=== PATIENT | female | born 1940 | race Caucasian/White ===

== ENCOUNTER 2016-05-11 12:01 | Emergency (ER) | payer MEDICARE, OTHER ==
[2016-05-11 12:10] VITALS: TEMP 97.8
[2016-05-11 13:24] VITALS: RESP 18
[2016-05-11 13:26] LABS: Basophils % (A) 1 %; Eosinophils # (A) 0.1 k/uL (0-0.7); Eosinophils % (A) 2 %; HCT 41.3 % (34.0-46.0); HDW 2.73; Luc # (Auto) 0.08; Luc % (Auto) 2; Lymphocytes % (A) 28 %; MCH 29.6 pg (25.0-35.0); MCHC 31.3 g/dL (31.0-37.0); MCV 94.3 fL (80.0-100.0); Mean Platelet Volume 8.3; Monocytes # (A) 0.2 k/uL (0-1.0); Monocytes % (A) 5 %; Neutrophils # (A) 2.3 k/uL (1.3-7.7); Neutrophils % (A) 62 %; RBC 4.38 m/uL (3.80-5.40); RDW 14.2 % (11.5-15.5); WBC 3.8 k/uL (3.8-10.6); WBC (Perox) 3.87
--- NOTE | 2016-05-11 13:26 | XR ---
EXAMINATION TYPE: XR chest 1V portable DATE OF EXAM: 05/11/2016 1:22 PM COMPARISON: 10/29/2012 HISTORY: Chest pain TECHNIQUE: Single frontal view of the chest is obtained. FINDINGS: Heart and mediastinum are normal. Lungs are clear. Diaphragm is normal. There are chest le ads. Bony thorax is intact. IMPRESSION: Normal chest. No change.
[2016-05-11 13:36] LABS: INR 1.3 (<1.1); Partial Thromboplastin Time 42.5 sec (22.0-30.0); Prothrombin Time 12.9 sec (9.0-12.0)
[2016-05-11 13:40] LABS: Appearance,Urine Clear (Clear); Bilirubin,Urine Negative (Negative); Glucose,Urine (UA) Negative (Negative); Ketones,Urine Negative (Negative); Leukocyte Esterase,Urine Negative (Negative); Nitrite,Urine Negative (Negative); PH, Urine 7.5 (5.0-8.0); Protein,Urine Negative (Negative); Specific Gravity,Urine 1.003 (1.001-1.035); UA Billing (MACRO vs. MICRO) CHEM; Urobilinogen,Urine <2.0 mg/dL (<2.0)
[2016-05-11 13:41] LABS: ALT 49 U/L (9-52); AST 33 U/L (14-36); Alkaline Phosphatase 72 U/L (38-126); Amylase 39 U/L (30-110); Anion Gap 9 mmol/L; Blood Urea Nitrogen 12 mg/dL (7-17); Calcium 9.2 mg/dL (8.4-10.2); Carbon Dioxide 29 mmol/L (22-30); Chloride 103 mmol/L (98-107); Glucose 110 mg/dL (74-99); Magnesium 1.8 mg/dL (1.6-2.3); Non-African American GFR(MDRD) 54 (>60 ml/min/1.73 sqM); Sodium 141 mmol/L (137-145); Total Bilirubin 0.7 mg/dL (0.2-1.3); Total Protein 7.1 g/dL (6.3-8.2)
[2016-05-11 13:52] LABS: Creatine Kinase 51 U/L (30-135)
[2016-05-11 14:04] LABS: Creatine Kinase MB 0.6 ng/mL (0.0-2.4); Troponin I <0.012 ng/mL (0.000-0.034)
[2016-05-11] MEDS ORDERED: cloNIDine HCL 0.2 MG TAB PO STA (14:48)
--- NOTE | 2016-05-11 14:49 | ED ---
General Adult HPI - General Chief complaint: Recheck/Abnormal Lab/Rx Stated complaint: Hypertension Time Seen by Provider: 05/11/16 12:33 Source: patient Mode of arrival: ambulatory Limitations: no limitations - History of Present Illness Initial comments: Patient 75-year-old woman who presents with complaint that she had checked her blood pressure and found that it was elevated. Patient denying symptoms. No chest pain or shortness of breath. No headache or strokelike symptoms. No abdominal pain. Patient notes that her blood pressure 1 trending high lately. -: hour(s) Improves with: none Worsens with: none Associated Symptoms: denies other symptoms - Related Data Home Medications Medication Instructions Recorded Confirmed Gluc/Manfred-MSM#1/C/Rishabh/Alan/Bor 1 tab PO DAILY 09/01/14 05/11/16 [Glucosamine-Chondroitin Tablet] Multivit-Min/FA/Lycopene/Lut 1 tab PO DAILY 09/01/14 05/11/16 [Centrum Silver Tablet] traMADol HCl [Ultram] 50 mg PO Q6H PRN 09/01/14 05/11/16 Dabigatran [Pradaxa] 150 mg PO BID 09/06/14 05/11/16 Levothyroxine Sodium [Synthroid] 88 mcg PO DAILY 07/16/15 05/11/16 Losartan [Cozaar] 25 mg PO DAILY 03/03/16 05/11/16 Pravastatin Sodium [Pravachol] 40 mg PO HS 03/03/16 05/11/16 Vit C/E/Zn/Coppr/Lutein/Zeaxan 1 cap PO BID 03/03/16 05/11/16 [Preservision Areds 2 Softgel] Vitamin B Complex 1 cap PO DAILY 03/03/16 05/11/16 Cholecalciferol [Vitamin D3] 400 unit PO DAILY 05/11/16 05/11/16 Fluticasone Nasal [place] [Flonase 2 spr EA NOSTRIL DAILY PRN 05/11/16 05/11/16 Nasal [place]] Guaifenesin/Pseudoephedrne HCl 1 tab PO BID PRN 05/11/16 05/11/16 [Mucinex D ER 1,200-120 mg Tab] Previous Rx's Medication Instructions Recorded Hydrochlorothiazide 12.5 mg PO DAILY #14 capsule 05/11/16 Allergies Allergy/AdvReac Type Severity Reaction Status Date / Time Sulfa (Sulfonamide Allergy Unknown Verified 05/11/16 13:13 Antibiotics) Childhood atorvastatin calcium AdvReac Dizziness Verified 05/11/16 13:13 [From Lipitor] levofloxacin [From Levaquin] AdvReac joint pain Verified 05/11/16 13:13 Review of Systems ROS Statement: Those systems with pertinent positive or pertinent negative responses have been documented in the HPI. ROS Other: All systems not noted in ROS Statement are negative. Constitutional: Denies: fever, chills Eyes: Denies: vision change Respiratory: Denies: cough, dyspnea Cardiovascular: Denies: chest pain, palpitations, syncope Gastrointestinal: Denies: abdominal pain, vomiting Genitourinary: Denies: dysuria Musculoskeletal: Denies: back pain Neurological: Denies: headache, weakness, numbness, paresthesias Past Medical History Past Medical History: Atrial Fibrillation, Coronary Artery Disease (CAD), Hyperlipidemia, Hypertension Additional Past Medical History / Comment(s): cervical cancer. History of Any Multi-Drug Resistant Organisms: None Reported Past Surgical History: Cardiac Ablation, Heart Catheterization, Hysterectomy, Orthopedic Surgery Additional Past Surgical History / Comment(s): Asya cataracts, ORIF rt ankle, rt heel & asya eyelid lift. Past Anesthesia/Blood Transfusion Reactions: No Reported Reaction Past Psychological History: No Psychological Hx Reported Smoking Status: Former smoker Past Alcohol Use History: None Reported Additional Past Alcohol Use History / Comment(s): Quit smoking in 1990, smoked 1 PPD for 34 yrs. Past Drug Use History: None Reported - Past Family History Father Family Medical History: Cancer Additional Family Medical History / Comment(s): Throat General Exam Limitations: no limitations General appearance: alert, in no apparent distress Head exam: Present: atraumatic Respiratory exam: Present: normal lung sounds bilaterally. Absent: respiratory distress, wheezes, rales, rhonchi, stridor Cardiovascular Exam: Present: regular rate, normal rhythm, normal heart sounds. Absent: systolic murmur, diastolic murmur, rubs, gallop GI/Abdominal exam: Present: soft. Absent: distended, tenderness, guarding, rebound Extremities exam: Present: normal inspection, normal capillary refill. Absent: pedal edema, calf tenderness Back exam: Absent: CVA tenderness (R), CVA tenderness (L) Neurological exam: Present: alert, oriented X3, CN II-XII intact Skin exam: Present: warm, dry, intact, normal color. Absent: rash Course Vital Signs 05/11/16 05/11/16 05/11/16 12:06 12:34 12:46 Temperature 97.8 F Pulse Rate 59 L 58 L Pulse Rate [ 62 [employer] ] Respiratory 20 14 Rate Blood Pressure 231/93 222/98 O2 Sat by Pulse 97 98 Oximetry 05/11/16 05/11/16 05/11/16 13:17 15:05 15:40 Temperature Pulse Rate 53 L 62 50 L Pulse Rate [ [employer] ] Respiratory 18 18 18 Rate Blood Pressure 216/93 196/88 188/84 O2 Sat by Pulse 98 98 100 Oximetry Medical Decision Making - Lab Data Result diagrams: 05/11/16 12:45 05/11/16 12:45 Lab Results 05/11/16 05/11/16 05/11/16 Range/Units 12:45 12:45 12:45 WBC 3.8 (3.8-10.6) k/uL RBC 4.38 (3.80-5.40) m/uL Hgb 13.0 (11.4-16.0) gm/dL Hct 41.3 (34.0-46.0) % MCV 94.3 (80.0-100.0) fL MCH 29.6 (25.0-35.0) pg MCHC 31.3 (31.0-37.0) g/dL RDW 14.2 (11.5-15.5) % Plt Count 162 (150-450) k/uL Neutrophils % 62 % Lymphocytes % 28 % Monocytes % 5 % Eosinophils % 2 % Basophils % 1 % Neutrophils # 2.3 (1.3-7.7) k/uL Lymphocytes # 1.0 (1.0-4.8) k/uL Monocytes # 0.2 (0-1.0) k/uL Eosinophils # 0.1 (0-0.7) k/uL Basophils # 0.0 (0-0.2) k/uL PT (9.0-12.0) sec INR (<1.1) APTT (22.0-30.0) sec Sodium 141 (137-145) mmol/L Potassium 4.0 (3.5-5.1) mmol/L Chloride 103 (98-107) mmol/L Carbon Dioxide 29 (22-30) mmol/L Anion Gap 9 mmol/L BUN 12 (7-17) mg/dL Creatinine 1.00 (0.52-1.04) mg/dL Est GFR (MDRD) Af Amer >60 (>60 ml/min/1.73 sqM) Est GFR (MDRD) Non-Af 54 (>60 ml/min/1.73 sqM) Glucose 110 H (74-99) mg/dL Calcium 9.2 (8.4-10.2) mg/dL Magnesium 1.8 (1.6-2.3) mg/dL Total Bilirubin 0.7 (0.2-1.3) mg/dL AST 33 (14-36) U/L ALT 49 (9-52) U/L Alkaline Phosphatase 72 (38-126) U/L Total Creatine Kinase 51 (30-135) U/L CK-MB (CK-2) 0.6 (0.0-2.4) ng/mL CK-MB (CK-2) Rel Index 1.2 Troponin I <0.012 (0.000-0.034) ng/mL NT-Pro-B Natriuret Pep pg/mL Total Protein 7.1 (6.3-8.2) g/dL Albumin 4.2 (3.5-5.0) g/dL Amylase 39 (30-110) U/L Lipase 134 (23-300) U/L Urine Color Urine Appearance (Clear) Urine pH (5.0-8.0) Ur Specific [place] (1.001-1.035) Urine Protein (Negative) Urine Glucose (UA) (Negative) Urine Ketones (Negative) Urine Blood (Negative) Urine Nitrate (Negative) Urine Bilirubin (Negative) Urine Urobilinogen (<2.0) mg/dL Ur Leukocyte Esterase (Negative) 05/11/16 05/11/16 05/11/16 Range/Units 12:45 12:45 13:25 WBC (3.8-10.6) k/uL RBC (3.80-5.40) m/uL Hgb (11.4-16.0) gm/dL Hct (34.0-46.0) % MCV (80.0-100.0) fL MCH (25.0-35.0) pg MCHC (31.0-37.0) g/dL RDW (11.5-15.5) % Plt Count (150-450) k/uL Neutrophils % % Lymphocytes % % Monocytes % % Eosinophils % % Basophils % % Neutrophils # (1.3-7.7) k/uL Lymphocytes # (1.0-4.8) k/uL Monocytes # (0-1.0) k/uL Eosinophils # (0-0.7) k/uL Basophils # (0-0.2) k/uL PT 12.9 H (9.0-12.0) sec INR 1.3 (<1.1) APTT 42.5 H (22.0-30.0) sec Sodium (137-145) mmol/L Potassium (3.5-5.1) mmol/L Chloride (98-107) mmol/L Carbon Dioxide (22-30) mmol/L Anion Gap mmol/L BUN (7-17) mg/dL Creatinine (0.52-1.04) mg/dL Est GFR (MDRD) Af Amer (>60 ml/min/1.73 sqM) Est GFR (MDRD) Non-Af (>60 ml/min/1.73 sqM) Glucose (74-99) mg/dL Calcium (8.4-10.2) mg/dL Magnesium (1.6-2.3) mg/dL Total Bilirubin (0.2-1.3) mg/dL AST (14-36) U/L ALT (9-52) U/L Alkaline Phosphatase (38-126) U/L Total Creatine Kinase (30-135) U/L CK-MB (CK-2) (0.0-2.4) ng/mL CK-MB (CK-2) Rel Index Troponin I (0.000-0.034) ng/mL NT-Pro-B Natriuret Pep 353 pg/mL Total Protein (6.3-8.2) g/dL Albumin (3.5-5.0) g/dL Amylase (30-110) U/L Lipase (23-300) U/L Urine Color Light Yellow Urine Appearance Clear (Clear) Urine pH 7.5 (5.0-8.0) Ur Specific [place] 1.003 (1.001-1.035) Urine Protein Negative (Negative) Urine Glucose (UA) Negative (Negative) Urine Ketones Negative (Negative) Urine Blood Negative (Negative) Urine Nitrate Negative (Negative) Urine Bilirubin Negative (Negative) Urine Urobilinogen <2.0 (<2.0) mg/dL Ur Leukocyte Esterase Negative (Negative) Disposition Clinical Impression: Hypertension Disposition: HOME SELF-CARE Condition: Fair Instructions: Hypertension (ED) Prescriptions: Hydrochlorothiazide 12.5 mg PO DAILY #14 capsule Referrals: Maribell Garsia DO [Primary Care Provider] - 1-2 days
[2016-05-11 15:57] VITALS: BP 188/84; PULSE 50
== END 2016-05-11 15:50 | disposition home or self-care (01) ==
LOC: EC 12:01
DX: I10 Essential (primary) hypertension (principal); I25.10 Atherosclerotic heart disease of native coronary artery without angina pectoris; E78.5 Hyperlipidemia, unspecified; Z87.891 Personal history of nicotine dependence; Z95.5 Presence of coronary angioplasty implant and graft; Z79.51 Long term (current) use of inhaled steroids; Z79.01 Long term (current) use of anticoagulants; Z79.899 Other long term (current) drug therapy; Z85.41 Personal history of malignant neoplasm of cervix uteri; Z88.2 Allergy status to sulfonamides; Z88.8 Allergy status to other drugs, medicaments and biological substances
CPT/HCPCS: 36415; 71010; 80053; 81003; 82150; 82550; 82553; 83690; 83735; 83880; 84484; 85025; 85610; 85730; 93005; 99283

== ENCOUNTER → 2016-05-28 | Outpatient (CLI) | payer MEDICARE, OTHER ==
[2016-05-28 07:26] LABS: Blood Urea Nitrogen 17 mg/dL (7-17); Non-African American GFR(MDRD) 58 (>60 ml/min/1.73 sqM)
--- NOTE | 2016-05-28 08:37 | CT ---
EXAMINATION TYPE: CT chest w con DATE OF EXAM: 05/28/2016 7:52 AM COMPARISON: 11/02/2015 HISTORY: pulmonary nodule CT DLP: 270.3 mGycm, Automated exposure control for dose reduction was used. CONTRAST: Performed injected with 80 ml mL of Visipaque 320. TECHNIQUE: Axial images were obtained at 5 mm thick sections. Reconstructed images are reviewed on [employer] computer in the coronal plane. FINDINGS: Portion of the thyroid visualized is normal. Below the thyroid in the vocal cords within the right paratracheal region there is some deviation of soft tissue extending into the trachea. Series 3 image 6. Some external compression of the trachea at this level may be present. No stenosis is evident. Some subtle pneumonitis is at the right apex. Series 4 image 14 some pneumonitis changes in the anter ior right upper lobe. Series 4 image 18. Small bulla is within the posterior right lower lobe. This w as present on comparison. No enlarged mediastinal or hilar adenopathy is evident. The ascending aorta diameter at the level o f the main pulmonary artery is 3.0 cm. The main pulmonary artery diameter at the bifurcation is 2.[address] sections are obtained through the upper abdomen. Abdomen is essentially unremarkable. IMPRESSIONS: 1. Couple areas of pneumonitis within the right lung. These are nonspecific. A follow-up chest CT in 6 months could reevaluate this finding. 2. Bulla right lower lobe. 3. Suspect minimal external compression of the trachea on the right at the level of the thoracic inle t. This was present previously and is stable.
== END | disposition home or self-care (01) ==
LOC: RADCTMAIN 06:54
PROVIDERS: ATTEND Family Medicine
DX: J18.9 Pneumonia, unspecified organism (principal); J43.9 Emphysema, unspecified; R07.81 Pleurodynia; R91.1 Solitary pulmonary nodule
CPT/HCPCS: 82565; 84520; 71260; 36415; Q9967

== ENCOUNTER 2016-06-12 14:44 | Emergency (ER) | payer MEDICARE, OTHER ==
--- NOTE | 2016-06-12 15:35 | ED ---
Fall HPI - General Chief Complaint: Fall Stated Complaint: Slip/Fall/Head Time Seen by Provider: 06/12/16 15:25 Source: patient Mode of arrival: wheelchair - History of Present Illness Initial Comments: This is a 76 year old female who is currently taking per DACs who presents emergency Department after a fall. The patient was at [facility] and she stated she slipped on a mat on the floor. She fell forwards and hit the top of her head on one of the merritt registers. She fell to her knees. She did not hit her head on the ground. She denies any loss of consciousness. She was able to get up and ambulate. She states that she does have little bit of a headache however no photophobia. No nausea or vomiting. She has a little bit of discomfort in her right back when she twists. She denies any other injuries. He had no preceding symptoms. She felt a little bit lightheaded afterwards and states that her neck feels a little bit stiff. No other complaints. - Related Data Home Medications Medication Instructions Recorded Confirmed Multivit-Min/FA/Lycopene/Lut 1 tab PO DAILY 09/01/14 06/12/16 [Centrum Silver Tablet] traMADol HCl [Ultram] 50 mg PO Q6H PRN 09/01/14 06/12/16 Dabigatran [Pradaxa] 150 mg PO BID 09/06/14 06/12/16 Levothyroxine Sodium [Synthroid] 88 mcg PO DAILY 07/16/15 06/12/16 Losartan [Cozaar] 25 mg PO DAILY 03/03/16 06/12/16 Pravastatin Sodium [Pravachol] 40 mg PO HS 03/03/16 06/12/16 Vit C/E/Zn/Coppr/Lutein/Zeaxan 1 cap PO BID 03/03/16 06/12/16 [Preservision Areds 2 Softgel] Vitamin B Complex 1 cap PO DAILY 03/03/16 06/12/16 Fluticasone Nasal [place] [Flonase 2 spr EA NOSTRIL DAILY PRN 05/11/16 06/12/16 Nasal [place]] Guaifenesin/Pseudoephedrne HCl 1 tab PO BID PRN 05/11/16 06/12/16 [Mucinex D ER 1,200-120 mg Tab] Fish Oil/Dha/Epa [Fish Oil 1,200 1 cap PO DAILY 06/12/16 06/12/16 mg Fish Oil] Allergies Allergy/AdvReac Type Severity Reaction Status Date / Time Sulfa (Sulfonamide Allergy Unknown Verified 06/12/16 15:43 Antibiotics) Childhood atorvastatin calcium AdvReac Dizziness Verified 06/12/16 15:43 [From Lipitor] levofloxacin [From Levaquin] AdvReac joint pain Verified 06/12/16 15:43 Review of Systems ROS Statement: Those systems with pertinent positive or pertinent negative responses have been documented in the HPI. ROS Other: All systems not noted in ROS Statement are negative. Past Medical History Past Medical History: Atrial Fibrillation, Coronary Artery Disease (CAD), Hyperlipidemia, Hypertension Additional Past Medical History / Comment(s): cervical cancer. History of Any Multi-Drug Resistant Organisms: None Reported Past Surgical History: Cardiac Ablation, Heart Catheterization, Hysterectomy, Orthopedic Surgery Additional Past Surgical History / Comment(s): [place] cataracts, ORIF rt ankle, rt heel & [place] eyelid lift. Past Anesthesia/Blood Transfusion Reactions: No Reported Reaction Past Psychological History: No Psychological Hx Reported Smoking Status: Former smoker Past Alcohol Use History: None Reported Additional Past Alcohol Use History / Comment(s): Quit smoking in 1990, smoked 1 PPD for 34 yrs. Past Drug Use History: None Reported - Past Family History Father Family Medical History: Cancer Additional Family Medical History / Comment(s): Throat General Exam - General Exam Comments Initial Comments: Constitutional: Awake alert Appears comfortable Head: No cephalic with a 4 cm oval hematoma to the right parietal scalp, there is an abrasion to the right forehead Eyes: no conjunctival injection No scleral icterus EOMI Neck: No JVD Supple Heart: Regular rate rhythm normal S1-S2 no murmurs Lungs: Clear to auscultation bilaterally No wheezing No rales, no tenderness to palpation along the chest wall Abdomen: Soft nondistended nontender Extremities: Non edematous DP pulses intact Radial pulses intact, small bruise to the right upper arm however full range of motion Neuro: A&Ox3 cranial nerves II through XII are grossly intact, pupils are 4 mm and reactive bilaterally, no focal weakness in the extremities Psych: Appropriate mood and affect Limitations: no limitations Course Vital Signs 06/12/16 14:47 Temperature 97.8 F Pulse Rate 57 L Respiratory 20 Rate Blood Pressure 201/80 O2 Sat by Pulse 98 Oximetry Medical Decision Making - Medical Decision Making This is a 76 year old female who presents emergency Department after a fall and head injury. The patient did not require any pain medication while emergency department. CT of the head was unremarkable for any intracranial hemorrhage. No fracture seen on cervical spine CTs. I told the patient that she likely has suffered a mild concussion and the symptoms to be aware of. I told her to to return if she had worsening headache, intractable nausea or vomiting, or any neurologic symptoms. She stated she understood and agreed and was going to follow-up with her primary doctor. She can take Tylenol as needed for pain. All questions were answered. Disposition Clinical Impression: Head injury Disposition: HOME SELF-CARE Condition: Stable Instructions: Fall Prevention for Older Adults (ED) Referrals: Kesha Graham DO [Primary Care Provider] - 1-2 days
--- NOTE | 2016-06-12 16:15 | CT ---
EXAMINATION TYPE: CT brain cspine wo con DATE OF EXAM: 06/12/2016 4:07 PM COMPARISON: 10/29/2012 HISTORY: PT states of head and neck pain after fall injury. CT DLP: 337.6 mGycm Automated exposure control for dose reduction was used. TECHNIQUE: CT scan of the head and cervical spine are performed without contrast. FINDINGS: There is no acute intracranial hemorrhage, mass effect, or midline shift identified. Mild generalized degenerative change seen. Hyperostosis frontalis internal noted. Atherosclerotic change of the vasculature There is a 2 mm anterior subluxation of C3 relative to C4 there is multilevel degenerative disc disea se and facet arthropathy with multilevel foraminal encroachment. No compression deformities. Odontoid intact. Emphysematous changes involving the lung apices noted. IMPRESSION: 1. There is no acute fracture or dislocation evident in the cervical spine. Multilevel degenerative d isc disease seen with 2 mm anterolisthesis of C3 on C4. Follow-up MRI recommended. 2. No acute intracranial hemorrhage, mass effect, or midline shift is seen.
--- NOTE | 2016-06-12 16:16 | XR ---
EXAMINATION TYPE: XR chest 2V DATE OF EXAM: 06/12/2016 4:10 PM COMPARISON: 05/11/2016 TECHNIQUE: PA and lateral views submitted. HISTORY: Chest pain FINDINGS: The lungs are clear and there is no pneumothorax, pleural effusion, or focal pneumonia. Arthropathy of the AC joints noted. Hypertrophic and degenerative change of the spine. IMPRESSION: 1. No acute process.
[2016-06-12 16:31] VITALS: BP 188/79; PULSE 59; RESP 16; TEMP 87.5
== END 2016-06-12 16:30 | disposition home or self-care (01) ==
LOC: EC 14:44
DX: S00.03XA Contusion of scalp, initial encounter (principal); S40.021A Contusion of right upper arm, initial encounter; M50.30 Other cervical disc degeneration, unspecified cervical region; M43.12 Spondylolisthesis, cervical region; I48.91 Unspecified atrial fibrillation; I25.10 Atherosclerotic heart disease of native coronary artery without angina pectoris; E78.5 Hyperlipidemia, unspecified; I10 Essential (primary) hypertension; Z85.41 Personal history of malignant neoplasm of cervix uteri; Z87.891 Personal history of nicotine dependence; Z87.720 Personal history of (corrected) congenital malformations of eye; Z95.818 Presence of other cardiac implants and grafts; Z79.899 Other long term (current) drug therapy; Z88.2 Allergy status to sulfonamides; Z88.8 Allergy status to other drugs, medicaments and biological substances; Z88.1 Allergy status to other antibiotic agents; W01.198A Fall on same level from slipping, tripping and stumbling with subsequent striking against other object, initial encounter; Y92.59 Other trade areas as the place of occurrence of the external cause
CPT/HCPCS: 70450; 71020; 72125; 99284

== ENCOUNTER 2016-11-04 21:23 | Inpatient (IN) | payer MEDICARE, OTHER ==
[2016-11-04] MEDS ORDERED: HYDROcodone/APAP 5-325MG 1 EACH TAB PO STA (21:54)
[2016-11-04] MEDS ORDERED: SODIUM CHLORIDE 0.9% 500 ML IV ONE (21:55)
[2016-11-04 22:14] LABS: Basophils % (A) 0 %; CH 31.8; CHCM 33.3; Eosinophils # (A) 0.2 k/uL (0-0.7); Eosinophils % (A) 2 %; HCT 40.7 % (34.0-46.0); HDW 2.59; HGB 13.5 gm/dL (11.4-16.0); Luc # (Auto) 0.04; Luc % (Auto) 0; Lymphocytes # (A) 0.5 k/uL (1.0-4.8); Lymphocytes % (A) 5 %; MCH 31.9 pg (25.0-35.0); MCHC 33.3 g/dL (31.0-37.0); Mean Platelet Volume 8.2; Monocytes # (A) 0.3 k/uL (0-1.0); Monocytes % (A) 3 %; Neutrophils # (A) 9.7 k/uL (1.3-7.7); Neutrophils % (A) 90 %; RBC 4.24 m/uL (3.80-5.40); RDW 14.1 % (11.5-15.5); WBC 10.7 k/uL (3.8-10.6); WBC (Perox) 10.27
[2016-11-04 22:26] LABS: ALT 39 U/L (9-52); AST 29 U/L (14-36); Alkaline Phosphatase 75 U/L (38-126); Anion Gap 7 mmol/L; Blood Urea Nitrogen 16 mg/dL (7-17); Calcium 8.8 mg/dL (8.4-10.2); Carbon Dioxide 28 mmol/L (22-30); Chloride 97 mmol/L (98-107); Glucose 101 mg/dL (74-99); INR 1.1 (<1.2); Magnesium 1.8 mg/dL (1.6-2.3); Non-African American GFR(MDRD) 50 (>60 ml/min/1.73 sqM); Partial Thromboplastin Time 34.6 sec (22.0-30.0); Phosphorous 3.2 mg/dL (2.5-4.5); Potassium 3.5 mmol/L (3.5-5.1); Prothrombin Time 11.5 sec (9.0-12.0); Sodium 132 mmol/L (137-145); Total Bilirubin 0.8 mg/dL (0.2-1.3); Total Protein 6.2 g/dL (6.3-8.2)
[2016-11-04 22:29] LABS: Appearance,Urine Clear (Clear); Bilirubin,Urine Negative (Negative); Glucose,Urine (UA) Negative (Negative); Ketones,Urine 1+ (Negative); Leukocyte Esterase,Urine Negative (Negative); Nitrite,Urine Negative (Negative); PH, Urine 5.5 (5.0-8.0); Protein,Urine Negative (Negative); Specific Gravity,Urine 1.008 (1.001-1.035); UA Billing (MACRO vs. MICRO) CHEM; Urobilinogen,Urine <2.0 mg/dL (<2.0)
[2016-11-04 22:35] LABS: Creatine Kinase 33 U/L (30-135)
[2016-11-04 22:47] LABS: Creatine Kinase MB 0.4 ng/mL (0.0-2.4); Troponin I <0.012 ng/mL (0.000-0.034)
[2016-11-04] MEDS: SODIUM CHLORIDE 0.9% 1,000 ML IV SCH (23:03)
--- NOTE | 2016-11-04 23:17 | XR ---
EXAM: XR Chest, 2 Views CLINICAL HISTORY: Weakness. TECHNIQUE: Frontal and lateral views of the chest. COMPARISON: Chest radiograph dated 06/12/16. FINDINGS: Lungs: Trace opacity at the left lung base, favoring subsegmental atelectasis. Otherwise clear lungs. Pleural space: No significant pleural effusion. No pneumothorax. Heart: Normal cardiac silhouette. Mediastinum: Unremarkable. IMPRESSION: 1. Trace opacity at the left lung base, favoring subsegmental atelectasis. 2. Otherwise, no significant interval change.
--- NOTE | 2016-11-04 23:48 | CT ---
EXAM: CT Head Without Intravenous Contrast CLINICAL HISTORY: Weakness. TECHNIQUE: Axial computed tomography images of the head/brain without intravenous contrast. Coronal and sagittal reformatted images were created and reviewed. CTDIvol is 60.30 mGy and DLP is 1002.[address] exam was performed using one or more of the following dose reduction techniques: automated exposure control, adjustment of the mA and/or kV according to patient size, and/or use of iterative reconstruction technique. COMPARISON: CT head dated 06/12/2016. FINDINGS: Brain: No acute intracranial hemorrhage, mass effect, midline shift or herniation. There are mild periventricular white matter hypodensities which are nonspecific but most likely represent chronic microangiopathic change. Ventricles: No ventriculomegaly. Bones/joints: Incidental hyperostosis frontalis interna. No acute fracture. Soft tissues: Unremarkable. Sinuses: Trace paranasal sinus and. No acute sinusitis. Mastoid air cells: Unremarkable as visualized. No mastoid effusion. IMPRESSION: No acute findings. No significant interval change.
[2016-11-05] MEDS ORDERED: NALOXONE 0.4 MG/ML 1 ML VIAL IV PRN (00:10)
[2016-11-05] MEDS ORDERED: ACETAMINOPHEN TAB 325 MG TAB PO PRN (00:10)
--- NOTE | 2016-11-05 00:22 | ED ---
General Adult HPI - General Chief complaint: Weakness Stated complaint: Vomiting/headache - Cardiac Pt Time Seen by Provider: 11/04/16 21:43 Source: patient, family, RN notes reviewed Mode of arrival: wheelchair Limitations: no limitations - History of Present Illness Initial comments: 76 yo female with history of hypothyroidism, A. fib, hypertension presents with a three-day history of generalized weakness and fatigue. She also reports is a left-sided headache. No recent trauma, however she does states she had left- sided head trauma approximately 3 months ago. She also reports a fever at home of 100.3 with chills and Reiger's. She was recently diagnosed with a urinary tract infection several days ago and started on Macrobid. She had one episode of nausea and vomiting. Denies diarrhea. Denies abdominal pain. Her last bowel movement was today. She states she did have some blood in her urine prior to the diagnosis of urinary tract infection. She denies current dysuria. She recently had her blood pressure medication increased about 3 days ago. - Related Data Home Medications Medication Instructions Recorded Confirmed Multivit-Min/FA/Lycopene/Lut 1 tab PO DAILY 09/01/14 11/04/16 [Centrum Silver Tablet] traMADol HCl [Ultram] 50 mg PO Q6H PRN 09/01/14 11/04/16 Dabigatran [Pradaxa] 150 mg PO BID 09/06/14 11/04/16 Pravastatin Sodium [Pravachol] 40 mg PO HS 03/03/16 11/04/16 Vitamin B Complex 1 cap PO DAILY 03/03/16 11/04/16 Fluticasone Nasal [place] [Flonase 2 spr EA NOSTRIL DAILY PRN 05/11/16 11/04/16 Nasal [place]] Guaifenesin/Pseudoephedrne HCl 1 tab PO BID PRN 05/11/16 11/04/16 [Mucinex D ER 1,200-120 mg Tab] Cartilage/Collagen/Bor/Hyalur 1 tab PO DAILY 11/04/16 11/04/16 [Move Free Ultra Tablet] Cetirizine HCl [Zyrtec] 10 mg PO HS 11/04/16 11/04/16 Flecainide [Tambocor] 50 mg PO BID 11/04/16 11/04/16 Levothyroxine Sodium [Synthroid] 100 mcg PO DAILY 11/04/16 11/04/16 Losartan Potassium [Cozaar] 100 mg PO DAILY 11/04/16 11/04/16 Vit A/Vit C/Vit E/Zinc/Copper 1 cap PO BID 11/04/16 11/04/16 [ICAPS SOFTGEL] Vitamin D3 500iu 500 units PO BID 11/04/16 11/04/16 Allergies Allergy/AdvReac Type Severity Reaction Status Date / Time Sulfa (Sulfonamide Allergy Unknown Verified 11/04/16 22:02 Antibiotics) Childhood atorvastatin calcium AdvReac Dizziness Verified 11/04/16 22:02 [From Lipitor] levofloxacin [From Levaquin] AdvReac joint pain Verified 11/04/16 22:02 Review of Systems ROS Statement: Those systems with pertinent positive or pertinent negative responses have been documented in the HPI. ROS Other: All systems not noted in ROS Statement are negative. Past Medical History Past Medical History: Atrial Fibrillation, Coronary Artery Disease (CAD), Hyperlipidemia, Hypertension Additional Past Medical History / Comment(s): cervical cancer. History of Any Multi-Drug Resistant Organisms: None Reported Past Surgical History: Cardiac Ablation, Heart Catheterization, Hysterectomy, Orthopedic Surgery Additional Past Surgical History / Comment(s): [place] cataracts, ORIF rt ankle, rt heel & [place] eyelid lift. Past Anesthesia/Blood Transfusion Reactions: No Reported Reaction Past Psychological History: No Psychological Hx Reported Smoking Status: Former smoker Past Alcohol Use History: None Reported Past Drug Use History: None Reported - Past Family History Father Family Medical History: Cancer Additional Family Medical History / Comment(s): Throat General Exam Limitations: no limitations General appearance: alert, in no apparent distress Head exam: Present: atraumatic, normocephalic Eye exam: Present: normal appearance, PERRL. Absent: scleral icterus ENT exam: Present: normal exam, mucous membranes dry Neck exam: Present: normal inspection. Absent: meningismus Respiratory exam: Present: normal lung sounds bilaterally. Absent: respiratory distress, wheezes Cardiovascular Exam: Present: regular rate, normal rhythm GI/Abdominal exam: Present: soft. Absent: distended, tenderness Extremities exam: Present: normal inspection, normal capillary refill. Absent: pedal edema Neurological exam: Present: alert, oriented X3, CN II-XII intact. Absent: motor sensory deficit Psychiatric exam: Present: normal affect, normal mood Skin exam: Present: warm, dry. Absent: cyanosis, diaphoretic Course Vital Signs 11/04/16 11/04/16 11/04/16 21:34 21:48 22:21 Temperature 98.3 F 98.6 F Pulse Rate 73 84 82 Respiratory 18 18 18 Rate Blood Pressure 187/78 191/80 182/74 O2 Sat by Pulse 99 98 97 Oximetry 11/04/16 23:07 Temperature 98.9 F Pulse Rate 83 Respiratory 18 Rate Blood Pressure 145/66 O2 Sat by Pulse 100 Oximetry - Reevaluation(s) Reevaluation #1: 11/05/16 00:17 On reevaluation patient continues to have left-sided headache, however she is refusing pain medication. EKG Findings - EKG Comments: EKG Findings:: EKG shows normal sinus rhythm with a ventricular rate is 79, W[place] interval 184, QRS duration 100, QTC [address] segment elevation or depression Medical Decision Making - Medical Decision Making 76 yo female presenting with generalized weakness, fever, right ribs and chills and one episode of vomiting. She was recently diagnosed with UTI. Chest x-ray shows some mild atelectasis, no focal pneumonia. CT head was obtained for left- sided headache on Pradaxa with no sign of intracranial hemorrhage. Laboratory studies revealed a mild elevated white blood cell count at 10.7, urinalysis is negative for signs of infection, there is ketones suggesting dehydration, and the patient is currently on Macrobid for UTI. Even her history of fever chills and Lit's there is concern for sepsis, or underlying bacteremia. Patient's vital signs do not point toward sepsis at this time, and urinalysis is negative. Patient does still appear to be dehydrated, she will be placed in observation for fluid hydration, antibiotics will be continued for urinary tract infection. Urine culture and blood cultures are pending. Serum creatinine is 1.07, sodium is 132. Patient will be admitted for IV hydration and reevaluation. Diagnosis: dehydration, UTI - Lab Data Result diagrams: 11/04/16 21:58 11/04/16 21:58 Lab Results 11/04/16 11/04/16 11/04/16 Range/Units 21:58 21:58 21:58 WBC 10.7 H (3.8-10.6) k/uL RBC 4.24 (3.80-5.40) m/uL Hgb 13.5 (11.4-16.0) gm/dL Hct 40.7 (34.0-46.0) % MCV 96.0 (80.0-100.0) fL MCH 31.9 (25.0-35.0) pg MCHC 33.3 (31.0-37.0) g/dL RDW 14.1 (11.5-15.5) % Plt Count 193 (150-450) k/uL Neutrophils % 90 % Lymphocytes % 5 % Monocytes % 3 % Eosinophils % 2 % Basophils % 0 % Neutrophils # 9.7 H (1.3-7.7) k/uL Lymphocytes # 0.5 L (1.0-4.8) k/uL Monocytes # 0.3 (0-1.0) k/uL Eosinophils # 0.2 (0-0.7) k/uL Basophils # 0.0 (0-0.2) k/uL PT (9.0-12.0) sec INR (<1.2) APTT (22.0-30.0) sec Sodium 132 L (137-145) mmol/L Potassium 3.5 (3.5-5.1) mmol/L Chloride 97 L (98-107) mmol/L Carbon Dioxide 28 (22-30) mmol/L Anion Gap 7 mmol/L BUN 16 (7-17) mg/dL Creatinine 1.07 H (0.52-1.04) mg/dL Est GFR (MDRD) Af Amer >60 (>60 ml/min/1.73 sqM) Est GFR (MDRD) Non-Af 50 (>60 ml/min/1.73 sqM) Glucose 101 H (74-99) mg/dL Plasma Lactic Acid [place] (0.7-2.0) mmol/L Calcium 8.8 (8.4-10.2) mg/dL Phosphorus 3.2 (2.5-4.5) mg/dL Magnesium 1.8 (1.6-2.3) mg/dL Total Bilirubin 0.8 (0.2-1.3) mg/dL AST 29 (14-36) U/L ALT 39 (9-52) U/L Alkaline Phosphatase 75 (38-126) U/L Total Creatine Kinase 33 (30-135) U/L CK-MB (CK-2) 0.4 (0.0-2.4) ng/mL CK-MB (CK-2) Rel Index 1.2 Troponin I <0.012 (0.000-0.034) ng/mL Total Protein 6.2 L (6.3-8.2) g/dL Albumin 3.9 (3.5-5.0) g/dL TSH 1.050 (0.465-4.680) mIU/L Urine Color Urine Appearance (Clear) Urine pH (5.0-8.0) Ur Specific [place] (1.001-1.035) Urine Protein (Negative) Urine Glucose (UA) (Negative) Urine Ketones (Negative) Urine Blood (Negative) Urine Nitrite (Negative) Urine Bilirubin (Negative) Urine Urobilinogen (<2.0) mg/dL Ur Leukocyte Esterase (Negative) 11/04/16 11/04/16 11/04/16 Range/Units 21:58 21:58 22:18 WBC (3.8-10.6) k/uL RBC (3.80-5.40) m/uL Hgb (11.4-16.0) gm/dL Hct (34.0-46.0) % MCV (80.0-100.0) fL MCH (25.0-35.0) pg MCHC (31.0-37.0) g/dL RDW (11.5-15.5) % Plt Count (150-450) k/uL Neutrophils % % Lymphocytes % % Monocytes % % Eosinophils % % Basophils % % Neutrophils # (1.3-7.7) k/uL Lymphocytes # (1.0-4.8) k/uL Monocytes # (0-1.0) k/uL Eosinophils # (0-0.7) k/uL Basophils # (0-0.2) k/uL PT 11.5 (9.0-12.0) sec INR 1.1 (<1.2) APTT 34.6 H (22.0-30.0) sec Sodium (137-145) mmol/L Potassium (3.5-5.1) mmol/L Chloride (98-107) mmol/L Carbon Dioxide (22-30) mmol/L Anion Gap mmol/L BUN (7-17) mg/dL Creatinine (0.52-1.04) mg/dL Est GFR (MDRD) Af Amer (>60 ml/min/1.73 sqM) Est GFR (MDRD) Non-Af (>60 ml/min/1.73 sqM) Glucose (74-99) mg/dL Plasma Lactic Acid Loyd 0.7 (0.7-2.0) mmol/L Calcium (8.4-10.2) mg/dL Phosphorus (2.5-4.5) mg/dL Magnesium (1.6-2.3) mg/dL Total Bilirubin (0.2-1.3) mg/dL AST (14-36) U/L ALT (9-52) U/L Alkaline Phosphatase (38-126) U/L Total Creatine Kinase (30-135) U/L CK-MB (CK-2) (0.0-2.4) ng/mL CK-MB (CK-2) Rel Index Troponin I (0.000-0.034) ng/mL Total Protein (6.3-8.2) g/dL Albumin (3.5-5.0) g/dL TSH (0.465-4.680) mIU/L Urine Color Yellow Urine Appearance Clear (Clear) Urine pH 5.5 (5.0-8.0) Ur Specific [place] 1.008 (1.001-1.035) Urine Protein Negative (Negative) Urine Glucose (UA) Negative (Negative) Urine Ketones 1+ H (Negative) Urine Blood Negative (Negative) Urine Nitrite Negative (Negative) Urine Bilirubin Negative (Negative) Urine Urobilinogen <2.0 (<2.0) mg/dL Ur Leukocyte Esterase Negative (Negative) Disposition Clinical Impression: Dehydration, Hyponatremia, UTI (urinary tract infection) Disposition: ADMITTED IP TO THIS [facility] Condition: Stable Referrals: Kesha Graham DO [Primary Care Provider] - 1-2 days Time of Disposition: 00:00 Decision to Admit Reason: Admit from EC Decision Date: 11/05/16 Decision Time: 00:00
[2016-11-05] MEDS ORDERED: FLUTICASONE 50MCG/SPRAY NASAL 16GM EA NOSTRIL PRN (07:03)
[2016-11-05] MEDS ORDERED: traMADol 50 MG TAB PO PRN (07:03)
[2016-11-05 08:14] VITALS: PULSE 67; RESP 16
[2016-11-05] MEDS ORDERED: VIT A,C & E-LUTEIN-MINERALS 1 EACH TAB PO SCH (09:00)
[2016-11-05] MEDS ORDERED: LOSARTAN 50 MG TAB PO SCH (09:00)
[2016-11-05] MEDS ORDERED: B COMPLEX-VIT C-VIT E-ZINC 1 EACH TAB PO SCH (09:00)
[2016-11-05] MEDS ORDERED: DABIGATRAN 150 MG CAP PO SCH (09:00)
[2016-11-05] MEDS ORDERED: CHOLECALCIFEROL 400 UNIT TAB PO SCH (09:00)
[2016-11-05] MEDS ORDERED: [UNRECOGNIZED DRUG - REMARK] PO SCH (09:00)
[2016-11-05] MEDS ORDERED: FLECAINIDE 50 MG TAB PO SCH (09:00)
--- NOTE | 2016-11-05 09:50 | P.HPIM ---
History of Present Illness H&P Date: 11/05/16 Chief Complaint: Severe headache dehydration Patient is a 76-year-old female who presented to [facility] emergency room with the chief complaint of severe headache in the back of her head. She also had a febrile illness with low-grade fever and chills. She was evaluated in the emergency room, she has known history of atrial fibrillation and is maintained on Pradaxa. Computed tomography scan of the brain was done in the emergency room and there was no evidence of any intracranial bleeding. Patient is being treated by her primary care physician for a urinary tract infection with Macrobid, she had evidence of dehydration on presentation was positive ketones and hyponatremia, she was admitted for hydration and monitoring. Chest x-ray was done in the emergency room and did not reveal any evidence of pneumonia. She was started on IV fluid and IV Rocephin 1 g every 24 hours and was admitted to medical floor. Past Medical History Past Medical History: Atrial Fibrillation, Coronary Artery Disease (CAD), Hyperlipidemia, Hypertension Additional Past Medical History / Comment(s): cervical cancer. History of Any Multi-Drug Resistant Organisms: None Reported Past Surgical History: Cardiac Ablation, Heart Catheterization, Hysterectomy, Orthopedic Surgery Additional Past Surgical History / Comment(s): [place] cataracts, ORIF rt ankle, rt heel & [place] eyelid lift. Past Anesthesia/Blood Transfusion Reactions: No Reported Reaction Past Psychological History: No Psychological Hx Reported Smoking Status: Former smoker Past Alcohol Use History: None Reported Additional Past Alcohol Use History / Comment(s): Quit smoking in 1990, smoked 1 PPD for 34 yrs. Past Drug Use History: None Reported - Past Family History Father Family Medical History: Cancer Additional Family Medical History / Comment(s): Throat Medications and Allergies Home Medications Medication Instructions Recorded Confirmed Type Multivit-Min/FA/Lycopene/Lut 1 tab PO DAILY 09/01/14 11/04/16 History [Centrum Silver Tablet] traMADol HCl [Ultram] 50 mg PO Q6H PRN 09/01/14 11/04/16 History Dabigatran [Pradaxa] 150 mg PO BID 09/06/14 11/04/16 History Pravastatin Sodium [Pravachol] 40 mg PO HS 03/03/16 11/04/16 History Vitamin B Complex 1 cap PO DAILY 03/03/16 11/04/16 History Fluticasone Nasal [place] [Flonase 2 spr EA NOSTRIL DAILY PRN 05/11/16 11/05/16 History Nasal [place]] Cartilage/Collagen/Bor/Hyalur 1 tab PO DAILY 11/04/16 11/04/16 History [Move Free Ultra Tablet] Cetirizine HCl [Zyrtec] 10 mg PO HS 11/04/16 11/04/16 History Flecainide [Tambocor] 50 mg PO BID 11/04/16 11/04/16 History Levothyroxine Sodium [Synthroid] 100 mcg PO DAILY 11/04/16 11/04/16 History Losartan Potassium [Cozaar] 100 mg PO DAILY 11/04/16 11/04/16 History Vit A/Vit C/Vit E/Zinc/Copper 1 cap PO BID 11/04/16 11/04/16 History [ICAPS SOFTGEL] Vitamin D3 500iu 500 units PO BID 11/04/16 11/04/16 History Allergies Allergy/AdvReac Type Severity Reaction Status Date / Time Sulfa (Sulfonamide Allergy Unknown Verified 11/04/16 22:02 Antibiotics) Childhood atorvastatin calcium AdvReac Dizziness Verified 11/04/16 22:02 [From Lipitor] levofloxacin [From Levaquin] AdvReac joint pain Verified 11/04/16 22:02 Physical Exam Vitals: Vital Signs Temp Pulse Pulse Resp BP BP Pulse Ox 11/05/16 07:00 98.3 F 67 16 108/53 97 11/05/16 02:58 98.7 F 11/05/16 02:51 99.7 F H 92 18 163/71 96 11/05/16 01:01 99.0 F 84 18 164/71 99 11/04/16 23:07 98.9 F 83 18 145/66 100 11/04/16 22:21 82 18 182/74 97 11/04/16 21:48 98.6 F 84 18 191/80 98 11/04/16 21:34 98.3 F 73 18 187/78 99 Intake and Output 11/04/16 11/05/16 11/05/16 22:59 06:59 14:59 Other: # Voids 3 Weight 81.647 kg In general patient is alert and oriented 3 in no apparent distress HEENT head normocephalic and atraumatic Neck is supple no JVD no goiter no lymphadenopathy Chest exam is clear to auscultation no crackles no wheezing Cardiac exam reveals regular heart sounds S1 and S2 no gallops no murmurs Abdomen is soft nontender no organomegaly with normal bowel sounds Extremity exam reveals no edema no cyanosis or clubbing Results CBC & Chem 7: 11/04/16 21:58 11/04/16 21:58 Labs: Abnormal Lab Results - Last 24 Hours (Table) 11/04/16 11/04/16 11/04/16 Range/Units 21:58 21:58 21:58 WBC 10.7 H (3.8-10.6) k/uL Neutrophils # 9.7 H (1.3-7.7) k/uL Lymphocytes # 0.5 L (1.0-4.8) k/uL APTT 34.6 H (22.0-30.0) sec Sodium 132 L (137-145) mmol/L Chloride 97 L (98-107) mmol/L Creatinine 1.07 H (0.52-1.04) mg/dL Glucose 101 H (74-99) mg/dL Total Protein 6.2 L (6.3-8.2) g/dL Urine Ketones (Negative) 11/04/16 Range/Units 22:18 WBC (3.8-10.6) k/uL Neutrophils # (1.3-7.7) k/uL Lymphocytes # (1.0-4.8) k/uL APTT (22.0-30.0) sec Sodium (137-145) mmol/L Chloride (98-107) mmol/L Creatinine (0.52-1.04) mg/dL Glucose (74-99) mg/dL Total Protein (6.3-8.2) g/dL Urine Ketones 1+ H (Negative) Thrombosis Risk Factor Assmnt - Choose All That Apply Any of the Below Risk Factors Present?: No Other Risk Factors: Yes Each Risk Factor Represents 3 Points: Age 75 years or older Other congenital or acquired thrombophilia - If yes, enter type in comment: No Thrombosis Risk Factor Assessment Total Risk Factor Score: 3 Thrombosis Risk Factor Assessment Level: Moderate Risk Assessment and Plan Plan: #1 dehydration, hyponatremia and positive ketones, has been maintained on IV fluid normal saline at 75 mL an hour and is improving #2 severe occipital headache cause is unclear may be related to dehydration computed tomography scan of the brain did not reveal any evidence of intracranial bleeding headache has improved since admission but has not resolved yet, will monitor. #3 UTI treated as outpatient with Macrobid at this time Macrobid has been discontinued and patient was given a dose of IV Rocephin, urine analysis is clear at this point #4 hyperlipidemia maintained on Pravachol continue #5 febrile illness, with chills, improving will monitor continue with IV Rocephin, likely related to urinary tract infection #6 hypothyroidism maintained on levothyroxine 100 g daily continue, with check TSH #7 underlying history of atrial fibrillation heart rate is well-controlled continue Tambocor, continue Pradaxa for stroke prevention Will follow during this admission for medical management patient has improved significantly since admission.
[2016-11-05 10:22] LABS: Basophils % (A) 0 %; CH 31.2; CHCM 32.4; Eosinophils # (A) 0.2 k/uL (0-0.7); Eosinophils % (A) 3 %; HDW 2.55; Luc # (Auto) 0.07; Luc % (Auto) 1; Lymphocytes # (A) 0.5 k/uL (1.0-4.8); Lymphocytes % (A) 5 %; MCH 32.1 pg (25.0-35.0); MCHC 33.2 g/dL (31.0-37.0); MCV 96.7 fL (80.0-100.0); Mean Platelet Volume 8.1; Monocytes # (A) 0.3 k/uL (0-1.0); Monocytes % (A) 4 %; Neutrophils % (A) 88 %; RBC 3.72 m/uL (3.80-5.40); RDW 13.5 % (11.5-15.5); WBC 9.1 k/uL (3.8-10.6); WBC (Perox) 9.46
[2016-11-05 10:46] LABS: ALT 26 U/L (9-52); AST 24 U/L (14-36); Alkaline Phosphatase 57 U/L (38-126); Anion Gap 6 mmol/L; Blood Urea Nitrogen 12 mg/dL (7-17); Calcium 8.1 mg/dL (8.4-10.2); Carbon Dioxide 28 mmol/L (22-30); Chloride 100 mmol/L (98-107); Glucose 115 mg/dL (74-99); Non-African American GFR(MDRD) >60 (>60 ml/min/1.73 sqM); Potassium 3.6 mmol/L (3.5-5.1); Sodium 134 mmol/L (137-145); Total Bilirubin 0.5 mg/dL (0.2-1.3); Total Protein 5.2 g/dL (6.3-8.2)
[2016-11-05] MEDS ORDERED: MULTIVITAMINS, THERA 1 EACH TAB PO SCH (12:00)
[2016-11-05] MEDS: SODIUM CHLORIDE 0.9% 1,000 ML IV SCH (12:47)
--- NOTE | 2016-11-05 17:14 | P.DS ---
Providers Date of admission: 11/05/16 15:39 Expected date of discharge: 11/05/16 Attending physician: Jorge Luis Justice Primary care physician: Kesha Graham [facility] Course: Diagnoses on discharge: #1 dehydration, hyponatremia and positive ketones, has been maintained on IV fluid normal saline at 75 mL an hour and is improving #2 severe occipital headache cause is unclear may be related to dehydration computed tomography scan of the brain did not reveal any evidence of intracranial bleeding headache has improved since admission but has not resolved yet, will monitor. #3 UTI treated as outpatient with Macrobid at this time Macrobid has been discontinued and patient was given a dose of IV Rocephin, urine analysis is clear at this point #4 hyperlipidemia maintained on Pravachol continue #5 febrile illness, with chills, improving will monitor continue with IV Rocephin, likely related to urinary tract infection #6 hypothyroidism maintained on levothyroxine 100 g daily continue, with check TSH #7 underlying history of atrial fibrillation heart rate is well-controlled continue Tambocor, continue Pradaxa for stroke prevention Hospital course: Patient is a 76-year-old female who presented to [facility] emergency room with the chief complaint of severe headache in the back of her head. She also had a febrile illness with low-grade fever and chills. She was evaluated in the emergency room, she has known history of atrial fibrillation and is maintained on Pradaxa. Computed tomography scan of the brain was done in the emergency room and there was no evidence of any intracranial bleeding. Patient is being treated by her primary care physician for a urinary tract infection with Macrobid, she had evidence of dehydration on presentation was positive ketones and hyponatremia, she was admitted for hydration and monitoring. Chest x-ray was done in the emergency room and did not reveal any evidence of pneumonia. She was started on IV fluid and IV Rocephin 1 g every 24 hours and was admitted to medical floor. Patient improved significantly repeat blood test revealed improvement in BUN and creatinine and increased sodium to 134 Patient felt much better she was requesting to be discharged home, she was discharged home on 11/05/2016 she will be followed by Dr. Graham her primary care physician within one week. No new prescriptions were given at the time of discharge Patient Condition at Discharge: Stable Plan - Discharge Summary New Discharge Prescriptions: New Acetaminophen Tab [Tylenol] 650 mg PO Q6HR PRN tab PRN Reason: Mild Pain Or Fever > 100.5 Continue traMADol HCl [Ultram] 50 mg PO Q6H PRN PRN Reason: Pain Multivit-Min/FA/Lycopene/Lut [Centrum Silver Tablet] 1 tab PO DAILY Dabigatran [Pradaxa] 150 mg PO BID Pravastatin Sodium [Pravachol] 40 mg PO HS Vitamin B Complex 1 cap PO DAILY Fluticasone Nasal [place] [Flonase Nasal [place]] 2 spr EA NOSTRIL DAILY PRN PRN Reason: Congestion Losartan Potassium [Cozaar] 100 mg PO DAILY Flecainide [Tambocor] 50 mg PO BID Vit A/Vit C/Vit E/Zinc/Copper [ICAPS SOFTGEL] 1 cap PO BID Levothyroxine Sodium [Synthroid] 100 mcg PO DAILY Cetirizine HCl [Zyrtec] 10 mg PO HS Vitamin D3 500iu 500 units PO BID Cartilage/Collagen/Bor/Hyalur [Move Free Ultra Tablet] 1 tab PO DAILY Discharge Medication List Multivit-Min/FA/Lycopene/Lut [Centrum Silver Tablet] 1 tab PO DAILY 09/01/14 [ History] traMADol HCl [Ultram] 50 mg PO Q6H PRN 09/01/14 [History] Dabigatran [Pradaxa] 150 mg PO BID 09/06/14 [History] Pravastatin Sodium [Pravachol] 40 mg PO HS 03/03/16 [History] Vitamin B Complex 1 cap PO DAILY 03/03/16 [History] Fluticasone Nasal [place] [Flonase Nasal [place]] 2 spr EA NOSTRIL DAILY PRN [History] Cartilage/Collagen/Bor/Hyalur [Move Free Ultra Tablet] 1 tab PO DAILY 11/04/16 [ History] Cetirizine HCl [Zyrtec] 10 mg PO HS 11/04/16 [History] Flecainide [Tambocor] 50 mg PO BID 11/04/16 [History] Levothyroxine Sodium [Synthroid] 100 mcg PO DAILY 11/04/16 [History] Losartan Potassium [Cozaar] 100 mg PO DAILY 11/04/16 [History] Vit A/Vit C/Vit E/Zinc/Copper [ICAPS SOFTGEL] 1 cap PO BID 11/04/16 [History] Vitamin D3 500iu 500 units PO BID 11/04/16 [History] Acetaminophen Tab [Tylenol] 650 mg PO Q6HR PRN tab 11/05/16 [Rx] Follow up Appointment(s)/Referral(s): Kesha Graham DO [Primary Care Provider] - 1-2 days
[2016-11-05 17:55] VITALS: BP 131/62; TEMP 97.7
[2016-11-05] MEDS ORDERED: LORATADINE 10 MG TAB PO SCH (21:00)
[2016-11-05] MEDS ORDERED: PRAVASTATIN SODIUM 40 MG TAB PO SCH (21:00)
[2016-11-06] MEDS ORDERED: LEVOTHYROXINE 100 MCG TAB PO SCH (06:30)
== END 2016-11-05 18:04 | disposition home or self-care (01) | DRG 641 ==
LOC: EC 21:23 → 4MS4W 11-05 00:10 → OBSVTOIN 11-05 15:39
PROVIDERS: ADMIT Internal Medicine; ATTEND Internal Medicine
DX: E86.0 Dehydration (principal); I48.91 Unspecified atrial fibrillation; N39.0 Urinary tract infection, site not specified; E87.1 Hypo-osmolality and hyponatremia; R51 Headache; E78.5 Hyperlipidemia, unspecified; E03.9 Hypothyroidism, unspecified; I25.10 Atherosclerotic heart disease of native coronary artery without angina pectoris; I10 Essential (primary) hypertension; Z79.01 Long term (current) use of anticoagulants; Z79.899 Other long term (current) drug therapy; Z85.41 Personal history of malignant neoplasm of cervix uteri; Z90.710 Acquired absence of both cervix and uterus; Z87.891 Personal history of nicotine dependence; Z98.42 Cataract extraction status, left eye; Z98.41 Cataract extraction status, right eye; Z88.1 Allergy status to other antibiotic agents; Z88.2 Allergy status to sulfonamides; Z88.8 Allergy status to other drugs, medicaments and biological substances
CPT/HCPCS: 36415; 70450; 71020; 80053; 81003; 82550; 82553; 83605; 83735; 84100; 84443; 84484; 85025; 85610; 85730; 87040; 87086; 93005; 96361; 96365; 99285

== ENCOUNTER 2017-01-22 11:25 | Emergency (ER) | payer MEDICARE, OTHER ==
--- NOTE | 2017-01-22 11:48 | ED ---
General Adult HPI - General Chief complaint: Arrhythmia/Palpitations Time Seen by Provider: 01/22/17 11:35 Source: patient, RN notes reviewed Mode of arrival: wheelchair Limitations: no limitations - History of Present Illness Initial comments: Patient is a pleasant 76-year-old female presenting to the emergency department from computed tomography scan. Patient was scheduled to have a routine outpatient computed tomography scan however she is unclear why. Patient states she does have a history of some spots on her lungs and possibly they were evaluating that. Patient states over the past 3 years she has had intermittent lightheadedness with associated palpitations. Patient states she did have those symptoms today however they are near resolved at this time. No chest pain. No dyspnea. Patient states her heart does not feel it is going fast or slow rest more pronounced. - Related Data Home Medications Medication Instructions Recorded Confirmed Multivit-Min/FA/Lycopene/Lut 1 tab PO DAILY 09/01/14 01/22/17 [Centrum Silver Tablet] Dabigatran [Pradaxa] 150 mg PO BID 09/06/14 01/22/17 Pravastatin Sodium [Pravachol] 40 mg PO HS 03/03/16 01/22/17 Vitamin B Complex 1 cap PO DAILY 03/03/16 01/22/17 Cartilage/Collagen/Bor/Hyalur 1 tab PO DAILY 11/04/16 01/22/17 [Move Free Ultra Tablet] Cetirizine HCl [Zyrtec] 10 mg PO HS PRN 11/04/16 01/22/17 Flecainide [Tambocor] 50 mg PO BID 11/04/16 01/22/17 Levothyroxine Sodium [Synthroid] 100 mcg PO DAILY 11/04/16 01/22/17 Losartan Potassium [Cozaar] 100 mg PO DAILY 11/04/16 01/22/17 Vit A/Vit C/Vit E/Zinc/Copper 1 cap PO BID 11/04/16 01/22/17 [ICAPS SOFTGEL] Vitamin D3 500iu 500 units PO BID 11/04/16 01/22/17 Escitalopram [Lexapro] 5 mg PO DAILY PRN 01/22/17 01/22/17 Allergies Allergy/AdvReac Type Severity Reaction Status Date / Time Sulfa (Sulfonamide Allergy Unknown Verified 01/22/17 11:49 Antibiotics) Childhood atorvastatin calcium AdvReac Dizziness Verified 01/22/17 11:49 [From Lipitor] levofloxacin [From Levaquin] AdvReac joint pain Verified 01/22/17 11:49 Review of Systems ROS Statement: Those systems with pertinent positive or pertinent negative responses have been documented in the HPI. ROS Other: All systems not noted in ROS Statement are negative. Constitutional: Denies: fever Eyes: Denies: eye pain ENT: Denies: ear pain Respiratory: Denies: cough, dyspnea Cardiovascular: Reports: palpitations. Denies: chest pain Endocrine: Denies: fatigue Gastrointestinal: Denies: abdominal pain Genitourinary: Denies: dysuria Musculoskeletal: Denies: back pain Skin: Denies: rash Neurological: Denies: weakness Past Medical History Past Medical History: Atrial Fibrillation, Coronary Artery Disease (CAD), Hyperlipidemia, Hypertension Additional Past Medical History / Comment(s): cervical cancer. History of Any Multi-Drug Resistant Organisms: None Reported Past Surgical History: Cardiac Ablation, Heart Catheterization, Hysterectomy, Orthopedic Surgery Additional Past Surgical History / Comment(s): [place] cataracts, ORIF rt ankle, rt heel & [place] eyelid lift. Past Anesthesia/Blood Transfusion Reactions: No Reported Reaction Past Psychological History: No Psychological Hx Reported Smoking Status: Former smoker Past Alcohol Use History: None Reported Past Drug Use History: None Reported - Past Family History Father Family Medical History: Cancer Additional Family Medical History / Comment(s): Throat General Exam Limitations: no limitations General appearance: alert, in no apparent distress Head exam: Present: atraumatic Eye exam: Present: normal appearance, PERRL ENT exam: Present: normal oropharynx Neck exam: Present: normal inspection Respiratory exam: Present: normal lung sounds bilaterally Cardiovascular Exam: Present: regular rate, normal rhythm, normal heart sounds Expanded Peripheral pulses: 2+: Radial (R), Radial (L), Dorsalis Pedis (R), Dorsalis Pedis (L) GI/Abdominal exam: Present: soft. Absent: tenderness Extremities exam: Present: normal inspection. Absent: pedal edema, calf tenderness Back exam: Present: normal inspection Neurological exam: Present: alert, CN II-XII intact. Absent: motor sensory deficit Expanded Speech: Present: fluid speech Cranial nerves: EOM's Intact: Normal Motor strength exam: RUE: 5, LUE: 5, RLE: 5, LLE: 5 Eye Response: (4) open spontaneously Motor Response: (6) obeys commands Verbal Response: (5) oriented Psychiatric exam: Present: normal affect, normal mood Skin exam: Present: normal color Course Vital Signs 01/22/17 01/22/17 01/22/17 11:25 11:35 13:04 Temperature 97.2 F L 97.2 F L Pulse Rate 54 L 54 L 55 L Respiratory 16 16 16 Rate Blood Pressure 205/84 179/78 160/71 O2 Sat by Pulse 92 L 99 100 Oximetry 01/22/17 01/22/17 14:20 14:57 Temperature Pulse Rate 54 L 56 L Respiratory 17 Rate Blood Pressure 225/85 171/70 O2 Sat by Pulse 96 Oximetry EKG Findings - EKG Comments: EKG Findings:: Sinus bradycardia 51. First-degree AV block with [place] of 210. QRS 92. QT 44. QTC 446. Right axis. Low QRS voltage. Septal Q waves. No acute ST change. Medical Decision Making - Medical Decision Making Patient reexamined and remained symptom-free. Patient was updated on results and need for follow-up. Case was earlier discussed with Dr. Justice who was comfortable with discharge. Patient remained symptom-free. - Lab Data Result diagrams: 01/22/17 11:45 01/22/17 11:45 Lab Results 01/22/17 01/22/17 01/22/17 Range/Units 11:45 11:45 11:45 WBC 4.7 (3.8-10.6) k/uL RBC 4.14 (3.80-5.40) m/uL Hgb 12.8 (11.4-16.0) gm/dL Hct 39.8 (34.0-46.0) % MCV 96.1 (80.0-100.0) fL MCH 30.9 (25.0-35.0) pg MCHC 32.2 (31.0-37.0) g/dL RDW 13.8 (11.5-15.5) % Plt Count 159 (150-450) k/uL Neutrophils % 59 % Lymphocytes % 29 % Monocytes % 6 % Eosinophils % 3 % Basophils % 1 % Neutrophils # 2.8 (1.3-7.7) k/uL Lymphocytes # 1.4 (1.0-4.8) k/uL Monocytes # 0.3 (0-1.0) k/uL Eosinophils # 0.1 (0-0.7) k/uL Basophils # 0.0 (0-0.2) k/uL PT (9.0-12.0) sec INR (<1.2) APTT (22.0-30.0) sec Sodium 138 (137-145) mmol/L Potassium 4.5 (3.5-5.1) mmol/L Chloride 104 (98-107) mmol/L Carbon Dioxide 26 (22-30) mmol/L Anion Gap 8 mmol/L BUN 17 (7-17) mg/dL Creatinine 0.97 (0.52-1.04) mg/dL Est GFR (MDRD) Af Amer >60 (>60 ml/min/1.73 sqM) Est GFR (MDRD) Non-Af 56 (>60 ml/min/1.73 sqM) Glucose 103 H (74-99) mg/dL Calcium 9.1 (8.4-10.2) mg/dL Magnesium 1.8 (1.6-2.3) mg/dL Total Bilirubin 0.5 (0.2-1.3) mg/dL AST 33 (14-36) U/L ALT 37 (9-52) U/L Alkaline Phosphatase 69 (38-126) U/L Total Creatine Kinase 44 (30-135) U/L CK-MB (CK-2) 0.6 (0.0-2.4) ng/mL CK-MB (CK-2) Rel Index 1.4 Troponin I <0.012 (0.000-0.034) ng/mL Total Protein 6.4 (6.3-8.2) g/dL Albumin 3.9 (3.5-5.0) g/dL TSH 1.090 (0.465-4.680) mIU/L Free T4 1.87 (0.78-2.19) ng/dL Free T3 pg/mL 3.2 (2.8-5.3) pg/ml 01/22/17 Range/Units 11:45 WBC (3.8-10.6) k/uL RBC (3.80-5.40) m/uL Hgb (11.4-16.0) gm/dL Hct (34.0-46.0) % MCV (80.0-100.0) fL MCH (25.0-35.0) pg MCHC (31.0-37.0) g/dL RDW (11.5-15.5) % Plt Count (150-450) k/uL Neutrophils % % Lymphocytes % % Monocytes % % Eosinophils % % Basophils % % Neutrophils # (1.3-7.7) k/uL Lymphocytes # (1.0-4.8) k/uL Monocytes # (0-1.0) k/uL Eosinophils # (0-0.7) k/uL Basophils # (0-0.2) k/uL PT 13.1 H (9.0-12.0) sec INR 1.3 H (<1.2) APTT 42.0 H (22.0-30.0) sec Sodium (137-145) mmol/L Potassium (3.5-5.1) mmol/L Chloride (98-107) mmol/L Carbon Dioxide (22-30) mmol/L Anion Gap mmol/L BUN (7-17) mg/dL Creatinine (0.52-1.04) mg/dL Est GFR (MDRD) Af Amer (>60 ml/min/1.73 sqM) Est GFR (MDRD) Non-Af (>60 ml/min/1.73 sqM) Glucose (74-99) mg/dL Calcium (8.4-10.2) mg/dL Magnesium (1.6-2.3) mg/dL Total Bilirubin (0.2-1.3) mg/dL AST (14-36) U/L ALT (9-52) U/L Alkaline Phosphatase (38-126) U/L Total Creatine Kinase (30-135) U/L CK-MB (CK-2) (0.0-2.4) ng/mL CK-MB (CK-2) Rel Index Troponin I (0.000-0.034) ng/mL Total Protein (6.3-8.2) g/dL Albumin (3.5-5.0) g/dL TSH (0.465-4.680) mIU/L Free T4 (0.78-2.19) ng/dL Free T3 pg/mL (2.8-5.3) pg/ml - Radiology Data Radiology results: report reviewed (Computed tomography scan of the chest shows resolution of previous right-sided opacities. Mild central lobular emphysematous changes. Coronary artery calcification.) Disposition Clinical Impression: Palpitations Disposition: HOME SELF-CARE Condition: Stable Instructions: Palpitations (ED) Additional Instructions: Please follow-up with primary care physician in the next couple of days for recheck. Please have blood pressure rechecked. Return for increased heart rate , weakness, chest pain, worsening symptoms or other concerns. Referrals: Maribell Garsia DO [Primary Care Provider] - 1-2 days Time of Disposition: 15:20
[2017-01-22 12:07] LABS: Basophils % (A) 1 %; CH 31.5; CHCM 32.9; Eosinophils # (A) 0.1 k/uL (0-0.7); Eosinophils % (A) 3 %; HCT 39.8 % (34.0-46.0); HDW 2.51; HGB 12.8 gm/dL (11.4-16.0); Luc # (Auto) 0.09; Luc % (Auto) 2; Lymphocytes # (A) 1.4 k/uL (1.0-4.8); Lymphocytes % (A) 29 %; MCH 30.9 pg (25.0-35.0); MCHC 32.2 g/dL (31.0-37.0); MCV 96.1 fL (80.0-100.0); Mean Platelet Volume 8.3; Monocytes # (A) 0.3 k/uL (0-1.0); Monocytes % (A) 6 %; Neutrophils # (A) 2.8 k/uL (1.3-7.7); Neutrophils % (A) 59 %; RBC 4.14 m/uL (3.80-5.40); RDW 13.8 % (11.5-15.5); WBC 4.7 k/uL (3.8-10.6); WBC (Perox) 4.55
[2017-01-22 12:27] LABS: ALT 37 U/L (9-52); AST 33 U/L (14-36); Alkaline Phosphatase 69 U/L (38-126); Anion Gap 8 mmol/L; Blood Urea Nitrogen 17 mg/dL (7-17); Calcium 9.1 mg/dL (8.4-10.2); Carbon Dioxide 26 mmol/L (22-30); Chloride 104 mmol/L (98-107); Glucose 103 mg/dL (74-99); Magnesium 1.8 mg/dL (1.6-2.3); Non-African American GFR(MDRD) 56 (>60 ml/min/1.73 sqM); Potassium 4.5 mmol/L (3.5-5.1); Sodium 138 mmol/L (137-145); Total Bilirubin 0.5 mg/dL (0.2-1.3); Total Protein 6.4 g/dL (6.3-8.2)
[2017-01-22 12:28] LABS: Creatine Kinase 44 U/L (30-135)
[2017-01-22 12:31] LABS: INR 1.3 (<1.2); Prothrombin Time 13.1 sec (9.0-12.0)
[2017-01-22 12:40] LABS: Creatine Kinase MB 0.6 ng/mL (0.0-2.4); Troponin I <0.012 ng/mL (0.000-0.034)
--- NOTE | 2017-01-22 13:57 | CT ---
EXAMINATION TYPE: CT chest w con DATE OF EXAM: 01/22/2017 COMPARISON: 05/28/2016 HISTORY: Patient poor historian. Patient has high blood pressure at time of exam. Follow-up for pulm onary nodule CT DLP: 257.1 mGycm. Automated Exposure Control for Dose Reduction was Utilized. TECHNIQUE: CT scan of the thorax is performed following with IV Contrast, patient injected with 80 m L of Visipaque 320. FINDINGS: LUNGS: The previously seen multifocal right-sided groundglass opacities have resolved in the interim and may have been of either infectious or inflammatory etiology. There is redemonstration of a blood in the right lower lobe. Minimal apical centrilobular emphysematous changes are appreciated, very mil d in degree. The lungs are grossly clear, there is no concerning parenchymal mass or nodule identifie d. There is no pleural effusion or pneumothorax seen. The tracheobronchial tree is patent. MEDIASTINUM: There are no greater than 1 cm hilar or mediastinal lymph nodes. No pericardial effusi on is seen. Coronary artery calcifications are seen, moderate in degree, of the left main and left a nterior descending coronary arteries. Incidental note is made of a bovine type configuration of the a ortic arch, normal anatomic variant. OTHER: Minimal multilevel degenerative changes are appreciated of the thoracic spine. IMPRESSION: 1. Resolution of the previously seen multifocal right-sided groundglass opacities. These either repre sent infectious or inflammatory etiology. 2. Mild centrilobular emphysematous changes. 3. Moderate left main and left anterior descending coronary artery calcifications.
[2017-01-22 15:31] VITALS: BP 214/91; PULSE 55; RESP 18
[2017-01-22] MEDS ORDERED: amLODIPine 5 MG TAB PO STA (15:31)
[2017-01-22 15:44] VITALS: TEMP 97.3
== END 2017-01-22 15:43 | disposition home or self-care (01) ==
LOC: EC 11:25 → EDSTATUS 12:00 → EC 15:43
DX: R00.2 Palpitations (principal); R40.2142 Coma scale, eyes open, spontaneous, at arrival to emergency department; R40.2252 Coma scale, best verbal response, oriented, at arrival to emergency department; R40.2362 Coma scale, best motor response, obeys commands, at arrival to emergency department; I48.91 Unspecified atrial fibrillation; I25.10 Atherosclerotic heart disease of native coronary artery without angina pectoris; E78.5 Hyperlipidemia, unspecified; I10 Essential (primary) hypertension; Z85.41 Personal history of malignant neoplasm of cervix uteri; Z95.5 Presence of coronary angioplasty implant and graft; Z87.891 Personal history of nicotine dependence; Z88.8 Allergy status to other drugs, medicaments and biological substances; Z88.2 Allergy status to sulfonamides; Z88.1 Allergy status to other antibiotic agents; Z79.899 Other long term (current) drug therapy
CPT/HCPCS: 99285 ×2; 36415; 93005; 84439; 84481; 80053; 82550; 82553; 83735; 84443; 84484; 85025; 85610; 85730; 71260; Q9967

== ENCOUNTER 2017-03-05 19:41 | Emergency (ER) | payer MEDICARE, OTHER ==
[2017-03-05 19:47] VITALS: RESP 18
--- NOTE | 2017-03-05 20:17 | ED ---
Head Injury HPI - General Chief complaint: Head Injury Stated complaint: Fall-Head Injury Time Seen by Provider: 03/05/17 19:58 Source: patient, RN notes reviewed, old records reviewed Mode of arrival: wheelchair Limitations: no limitations - History of Present Illness Initial comments: 76-year-old female presents to the emergency department With complaint of had injury. She put that she fell and hit the back of her head. She states that she had not lost consciousness. She states that she tripped to cause the fall. She denies any other injuries. Patient ports that she is on a blood thinner. She states that she is had significant swelling over the back of her head. She does have a headache. She's not taken any Motrin or Tylenol since the fall. This happened approximately 30 minutes prior to arrival. - Related Data Home Medications Medication Instructions Recorded Confirmed Multivit-Min/FA/Lycopene/Lut 1 tab PO DAILY 09/01/14 03/05/17 [Centrum Silver Tablet] Dabigatran [Pradaxa] 150 mg PO BID 09/06/14 03/05/17 Pravastatin Sodium [Pravachol] 40 mg PO HS 03/03/16 03/05/17 Cetirizine HCl [Zyrtec] 10 mg PO HS PRN 11/04/16 03/05/17 Flecainide [Tambocor] 50 mg PO BID 11/04/16 03/05/17 Levothyroxine Sodium [Synthroid] 100 mcg PO DAILY 11/04/16 03/05/17 Losartan Potassium [Cozaar] 100 mg PO DAILY 11/04/16 03/05/17 Escitalopram [Lexapro] 10 mg PO DAILY 03/05/17 03/05/17 Ipratropium [place] 0.06%Nasal 1 - 2 spray EA NOSTRIL DAILY 03/05/17 03/05/17 [Atrovent Nasal 0.06%] Manuelito Red 1 tab PO DAILY 03/05/17 03/05/17 Thiamine [Vitamin B-1] 100 mg PO DAILY 03/05/17 03/05/17 Vit C/E/Zn/Coppr/Lutein/Zeaxan 1 cap PO BID 03/05/17 03/05/17 [Preservision Areds 2 Softgel] amLODIPine [Norvasc] 5 mg PO DAILY 03/05/17 03/05/17 traMADol HCL [Ultram] 50 mg PO Q6HR PRN 03/05/17 03/05/17 Allergies/Adverse reactions: Allergies Allergy/AdvReac Type Severity Reaction Status Date / Time Sulfa (Sulfonamide Allergy Unknown Verified 03/05/17 20:23 Antibiotics) Childhood atorvastatin calcium AdvReac Dizziness Verified 03/05/17 20:23 [From Lipitor] levofloxacin [From Levaquin] AdvReac joint pain Verified 03/05/17 20:23 Review of Systems ROS Statement: Those systems with pertinent positive or pertinent negative responses have been documented in the HPI. ROS Other: All systems not noted in ROS Statement are negative. Constitutional: Denies: chills Eyes: Denies: eye pain ENT: Reports: ear pain. Denies: throat pain Respiratory: Reports: cough. Denies: dyspnea Cardiovascular: Denies: chest pain, palpitations Endocrine: Denies: fatigue Gastrointestinal: Denies: abdominal pain, nausea, vomiting Genitourinary: Denies: urgency, dysuria Musculoskeletal: Denies: back pain Skin: Reports: rash Neurological: Denies: headache, weakness Psychiatric: Denies: anxiety Hematological/Lymphatic: Reports: easy bleeding Past Medical History Past Medical History: Atrial Fibrillation, Coronary Artery Disease (CAD), Hyperlipidemia, Hypertension Additional Past Medical History / Comment(s): cervical cancer. History of Any Multi-Drug Resistant Organisms: None Reported Past Surgical History: Cardiac Ablation, Heart Catheterization, Hysterectomy, Orthopedic Surgery Additional Past Surgical History / Comment(s): [place] cataracts, ORIF rt ankle, rt heel & asya eyelid lift. Past Anesthesia/Blood Transfusion Reactions: No Reported Reaction Past Psychological History: No Psychological Hx Reported Smoking Status: Former smoker Past Alcohol Use History: None Reported Past Drug Use History: None Reported - Past Family History Father Family Medical History: Cancer Additional Family Medical History / Comment(s): Throat General Exam - General Exam Comments Initial Comments: Alert and oriented 76-year-old female. No acute distress. Limitations: no limitations General appearance: alert, in no apparent distress Head exam: Present: atraumatic, normocephalic, other. Absent: normal inspection (Vision has a significant hematoma over the posterior scalp.) Eye exam: Present: normal appearance, PERRL, EOMI. Absent: scleral icterus, conjunctival injection, periorbital swelling ENT exam: Present: normal exam, mucous membranes moist Neck exam: Present: normal inspection. Absent: tenderness, meningismus, lymphadenopathy Respiratory exam: Present: normal lung sounds bilaterally. Absent: respiratory distress, wheezes, rales, rhonchi, stridor Cardiovascular Exam: Present: regular rate, normal rhythm, normal heart sounds. Absent: systolic murmur, diastolic murmur, rubs, gallop, clicks Extremities exam: Present: normal inspection, full ROM, normal capillary refill. Absent: tenderness, pedal edema, joint swelling, calf tenderness Back exam: Present: normal inspection Neurological exam: Present: alert, oriented X3, CN II-XII intact Expanded Patient oriented to: Present: person, place, time Speech: Present: fluid speech Cranial nerves: EOM's Intact: Normal Cerebellar function: Finger to Nose: Normal Upper motor neuron: Pronator Drift: Normal Sensory exam: Upper Extremity Light Touch: Normal, Lower Extremity Light Touch: Normal Motor strength exam: RUE: 5, LUE: 5, RLE: 5, LLE: 5 Eye Response: (4) open spontaneously Motor Response: (6) obeys commands Verbal Response: (5) oriented Chet Total: 15 Psychiatric exam: Present: normal affect, normal mood Skin exam: Present: warm, dry, intact, normal color. Absent: rash Course Vital Signs 03/05/17 03/05/17 19:44 21:19 Temperature 98.1 F 97.1 F L Pulse Rate 65 68 Respiratory 18 18 Rate Blood Pressure 154/70 138/65 O2 Sat by Pulse 99 98 Oximetry Medical Decision Making - Medical Decision Making The 76 year old female presents to ED with fall and head injury. She tripped and fell backward. Patient reports she is on blood thinner. She does have a significant hematoma over posterior scalp. Patient has no neurological deficits and has no significant neck pain. Patient CT brain and neck is negative for any acute process. Patient advised to monitor for any changes in mental status and reutrn at once. Patient understands she needs to be monitored. Discussed follow up and to allow the swelling to diminish on its own. Patient agrees to treatment plan and will comply. Discharged with tramadol and tylenol for headache. - Radiology Data Radiology results: report reviewed Ct shows mild cerebral atrophy, occipital scalp hematoma, no acute intracranial abnormality. Degenerative first degree of C3-C4 splondylolisthesis. No fracture , no change compared to 06/12/2016. Disposition Clinical Impression: Head injury, Scalp hematoma Disposition: HOME SELF-CARE Condition: Good Instructions: Concussion (ED), Contusion in Adults (ED) Additional Instructions: Patient advised to apply ice over the back of the head. Patient should follow- up with primary care provider. Patient is to return to emergency department if any alarming signs or symptoms occur including altered mental status, severe vomiting or any other episodes. Referrals: Maribell Garsia DO [Primary Care Provider] - 1-2 days Time of Disposition: 20:59
--- NOTE | 2017-03-05 20:45 | CT ---
EXAMINATION TYPE: CT brain adarsh garcia DATE OF EXAM: 03/05/2017 COMPARISON: 11/04/[address] scan HISTORY: Fall injury, hematoma to posterior head area. CT DLP: 1482.4 mGycm Automated exposure control for dose reduction was used. TECHNIQUE: CT scan of the head and cervical spine are performed without contrast. FINDINGS: There is mild cerebral cortical atrophy. There is no mass effect nor midline shift. There is no sign of intracranial hemorrhage. There is occipital scalp soft tissue swelling. The calvarium appears intact. There is 4 mm anterior subluxation of C3 in relation to C4. There is narrowing of C5-6 disc space wit h spurring. Posterior elements are intact. There is some facet arthropathy at C3-4. IMPRESSION: Mild cerebral atrophy. Occipital scalp hematoma. No acute intracranial abnormality. 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 No fracture. No change compared to 06/12/2016 exam.
[2017-03-05] MEDS ORDERED: ACETAMINOPHEN TAB 500 MG TAB PO STA (20:58)
[2017-03-05] MEDS ORDERED: traMADol 50 MG TAB PO STA (21:07)
[2017-03-05 21:20] VITALS: BP 138/65; PULSE 68; TEMP 97.1
== END 2017-03-05 21:19 | disposition home or self-care (01) ==
LOC: EC 19:41
DX: S00.03XA Contusion of scalp, initial encounter (principal); I48.91 Unspecified atrial fibrillation; I25.10 Atherosclerotic heart disease of native coronary artery without angina pectoris; E78.5 Hyperlipidemia, unspecified; I10 Essential (primary) hypertension; Z87.891 Personal history of nicotine dependence; Z85.41 Personal history of malignant neoplasm of cervix uteri; Z95.5 Presence of coronary angioplasty implant and graft; Z79.899 Other long term (current) drug therapy; Z79.01 Long term (current) use of anticoagulants; Z88.2 Allergy status to sulfonamides; Z88.1 Allergy status to other antibiotic agents; Z88.8 Allergy status to other drugs, medicaments and biological substances; W01.10XA Fall on same level from slipping, tripping and stumbling with subsequent striking against unspecified object, initial encounter
CPT/HCPCS: 70450; 72125; 99284

== ENCOUNTER 2018-02-20 17:20 | Emergency (ER) | payer MEDICARE, OTHER ==
[2018-02-20 17:24] VITALS: BP 158/79; PULSE 70; RESP 20; TEMP 97.6
--- NOTE | 2018-02-20 18:02 | ED ---
Female Urogenital HPI - General Chief complaint: Urogenital Stated complaint: Poss UTI Time Seen by Provider: 02/20/18 17:29 Source: patient Mode of arrival: ambulatory Limitations: no limitations - History of Present Illness Initial comments: Patient is a 77-year-old female presenting for dysuria. Patient states that she has had multiple UTIs in the past and that around 3 PM, she started having a pressure sensation as well as burning when she urinated. However, she denies any abdominal pain, nausea/vomiting/diarrhea, fever/chills and states that she called her doctor's office but they were closed. - Related Data Home Medications Medication Instructions Recorded Confirmed Multivit-Min/FA/Lycopene/Lut 1 tab PO DAILY 09/01/14 03/05/17 [Centrum Silver Tablet] Dabigatran [Pradaxa] 150 mg PO BID 09/06/14 03/05/17 Pravastatin Sodium [Pravachol] 40 mg PO HS 03/03/16 03/05/17 Cetirizine HCl [Zyrtec] 10 mg PO HS PRN 11/04/16 03/05/17 Flecainide [Tambocor] 50 mg PO BID 11/04/16 03/05/17 Levothyroxine Sodium [Synthroid] 100 mcg PO DAILY 11/04/16 03/05/17 Losartan Potassium [Cozaar] 100 mg PO DAILY 11/04/16 03/05/17 Escitalopram [Lexapro] 10 mg PO DAILY 03/05/17 03/05/[address] Ipratropium [place] 0.06%Nasal 1 - 2 spray EA NOSTRIL DAILY 03/05/17 03/05/17 [Atrovent Nasal 0.06%] [place] Red 1 tab PO DAILY 03/05/17 03/05/17 Thiamine [Vitamin B-1] 100 mg PO DAILY 03/05/17 03/05/17 Vit C/E/Zn/Coppr/Lutein/Zeaxan 1 cap PO BID 03/05/17 03/05/17 [Preservision Areds 2 Softgel] amLODIPine [Norvasc] 5 mg PO DAILY 03/05/17 03/05/17 traMADol HCL [Ultram] 50 mg PO Q6HR PRN 03/05/17 03/05/17 Previous Rx's Medication Instructions Recorded Cephalexin [Keflex] 500 mg PO Q12HR 7 Days #14 cap 02/20/18 Allergies Allergy/AdvReac Type Severity Reaction Status Date / Time Sulfa (Sulfonamide Allergy Unknown Verified 02/20/18 17:24 Antibiotics) Childhood atorvastatin calcium AdvReac Dizziness Verified 02/20/18 17:24 [From Lipitor] levofloxacin [From Levaquin] AdvReac joint pain Verified 02/20/18 17:24 Review of Systems ROS Statement: Those systems with pertinent positive or pertinent negative responses have been documented in the HPI. Constitutional: Negative for chills, fatigue and fever. HENT: Negative for congestion. Respiratory: Negative for chest tightness, shortness of breath and wheezing. Negative for cough Cardiovascular: Negative for chest pain and palpitations. Gastrointestinal: Negative for abdominal pain. Negative for abdominal distention , diarrhea, nausea and vomiting. Genitourinary: Positive for dysuria, increased urinary frequency Musculoskeletal: Negative for back pain, neck pain and neck stiffness. Skin: Negative for color change. Neurological: Negative for dizziness, speech difficulty, weakness and light- headedness. Psychiatric/Behavioral: Negative for agitation and confusion. Negative for anxiety ROS Other: All systems not noted in ROS Statement are negative. Past Medical History Past Medical History: Atrial Fibrillation, Coronary Artery Disease (CAD), Hyperlipidemia, Hypertension Additional Past Medical History / Comment(s): cervical cancer. History of Any Multi-Drug Resistant Organisms: None Reported Past Surgical History: Cardiac Ablation, Heart Catheterization, Hysterectomy, Orthopedic Surgery Additional Past Surgical History / Comment(s): [place] cataracts, ORIF rt ankle, rt heel & [place] eyelid lift. Past Anesthesia/Blood Transfusion Reactions: No Reported Reaction Past Psychological History: No Psychological Hx Reported Smoking Status: Former smoker Past Alcohol Use History: None Reported Past Drug Use History: None Reported - Past Family History Father Family Medical History: Cancer Additional Family Medical History / Comment(s): Throat General Exam - General Exam Comments Initial Comments: Constitutional: Pt is oriented to person, place, and time. Pt appears well- developed and well-nourished. No distress. HENT: Head: Normocephalic and atraumatic. Eyes: EOM are normal. Neck: Normal range of motion. Neck supple. Cardiovascular: Normal rate, regular rhythm, S1 normal, S2 normal and normal heart sounds. Exam reveals no gallop and no friction rub. No murmur heard. Pulmonary/Chest: Effort normal and breath sounds normal. No tachypnea and no bradypnea. No respiratory distress. No wheezes or rales noted. Abdominal: Soft. Bowel sounds are normal. Pt exhibits no shifting dullness, no distension, no pulsatile liver, no fluid wave, no abdominal bruit and no ascites. There is no tenderness. There is no rigidity, no rebound, no guarding, no tenderness at McBurney's point and negative Butler's sign. Musculoskeletal: Normal range of motion. Neurological: Pt is alert and oriented to person, place, and time. No cranial nerve deficit. Skin: Skin is warm and dry. No rash noted. Pt is not diaphoretic. No erythema. No pallor. Psychiatric: Pt has a normal mood and affect. Pt behavior is normal. Thought content normal. Limitations: no limitations Course Vital Signs 02/20/18 17:22 Temperature 97.6 F Pulse Rate 70 Respiratory 20 Rate Blood Pressure 158/79 O2 Sat by Pulse 99 Oximetry Medical Decision Making - Medical Decision Making Urinalysis was positive for urinary tract infection. Patient was given a prescription for Keflex and patient was offered to have laboratory studies to check renal function but she declined. Patient was advised follow-up with PCP in next 1-2 days and she was agreeable to plan. - Lab Data Lab Results 02/20/18 Range/Units 18:00 Urine Color Yellow Urine Appearance Cloudy H (Clear) Urine pH 6.0 (5.0-8.0) Ur Specific [place] 1.011 (1.001-1.035) Urine Protein Trace H (Negative) Urine Glucose (UA) Negative (Negative) Urine Ketones Negative (Negative) Urine Blood Moderate H (Negative) Urine Nitrite Negative (Negative) Urine Bilirubin Negative (Negative) Urine Urobilinogen <2.0 (<2.0) mg/dL Ur Leukocyte Esterase Large H (Negative) Urine RBC 134 H (0-5) /hpf Urine WBC >182 H (0-5) /hpf Urine WBC Clumps Moderate H (None) /hpf Disposition Clinical Impression: Urinary tract infection Disposition: HOME SELF-CARE Condition: Good Instructions: Urinary Tract Infection in Women (ED) Prescriptions: Cephalexin [Keflex] 500 mg PO Q12HR 7 Days #14 cap Is patient prescribed a controlled substance at d/c from ED?: No Referrals: Kesha Graham DO [Primary Care Provider] - 1-2 days Time of Disposition: 18:40
[2018-02-20 18:30] LABS: Appearance,Urine Cloudy (Clear); Bilirubin,Urine Negative (Negative); Blood,Urine Moderate (Negative); Color,Urine Yellow; Glucose,Urine (UA) Negative (Negative); Ketones,Urine Negative (Negative); Leukocyte Esterase,Urine Large (Negative); Nitrite,Urine Negative (Negative); Protein,Urine Trace (Negative); RBC,Urine 134 /hpf (0-5); Specific Gravity,Urine 1.011 (1.001-1.035); Urobilinogen,Urine <2.0 mg/dL (<2.0); WBC,Urine >182 /hpf (0-5)
[2018-02-20] MEDS ORDERED: CEPHALEXIN 500MG STARTER PACK 4 CAP BTL PO STA (19:24)
== END 2018-02-20 19:30 | disposition home or self-care (01) ==
LOC: EC 17:20
DX: N39.0 Urinary tract infection, site not specified (principal); I48.91 Unspecified atrial fibrillation; E78.5 Hyperlipidemia, unspecified; I10 Essential (primary) hypertension; I25.10 Atherosclerotic heart disease of native coronary artery without angina pectoris; Z87.891 Personal history of nicotine dependence; Z88.1 Allergy status to other antibiotic agents; Z88.2 Allergy status to sulfonamides; Z88.8 Allergy status to other drugs, medicaments and biological substances; Z79.01 Long term (current) use of anticoagulants; Z79.899 Other long term (current) drug therapy; Z95.818 Presence of other cardiac implants and grafts
CPT/HCPCS: 81001; 87077; 87086; 87186; 99283

== ENCOUNTER 2018-07-26 09:17 | Emergency (ER) | payer MEDICARE, OTHER ==
[2018-07-26 10:16] LABS: Basophils % (A) 1 %; Eosinophils # (A) 0.1 k/uL (0-0.7); Eosinophils % (A) 3 %; HCT 39.5 % (34.0-46.0); Lymphocytes # (A) 1.6 k/uL (1.0-4.8); Lymphocytes % (A) 39 %; MCH 29.5 pg (25.0-35.0); MCV 89.6 fL (80.0-100.0); Mean Platelet Volume 8.3; Monocytes # (A) 0.2 k/uL (0-1.0); Monocytes % (A) 6 %; Neutrophils # (A) 2.1 k/uL (1.3-7.7); Neutrophils % (A) 49 %; Platelet Count 177 k/uL (150-450); RBC 4.41 m/uL (3.80-5.40); RDW 14.1 % (11.5-15.5); WBC 4.2 k/uL (3.8-10.6)
[2018-07-26 10:18] LABS: INR 1.2 (<1.2); Prothrombin Time 12.5 sec (9.0-12.0)
[2018-07-26] MEDS ORDERED: SODIUM CHLORIDE 0.9% 1,000 ML IV STA (10:27)
--- NOTE | 2018-07-26 10:34 | ED ---
General Adult HPI - General Chief complaint: Arrhythmia/Palpitations Stated complaint: chest pain Time Seen by Provider: 07/26/18 09:28 Source: patient Mode of arrival: ambulatory Limitations: no limitations - History of Present Illness Initial comments: Dictation was produced using [employer] dictation software. please excuse any grammatical, word or spelling errors. Chief Complaint: 78-year-old female past focal history of paroxysmal atrial fibrillation, coronary artery disease, dyslipidemia, hypertension presents with palpitations. History of Present Illness: Patient is a 70-year-old female. She has multiple cardiac comorbidities. She states that over the last 24 hours she's been having increase palpitations. Patient is a history of atrial fibrillation and flecainide antidiabetic for A. fib control. Patient has data processing auditor Dr. Taylor. She states she hasn't been drinking fluids as often as she should. She denies any shortness of breath. She does have some chest pressure long with the palpitations. Patient has no other complaint at this time. Patient has a A. fib detection device linked to her phone. She does have record of A. fib on her monitor at least 3 or 4 occasions within the last 48 hours. The ROS documented in this emergency department record has been reviewed and confirmed by me. Those systems with pertinent positive or negative responses have been documented in the HPI. All other systems are other negative and/or noncontributory. PHYSICAL EXAM: General Impression: Alert and oriented x3, not in acute distress HEENT: Normocephalic atraumatic, extra-ocular movements intact, pupils equal and reactive to light bilaterally, mucous membranes moist. Cardiovascular: Heart regular rate and rhythm, S1&S2 audible, no murmurs, rubs or gallops Chest: Lungs clear to auscultation bilaterally, no rhonchi, no wheeze, no rales Abdomen: Bowel sounds present, abdomen soft, non-tender, non-distended, no organomegaly Musculoskeletal: Pulses present and equal in all extremities, no peripheral edema Motor: no focal deficits noted Neurological: CN II-XII grossly intact, no focal motor or sensory deficits noted Skin: Intact with no visualized rashes Psych: Normal affect and mood ED course: 78 yo female presents chief complaint palpitations. Patient has a monitoring specialist for home use. She does have episodes of paroxysmal atrial fibrillation. Currently she is in regular rhythm. EKG shows sinus bradycardia. She is on flecainide and DiaBeta Souza. Laboratory evaluation obtained. CBC, coag panel, metabolic panel is unremarkable. Cardiac enzymes are negative. Chest x-ray is nonacute. Patient is unremarkable. Medications. She is in normal sinus rhythm. Patient has no events on the monitor. Patient clear for discharge she is told to follow up with her data processing auditor. EKG interpretation: Ventricular rate 50, sinus bradycardia cardiac,. 196, QS 90, QTc 439. No [place] prolongation, no QTC prolongation, no ST or T-wave changes noted. . Overall, this EKG is unremarkable - Related Data Home Medications Medication Instructions Recorded Confirmed Multivit-Min/FA/Lycopene/Lut 1 tab PO DAILY 09/01/14 07/26/18 [Centrum Silver Tablet] Dabigatran [Pradaxa] 150 mg PO BID 09/06/14 07/26/18 Pravastatin Sodium [Pravachol] 40 mg PO HS 03/03/16 07/26/18 Flecainide [Tambocor] 50 mg PO BID 11/04/16 07/26/18 Levothyroxine Sodium [Synthroid] 50 mcg PO DAILY 11/04/16 07/26/18 Losartan Potassium [Cozaar] 50 mg PO DAILY 11/04/16 07/26/18 Ipratropium [place] 0.06%Nasal 1 - 2 spray EA NOSTRIL DAILY 03/05/17 07/26/18 [Atrovent Nasal 0.06%] Thiamine [Vitamin B-1] 100 mg PO DAILY 03/05/17 07/26/18 Vit C/E/Zn/Coppr/Lutein/Zeaxan 1 cap PO BID 03/05/17 07/26/18 [Preservision Areds 2 Softgel] amLODIPine [Norvasc] 5 mg PO DAILY 03/05/17 07/26/18 traMADol HCL [Ultram] 50 mg PO Q6HR PRN 03/05/17 07/26/18 Cholecalciferol [Vitamin D3] 400 unit PO DAILY 07/26/18 07/26/18 Allergies Allergy/AdvReac Type Severity Reaction Status Date / Time Sulfa (Sulfonamide Allergy Unknown Verified 07/26/18 10:14 Antibiotics) Childhood atorvastatin calcium AdvReac Dizziness Verified 07/26/18 10:14 [From Lipitor] levofloxacin [From Levaquin] AdvReac joint pain Verified 07/26/18 10:14 Review of Systems ROS Statement: Those systems with pertinent positive or pertinent negative responses have been documented in the HPI. ROS Other: All systems not noted in ROS Statement are negative. Past Medical History Past Medical History: Atrial Fibrillation, Coronary Artery Disease (CAD), Hyperlipidemia, Hypertension Additional Past Medical History / Comment(s): cervical cancer. History of Any Multi-Drug Resistant Organisms: None Reported Past Surgical History: Cardiac Ablation, Heart Catheterization, Hysterectomy, Orthopedic Surgery Additional Past Surgical History / Comment(s): [place] cataracts, ORIF rt ankle, rt heel & [place] eyelid lift. Past Anesthesia/Blood Transfusion Reactions: No Reported Reaction Past Psychological History: No Psychological Hx Reported Smoking Status: Former smoker Past Alcohol Use History: None Reported Past Drug Use History: None Reported - Past Family History Father Family Medical History: Cancer Additional Family Medical History / Comment(s): Throat General Exam Limitations: no limitations Course Vital Signs 07/26/18 07/26/18 07/26/18 09:19 10:00 10:30 Temperature 98.5 F Pulse Rate 63 65 57 L Respiratory 18 16 14 Rate Blood Pressure 166/66 136/73 154/70 O2 Sat by Pulse 98 98 99 Oximetry 07/26/18 11:30 Temperature Pulse Rate 56 L Respiratory 16 Rate Blood Pressure 138/72 O2 Sat by Pulse 97 Oximetry Medical Decision Making - Lab Data Result diagrams: 07/26/18 09:58 07/26/18 09:58 Lab Results 07/26/18 07/26/18 07/26/18 Range/Units 09:58 09:58 09:58 WBC 4.2 (3.8-10.6) k/uL RBC 4.41 (3.80-5.40) m/uL Hgb 13.0 (11.4-16.0) gm/dL Hct 39.5 (34.0-46.0) % MCV 89.6 (80.0-100.0) fL MCH 29.5 (25.0-35.0) pg MCHC 33.0 (31.0-37.0) g/dL RDW 14.1 (11.5-15.5) % Plt Count 177 (150-450) k/uL Neutrophils % 49 % Lymphocytes % 39 % Monocytes % 6 % Eosinophils % 3 % Basophils % 1 % Neutrophils # 2.1 (1.3-7.7) k/uL Lymphocytes # 1.6 (1.0-4.8) k/uL Monocytes # 0.2 (0-1.0) k/uL Eosinophils # 0.1 (0-0.7) k/uL Basophils # 0.0 (0-0.2) k/uL PT 12.5 H (9.0-12.0) sec INR 1.2 H (<1.2) APTT 43.0 H (22.0-30.0) sec Sodium 138 (137-145) mmol/L Potassium 4.1 (3.5-5.1) mmol/L Chloride 103 (98-107) mmol/L Carbon Dioxide 27 (22-30) mmol/L Anion Gap 8 mmol/L BUN 26 H (7-17) mg/dL Creatinine 0.92 (0.52-1.04) mg/dL Est GFR (CKD-EPI)AfAm 69 (>60 ml/min/1.73 sqM) Est GFR (CKD-EPI)NonAf 60 (>60 ml/min/1.73 sqM) Glucose 95 (74-99) mg/dL Calcium 9.6 (8.4-10.2) mg/dL Magnesium 2.0 (1.6-2.3) mg/dL Total Bilirubin 0.5 (0.2-1.3) mg/dL AST 29 (14-36) U/L ALT 29 (9-52) U/L Alkaline Phosphatase 80 (38-126) U/L Troponin I (0.000-0.034) ng/mL Total Protein 6.3 (6.3-8.2) g/dL Albumin 4.0 (3.5-5.0) g/dL 07/26/18 Range/Units 09:58 WBC (3.8-10.6) k/uL RBC (3.80-5.40) m/uL Hgb (11.4-16.0) gm/dL Hct (34.0-46.0) % MCV (80.0-100.0) fL MCH (25.0-35.0) pg MCHC (31.0-37.0) g/dL RDW (11.5-15.5) % Plt Count (150-450) k/uL Neutrophils % % Lymphocytes % % Monocytes % % Eosinophils % % Basophils % % Neutrophils # (1.3-7.7) k/uL Lymphocytes # (1.0-4.8) k/uL Monocytes # (0-1.0) k/uL Eosinophils # (0-0.7) k/uL Basophils # (0-0.2) k/uL PT (9.0-12.0) sec INR (<1.2) APTT (22.0-30.0) sec Sodium (137-145) mmol/L Potassium (3.5-5.1) mmol/L Chloride (98-107) mmol/L Carbon Dioxide (22-30) mmol/L Anion Gap mmol/L BUN (7-17) mg/dL Creatinine (0.52-1.04) mg/dL Est GFR (CKD-EPI)AfAm (>60 ml/min/1.73 sqM) Est GFR (CKD-EPI)NonAf (>60 ml/min/1.73 sqM) Glucose (74-99) mg/dL Calcium (8.4-10.2) mg/dL Magnesium (1.6-2.3) mg/dL Total Bilirubin (0.2-1.3) mg/dL AST (14-36) U/L ALT (9-52) U/L Alkaline Phosphatase (38-126) U/L Troponin I <0.012 (0.000-0.034) ng/mL Total Protein (6.3-8.2) g/dL Albumin (3.5-5.0) g/dL Disposition Clinical Impression: Atrial fibrillation Disposition: HOME SELF-CARE Condition: Good Instructions (If sedation given, give patient instructions): Heart Palpitations (ED) Is patient prescribed a controlled substance at d/c from ED?: No Referrals: tSacey Taylor MD [STAFF PHYSICIAN] - 1-2 days Time of Disposition: 12:32
[2018-07-26 10:41] LABS: Calcium 9.6 mg/dL (8.4-10.2); Potassium 4.1 mmol/L (3.5-5.1); Total Bilirubin 0.5 mg/dL (0.2-1.3); Total Protein 6.3 g/dL (6.3-8.2)
--- NOTE | 2018-07-26 11:27 | XR ---
EXAMINATION TYPE: XR chest 2V DATE OF EXAM: 07/26/2018 COMPARISON: 11/04/2016 HISTORY: 78-year-old female with chest pain TECHNIQUE: PA and lateral views FINDINGS: The cardiomediastinal silhouette, aorta, and pulmonary vasculature are within normal limits. Lungs an d pleural spaces are clear. IMPRESSION: No acute cardiopulmonary process.
[2018-07-26 12:46] LABS: Appearance,Urine Clear (Clear); Bilirubin,Urine Negative (Negative); Blood,Urine Negative (Negative); Color,Urine Colorless; Glucose,Urine (UA) Negative (Negative); Ketones,Urine Negative (Negative); Leukocyte Esterase,Urine Small (Negative); Nitrite,Urine Negative (Negative); Protein,Urine Negative (Negative); Specific Gravity,Urine 1.003 (1.001-1.035); Squamous Epithelial Cell,Urine <1 /hpf (0-4); Urobilinogen,Urine <2.0 mg/dL (<2.0)
[2018-07-26 13:12] VITALS: BP 129/60; PULSE 57; RESP 18; TEMP 97.7
== END 2018-07-26 13:14 | disposition home or self-care (01) ==
LOC: EC 09:17
DX: I48.91 Unspecified atrial fibrillation (principal); R00.1 Bradycardia, unspecified; I25.10 Atherosclerotic heart disease of native coronary artery without angina pectoris; E78.5 Hyperlipidemia, unspecified; I10 Essential (primary) hypertension; Z85.41 Personal history of malignant neoplasm of cervix uteri; Z87.891 Personal history of nicotine dependence; Z79.890 Hormone replacement therapy; Z79.899 Other long term (current) drug therapy; Z88.2 Allergy status to sulfonamides; Z88.1 Allergy status to other antibiotic agents; Z88.8 Allergy status to other drugs, medicaments and biological substances; Z95.818 Presence of other cardiac implants and grafts
CPT/HCPCS: 36415; 71046; 80053; 81001; 83735; 84484; 85025; 85610; 85730; 93005; 96360; 96361; 99285

== ENCOUNTER 2019-01-23 11:41 | Emergency (ER) | payer MEDICARE, OTHER ==
[2019-01-23 11:54] VITALS: RESP 18
--- NOTE | 2019-01-23 12:06 | ED ---
General Adult HPI - General Chief complaint: Urogenital Stated complaint: Poss UTI Time Seen by Provider: 01/23/19 11:49 Source: patient, RN notes reviewed Mode of arrival: ambulatory Limitations: no limitations - History of Present Illness Initial comments: Patient is a pleasant 78-year-old female presenting to the emergency department with hematuria. Onset of symptoms was just an hour or so ago. Patient has minimal dysuria and urgency. Patient does have history of similar symptoms previously associated with urinary tract infection. No pelvic or back pain. No fevers. No nausea vomiting. Patient is on Pradaxa. - Related Data Home Medications Medication Instructions Recorded Confirmed Dabigatran [Pradaxa] 150 mg PO BID 09/06/14 01/23/19 Pravastatin Sodium [Pravachol] 40 mg PO HS 03/03/16 01/23/19 Flecainide [Tambocor] 50 mg PO BID 11/04/16 01/23/19 Levothyroxine Sodium [Synthroid] 100 mcg PO DAILY 11/04/16 01/23/19 Losartan Potassium [Cozaar] 50 mg PO DAILY 11/04/16 01/23/19 Ipratropium [place] 0.06%Nasal 1 - 2 spray EA NOSTRIL DAILY 03/05/17 01/23/19 [Atrovent Nasal 0.06%] amLODIPine [Norvasc] 2.5 mg PO DAILY 03/05/17 01/23/19 Loratadine [Claritin] 10 mg PO DAILY 01/23/19 01/23/19 Previous Rx's Medication Instructions Recorded Amoxicillin 500 mg PO Q8H #30 capsule 01/23/19 Allergies Allergy/AdvReac Type Severity Reaction Status Date / Time Sulfa (Sulfonamide Allergy Unknown Verified 01/23/19 12:06 Antibiotics) Childhood atorvastatin calcium AdvReac Dizziness Verified 01/23/19 12:06 [From Lipitor] levofloxacin [From Levaquin] AdvReac joint pain Verified 01/23/19 12:06 nitrofurantoin AdvReac sleepiness Verified 01/23/19 12:06 [From Macrobid] Review of Systems ROS Statement: Those systems with pertinent positive or pertinent negative responses have been documented in the HPI. ROS Other: All systems not noted in ROS Statement are negative. Constitutional: Denies: fever Eyes: Denies: eye pain ENT: Denies: ear pain Respiratory: Denies: cough Cardiovascular: Denies: chest pain Endocrine: Denies: fatigue Gastrointestinal: Denies: abdominal pain Genitourinary: Reports: as per HPI Musculoskeletal: Denies: back pain Skin: Denies: rash Neurological: Denies: weakness Past Medical History Past Medical History: Atrial Fibrillation, Coronary Artery Disease (CAD), Hyperlipidemia, Hypertension Additional Past Medical History / Comment(s): cervical cancer. History of Any Multi-Drug Resistant Organisms: None Reported Past Surgical History: Cardiac Ablation, Heart Catheterization, Hysterectomy, Orthopedic Surgery Additional Past Surgical History / Comment(s): [place] cataracts, ORIF rt ankle, rt heel & [place] eyelid lift. Past Anesthesia/Blood Transfusion Reactions: No Reported Reaction Past Psychological History: No Psychological Hx Reported Smoking Status: Former smoker Past Alcohol Use History: None Reported Past Drug Use History: None Reported - Past Family History Father Family Medical History: Cancer Additional Family Medical History / Comment(s): Throat General Exam Limitations: no limitations General appearance: alert, in no apparent distress Head exam: Present: atraumatic Eye exam: Present: normal appearance Respiratory exam: Present: normal lung sounds bilaterally Cardiovascular Exam: Present: regular rate, normal rhythm GI/Abdominal exam: Present: soft. Absent: tenderness Extremities exam: Present: normal inspection. Absent: pedal edema, calf tenderness Neurological exam: Present: alert, normal gait Psychiatric exam: Present: normal affect, normal mood Skin exam: Present: normal color Course Vital Signs 01/23/19 11:52 Temperature 97.3 F L Pulse Rate 60 Respiratory 18 Rate Blood Pressure 149/68 O2 Sat by Pulse 99 Oximetry Medical Decision Making - Medical Decision Making Patient reevaluated and updated - Lab Data Lab Results 01/23/19 Range/Units 00:39 Urine Color Red Urine Appearance Bloody H (Clear) Urine RBC >182 H (0-5) /hpf Urine WBC >182 H (0-5) /hpf Urine WBC Clumps Many H (None) /hpf Disposition Clinical Impression: Cystitis Disposition: HOME SELF-CARE Condition: Stable Instructions (If sedation given, give patient instructions): Urinary Tract Infection in Women (ED) Additional Instructions: Please follow-up with primary care physician in the being the week. Have primary care physician review urine culture results. Hold pradaxa today. Return for weakness, fevers, increased pain, worsening symptoms or other concerns. Prescription has been sent to [facility] on . Prescriptions: Amoxicillin 500 mg PO Q8H #30 capsule Is patient prescribed a controlled substance at d/c from ED?: No Referrals: Kesha Graham DO [Primary Care Provider] - 1-2 days Time of Disposition: 13:28
[2019-01-23 13:04] LABS: RBC,Urine >182 /hpf (0-5)
[2019-01-23 13:05] LABS: Appearance,Urine Bloody (Clear); Color,Urine Red
[2019-01-23] MEDS ORDERED: AMOXICILLIN 875 MG TAB PO STA (13:25)
[2019-01-23 13:52] VITALS: BP 146/62; PULSE 66; TEMP 97.8
== END 2019-01-23 13:50 | disposition home or self-care (01) ==
LOC: EC 11:41
DX: N30.91 Cystitis, unspecified with hematuria (principal); I48.91 Unspecified atrial fibrillation; I25.10 Atherosclerotic heart disease of native coronary artery without angina pectoris; E78.5 Hyperlipidemia, unspecified; I10 Essential (primary) hypertension; Z87.891 Personal history of nicotine dependence; Z88.1 Allergy status to other antibiotic agents; Z88.2 Allergy status to sulfonamides; Z88.8 Allergy status to other drugs, medicaments and biological substances; Z79.01 Long term (current) use of anticoagulants; Z79.890 Hormone replacement therapy; Z79.899 Other long term (current) drug therapy; Z85.41 Personal history of malignant neoplasm of cervix uteri; Z90.710 Acquired absence of both cervix and uterus; Z95.818 Presence of other cardiac implants and grafts
CPT/HCPCS: 81001; 87077; 87086; 87186; 99283

== ENCOUNTER → 2019-03-16 | Outpatient (CLI) | payer MEDICARE, OTHER ==
[2019-03-16 18:07] LABS: African American GFR (CKD) 62.5 (60.0-200.0); Albumin 4.3 g/dL (3.80-4.90); Albumin/Globulin Ratio 2.39 (1.60-3.17); Calcium 9.6 mg/dL (8.7-10.3); Chol/HDL Ratio 2.28; Globulin 1.8 g/dL (1.6-3.3); Non-African American GFR(CKD) 53.9 (60.0-200.0); Potassium 4.6 mmol/L (3.5-5.5); Total Bilirubin 0.6 mg/dL (0.3-1.2); Total Protein 6.1 g/dL (6.2-8.2)
== END | disposition home or self-care (01) ==
LOC: LABWHC1 11:32
PROVIDERS: ATTEND Internal Medicine Interventional Cardiology
DX: E78.2 Mixed hyperlipidemia (principal)
CPT/HCPCS: 36415; 80053; 80061

== ENCOUNTER 2019-03-18 11:52 | Observation (INO) | payer MEDICARE, OTHER ==
[2019-03-18] MEDS ORDERED: SODIUM CHLORIDE 0.9% 1,000 ML IV STA (12:37)
[2019-03-18] MEDS ORDERED: NITROGLYCERIN SL TABS 0.4 MG TAB SUBLINGUAL STA (12:37)
--- NOTE | 2019-03-18 12:51 | ED ---
Chest Pain HPI - General Chief Complaint: Chest Pain Stated Complaint: Chest tightness Time Seen by Provider: 03/18/19 12:19 Source: patient, RN notes reviewed Mode of arrival: ambulatory Limitations: no limitations - History of Present Illness Initial Comments: This is a 78-year-old female history of atrial fibrillation who presents with complaints of the onset of anterior chest discomfort. She states that about 2/10 severity feels a heaviness on her chest she's never had anything quite like this before she denies any overt nausea vomiting fevers chills sweats she states she is not on aspirin she was told not to take aspirin. MD Complaint: chest pain - Related Data Home Medications Medication Instructions Recorded Confirmed Dabigatran [Pradaxa] 150 mg PO BID 09/06/14 01/23/19 Pravastatin Sodium [Pravachol] 40 mg PO HS 03/03/16 01/23/19 Flecainide [Tambocor] 50 mg PO BID 11/04/16 01/23/19 Levothyroxine Sodium [Synthroid] 100 mcg PO DAILY 11/04/16 01/23/19 Losartan Potassium [Cozaar] 50 mg PO DAILY 11/04/16 01/23/19 Ipratropium [place] 0.06%Nasal 1 - 2 spray EA NOSTRIL DAILY 03/05/17 01/23/19 [Atrovent Nasal 0.06%] amLODIPine [Norvasc] 2.5 mg PO DAILY 03/05/17 01/23/19 Loratadine [Claritin] 10 mg PO DAILY 01/23/19 01/23/19 Previous Rx's Medication Instructions Recorded Amoxicillin 500 mg PO Q8H #30 capsule 01/23/19 Allergies Allergy/AdvReac Type Severity Reaction Status Date / Time Sulfa (Sulfonamide Allergy Unknown Verified 03/18/19 13:20 Antibiotics) Childhood atorvastatin calcium AdvReac Dizziness Verified 03/18/19 13:20 [From Lipitor] levofloxacin [From Levaquin] AdvReac joint pain Verified 03/18/19 13:20 nitrofurantoin AdvReac sleepiness Verified 03/18/19 13:20 [From Macrobid] Review of Systems ROS Statement: Those systems with pertinent positive or pertinent negative responses have been documented in the HPI. ROS Other: All systems not noted in ROS Statement are negative. EKG Findings - EKG Results: EKG: interpreted by KALINA, sinus rhythm (Sinus rhythm of 55 GA interval 224 QRS 94 QT since QTC 440/428 low-voltage QRS no acute ST-T wave changes) Past Medical History Past Medical History: Atrial Fibrillation, Coronary Artery Disease (CAD), Hyperlipidemia, Hypertension Additional Past Medical History / Comment(s): cervical cancer. History of Any Multi-Drug Resistant Organisms: None Reported Past Surgical History: Cardiac Ablation, Heart Catheterization, Hysterectomy, Orthopedic Surgery Additional Past Surgical History / Comment(s): Asya cataracts, ORIF rt ankle, rt heel & asya eyelid lift. Past Anesthesia/Blood Transfusion Reactions: No Reported Reaction Past Psychological History: No Psychological Hx Reported Smoking Status: Former smoker Past Alcohol Use History: None Reported Past Drug Use History: None Reported - Past Family History Father Family Medical History: Cancer Additional Family Medical History / Comment(s): Throat General Exam - General Exam Comments Initial Comments: This is a well-developed well-nourished awake alert oriented 3 female Limitations: no limitations General appearance: alert, in no apparent distress Head exam: Present: atraumatic, normocephalic, normal inspection Eye exam: Present: normal appearance, PERRL, EOMI. Absent: scleral icterus, conjunctival injection, periorbital swelling ENT exam: Present: normal exam, mucous membranes moist Neck exam: Present: normal inspection, full ROM, other (No stridor to be or bruits). Absent: tenderness, meningismus, lymphadenopathy Respiratory exam: Present: normal lung sounds bilaterally. Absent: respiratory distress, wheezes, rales, rhonchi, stridor Cardiovascular Exam: Present: regular rate, normal rhythm, normal heart sounds. Absent: systolic murmur, diastolic murmur, rubs, gallop, clicks GI/Abdominal exam: Present: soft, normal bowel sounds. Absent: distended, tenderness, guarding, rebound, rigid Extremities exam: Present: normal inspection, full ROM, normal capillary refill. Absent: tenderness, pedal edema, joint swelling, calf tenderness Back exam: Present: normal inspection Neurological exam: Present: alert, oriented X3, CN II-XII intact Psychiatric exam: Present: normal affect, normal mood Skin exam: Present: warm, dry, intact, normal color. Absent: rash Course Vital Signs 03/18/19 03/18/19 11:56 12:52 Temperature 97.6 F Pulse Rate 61 60 Respiratory 19 18 Rate Blood Pressure 186/79 150/70 O2 Sat by Pulse 100 96 Oximetry - Reevaluation(s) Reevaluation #1: 03/18/19 13:52 Reevaluation patient reveals he feels improved after the medication was given. The initial cardiac enzymes are within normal limits as is EKG however the presenting history is consistent with Nikki. Patient will be admitted with consultation by her medical laboratory manager Dr. Taylor. Dr. Graham was notified by me. Disposition Clinical Impression: Unstable angina pectoris, Chest pain Disposition: ADMITTED IP TO THIS HOSP Condition: Fair Referrals: Kesha Graham DO [Primary Care Provider] - 1-2 days
[2019-03-18 13:00] LABS: Basophils % (A) 1 %; Eosinophils # (A) 0.1 k/uL (0-0.7); Eosinophils % (A) 2 %; HCT 40.7 % (34.0-46.0); Lymphocytes # (A) 1.6 k/uL (1.0-4.8); Lymphocytes % (A) 34 %; MCH 29.5 pg (25.0-35.0); MCV 92.1 fL (80.0-100.0); Mean Platelet Volume 7.5; Monocytes # (A) 0.2 k/uL (0-1.0); Monocytes % (A) 5 %; Neutrophils # (A) 2.6 k/uL (1.3-7.7); Neutrophils % (A) 56 %; Platelet Count 197 k/uL (150-450); RBC 4.42 m/uL (3.80-5.40); RDW 13.2 % (11.5-15.5); WBC 4.6 k/uL (3.8-10.6)
[2019-03-18 13:06] LABS: Albumin 4.2 g/dL (3.5-5.0); Calcium 9.5 mg/dL (8.4-10.2); Potassium 4.4 mmol/L (3.5-5.1); Total Bilirubin 0.7 mg/dL (0.2-1.3); Total Protein 6.9 g/dL (6.3-8.2)
--- NOTE | 2019-03-18 13:07 | XR ---
EXAMINATION TYPE: XR chest 2V DATE OF EXAM: 03/18/2019 COMPARISON: 07/26/2018 TECHNIQUE: PA and lateral views submitted. HISTORY: Chest pain FINDINGS: The lungs are clear and there is no pneumothorax, pleural effusion, or focal pneumonia. Hypertrophi c and degenerative change of the spine. IMPRESSION: 1. No acute process.
[2019-03-18 13:11] LABS: D-Dimer 0.32 mg/L FEU (<0.60); INR 1.1 (<1.2); Partial Thromboplastin Time 42.7 sec (22.0-30.0); Prothrombin Time 11.5 sec (9.0-12.0)
[2019-03-18] MEDS ORDERED: HEPARIN SODIUM,PORCINE 5,000 UNIT/ML 1 ML VIAL IV ONE (13:53)
[2019-03-18] MEDS ORDERED: NITROGLYCERIN SL TABS 0.4 MG TAB SUBLINGUAL PRN (13:53)
[2019-03-18] MEDS ORDERED: SODIUM CHLORIDE 0.9% 1,000 ML IV SCH (14:00)
[2019-03-18] MEDS ORDERED: HEPARIN SOD,PORK IN 0.45% NACL 25,000 UNIT in 0.45% NACL 1 250ML.BAG IV SCH (14:00)
[2019-03-18 15:07] VITALS: RESP 18
[2019-03-18] MEDS: NITROGLYCERIN OINT 1 INCH/GM PACKET TOPICAL SCH ×2 (17:23→23:42)
[2019-03-18] MEDS ORDERED: hydrALAZINE HCL 20 MG/ML 1 ML VIAL IVP PRN (19:19)
[2019-03-18] MEDS ORDERED: HEPARIN SODIUM,PORCINE 5,000 UNIT/ML 1 ML VIAL IV PRN (19:25)
[2019-03-18] MEDS: FLECAINIDE 50 MG TAB PO SCH (19:56)
[2019-03-18] MEDS: PRAVASTATIN SODIUM 40 MG TAB PO SCH (19:57)
[2019-03-18] MEDS ORDERED: DABIGATRAN 150 MG CAP PO SCH (21:00)
[2019-03-19 04:23] LABS: Cholesterol 131 mg/dL (<200); HDL Cholesterol 54 mg/dL (40-60); LDL Cholesterol,Calculated 66 mg/dL (0-99); Triglycerides 53 mg/dL (<150)
[2019-03-19] MEDS: NITROGLYCERIN OINT 1 INCH/GM PACKET TOPICAL SCH (05:36)
[2019-03-19] MEDS: LEVOTHYROXINE 100 MCG TAB PO SCH (05:37)
--- NOTE | 2019-03-19 08:57 | P.CRDCN ---
History of Present Illness Consult reason: chest pain History of present illness: This is Dr. Vanessa dictating a consult on this patient The patient was interviewed and examined by me IMPRESSION / ASSESSMENT: Atypical chest discomfort off and on at rest while driving yesterday Chest discomfort as I was speaking to her midsternal but she looked quite comfortable no associated symptoms History of atrial fibrillation on flecainide and anticoagulated with Pradaxa History of coronary angiogram several years back with Dr. Taylor History of dyslipidemia, on Pravachol First degree AV block Serial normal Cardiac enzymes are normal Hypertension on amlodipine and Cozaar PLAN: Repeat chest discomfort does not show any significant changes. Some baseline artifact in V3 and V4 No evidence for acute myocardial infarction Continue observation for now 2-D echo and Doppler study Repeat troponin 1 Continue observation HPI Patient presents with recurrent discomfort precordial in nature while driving Intermittent chest discomfort even in the hospital ROS: No fever chills or rigors, no cough, phlegm or expectoration, no nausea, vomiting or diarrhea, no hematuria, dysuria, no musculoskeletal complaints, no strokes or seizures, no skin lesions. EXAMINATION: Blood pressure mildly elevated 143/57 and 145/55 mmHg normal heart rates Afebrile Breath sounds are clear no rhonchi no crackles Abdomen is soft nontender Extremities warm no edema Normal heart sounds normal S1 normal S2 regular REVIEW OF LABS, ECG & MEDICAL DATA Normal cardiac enzymes First degree AV block normal ST segments No change on twelve-lead EKG during chest discomfort this morning Patient is a serial ECGs without any ECG changes Past Medical History Past Medical History: Atrial Fibrillation, Atrial Flutter, Cancer, Chest Pain / Angina, CVA/TIA, Eye Disorder, Hyperlipidemia, Hypertension, Osteoarthritis (OA), Pneumonia, Thyroid Disorder, Vascular Disorder Additional Past Medical History / Comment(s): cervical cancer, macular degeneration, varicose veins History of Any Multi-Drug Resistant Organisms: None Reported Past Surgical History: Cardiac Ablation, Heart Catheterization, Hysterectomy, Orthopedic Surgery Additional Past Surgical History / Comment(s): [place] cataracts, ORIF rt ankle, [place] wrist orif, rt heel & [place] eyelid lift. Past Anesthesia/Blood Transfusion Reactions: No Reported Reaction Past Psychological History: No Psychological Hx Reported Smoking Status: Former smoker Past Alcohol Use History: None Reported Additional Past Alcohol Use History / Comment(s): Quit smoking in 1989, smoked 1 PPD for 38 yrs. Past Drug Use History: None Reported - Past Family History Sister(s) Family Medical History: Congestive Heart Failure (CHF) Brother(s) Family Medical History: Hypertension Daughter(s) Family Medical History: AFIB, COPD Father Family Medical History: Cancer, Hypertension Additional Family Medical History / Comment(s): Throat Medications and Allergies Home Medications Medication Instructions Recorded Confirmed Type Dabigatran [Pradaxa] 150 mg PO BID 09/06/14 03/18/19 History Pravastatin Sodium [Pravachol] 40 mg PO HS 03/03/16 03/18/19 History Flecainide [Tambocor] 50 mg PO BID 11/04/16 03/18/19 History Levothyroxine Sodium [Synthroid] 100 mcg PO DAILY 11/04/16 03/18/19 History Losartan Potassium [Cozaar] 50 mg PO DAILY 11/04/16 03/18/19 History Ipratropium [place] 0.06%Nasal 1 - 2 spray EA NOSTRIL DAILY 03/05/17 03/18/19 History [Atrovent Nasal 0.06%] amLODIPine [Norvasc] 2.5 mg PO DAILY 03/05/17 03/18/19 History Loratadine [Claritin] 10 mg PO DAILY 01/23/19 03/18/19 History Balance B 100 1 tab PO DAILY 03/18/19 03/18/19 History Blueberry Extract 100mg Tablet 100 mg PO DAILY 03/18/19 03/18/19 History Carboxymethylcellulose Sodium 1 drop BOTH EYES QID 03/18/19 03/18/19 History [Refresh Tears] Cholecalciferol [Vitamin D3] 400 unit PO DAILY 03/18/19 03/18/19 History Erythromycin Ophth Oint [Romycin 1 applic BOTH EYES HS 03/18/19 03/18/19 History Ophth Oint] Vit C/E/Zn/Coppr/Lutein/Zeaxan 1 cap PO BID 03/18/19 03/18/19 History [Preservision Areds 2 Softgel] cycloSPORINE 0.05% OPHTH SOLN 1 applicator BOTH EYES Q12H 03/18/19 03/18/19 History [Restasis] traMADol HCl [Ultram] 50 mg PO Q6HR PRN 03/18/19 03/18/19 History Allergies Allergy/AdvReac Type Severity Reaction Status Date / Time Sulfa (Sulfonamide Allergy Unknown Verified 03/18/19 13:20 Antibiotics) Childhood atorvastatin calcium AdvReac Dizziness Verified 03/18/19 13:20 [From Lipitor] levofloxacin [From Levaquin] AdvReac joint pain Verified 03/18/19 13:20 nitrofurantoin AdvReac sleepiness Verified 03/18/19 13:20 [From Macrobid] Physical Exam Vitals: Vital Signs Temp Pulse Pulse Resp BP BP Pulse Ox 03/19/19 07:00 98.0 F 63 18 156/77 97 03/19/19 04:00 97.7 F 62 18 145/55 97 03/18/19 23:15 98.2 F 61 18 143/57 97 03/18/19 19:20 98.2 F 63 18 161/72 96 03/18/19 15:05 97.4 F L 63 18 186/70 99 03/18/19 13:55 68 20 148/76 97 03/18/19 12:52 60 18 150/70 96 03/18/19 11:56 97.6 F 61 19 186/79 100 Intake and Output 03/18/19 03/19/19 03/19/19 22:59 06:59 14:59 Intake Total 71.199 49.844 Balance 71.199 49.844 Intake: Intake, IV Titration 71.199 49.844 Amount Heparin Sod,Pork in 0.45% 71.199 49.844 NaCl 25,000 unit In 0.45 % NaCl 1 250ml.bag @ 12 UNITS/KG/HR 9.798 mls/hr IV .Q24H [facility] Rx#: [id number] Other: Voiding Method Toilet Toilet # Voids 1 2 Weight 81.647 kg Results 03/18/19 12:30 03/18/19 12:30 Cardiac Enzymes 03/18/19 03/18/19 03/18/19 Range/Units 12:30 12:30 19:45 AST 33 (14-36) U/L Troponin I <0.012 <0.012 (0.000-0.034) ng/mL 03/19/19 Range/Units 00:41 AST (14-36) U/L Troponin I <0.012 (0.000-0.034) ng/mL Coagulation 03/18/19 03/18/19 03/19/19 Range/Units 12:30 19:45 03:52 PT 11.5 (9.0-12.0) sec APTT 42.7 H >200.0 H* 101.8 H* (22.0-30.0) sec Lipids 03/19/19 Range/Units 03:52 Triglycerides 53 (<150) mg/dL Cholesterol 131 (<200) mg/dL HDL Cholesterol 54 (40-60) mg/dL CBC 03/18/19 Range/Units 12:30 WBC 4.6 (3.8-10.6) k/uL RBC 4.42 (3.80-5.40) m/uL Hgb 13.0 (11.4-16.0) gm/dL Hct 40.7 (34.0-46.0) % Plt Count 197 (150-450) k/uL Comprehensive Metabolic Panel 03/18/19 Range/Units 12:30 Sodium 135 L (137-145) mmol/L Potassium 4.4 (3.5-5.1) mmol/L Chloride 101 (98-107) mmol/L Carbon Dioxide 27 (22-30) mmol/L BUN 18 H (7-17) mg/dL Creatinine 0.85 (0.52-1.04) mg/dL Glucose 92 (74-99) mg/dL Calcium 9.5 (8.4-10.2) mg/dL AST 33 (14-36) U/L ALT 38 (9-52) U/L Alkaline Phosphatase 88 (38-126) U/L Total Protein 6.9 (6.3-8.2) g/dL Albumin 4.2 (3.5-5.0) g/dL Current Medications Generic Name Dose Route Start Last Admin Trade Name Freq PRN Reason Stop Dose Admin Amlodipine Besylate 2.5 mg 03/19/19 09:00 Norvasc PO DAILY [facility] Aspirin 81 mg 03/19/19 09:00 Aspirin PO DAILY [facility] Flecainide Acetate 50 mg 03/18/19 21:00 03/18/19 19:56 Tambocor PO Not Given BID [facility] Heparin Sodium (Porcine) 0 unit 03/18/19 19:25 Heparin IV PER PROTOCOL PRN Low PTT Protocol Hydralazine HCl 10 mg 03/18/19 19:19 Apresoline IVP Q6HR PRN Blood Pressure - High Levothyroxine Sodium 100 mcg 03/19/19 06:30 03/19/19 05:37 Synthroid PO 100 mcg DAILY@0630 [facility] Administration Loratadine 10 mg 03/19/19 09:00 Claritin PO DAILY [facility] Losartan Potassium 50 mg 03/19/19 21:00 Cozaar PO HS [facility] Nitroglycerin 0.4 mg 03/18/19 13:53 Nitrostat SUBLINGUAL Q5M PRN Chest Pain Pravastatin Sodium 40 mg 03/18/19 21:00 03/18/19 19:57 Pravachol PO Not Given HS [facility] Intake and Output 03/18/19 03/19/19 03/19/19 22:59 06:59 14:59 Intake Total 71.199 49.844 Balance 71.199 49.844 Intake: Intake, IV Titration 71.199 49.844 Amount Heparin Sod,Pork in 0.45% 71.199 49.844 NaCl 25,000 unit In 0.45 % NaCl 1 250ml.bag @ 12 UNITS/KG/HR 9.798 mls/hr IV .Q24H [facility] Rx#: [id number] Other: Voiding Method Toilet Toilet # Voids 1 2 Weight 81.647 kg 03/18/19 12:30 03/18/19 12:30
[2019-03-19] MEDS ORDERED: ASPIRIN 325 MG TAB PO SCH (09:00)
[2019-03-19] MEDS ORDERED: LOSARTAN 50 MG TAB PO SCH ×2 (09:00→21:00)
[2019-03-19] MEDS: ASPIRIN 81 MG PO SCH (10:05)
[2019-03-19] MEDS: amLODIPine 2.5 MG TAB PO SCH (10:05)
[2019-03-19] MEDS: FLECAINIDE 50 MG TAB PO SCH ×2 (10:05→20:06)
[2019-03-19] MEDS: LORATADINE 10 MG TAB PO SCH ×2 (10:05→10:08)
[2019-03-19] MEDS: PRAVASTATIN SODIUM 40 MG TAB PO SCH (20:06)
--- NOTE | 2019-03-19 23:14 | P.HPIM ---
History of Present Illness H&P Date: 03/19/19 Chief Complaint: Chest pain/discomfort Ms. Johnson is a 78-year-old female with a past medical history of atrial fibrillation, CIS/TIA, hypertension, hyperlipidemia, osteoarthritis, thyroid disorder, macular degeneration coming to the hospital with a chief complaint of chest discomfort. Patient states that she has been having chest discomfort mostly in the substernal area and also in the epigastric area going on for couple of weeks. Patient denies having any radiation of the pain to her shoulder or jaw. Patient denies having any nausea vomiting or diaphoresis with the chest pain. She denies having any swelling of her lower extremities. No recent travel. Patient has history of atrial fibrillation and is on anticoagulation with Pradaxa. Patient denies having any bleeding from anywhere. She denies having any cough or difficulty in breathing. No fevers chills or rigors. No abdominal pain nausea vomiting or diarrhea. No dysuria or hematuria. No headaches, blurring of vision or slurred speech. No weakness of her extremities. In the emergency patient had blood work done and the labs are within normal limits. Troponin is less than 0.0123. EKG no acute ST or T wave changes. Chest x-ray no acute cardiopulmonary process. Patient has been admitted for further management. Review of Systems REVIEW OF SYSTEMS: PSYCH: no anxiety or depression NEURO:No c/o weakness of the extremties, No facial droop, No speech abnormalities. VASCULAR: no edema HEMATOLOGIC: No history of easy bleeding and bruising . No recent infections . RESPIRATORY: No cough, No SOB, No chest discomfort. IMMUNE: No infections INTEGUMENT: no rashes OPHTHALMOLOGIC: No blurry vision and no eye discharge : No dysuria or hematuria PARCEL POST DELIVERY: No bleeding PV CARDIAC: No shortness of breath , paroxysmal nocturnal dyspnea MUSCULOSKELETAL : No aches or pains in the joints or muscles. GI: No abdominal pain, Nausea or vomiting. No constipation or diarrhea. All 13 review of systems done and negative except for the ones mentioned above. Past Medical History Past Medical History: Atrial Fibrillation, Atrial Flutter, Cancer, Chest Pain / Angina, CVA/TIA, Eye Disorder, Hyperlipidemia, Hypertension, Osteoarthritis (OA), Pneumonia, Thyroid Disorder, Vascular Disorder Additional Past Medical History / Comment(s): cervical cancer, macular dege neration, varicose veins History of Any Multi-Drug Resistant Organisms: None Reported Past Surgical History: Cardiac Ablation, Heart Catheterization, Hysterectomy, Orthopedic Surgery Additional Past Surgical History / Comment(s): [place] cataracts, ORIF rt ankle, [place] wrist orif, rt heel & [place] eyelid lift. Past Anesthesia/Blood Transfusion Reactions: No Reported Reaction Past Psychological History: No Psychological Hx Reported Smoking Status: Former smoker Past Alcohol Use History: None Reported Additional Past Alcohol Use History / Comment(s): Quit smoking in 1989, smoked 1 PPD for 38 yrs. Past Drug Use History: None Reported - Past Family History Sister(s) Family Medical History: Congestive Heart Failure (CHF) Brother(s) Family Medical History: Hypertension Daughter(s) Family Medical History: AFIB, COPD Father Family Medical History: Cancer, Hypertension Additional Family Medical History / Comment(s): Throat Medications and Allergies Home Medications Medication Instructions Recorded Confirmed Type Dabigatran [Pradaxa] 150 mg PO BID 09/06/14 03/18/19 History Pravastatin Sodium [Pravachol] 40 mg PO HS 03/03/16 03/18/19 History Flecainide [Tambocor] 50 mg PO BID 11/04/16 03/18/19 History Levothyroxine Sodium [Synthroid] 100 mcg PO DAILY 11/04/16 03/18/19 History Losartan Potassium [Cozaar] 50 mg PO DAILY 11/04/16 03/18/19 History Ipratropium [place] 0.06%Nasal 1 - 2 spray EA NOSTRIL DAILY 03/05/17 03/18/19 History [Atrovent Nasal 0.06%] amLODIPine [Norvasc] 2.5 mg PO DAILY 03/05/17 03/18/19 History Loratadine [Claritin] 10 mg PO DAILY 01/23/19 03/18/19 History Balance B 100 1 tab PO DAILY 03/18/19 03/18/19 History Blueberry Extract 100mg Tablet 100 mg PO DAILY 03/18/19 03/18/19 History Carboxymethylcellulose Sodium 1 drop BOTH EYES QID 03/18/19 03/18/19 History [Refresh Tears] Cholecalciferol [Vitamin D3] 400 unit PO DAILY 03/18/19 03/18/19 History Erythromycin Ophth Oint [Romycin 1 applic BOTH EYES HS 03/18/19 03/18/19 History Ophth Oint] Vit C/E/Zn/Coppr/Lutein/Zeaxan 1 cap PO BID 03/18/19 03/18/19 History [Preservision Areds 2 Softgel] cycloSPORINE 0.05% OPHTH SOLN 1 applicator BOTH EYES Q12H 03/18/19 03/18/19 History [Restasis] traMADol HCl [Ultram] 50 mg PO Q6HR PRN 03/18/19 03/18/19 History Allergies Allergy/AdvReac Type Severity Reaction Status Date / Time Sulfa (Sulfonamide Allergy Unknown Verified 03/18/19 13:20 Antibiotics) Childhood atorvastatin calcium AdvReac Dizziness Verified 03/18/19 13:20 [From Lipitor] levofloxacin [From Levaquin] AdvReac joint pain Verified 03/18/19 13:20 nitrofurantoin AdvReac sleepiness Verified 03/18/19 13:20 [From Macrobid] Physical Exam Vitals: Vital Signs Temp Pulse Resp BP BP Pulse Ox 03/19/19 15:56 97.5 F L 58 L 18 134/72 99 03/19/19 11:40 97.3 F L 64 18 144/77 100 03/19/19 07:00 98.0 F 63 18 156/77 97 03/19/19 04:00 97.7 F 62 18 145/55 97 03/18/19 23:15 98.2 F 61 18 143/57 97 03/18/19 19:20 98.2 F 63 18 161/72 96 Intake and Output 03/19/19 03/19/19 03/19/19 06:59 14:59 22:59 Intake Total 49.844 236 Balance 49.844 236 Intake: Intake, IV Titration 49.844 Amount Heparin Sod,Pork in 0.45% 49.844 NaCl 25,000 unit In 0.45 % NaCl 1 250ml.bag @ 12 UNITS/KG/HR 9.798 mls/hr IV .Q24H [facility] Rx#: [id number] Oral 236 Other: Voiding Method Toilet Toilet # Voids 2 3 GEN. APPEARANCE: alert, in no apparent distress HEAD EXAM: atraumatic, normocephalic, normal inspection EYE EXAM: normal appearance, PERRL, EOMI. no pallor, no icterus ENT EXAM: normal exam, mucous membranes moist NECK EXAM: normal inspection. no thyromegaly or lymphadenopathy RESPIRATORY EXAM: normal lung sounds bilaterally. No wheezing or crackles CARDIOVASCULAR EXAM: regular rate, normal rhythm, normal heart sounds. GI/ABDOMINAL EXAM: soft, normal bowel sounds. no tenderness guarding, rebound or rigidity EXTREMITIES EXAM: no pedal edema NEUROLOGICAL EXAM: alert, oriented X3, no focal deficits PSYCHIATRIC EXAM: normal affect, normal mood SKIN EXAM: no rash Results CBC & Chem 7: 03/18/19 12:30 03/18/19 12:30 Labs: Abnormal Lab Results - Last 24 Hours (Table) 03/18/19 03/19/19 Range/Units 19:45 03:52 APTT >200.0 H* 101.8 H* (22.0-30.0) sec Thrombosis Risk Factor Assmnt - Choose All That Apply Any of the Below Risk Factors Present?: Yes Each Factor Represents 1 point: Obesity (BMI >25) Other Risk Factors: Yes Each Risk Factor Represents 3 Points: Age 75 years or older Other congenital or acquired thrombophilia - If yes, enter type in comment: No Thrombosis Risk Factor Assessment Total Risk Factor Score: 4 Thrombosis Risk Factor Assessment Level: Moderate Risk Assessment and Plan Assessment: ASSESSMENT Atypical chest pain Atrial fibrillation on anticoagulation Hyperlipidemia Hypertension CVA/TIA Multiple joint osteoarthritis Thyroid disorder History of cervical cancer Macular degeneration Varicose veins Bilateral cataracts Former smoker PLAN: Patient has been admitted for serial troponins and EKGs. Cardiology on board and following the patient. Echocardiogram has been ordered. Patient has been restarted on all her home medications. Further recommendations to follow depending on the progress of the patient.
[2019-03-20] MEDS: LEVOTHYROXINE 100 MCG TAB PO SCH (06:03)
[2019-03-20] MEDS: FLECAINIDE 50 MG TAB PO SCH (08:00)
[2019-03-20] MEDS: amLODIPine 2.5 MG TAB PO SCH (08:00)
[2019-03-20] MEDS: ASPIRIN 81 MG PO SCH (08:00)
[2019-03-20] MEDS: LORATADINE 10 MG TAB PO SCH (08:00)
--- NOTE | 2019-03-20 08:59 | P.PN ---
Subjective Principal diagnosis: Patient is doing well. He has not had any exertional chest discomfort. She's been walking around quite a bit since yesterday in the hallways No dizziness lightheadedness no palpitations Blood pressure is well controlled On examination blood pressure 118/72 mmHg pulse rate in the 60s afebrile Breath sounds are clear no rhonchi no crackles no adventitious sounds Normal heart sounds normal S1 normal S2 no murmurs Abdomen is soft Extent is warm 2-D echo shows preserved LV size and systolic function Suggest She will go home from a cardiac standpoint and follow for Dr. Taylor in the next 1-2 days Continue current medications Objective - Vital Signs Vital signs: Vital Signs Temp 97.9 F 03/20/19 07:28 Pulse 66 03/20/19 07:28 Resp 18 03/20/19 07:28 BP 118/72 03/20/19 07:28 Pulse Ox 99 03/20/19 07:28 Intake & Output 03/19/19 03/20/19 03/20/19 18:59 06:59 18:59 Intake Total 236 Balance 236 Intake: Oral 236 Other: Voiding Method Toilet Toilet # Voids 3 1 - Labs CBC & Chem 7: 03/18/19 12:30 03/18/19 12:30
--- NOTE | 2019-03-20 09:01 | ECHOF ---
Referral Reason:cp htn MEASUREMENTS -------- HEIGHT: 154.9 cm WEIGHT: 81.6 kg BP: RVIDd: 2.3 cm (< 3.3) IVSd: 0.8 cm (0.6 - 1.1) LVIDd: 3.7 cm (3.9 - 5.3) LVPWd: 1.0 cm (0.6 - 1.1) IVSs: 1.1 cm LVIDs: 1.7 cm LVPWs: 1.7 cm LAESV Index (A-L): 35.30 ml/m Ao Diam: 2.4 cm (2.0 - 3.7) AV Cusp: 2.0 cm (1.5 - 2.6) LA Diam: 3.4 cm (2.7 - 3.8) MV EXCURSION: 21.800 mm (> 18.000) MV EF SLOPE: 117 mm/s (70 - 150) EPSS: 0.5 cm MV E Jerson: 1.11 m/s MV DecT: 169 ms MV A Jerson: 0.96 m/s MV E/A Ratio: 1.16 RAP: 5.00 mmHg RVSP: 34.99 mmHg TAPSE: 23.75 mm FINDINGS -------- Sinus rhythm. This was a technically good study. The left ventricular size is normal. Left ventricular wall thickness is normal. Overall left vent ricular systolic function is normal with, an EF between 55 - 60 %. Increased LAP Grade 2 Diastolic Dysfunction. The right ventricle is normal in size. The right ventricular systolic function is normal. LA is moderately dilated 34-39 ml/m2 The right atrial size is normal. Interatrial and interventricular septum intact. The aortic valve is trileaflet and appears structurally normal. The mitral valve is normal. Mild mitral regurgitation is present. The tricuspid valve appears structurally normal. Lgpc-[id number] tricuspid regurgitation present. There is borderline pulmonary hypertension. The right ventricular systolic pressure, as measured by Doppler, is 34.99mmHg. There is no pulmonic regurgitation present. The aortic root size is normal. Normal inferior vena cava with normal inspiratory collapse consistent with estimated right atrial pre ssure of 5 mmHg. There is no pericardial effusion. CONCLUSIONS -------- 1. Sinus rhythm. 2. This was a technically good study. 3. The left ventricular size is normal. 4. Left ventricular wall thickness is normal. 5. Overall left ventricular systolic function is normal with, an EF between 55 - 60 %. 6. Increased LAP Grade 2 Diastolic Dysfunction. 7. The right ventricle is normal in size. 8. The right ventricular systolic function is normal. 9. LA is moderately dilated 34-39 ml/m2 10. The right atrial size is normal. 11. Interatrial and interventricular septum intact. 12. The aortic valve is trileaflet and appears structurally normal. 13. The mitral valve is normal. 14. Mild mitral regurgitation is present. 15. The tricuspid valve appears structurally normal. 16. Nfic-xx-okheqouf tricuspid regurgitation present. 17. There is borderline pulmonary hypertension. 18. The right ventricular systolic pressure, as measured by Doppler, is 34.99mmHg. 19. There is no pulmonic regurgitation present. 20. The aortic root size is normal. 21. Normal inferior vena cava with normal inspiratory collapse consistent with estimated right atrial pressure of 5 mmHg. 22. There is no pericardial effusion. BAIL AGENT: Tiffanie Grimaldo RDCS
[2019-03-20 12:19] VITALS: BP 137/72; PULSE 59; TEMP 98.1
--- NOTE | 2019-03-20 14:49 | P.DS ---
Providers Date of admission: 03/18/19 13:56 Expected date of discharge: 03/20/19 Attending physician: Darren Graham MD Consults: 03/18/19 13:53 Consult Physician Urgent Consulting Provider: Stacey Taylor Consult Reason/Comments: Chest pain, unstable angina Do you want consulting provider notified?: Yes Primary care physician: Kesha Gladys [facility] Hospital Course: HPI - Ms. Johnson is a 78-year-old female with a past medical history of atrial fibrillation, CIS/TIA, hypertension, hyperlipidemia, osteoarthritis, thyroid disorder, macular degeneration coming to the hospital with a chief complaint of chest discomfort. Patient states that she has been having chest discomfort mostly in the substernal area and also in the epigastric area going on for couple of weeks. Patient denies having any radiation of the pain to her shoulder or jaw. Patient denies having any nausea vomiting or diaphoresis with the chest pain. She denies having any swelling of her lower extremities. No recent travel. Patient has history of atrial fibrillation and is on anticoagulation with Pradaxa. Patient denies having any bleeding from anywhere. She denies having any cough or difficulty in breathing. No fevers chills or rigors. No abdominal pain nausea vomiting or diarrhea. No dysuria or hematuria. No headaches, blurring of vision or slurred speech. No weakness of her extremities. In the emergency patient had blood work done and the labs are within normal limits. T Patient has been admitted for further management. Hospital course : Troponin is less than 0.0123. EKG no acute ST or T wave changes. Chest x-ray no acute cardiopulmonary process. Patient was chest pain- free. Cardiology cleared her for discharge. No changes in medications made. Patient is being discharged home to follow-up with her PCP. Vital signs: Vital Signs Temp 97.9 F 03/20/19 07:28 Pulse 66 03/20/19 07:28 Resp 18 03/20/19 07:28 BP 118/72 03/20/19 07:28 Pulse Ox 99 03/20/19 07:28 Intake & Output 03/19/19 03/20/19 03/20/19 18:59 06:59 18:59 Intake Total 236 Balance 236 Intake: Oral 236 Other: Voiding Method Toilet Toilet # Voids 3 1 PHYSICAL EXAM GEN. APPEARANCE: alert, in no apparent distress HEAD EXAM: atraumatic, normocephalic, normal inspection EYE EXAM: normal appearance, PERRL, EOMI. no pallor, no icterus ENT EXAM: normal exam, mucous membranes moist NECK EXAM: normal inspection. no thyromegaly or lymphadenopathy RESPIRATORY EXAM: normal lung sounds bilaterally. No wheezing or crackles CARDIOVASCULAR EXAM: regular rate, normal rhythm, normal heart sounds. GI/ABDOMINAL EXAM: soft, normal bowel sounds. no tenderness guarding, rebound or rigidity EXTREMITIES EXAM: no pedal edema NEUROLOGICAL EXAM: alert, oriented X3, no focal deficits PSYCHIATRIC EXAM: normal affect, normal mood SKIN EXAM: no rash DISCHARGE DIAGNOSIS Atypical chest pain Atrial fibrillation on anticoagulation Hyperlipidemia Hypertension CVA/TIA Multiple joint osteoarthritis Thyroid disorder History of cervical cancer Macular degeneration Varicose veins Bilateral cataracts Former smoker Follow-up: Patient is advised to follow up with her PCP in 2-3 days. Patient Condition at Discharge: Fair Plan - Discharge Summary Discharge Rx Participant: No New Discharge Prescriptions: Continue Dabigatran [Pradaxa] 150 mg PO BID Pravastatin Sodium [Pravachol] 40 mg PO HS Losartan Potassium [Cozaar] 50 mg PO DAILY Flecainide [Tambocor] 50 mg PO BID Levothyroxine Sodium [Synthroid] 100 mcg PO DAILY amLODIPine [Norvasc] 2.5 mg PO DAILY Ipratropium Alpine 0.06%Nasal [Atrovent Nasal 0.06%] 1 - 2 spray EA NOSTRIL DAILY Loratadine [Claritin] 10 mg PO DAILY Cholecalciferol [Vitamin D3] 400 unit PO DAILY traMADol HCl [Ultram] 50 mg PO Q6HR PRN PRN Reason: Pain Vit C/E/Zn/Coppr/Lutein/Zeaxan [Preservision Areds 2 Softgel] 1 cap PO BID Erythromycin Ophth Oint [Romycin Ophth Oint] 1 applic BOTH EYES HS Carboxymethylcellulose Sodium [Refresh Tears] 1 drop BOTH EYES QID cycloSPORINE 0.05% OPHTH SOLN [Restasis] 1 applicator BOTH EYES Q12H Blueberry Extract 100mg Tablet 100 mg PO DAILY Balance B 100 1 tab PO DAILY Discharge Medication List Dabigatran [Pradaxa] 150 mg PO BID 09/06/14 [History] Pravastatin Sodium [Pravachol] 40 mg PO HS 03/03/16 [History] Flecainide [Tambocor] 50 mg PO BID 11/04/16 [History] Levothyroxine Sodium [Synthroid] 100 mcg PO DAILY 11/04/16 [History] Losartan Potassium [Cozaar] 50 mg PO DAILY 11/04/16 [History] Ipratropium Alpine 0.06%Nasal [Atrovent Nasal 0.06%] 1 - 2 spray EA NOSTRIL DAILY 03/05/17 [History] amLODIPine [Norvasc] 2.5 mg PO DAILY 03/05/17 [History] Loratadine [Claritin] 10 mg PO DAILY 01/23/19 [History] Balance B 100 1 tab PO DAILY 03/18/19 [History] Blueberry Extract 100mg Tablet 100 mg PO DAILY 03/18/19 [History] Carboxymethylcellulose Sodium [Refresh Tears] 1 drop BOTH EYES QID 03/18/19 [History] Cholecalciferol [Vitamin D3] 400 unit PO DAILY 03/18/19 [History] Erythromycin Ophth Oint [Romycin Ophth Oint] 1 applic BOTH EYES HS 03/18/19 [History] Vit C/E/Zn/Coppr/Lutein/Zeaxan [Preservision Areds 2 Softgel] 1 cap PO BID 03/18/19 [History] cycloSPORINE 0.05% OPHTH SOLN [Restasis] 1 applicator BOTH EYES Q12H 03/18/19 [History] traMADol HCl [Ultram] 50 mg PO Q6HR PRN 03/18/19 [History] Follow up Appointment(s)/Referral(s): Stacey Taylor MD [STAFF PHYSICIAN] - 1 Week (Follow for Dr. Taylor/nemo Simpson in the next 1-2 days) Kesha Graham DO [Primary Care Provider] - 1-2 days Discharge Disposition: HOME SELF-CARE
== END 2019-03-20 15:11 | disposition home or self-care (01) ==
LOC: EC 11:52 → 1SOBS 13:56
PROVIDERS: ADMIT Family Medicine; ATTEND Family Medicine
DX: R07.89 Other chest pain (principal); I48.91 Unspecified atrial fibrillation; E78.5 Hyperlipidemia, unspecified; I10 Essential (primary) hypertension; M89.49 Other hypertrophic osteoarthropathy, multiple sites; E07.9 Disorder of thyroid, unspecified; I83.90 Asymptomatic varicose veins of unspecified lower extremity; I25.10 Atherosclerotic heart disease of native coronary artery without angina pectoris; I48.92 Unspecified atrial flutter; H35.30 Unspecified macular degeneration; I44.0 Atrioventricular block, first degree; R94.39 Abnormal result of other cardiovascular function study; I08.1 Rheumatic disorders of both mitral and tricuspid valves; I27.20 Pulmonary hypertension, unspecified; E66.9 Obesity, unspecified; Z68.34 Body mass index [BMI] 34.0-34.9, adult; Z86.73 Personal history of transient ischemic attack (TIA), and cerebral infarction without residual deficits; Z98.42 Cataract extraction status, left eye; Z98.41 Cataract extraction status, right eye; Z87.891 Personal history of nicotine dependence; Z79.01 Long term (current) use of anticoagulants; Z79.899 Other long term (current) drug therapy; Z79.890 Hormone replacement therapy; Z79.891 Long term (current) use of opiate analgesic; Z79.2 Long term (current) use of antibiotics; Z88.2 Allergy status to sulfonamides; Z88.8 Allergy status to other drugs, medicaments and biological substances; Z88.1 Allergy status to other antibiotic agents; Z85.41 Personal history of malignant neoplasm of cervix uteri; Z98.890 Other specified postprocedural states; Z90.710 Acquired absence of both cervix and uterus; Z87.81 Personal history of (healed) traumatic fracture; Z87.01 Personal history of pneumonia (recurrent); Z80.8 Family history of malignant neoplasm of other organs or systems; Z82.49 Family history of ischemic heart disease and other diseases of the circulatory system; Z82.5 Family history of asthma and other chronic lower respiratory diseases
CPT/HCPCS: 93005 ×2; 96366 ×2; 96376; 96361; 96365; 99285; 36415; 93306; 85379; 83880; 80061; 80053; 82550; 83690; 83735; 84484 ×2; 85025; 85610; 85730 ×2; 71046; G0378 ×3; J1644 ×2

== ENCOUNTER → 2019-04-27 | Outpatient (CLI) | payer MEDICARE, OTHER ==
--- NOTE | 2019-04-29 10:06 | MM ---
Reason for exam: screening (asymptomatic). Last mammogram was performed 3 years and 3 months ago. History: Patient is postmenopausal, has history of endometrial cancer at age 25, and has history of other cancer at age 25. Family history of breast cancer in maternal aunt. Physical Findings: A clinical breast exam by your physician is recommended on an annual basis and results should be correlated with mammographic findings. MG 3D Screening Mammo W/Cad Bilateral CC and MLO view(s) were taken. Prior study comparison: February 04, 2016, bilateral MG 3d diag mammo w/cad [facility]. February 07, 2015, bilateral MG screening mammo w CAD. There are scattered fibroglandular densities. No significant changes when compared with prior studies. ASSESSMENT: Negative, BI-RAD 1 RECOMMENDATION: Routine screening mammogram of both breasts in 1 year.
== END ==
LOC: RADMAMWWP 13:29
PROVIDERS: ATTEND Family Medicine
DX: Z12.31 Encounter for screening mammogram for malignant neoplasm of breast (principal); Z80.3 Family history of malignant neoplasm of breast
CPT/HCPCS: 77063; 77067

== ENCOUNTER → 2019-09-21 | Outpatient (CLI) | payer MEDICARE, OTHER ==
[2019-09-21 16:29] LABS: African American GFR (CKD) 62.1 (60.0-200.0); Albumin 4.3 g/dL (3.80-4.90); Albumin/Globulin Ratio 2.39 (1.60-3.17); Anion Gap 7.9 mmol/L (4.00-12.00); Calcium 9.2 mg/dL (8.7-10.3); Carbon Dioxide 26.1 mmol/L (21.6-31.8); Chol/HDL Ratio 2.25; Globulin 1.8 g/dL (1.6-3.3); LDL Cholesterol,Calculated 81.8 mg/dL (0.0-131.0); Non-African American GFR(CKD) 53.5 (60.0-200.0); Potassium 4.7 mmol/L (3.5-5.5); Total Bilirubin 0.7 mg/dL (0.2-1.2); Total Protein 6.1 g/dL (6.2-8.2); VLDL Calculation 12.2 mg/dL (5.00-40.00)
== END | disposition home or self-care (01) ==
LOC: LABWHC1 08:56
PROVIDERS: ATTEND Internal Medicine Interventional Cardiology
DX: E78.2 Mixed hyperlipidemia (principal)
CPT/HCPCS: 36415; 80053; 80061

== ENCOUNTER → 2020-04-27 | Day surgery (SDC) | payer MEDICARE, OTHER ==
[2020-04-25 14:00] VITALS: BMI 34.5
[~2020-04-27] MED LIST: SODIUM CHLORIDE 0.9% 1,000 ML IV SCH
[2020-04-27 06:46] VITALS: BP 150/66; PULSE 65; RESP 16; TEMP 98.9
--- NOTE | 2020-04-27 08:48 | PN ---
PROGRESS NOTE Mrs. Johnson presented to undergo DANA guided cardioversion because of persistent atrial fibrillation. She is back in sinus mechanism. She is feeling well. She will be discharged home today and followed as an outpatient. LEIGH / TORI: [id number] /
== END ==
LOC: CATHCVL 06:06
PROVIDERS: ATTEND Internal Medicine Interventional Cardiology
DX: I48.19 Other persistent atrial fibrillation (principal); Z53.8 Procedure and treatment not carried out for other reasons; I25.10 Atherosclerotic heart disease of native coronary artery without angina pectoris; E78.2 Mixed hyperlipidemia; I10 Essential (primary) hypertension; E05.90 Thyrotoxicosis, unspecified without thyrotoxic crisis or storm; I65.21 Occlusion and stenosis of right carotid artery; I34.1 Nonrheumatic mitral (valve) prolapse; E03.9 Hypothyroidism, unspecified; M19.90 Unspecified osteoarthritis, unspecified site; Z79.01 Long term (current) use of anticoagulants; Z79.899 Other long term (current) drug therapy; Z79.51 Long term (current) use of inhaled steroids; Z79.890 Hormone replacement therapy; Z88.8 Allergy status to other drugs, medicaments and biological substances; Z88.1 Allergy status to other antibiotic agents; Z88.2 Allergy status to sulfonamides; Z90.710 Acquired absence of both cervix and uterus; Z90.49 Acquired absence of other specified parts of digestive tract; Z98.41 Cataract extraction status, right eye; Z98.42 Cataract extraction status, left eye; Z98.890 Other specified postprocedural states; Z86.79 Personal history of other diseases of the circulatory system; Z85.41 Personal history of malignant neoplasm of cervix uteri; Z86.73 Personal history of transient ischemic attack (TIA), and cerebral infarction without residual deficits; Z87.891 Personal history of nicotine dependence

== ENCOUNTER → 2020-09-06 | Outpatient (CLI) | payer MEDICARE, OTHER ==
--- NOTE | 2020-09-06 14:49 | XR ---
EXAMINATION TYPE: XR ribs LT DATE OF EXAM: 09/06/2020 COMPARISON: 03/18/2019 HISTORY: Left rib pain. Patient had a fall. TECHNIQUE: Multiple views of the left ribs were obtained. FINDINGS: Diffuse bony demineralization limits evaluation for acute fracture. There is no definite ev idence of acute fracture. There is questionable widening of the fourth left anterior rib. Underlying expansile lesion is not excluded. A chest CT is recommended for further evaluation. IMPRESSION: 1. Questionable widening of the left fourth anterior rib. Underlying expansile lesion is not excluded . A CT chest is recommended for further evaluation.
== END | disposition home or self-care (01) ==
LOC: RADXRMAIN 11:03
PROVIDERS: ATTEND Family Medicine
DX: R07.81 Pleurodynia (principal); W19.XXXA Unspecified fall, initial encounter

== ENCOUNTER → 2020-09-14 | Outpatient (CLI) | payer MEDICARE, OTHER ==
--- NOTE | 2020-09-14 08:33 | CT ---
EXAMINATION TYPE: CT chest wo con DATE OF EXAM: 09/14/2020 COMPARISON: CT chest 01/22/2017 and older studies. HISTORY: Lt side chest wall pain CT DLP: 310.7 mGycm. Automated Exposure Control for Dose Reduction was Utilized. TECHNIQUE: CT scan of the thorax is performed without IV contrast. FINDINGS: LUNGS: Mild underlying emphysematous change redemonstrated. Stable 2.6 cm thin-walled cyst or cystic lesion posterior right lower lobectomy 38 with some thin septa. Mild left basilar linear scarring and /or atelectasis. Mild to moderate anterior linear scarring in the midlung redemonstrated. No new cons olidation or groundglass opacity. No pleural effusion or pneumothorax. MEDIASTINUM: Lack of IV contrast is noted to limit evaluation for mediastinal and especially hilar ad enopathy. There are no definitive greater than 1 cm hilar or mediastinal lymph nodes. No cardiomega ly or pericardial effusion is seen. Moderate coronary artery calcification redemonstrated LAD distrib ution. OTHER: Small size hiatal hernia. There is 1.5 cm exophytic thin-walled cyst anteriorly upper to mid p ole level left kidney redemonstrated. IMPRESSION: No significant new or acute findings identified.
== END | disposition home or self-care (01) ==
LOC: RADCTMAIN 07:07
PROVIDERS: ATTEND Family Medicine
DX: R07.89 Other chest pain (principal)
CPT/HCPCS: 71250

== ENCOUNTER → 2020-09-25 | Outpatient (CLI) | payer MEDICARE, OTHER ==
--- NOTE | 2020-09-27 08:31 | MM ---
Reason for exam: screening (asymptomatic). Last mammogram was performed 1 year and 5 months ago. History: Patient is postmenopausal, has history of endometrial cancer at age 25, and has history of other cancer at age 25. Family history of breast cancer in maternal aunt. Physical Findings: A clinical breast exam by your physician is recommended on an annual basis and results should be correlated with mammographic findings. MG 3D Screening Mammo W/Cad Bilateral CC and MLO view(s) were taken. Prior study comparison: April 27, 2019, bilateral MG 3d screening mammo w/cad. February 04, 2016, bilateral MG 3d diag mammo w/cad [facility]. There are scattered fibroglandular densities. There are benign appearing round calcifications bilaterally. There is no discrete abnormality. ASSESSMENT: Benign, BI-RAD 2 RECOMMENDATION: Routine screening mammogram of both breasts in 1 year.
== END | disposition home or self-care (01) ==
LOC: RADMAMWWP 10:52
PROVIDERS: ATTEND Family Medicine
DX: Z12.31 Encounter for screening mammogram for malignant neoplasm of breast (principal); Z78.0 Asymptomatic menopausal state; Z80.3 Family history of malignant neoplasm of breast
CPT/HCPCS: 77063; 77067

== ENCOUNTER → 2020-11-06 | Outpatient (CLI) | payer MEDICARE, OTHER ==
[2020-11-06 20:15] LABS: African American GFR (CKD) 44.9 (60.0-200.0); Albumin 4.1 g/dL (3.80-4.90); Albumin/Globulin Ratio 1.86 (1.60-3.17); Anion Gap 8.6 mmol/L (4.00-12.00); BUN/Creat Ratio 19.23 Ratio (12.00-20.00); Calcium 9.3 mg/dL (8.7-10.3); Carbon Dioxide 27.4 mmol/L (21.6-31.8); Chol/HDL Ratio 2.58; Globulin 2.2 g/dL (1.6-3.3); LDL Cholesterol,Calculated 81.4 mg/dL (0.0-131.0); Non-African American GFR(CKD) 38.7 (60.0-200.0); Total Bilirubin 0.4 mg/dL (0.2-1.2); Total Protein 6.3 g/dL (6.2-8.2); VLDL Calculation 13.6 mg/dL (5.00-40.00)
== END | disposition home or self-care (01) ==
LOC: LABWHC1 10:44
PROVIDERS: ATTEND Internal Medicine Interventional Cardiology
DX: E78.2 Mixed hyperlipidemia (principal)
CPT/HCPCS: 36415; 80053; 80061

== ENCOUNTER → 2021-04-11 | Outpatient (CLI) | payer MEDICARE, OTHER ==
--- NOTE | 2021-04-12 12:49 | MR ---
EXAMINATION TYPE: MR iac wo/w con DATE OF EXAM: 04/11/2021 COMPARISON: NONE HISTORY: 80 year-old female H91.90, Vertigo, left sided hearing loss TECHNIQUE: Multiplanar, multisequence images of the brain and brainstem were acquired before and aft er administration of 7 mL IV Gadavist. Diffusion weighted imaging was performed. Additional coned-d own sequences through the internal auditory canals and posterior cranial fossa before and after IV co ntrast administration. FINDINGS: Diffusion weighted images demonstrate no evidence of an acute ischemic lesion in the brain. T2/FLAIR weighted sequences show moderate to severe scattered burden of bright white matter change in both cerebral hemispheres. Small perivascular spaces in the medial temporal lobes and inferior basal ganglia. Midline structures demonstrate partially empty sella but otherwise normal morphology. The craniocerv ical junction is normal. There is mild age-related cerebral atrophy. The ventricles are of normal caliber. There is no evidence of an acute intracranial hemorrhage, infarct, mass, mass-effect or an extra-axia l fluid collection. There is no cerebellopontine angle mass. Right vertebral artery is not visualized and may be hypoplastic with a dominant left vertebral artery . Brainstem and skull base abnormalities are not seen. Post contrast images demonstrate no evidence of pathologic enhancement in the posterior cranial fossa or the internal auditory canals. There is no abnormal enhancement of the labyrinths. Mild mucosal thickening ethmoid air cells. Globes are intact. IMPRESSION: 1. Mild cerebral atrophy and moderate to severe confluent burden of T2 bright white matter change, li raquel representing chronic small vessel ischemic disease. 2. No acute intracranial abnormality seen. 3. No specific abnormality on acoustic MRI.
== END | disposition home or self-care (01) ==
LOC: RADMRIMAIN 11:28
PROVIDERS: ATTEND Otolaryngology
DX: G31.9 Degenerative disease of nervous system, unspecified (principal)
CPT/HCPCS: 70553; A9585

== ENCOUNTER → 2021-05-30 | Outpatient (CLI) | payer MEDICARE, OTHER ==
[2021-05-30 15:30] LABS: ALT 23 U/L (8-44); AST 24 U/L (13-35); African American GFR (CKD) 55.8 (60.0-200.0); Albumin 3.9 g/dL (3.8-4.9); Albumin/Globulin Ratio 1.75 (1.60-3.17); Alkaline Phosphatase 61 U/L (41-126); BUN/Creat Ratio 15.19 Ratio (12.00-20.00); Blood Urea Nitrogen 16.4 mg/dL (9.0-27.0); Calcium 9.2 mg/dL (8.7-10.3); Carbon Dioxide 26.2 mmol/L (20.0-27.5); Chloride 100 mmol/L (96-109); Chol/HDL Ratio 2.05 Ratio; Globulin 2.2 g/dL (1.6-3.3); Glucose 105 mg/dL (70-110); LDL Cholesterol,Calculated 66.1 mg/dL (0.0-131.0); Non-African American GFR(CKD) 48.1 (60.0-200.0); Potassium 4.2 mmol/L (3.5-5.5); Sodium 137 mmol/L (135-145); Total Protein 6.1 g/dL (6.2-8.2); VLDL Calculation 10.76 mg/dL (5.00-40.00)
== END | disposition home or self-care (01) ==
LOC: LABWHC1 10:47
PROVIDERS: ATTEND Nurse Practitioner Adult Health
DX: I10 Essential (primary) hypertension (principal); E78.2 Mixed hyperlipidemia
CPT/HCPCS: 36415; 80053; 80061

== ENCOUNTER → 2021-06-24 | Outpatient (CLI) | payer MEDICARE, OTHER ==
[2021-06-24 15:18] LABS: African American GFR (CKD) 60.5 (60.0-200.0); Albumin 3.8 g/dL (3.8-4.9); Albumin/Globulin Ratio 1.92 (1.60-3.17); Anion Gap 12.8 mmol/L (10.00-18.00); BUN/Creat Ratio 12.57 Ratio (12.00-20.00); Blood Urea Nitrogen 12.7 mg/dL (9.0-27.0); Calcium 9.3 mg/dL (8.7-10.3); Carbon Dioxide 26.1 mmol/L (20.0-27.5); Non-African American GFR(CKD) 52.2 (60.0-200.0); Potassium 4.8 mmol/L (3.5-5.5); T4, Free (Free Thyroxine) 2.06 ng/dL (0.800-1.800); Total Bilirubin 0.4 mg/dL (0.30-1.20); Total Protein 5.8 g/dL (6.2-8.2)
== END | disposition home or self-care (01) ==
LOC: LABWHC1 10:42
PROVIDERS: ATTEND Nurse Practitioner Adult Health
DX: I48.0 Paroxysmal atrial fibrillation (principal)
CPT/HCPCS: 36415; 80053; 84439; 84443

== ENCOUNTER → 2021-07-29 | Outpatient (CLI) | payer MEDICARE, OTHER ==
--- NOTE | 2021-07-29 20:25 | MR ---
EXAMINATION TYPE: MR knee RT wo con DATE OF EXAM: 07/29/2021 COMPARISON: None HISTORY: Pain in right knee TECHNIQUE: Multiplanar, multisequence imaging of the right knee is performed without IV contrast. FINDINGS: MEDIAL MENISCUS: Abnormal signal is present at the inferior margin of the posterior horn of the later al meniscus which appears somewhat diffuse LATERAL MENISCUS: Anterior horn of the lateral meniscus is not recognizable, markedly attenuated with abnormal signal, posterior horn is displaced posteriorly CRUCIATE LIGAMENTS: Anterior cruciate ligament is disrupted. Posterior cruciate ligament somewhat red undant in appearance COLLATERAL LIGAMENTS: The medial collateral ligament and lateral collateral ligament complex are inta ct and unremarkable. EXTENSOR MECHANISM: Visualized quadriceps and patellar tendons are intact. EFFUSION: Suprapatellar joint effusion is present POPLITEAL CYST: No popliteal/herring cyst. 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
== END | disposition home or self-care (01) ==
LOC: RADMRIMAIN 14:20
PROVIDERS: ATTEND Orthopaedic Surgery Sports Medicine
DX: M17.11 Unilateral primary osteoarthritis, right knee (principal); S83.511A Sprain of anterior cruciate ligament of right knee, initial encounter; S83.281A Other tear of lateral meniscus, current injury, right knee, initial encounter; X58.XXXA Exposure to other specified factors, initial encounter

== ENCOUNTER → 2021-10-03 | Outpatient (CLI) | payer MEDICARE, OTHER ==
[2021-10-04 03:19] LABS: ALT 21 U/L (8-44); AST 23 U/L (13-35); African American GFR (CKD) 55.8 (60.0-200.0); Albumin 4.2 g/dL (3.8-4.9); Albumin/Globulin Ratio 2.04 (1.60-3.17); Alkaline Phosphatase 88 U/L (41-126); BUN/Creat Ratio 17.96 Ratio (12.00-20.00); Blood Urea Nitrogen 19.4 mg/dL (9.0-27.0); Calcium 8.8 mg/dL (8.7-10.3); Carbon Dioxide 16.5 mmol/L (20.0-27.5); Chloride 105 mmol/L (96-109); Chol/HDL Ratio 2.38 Ratio; Globulin 2.1 g/dL (1.6-3.3); Glucose 103 mg/dL (70-110); LDL Cholesterol,Calculated 79.2 mg/dL (0.0-131.0); Non-African American GFR(CKD) 48.1 (60.0-200.0); Potassium 5.1 mmol/L (3.5-5.5); Sodium 143 mmol/L (135-145); Total Protein 6.3 g/dL (6.2-8.2)
== END | disposition home or self-care (01) ==
LOC: LABWHC1 08-07 11:12
PROVIDERS: ATTEND Internal Medicine Interventional Cardiology
DX: E78.2 Mixed hyperlipidemia (principal)
CPT/HCPCS: 36415; 80053; 80061

== ENCOUNTER → 2021-12-25 | Outpatient (CLI) | payer MEDICARE, OTHER ==
--- NOTE | 2021-12-27 18:46 | MM ---
Reason for Exam: Screening (asymptomatic). Last mammogram was performed 1 year(s) and 3 month(s) ago. Patient History: Menarche at age 11. First Full-Term at age 20. Hysterectomy at age 25. Postmenopausal. Other cancer, age 25. Endometrial cancer, age 25. Maternal aunt had breast cancer. Risk Values: [place]ara 5 year model risk: 1.6%. NCI Lifetime model risk: 2.3%. Prior Study Comparison: 02/04/2016 Bilateral Diagnostic Mammogram, [facility]. 04/27/2019 Bilateral Screening Mammogram, [facility]. 09/25/2020 Bilateral Screening Mammogram, [facility]. Tissue Density: The breast tissue is almost entirely fat. Findings: Analyzed By CAD. There is no suspicious group of microcalcifications or new suspicious mass in either breast. Overall Assessment: Negative, BI-RAD 1 Management: Screening Mammogram of both breasts in 1 year. A clinical breast exam by your physician is recommended on an annual basis and results should be correlated with mammographic findings. Electronically signed and approved by: Liu Chand DO
== END | disposition home or self-care (01) ==
LOC: RADMAMWWP 11:33
PROVIDERS: ATTEND Family Medicine
DX: Z12.31 Encounter for screening mammogram for malignant neoplasm of breast (principal); Z80.3 Family history of malignant neoplasm of breast; Z78.0 Asymptomatic menopausal state
CPT/HCPCS: 77063; 77067

== ENCOUNTER 2022-04-13 05:06 | Emergency (ER) | payer MEDICARE, OTHER ==
[2022-04-13 05:13] VITALS: RESP 18
--- NOTE | 2022-04-13 05:45 | XR ---
EXAMINATION TYPE: XR chest 1V DATE OF EXAM: 04/13/2022 COMPARISON: 03/18/2019 HISTORY: Chest pain TECHNIQUE: Single view FINDINGS: There is no heart failure nor confluent pneumonic infiltrate. Costophrenic angles are clear . There are chest leads. Bony thorax is intact IMPRESSION: No active cardiopulmonary disease. Normal heart. No change
[2022-04-13 05:49] LABS: Basophils % (A) 1 %; Eosinophils # (A) 0.2 k/uL (0-0.7); Eosinophils % (A) 3 %; HCT 37.9 % (34.0-46.0); HGB 12.5 gm/dL (11.4-16.0); Lymphocytes % (A) 41 %; MCH 30.8 pg (25.0-35.0); MCHC 32.9 g/dL (31.0-37.0); MCV 93.7 fL (80.0-100.0); Mean Platelet Volume 8.6; Monocytes # (A) 0.4 k/uL (0-1.0); Monocytes % (A) 8 %; Neutrophils # (A) 2.2 k/uL (1.3-7.7); Neutrophils % (A) 45 %; Platelet Count 168 k/uL (150-450); RBC 4.05 m/uL (3.80-5.40); RDW 13.1 % (11.5-15.5); WBC 4.8 k/uL (3.8-10.6)
[2022-04-13 06:09] LABS: Calcium 8.8 mg/dL (8.4-10.2)
[2022-04-13 06:22] LABS: Prothrombin Time 10.6 sec (9.0-12.0)
[2022-04-13 06:30] LABS: Potassium 4.8 mmol/L (3.5-5.1); Total Protein 6.6 g/dL (6.3-8.2)
[2022-04-13 06:31] LABS: Magnesium 1.9 mg/dL (1.6-2.3)
--- NOTE | 2022-04-13 07:11 | ED ---
Chest Pain HPI - General Source: family Mode of arrival: wheelchair Limitations: no limitations - History of Present Illness MD Complaint: chest pain -: hour(s) Onset: during rest Pain Location: right chest Pain Radiation: back Quality: tightness Consistency: constant Improves With: nothing Worsens With: nothing Anginal Symptoms: nausea Treatments Prior to Arrival: none - Related Data On Oral Contraceptives: No <Jass Ribera - Last Filed: 04/13/22 07:22> <Yaakov Cohen - Last Filed: 04/13/22 10:09> - General Chief Complaint: Chest Pain Stated Complaint: Chest Pain Time Seen by Provider: 04/13/22 05:21 - History of Present Illness Initial Comments: 's patient is a 1-year-old woman who presents to have evaluation of right-sided chest pain. She states that it feels like it tight or squeezing type of pain. It came on while she was in bed a couple of hours ago. When the pain did not resolve she called her daughter who had her come to the emergency department here. No associated symptoms. (Jass Ribera) - Related Data Home Medications Medication Instructions Recorded Confirmed Dabigatran [Pradaxa] 150 mg PO BID 09/06/14 04/27/20 Pravastatin Sodium [Pravachol] 40 mg PO HS 03/03/16 04/27/20 Flecainide [Tambocor] 50 mg PO BID 11/04/16 04/27/20 Levothyroxine Sodium [Synthroid] 100 mcg PO DAILY 11/04/16 04/27/20 Ipratropium [place] 0.06%Nasal 1 - 2 spray EA NOSTRIL DAILY PRN 03/05/17 04/27/20 [Atrovent Nasal 0.06%] amLODIPine [Norvasc] 2.5 mg PO DAILY 03/05/17 04/27/20 Vit C/E/Zn/Coppr/Lutein/Zeaxan 1 cap PO BID 03/18/19 04/27/20 [Preservision Areds 2 Softgel] cycloSPORINE 0.05% OPHTH SOLN 1 applicator BOTH EYES Q12H 03/18/19 04/27/20 [Restasis] traMADol HCl [Ultram] 50 mg PO Q6HR PRN 03/18/19 04/25/20 Bilberry With Lutein 100 mg PO DAILY 04/25/20 04/27/20 Biotin [Biotin Disolve] 5,000 mcg PO DAILY 04/25/20 04/27/20 Cetirizine HCl [Zyrtec] 10 mg PO DAILY PRN 04/25/20 04/27/20 Cholecalciferol [Vitamin D3 (25 1,000 unit PO DAILY 04/25/20 04/27/20 Mcg = 1000 Iu)] Losartan Potassium [Cozaar] 50 mg PO DAILY 04/25/20 04/27/20 Meclizine [Antivert] 25 mg PO Q8HR PRN 04/25/20 04/25/20 Multivit-Min/FA/Lycopen/Lutein 1 each PO DAILY 04/25/20 04/27/20 [Centrum Silver Tablet] Retaine Drops 1 drop BOTH EYES DAILY PRN 04/25/20 04/27/20 [facility] 1 tab PO DAILY 04/25/20 04/27/20 Allergies Allergy/AdvReac Type Severity Reaction Status Date / Time Sulfa (Sulfonamide Allergy Unknown Verified 04/13/22 05:12 Antibiotics) Childhood atorvastatin calcium AdvReac Dizziness Verified 04/13/22 05:12 [From Lipitor] levofloxacin [From Levaquin] AdvReac joint pain Verified 04/13/22 05:12 nitrofurantoin AdvReac sleepiness Verified 04/13/22 05:12 [From Macrobid] Review of Systems ROS Other: All systems not noted in ROS Statement are negative. Constitutional: Denies: fever Respiratory: Denies: cough, dyspnea Cardiovascular: Reports: chest pain. Denies: palpitations, dyspnea on exertion, orthopnea, edema Gastrointestinal: Reports: nausea. Denies: abdominal pain, vomiting, diarrhea Genitourinary: Denies: dysuria, hematuria Musculoskeletal: Denies: back pain Skin: Denies: rash Neurological: Denies: headache, weakness, numbness <Jass Ribera - Last Filed: 04/13/22 07:22> ROS Other: All systems not noted in ROS Statement are negative. <Yaakov Cohen - Last Filed: 04/13/22 10:09> ROS Statement: Those systems with pertinent positive or pertinent negative responses have been documented in the HPI. EKG Findings - EKG Comments: EKG Findings:: Underlying rhythm appears to be atrial flutter with verbal conduction the rate is 86 bpm. - EKG Results: EKG: interpreted by ERMD - Blocks, Donner, Hypertrophy, ST Abn: QRS axis and voltage: right axis deviation (+90 to +180) (Rightward axis), low voltage (<0.5 MV total QRS and <1.0 MV in each precordial lead) <Jass Ribera - Last Filed: 04/13/22 07:22> Past Medical History Past Medical History: Atrial Fibrillation, Cancer, CVA/TIA, Eye Disorder, Hyperlipidemia, Hypertension, Osteoarthritis (OA), Pneumonia, Thyroid Disorder Additional Past Medical History / Comment(s): cervical cancer, macular degeneration, varicose veins, "told a test showed I had a stroke", urinary leakage at times, History of Any Multi-Drug Resistant Organisms: None Reported Past Surgical History: Appendectomy, Cardiac Ablation, Heart Catheterization, Hysterectomy, Orthopedic Surgery Additional Past Surgical History / Comment(s): Asya cataracts with iplants, asya wrist ORIF, asya eyelid lift, pin rt ankle for fx, Past Anesthesia/Blood Transfusion Reactions: No Reported Reaction Past Psychological History: No Psychological Hx Reported Smoking Status: Former smoker Past Alcohol Use History: None Reported Past Drug Use History: None Reported - Past Family History Sister(s) Family Medical History: Congestive Heart Failure (CHF) Brother(s) Family Medical History: Hypertension Daughter(s) Family Medical History: AFIB, COPD Father Family Medical History: Cancer Additional Family Medical History / Comment(s): mouth and throat <Jass Ribera - Last Filed: 04/13/22 07:22> General Exam Limitations: no limitations General appearance: alert, in no apparent distress Head exam: Present: atraumatic, normocephalic Eye exam: Present: normal appearance. Absent: scleral icterus, conjunctival injection Neck exam: Present: normal inspection Respiratory exam: Present: normal lung sounds bilaterally. Absent: respiratory distress, wheezes, rales, rhonchi, stridor Cardiovascular Exam: Present: regular rate, normal rhythm, normal heart sounds. Absent: systolic murmur, diastolic murmur, rubs, gallop GI/Abdominal exam: Present: soft. Absent: distended, tenderness, guarding, re bound, rigid, mass, pulsatile mass Extremities exam: Present: normal inspection, normal capillary refill. Absent: pedal edema, calf tenderness Back exam: Present: normal inspection. Absent: CVA tenderness (R), CVA tenderness (L) Neurological exam: Present: alert Skin exam: Present: warm, dry, intact, normal color. Absent: rash <Jass Ribera - Last Filed: 04/13/22 07:22> Course Vital Signs 04/13/22 04/13/22 04/13/22 05:10 07:58 09:45 Temperature 98.1 F Pulse Rate 94 95 93 Respiratory 18 18 18 Rate Blood Pressure 184/78 164/86 O2 Sat by Pulse 100 99 98 Oximetry Chest Pain MDM <CohenYaakov - Last Filed: 04/13/22 10:09> - MDM Was pt. sent in by a medical professional or institution? @ -No Did you speak to anyone other than the patient for history? @ -Family also gave some of the past history that the patient had forgotten. Did you review nursing and triage notes? @ -Agree with nursing notes Were old charts reviewed? @ -I reviewed patient's old EKGs and old x-rays Differential Diagnosis? @ -Differential Chest Pain: Stable Angina, Unstable Angina, STEMI, NSTEMI Aortic Dissection, Pneumothorax, Musculoskeletal, Esophageal Spasm GERD, Cholecystitis, Pancreatitis, Zoster, this is not meant to be an all-inclusive list. EKG interpreted by me (3pts min.)? @ -As above X-rays interpreted by me (1pt min.)? @ -I interpreted the chest x-ray showed no acute abnormality. CT interpreted by me (1pt min.)? @ -I interpreted the CAT scan of the chest showed no acute abnormality U/S interpreted by me (1pt. min.)? @ -None What testing was considered but not performed? (CT, X-rays, U/S, labs)? Why? @ -None What meds were considered but not given? Why? @ -None Did you discuss the management of the patient with other professionals? @ -No Did you reconcile home meds? @ -No Was smoking cessation discussed for >3mins.? @ -No Was critical care preformed (if so, how long)? @ -No Were there social determinants of health that impacted care today? How? (Homelessness, low income, unemployed, alcoholism, drug addiction, transportation, low edu. Level, literacy, decrease access to med. care, penitentiary, rehab)? @ -No Was there de-escalation of care discussed even if they declined? (Discuss DNR or withdrawal of care, Hospice)? @ -No What co-morbidities impacted this encounter? (DM, HTN, Smoking, COPD, CAD, Cancer, CVA, Hep., AIDS, mental health diagnosis, sleep apnea, morbid obesity)? @ -Known Was patient admitted / discharged? @ -Patient be discharged home. CAT scan of the chest showed no acute abnormality. When I went back into the room to reexamine her her pain was reproducible on palpation. Patient was in agreement that it only hurts if she took a deep breath or she had the area palpated. Undiagnosed new problem with uncertain prognosis? @ -None Drug Therapy requiring intensive monitoring for toxicity (Heparin, Nitro, Insulin, Cardizem)? @ -None Were any procedures done? @ -None Diagnosis/symptom? @ -Musculoskeletal chest pain Acute, or Chronic, or Acute on Chronic? @ -Acute Uncomplicated (without systemic symptoms) or Complicated (systemic symptoms)? @ -Uncomplicated Side effects of treatment? @ -None Exacerbation, Progression, or Severe Exacerbation] @ -No Poses a threat to life or bodily function? @ -No (Yaakov Cohen) Disposition <Jass Ribera - Last Filed: 04/13/22 07:22> Is patient prescribed a controlled substance at d/c from ED?: No Time of Disposition: 10:09 <Yaakov Cohen - Last Filed: 04/13/22 10:09> Clinical Impression: Musculoskeletal chest pain Disposition: HOME SELF-CARE Condition: Good Instructions (If sedation given, give patient instructions): Chest Pain (ED) Additional Instructions: Patient can take some anti-inflammatories for the pain either Aleve or Motrin Patient she returns as any worsening symptoms fever or shortness of breath. Referrals: Darren Graham MD [Primary Care Provider] - 1-2 days
--- NOTE | 2022-04-13 07:57 | US ---
EXAMINATION TYPE: US abdomen limited DATE OF EXAM: 04/13/2022 COMPARISON: 06/02/2013 ultrasound, CT 09/14/2020 of the chest, CT of the pelvis 02/22/2016. CLINICAL HISTORY: RUQ pain. TECHNIQUE: Multiple sonographic images of the right upper quadrant are obtained. FINDINGS: EXAM MEASUREMENTS: Liver Length: 11.8 cm Gallbladder Wall: 0.15 cm CBD: 0.25 cm Right Kidney: 9.8 x 4.7 x 4.4 cm Pancreas: Tail obscured by overlying bowel gas Liver: wnl Gallbladder: wnl Evidence for sonographic Butler's sign: No CBD: wnl Right Kidney: wnl IMPRESSION: No evidence for acute process.
--- NOTE | 2022-04-13 09:35 | CT ---
EXAMINATION TYPE: CT chest angio for PE CT DLP: 309.7 mGycm, Automated exposure control for dose reduction was used. DATE OF EXAM: 04/13/2022 9:16 AM COMPARISON: CT chest 09/14/2020, radiograph 04/13/2022 CLINICAL INDICATION:Female, 81 years old with history of Dyspnea, chest pain, elevated d-dimer; Dale jenny D-dimer, Back pain TECHNIQUE/CONTRAST: CTA scan of the thorax is performed without and with IV Contrast, patient injected with 100 ml mL of Isovue 370, pulmonary embolism protocol. MIP images are created and reviewed. FINDINGS: Pulmonary Artery: There is no evidence for a filling defect within the pulmonary vasculature to sugge st acute pulmonary embolism. The pulmonary artery is of normal size. Lungs/Pleura: No evidence of focal consolidation, pleural effusion or pneumothorax. Mild centrilobula r emphysema changes are seen throughout the lungs. Right lower lobe air cyst with thin vasquez. Airway: Large airways are patent. Heart: Heart is mildly enlarged for size with coronary artery atherosclerosis. Vasculature: No evidence of aortic aneurysm. Mediastinum: No gross evidence of adenopathy. Small hiatal hernia. Musculoskeletal: No acute osseous abnormalities Soft Tissues: Unremarkable. Lower neck: No significant findings. Upper Abdomen: Left renal cyst. IMPRESSION: 1. No evidence of pulmonary embolism. 2. Mild emphysema changes. 3. Small hiatal hernia 4. Cardiomegaly in moderate to severe coronary artery atherosclerosis.
[2022-04-13 10:28] VITALS: BP 161/98; PULSE 96; TEMP 97.6
== END 2022-04-13 10:31 | disposition home or self-care (01) ==
LOC: EC 05:06
DX: R07.89 Other chest pain (principal); I10 Essential (primary) hypertension; I48.91 Unspecified atrial fibrillation; E07.9 Disorder of thyroid, unspecified; M19.90 Unspecified osteoarthritis, unspecified site; Z88.1 Allergy status to other antibiotic agents; Z88.2 Allergy status to sulfonamides; Z88.8 Allergy status to other drugs, medicaments and biological substances; Z87.891 Personal history of nicotine dependence; Z79.890 Hormone replacement therapy; Z79.899 Other long term (current) drug therapy
CPT/HCPCS: 36415; 93005; 85379; 80053; 82150; 83690; 83735; 84484; 85025; 85610; 85730; 71045; 76705; 71275; 99285; Q9967

== ENCOUNTER → 2022-07-07 | Outpatient (CLI) | payer MEDICARE, OTHER ==
[2022-07-07 20:49] LABS: ALT 39 U/L (8-44); AST 37 U/L (13-35); African American GFR (CKD) 76.7 (60.0-200.0); Albumin 4.3 g/dL (3.8-4.9); Albumin/Globulin Ratio 2.13 (1.60-3.17); Alkaline Phosphatase 96 U/L (41-126); BUN/Creat Ratio 23.88 Ratio (12.00-20.00); Blood Urea Nitrogen 19.7 mg/dL (9.0-27.0); Calcium 9.4 mg/dL (8.7-10.3); Carbon Dioxide 28.5 mmol/L (20.0-27.5); Chloride 103 mmol/L (96-109); Chol/HDL Ratio 2.32 Ratio; Glucose 111 mg/dL (70-110); Non-African American GFR(CKD) 66.2 (60.0-200.0); Potassium 4.5 mmol/L (3.5-5.5); Sodium 139 mmol/L (135-145); Total Protein 6.4 g/dL (6.2-8.2); VLDL Calculation 13.24 mg/dL (5.00-40.00)
== END | disposition home or self-care (01) ==
LOC: LABWHC1 10:19
PROVIDERS: ATTEND Internal Medicine Interventional Cardiology
DX: E78.2 Mixed hyperlipidemia (principal)
CPT/HCPCS: 36415; 80053; 80061

== ENCOUNTER → 2023-02-23 | Outpatient (CLI) | payer MEDICARE, OTHER ==
--- NOTE | 2023-02-24 09:00 | MM ---
Reason for Exam: Screening (asymptomatic). Last mammogram was performed 1 year(s) and 2 month(s) ago. Patient History: Menarche at age 11. First Full-Term at age 20. Hysterectomy at age 25. Postmenopausal. Other cancer, age 25. Endometrial cancer, age 25. Maternal aunt had breast cancer. Risk Values: Xiomara 5 year model risk: 1.5%. NCI Lifetime model risk: 2.1%. Prior Study Comparison: 04/27/2019 Bilateral Screening Mammogram, [facility]. 09/25/2020 Bilateral Screening Mammogram, [facility]. 12/25/2021 Bilateral MG 3D screening mammo w/cad, [facility]. Tissue Density: There are scattered fibroglandular densities. Findings: Analyzed By CAD. There is no suspicious group of microcalcifications or new suspicious mass in either breast. Overall Assessment: Negative, BI-RAD 1 Management: Screening Mammogram of both breasts in 1 year. . Patient should continue monthly self-breast exams. A clinical breast exam by your physician is recommended on an annual basis. This exam should not preclude additional follow-up of suspicious palpable abnormalities. Note on Xiomara scores and lifetime risk: 1. A Xiomara score greater than 3% is considered moderate risk. If this is the case, consider specialist referral to assess eligibility for a risk reducing agent. 2. If overall lifetime risk for the development of breast cancer is 20% or higher, the patient may qualify for future screening with alternating mammogram and breast MRI. Electronically signed and approved by: Geovanni Dubois M.D. Radiologis
== END | disposition home or self-care (01) ==
LOC: RADMAMWWP 11:31
PROVIDERS: ATTEND Family Medicine
DX: Z12.31 Encounter for screening mammogram for malignant neoplasm of breast (principal); Z78.0 Asymptomatic menopausal state; Z80.3 Family history of malignant neoplasm of breast
CPT/HCPCS: 77063; 77067

== ENCOUNTER → 2023-05-06 | Outpatient (CLI) | payer MEDICARE ==
[2023-05-06 15:48] LABS: HCT 40.5 % (37.2-46.3); HGB 12.7 g/dL (12.0-15.0); MCH 29.9 pg (27.0-32.0); MCHC 31.4 g/dL (32.0-37.0); MCV 95.3 FL (80.0-97.0); Mean Platelet Volume 10.8 FL (9.5-12.2); NRBC Per 100 WBC 0 X 10*3/uL (0.00-0.01); Platelet Count 279 X 10*3/uL (140-440); RBC 4.25 X 10*6/uL (4.10-5.20); RDW 13.1 % (11.5-14.5); WBC 6.74 X 10*3/uL (4.50-10.00)
[2023-05-06 18:03] LABS: ALT 19 U/L (8-44); AST 21 U/L (13-35); Albumin 4.2 g/dL (3.8-4.9); Albumin/Globulin Ratio 1.75 Ratio (1.60-3.17); Alkaline Phosphatase 131 U/L (41-126); BUN/Creat Ratio 26.38 Ratio (12.00-20.00); Blood Urea Nitrogen 21.1 mg/dL (9.0-27.0); Calcium 9.9 mg/dL (8.7-10.3); Carbon Dioxide 25.9 mmol/L (21.6-31.8); Chloride 98 mmol/L (96-109); Chol/HDL Ratio 2.62 Ratio; Globulin 2.4 g/dL (1.6-3.3); Glucose 119 mg/dL (70-110); LDL Cholesterol,Calculated 91.9 mg/dL (0.0-131.0); Magnesium 1.9 mg/dL (1.5-2.4); Potassium 4.6 mmol/L (3.5-5.5); Sodium 136 mmol/L (135-145); Total Bilirubin 0.5 mg/dL (0.3-1.2); Total Protein 6.6 g/dL (6.2-8.2)
== END | disposition home or self-care (01) ==
LOC: LABWHC1 11:15
PROVIDERS: ATTEND Physician Assistant Medical
DX: E78.2 Mixed hyperlipidemia (principal); I25.10 Atherosclerotic heart disease of native coronary artery without angina pectoris; R53.83 Other fatigue; R73.01 Impaired fasting glucose; Z79.899 Other long term (current) drug therapy
CPT/HCPCS: 36415; 80053; 80061; 83036; 83735; 84443; 85027

== ENCOUNTER → 2023-07-09 | Outpatient (CLI) | payer MEDICARE ==
[2023-07-09 15:29] LABS: ALT 31 U/L (8-44); AST 32 U/L (13-35); Albumin 4.3 g/dL (3.8-4.9); Albumin/Globulin Ratio 1.87 Ratio (1.60-3.17); Alkaline Phosphatase 108 U/L (41-126); Blood Urea Nitrogen 16.2 mg/dL (9.0-27.0); Carbon Dioxide 27.7 mmol/L (21.6-31.8); Chloride 100 mmol/L (96-109); Globulin 2.3 g/dL (1.6-3.3); Glucose 118 mg/dL (70-110); Potassium 4.2 mmol/L (3.5-5.5); Sodium 138 mmol/L (135-145); Total Bilirubin 0.6 mg/dL (0.3-1.2); Total Protein 6.6 g/dL (6.2-8.2)
== END | disposition home or self-care (01) ==
LOC: LABWHC1 10:11
PROVIDERS: ATTEND Internal Medicine Interventional Cardiology
DX: I10 Essential (primary) hypertension (principal)
CPT/HCPCS: 36415; 80053

== ENCOUNTER → 2023-12-03 | Outpatient (CLI) | payer MEDICARE ==
--- NOTE | 2023-12-25 14:37 | CT ---
EXAMINATION TYPE: CT brain w con DATE OF EXAM: 12/03/2023 COMPARISON: 03/05/2017 INDICATION: Memory loss DLP: 1047.1 mGycm, Automated exposure control for dose reduction was used. CONTRAST: 100 mL Isovue-300 CT of the brain is performed utilizing 3 mm thick sections through the posterior fossa and 3 mm thick sections through the remaining calvarium. Study is performed within 24 hours of arrival to the hosp [facility]. No abnormal hyperdensity is present to suggest an acute intracranial hemorrhage. No mass lesion is evident. No acute infarcts are evident. Some mild periventricular white matter hypodensity is present, likely on the basis of chronic white matter ischemic changes. Ventricles and sulci are mildly prominent for the patient age. No abnormal enhancement is evident. Paranasal sinuses and mastoid air cells within the [id number] are clear. Mild hyperostosis frontal is internus is present, normal variant. IMPRESSION: 1. No acute intracranial process. Follow up MRI can be performed as clinically indicated. 2. Mild chronic appearing periventricular white matter ischemic changes with age related atrophy.
== END | disposition home or self-care (01) ==
LOC: RADCTMAIN 13:30
PROVIDERS: ATTEND Family Medicine
DX: I67.82 Cerebral ischemia (principal); R68.89 Other general symptoms and signs
CPT/HCPCS: 70460; 36415; Q9967

== ENCOUNTER 2024-03-07 10:36 | Inpatient (IN) | payer MEDICARE ==
[2024-03-07 11:11] LABS: Glucose,Whole Blood 123 mg/dL (70-110)
--- NOTE | 2024-03-07 11:23 | ED ---
General Adult HPI - General Chief complaint: Neuro Symptoms/Deficit Stated complaint: Dizziness, loss of vision in left eye Time Seen by Provider: 03/07/24 11:08 Source: patient, family, RN notes reviewed, old records reviewed Mode of arrival: ambulatory Limitations: no limitations - History of Present Illness Initial comments: Patient is an 83-year-old female with past medical history remarkable for atrial fibrillation, hypertension, macular degeneration, hyperlipidemia on Eliquis who presents emergency department complaining of sudden onset visual deficits starting this morning. States symptoms began at approximately 9:15 AM. Describ es the symptoms as having blurry vision in the left visual elaine that seems to be intermittent since then. States it seems to be coming and going. She is attributing it only to the left eye however now thinks it might be in both eyes. Denies headaches. Has been feeling mildly lightheaded over the last few days. Some intermittent confusions over the last few days as well per patient's daughter who is at bedside. Has been compliant with medications. No head injuries. Presents for further evaluation at this time. - Related Data Home Medications Medication Instructions Recorded Confirmed amLODIPine [Norvasc] 5 mg PO DAILY 03/05/17 03/07/24 Vit C/E/Zn/Coppr/Lutein/Zeaxan 2 cap PO BID 03/18/19 03/07/24 [Preservision Areds 2 Softgel] cycloSPORINE 0.05% OPHTH SOLN 1 applicator BOTH EYES Q12H 03/18/19 03/07/24 [Restasis] traMADol HCl [Ultram] 50 mg PO BID PRN 03/18/19 03/07/24 Losartan Potassium [Cozaar] 50 mg PO DAILY 04/25/20 03/07/24 Meclizine [Antivert] 25 mg PO Q8HR PRN 04/25/20 03/07/24 Multivit-Min/FA/Lycopen/Lutein 1 tab PO DAILY 04/25/20 03/07/24 [Centrum Silver Tablet] Apixaban [Eliquis] 2.5 mg PO BID 03/07/24 03/07/24 Artificial Tears-Hypromellose 2 drops BOTH EYES BID PRN 03/07/24 03/07/24 [Artificial Tear Drops] Glucosamine/Chondr Keating A Sod [Osteo 1 tab PO BID 03/07/24 03/07/24 Bi-Flex Caplet] Hydrocortisone Oint 1 applic TOPICAL BID PRN 03/07/24 03/07/24 [Hydrocortisone 2.5% Oint] Levothyroxine Sodium [Synthroid] 112 mcg PO DAILY 03/07/24 03/07/24 [place]-3/Dha/Epa/Fish Oil [[place]-3 1 cap PO BID 03/07/24 03/07/24 Fish Oil 1,000 mg Sfgl] Pravastatin Sodium [Pravachol] 40 mg PO DAILY 03/07/24 03/07/24 polyethylene glycoL 3350 [Miralax] 17 gm PO HS PRN 03/07/24 03/07/24 Allergies Allergy/AdvReac Type Severity Reaction Status Date / Time Sulfa (Sulfonamide Allergy Unknown Verified 03/07/24 12:51 Antibiotics) Childhood atorvastatin calcium AdvReac Dizziness Verified 03/07/24 12:50 [From Lipitor] levofloxacin [From Levaquin] AdvReac joint pain Verified 03/07/24 12:50 nitrofurantoin AdvReac sleepiness Verified 03/07/24 12:50 [From Macrobid] Review of Systems ROS Statement: Those systems with pertinent positive or pertinent negative responses have been documented in the HPI. Review of Systems: CONST: Denies fever EYES: Endorses blurry vision ENT: Denies nasal congestion C/V: Denies Chest pain RESP: Denies shortness of breath GI: Denies abdominal pain : Denies dysuria SKIN: Denies rash. MSK: Denies joint pain. NEURO: Denies headache ROS Other: All systems not noted in ROS Statement are negative. Past Medical History Past Medical History: Atrial Fibrillation, Cancer, CVA/TIA, Eye Disorder, Hyperlipidemia, Hypertension, Osteoarthritis (OA), Pneumonia, Thyroid Disorder Additional Past Medical History / Comment(s): cervical cancer, macular degeneration, varicose veins, "told a test showed I had a stroke", urinary leakage at times, History of Any Multi-Drug Resistant Organisms: None Reported Past Surgical History: Appendectomy, Cardiac Ablation, Heart Catheterization, Hysterectomy, Orthopedic Surgery Additional Past Surgical History / Comment(s): [place] cataracts with iplants, diego wrist ORIF, diego eyelid lift, pin rt ankle for fx, Past Anesthesia/Blood Transfusion Reactions: No Reported Reaction Past Psychological History: No Psychological Hx Reported Smoking Status: Former smoker Past Alcohol Use History: None Reported Past Drug Use History: None Reported - Past Family History Sister(s) Family Medical History: Congestive Heart Failure (CHF) Brother(s) Family Medical History: Hypertension Daughter(s) Family Medical History: AFIB, COPD Father Family Medical History: Cancer Additional Family Medical History / Comment(s): mouth and throat General Exam - General Exam Comments Initial Comments: General: Appears in no acute distress. HEAD: Normal with no signs of head trauma. EYES: PERRLA, EOMI, conjunctiva normal, no discharge. Pupils are 3 mm and equal bilaterally. Seems to have normal visual acuity in the center of her visual field however appears to have at least partial hemianopsia to patient's left in both the left and right eye. ENT: Hearing grossly intact, normal oropharynx. RESPIRATORY: Clear breath sounds bilaterally. No wheezes, rales, or rhonchi. C/V: Regular rate and rhythm. S1 and S2 auscultated, no edema, peripheral pulses 2+ and intact throughout ABD: Abd is soft, nontender, nondistended EXT: Normal range of motion, no obvious deformity SKIN: No rashes or lesions observed on exposed skin. NEURO: Alert and oriented x 4. NIH is 2 for partial hemianopsia on the left. LKW is 9:15 AM. No other neurological deficits. Limitations: no limitations Course Vital Signs 03/07/24 03/07/24 03/07/24 10:41 12:02 13:00 Temperature 98.0 F Pulse Rate 81 92 90 Respiratory 18 20 18 Rate Blood Pressure 158/81 142/88 132/70 O2 Sat by Pulse 100 98 97 Oximetry 03/07/24 14:00 Temperature Pulse Rate 85 Respiratory 16 Rate Blood Pressure 147/68 O2 Sat by Pulse 98 Oximetry Medical Decision Making - Medical Decision Making Was pt. sent in by a medical professional or institution (, PA, [employer]ER, urgent care, hospital, or half-way...) When possible be specific @ -No Did you speak to anyone other than the patient for history (EMS, parent, family, police, friend...)? What history was obtained from this source @ -Patient's daughter provided past medical history as well as recent HPI for the patient. Did you review nursing and triage notes (agree or disagree)? Why? @ -I reviewed and agree with nursing and triage notes Were old charts reviewed (outside hosp., previous admission, EMS record, old EKG, old radiological studies, urgent care reports/EKG's, half-way records)? Report findings @ -Old charts reviewed including prior EKG from April 2022 which revealed atrial flutter. Differential Diagnosis (chest pain, altered mental status, abdominal pain women, abdominal pain men, vaginal bleeding, weakness, fever, dyspnea, syncope, h eadache, dizziness, GI bleed, back pain, seizure, CVA, palpatations, mental health, musculoskeletal)? @ -Differential CVA Ischemic stroke, hemorrhagic stroke, brain tumor, atypical migraine, Wernicke's encephalopathy, seizure, multiple sclerosis, meningitis, encephalitis, hypoglycemia, Guillain-Golden, electrolytes disturbance, myasthenia gravis.... This is not meant to be an all-inclusive list EKG interpreted by me (3pts min.). @ -As above X-rays interpreted by me (1pt min.). @ -Chest x-ray reveals no obvious acute cardiopulmonary process. CT interpreted by me (1pt min.). @ -CT brain revealed no obvious acute intracranial process. CT angiogram of the head and neck negative for any obvious acute intracranial process. Patient does have calcified plaques in bilateral carotids. U/S interpreted by me (1pt. min.). @ -None done What testing was considered but not performed or refused? (CT, X-rays, U/S, labs)? Why? @ -None What meds were considered but not given or refused? Why? @ -None Did you discuss the management of the patient with other professionals (professionals i.e. , PA, [employer], lab, RT, psych nurse, social psychologist, job boss, teacher, commercial loan officer, business case analyst)? Give summary @ -No Was smoking cessation discussed for >3mins.? @ -No Was critical care preformed (if so, how long)? @ -Yes, 41 minutes Were there social determinants of health that impacted care today? How? (Homelessness, low income, unemployed, alcoholism, drug addiction, transportation, low edu. Level, literacy, decrease access to med. care, long term, rehab)? @ -No Was there de-escalation of care discussed even if they declined (Discuss DNR or withdrawal of care, Hospice)? DNR status @ -No What co-morbidities impacted this encounter? (DM, HTN, Smoking, COPD, CAD, Cancer, CVA, ARF, Chemo, Hep., AIDS, mental health diagnosis, sleep apnea, morbid obesity)? @ -Patient is on Eliquis for atrial fibrillation Was patient admitted / discharged? Hospital course, mention meds given and route, prescriptions, significant lab abnormalities, going to OR and other pertinent info. @ -Based on patient's presentation and physical exam, I am concerned for possible CVA for the patient. Last known well was 9:30 AM. NIH is intermittently 2 for partial left hemianopsia in bilateral eyes. Patient is inside of the thrombolytic window however I would like to discuss the case with the on-call neurointensivist prior to administering. Patient was in agreement this plan. Vital signs currently within acceptable limits. No other neurological deficits. Made a code thrombolytic due to the time. Being within the last 4 and half hours of last known well however she has a relative exclusion criteria of her age, as well as possible full exclusion criteria being on anticoagulation. No recent coags charted in the system. Symptoms also seem to wax and wane INR relatively mild as it is only the left vision that is intermittent. We will discuss with neurointensivist prior to making final decision on thrombolytic medication. I discussed case with Dr. Howard of neurocritical care. We discussed at length including her contraindications due to her age and being on Eliquis as well as patient's lower NIH of 2. We were both in agreement that we will not administer tenecteplase at this time. Patient's family and patient were in agreement with this plan due to the increased risk of bleeding. Risks outweigh benefits. Laboratory studies returned unremarkable. On reevaluation, exam is unchanged. Discussed results with the patient. Patient will be admitted for medical management of suspected CVA. Given [address] Narayanan requested holding patient's Eliquis until MRI is completed. Patient was in agreement this plan. I discussed with the admitting provider, Dr. Graham who accepted the admission. Neurology consulted. Imaging negative for any obvious acute process. Patient does have bilateral carotid plaques. Undiagnosed new problem with uncertain prognosis? @ -No Drug Therapy requiring intensive monitoring for toxicity (Heparin, Nitro, Insulin, Cardizem)? @ -No Were any procedures done? @ -No Diagnosis/symptom? @ -CVA, hemianopsia Acute, or Chronic, or Acute on Chronic? @ -Acute Uncomplicated (without systemic symptoms) or Complicated (systemic symptoms)? @ -Complicated Side effects of treatment? @ -None Exacerbation, Progression, or Severe Exacerbation] @ -No Poses a threat to life or bodily function? @ -Yes - Lab Data Result diagrams: 03/07/24 11:17 03/07/24 11:17 Lab Results 03/07/24 03/07/24 03/07/24 Range/Units 11:10 11:17 11:17 WBC 5.8 (3.8-10.6) k/uL RBC 4.44 (3.80-5.40) m/uL Hgb 13.2 (11.4-16.0) gm/dL Hct 41.9 (34.0-46.0) % MCV 94.5 (80.0-100.0) fL MCH 29.8 (25.0-35.0) pg MCHC 31.6 (31.0-37.0) g/dL RDW 13.9 (11.5-15.5) % Plt Count 115 L (150-450) k/uL MPV 9.2 Neutrophils % 62 % Lymphocytes % 27 % Monocytes % 7 % Eosinophils % 2 % Basophils % 1 % Neutrophils # 3.6 (1.3-7.7) k/uL Lymphocytes # 1.5 (1.0-4.8) k/uL Monocytes # 0.4 (0-1.0) k/uL Eosinophils # 0.1 (0-0.7) k/uL Basophils # 0.1 (0-0.2) k/uL PT 12.0 (10.0-12.5) sec INR 1.1 (<1.2) APTT 23.8 (22.0-30.0) sec Sodium (137-145) mmol/L Potassium (3.5-5.1) mmol/L Chloride (98-107) mmol/L Carbon Dioxide (22-30) mmol/L Anion Gap mmol/L BUN (7-17) mg/dL Creatinine (0.52-1.04) mg/dL Est GFR (CKD-EPI)AfAm (>60 ml/min/1.73 sqM) Est GFR (CKD-EPI)NonAf (>60 ml/min/1.73 sqM) Glucose (74-99) mg/dL POC Glucose (mg/dL) 123 H (70-110) mg/dL POC Glu Bucket Operator ID Fran Thacker Calcium (8.4-10.2) mg/dL Total Bilirubin (0.2-1.3) mg/dL AST (14-36) U/L ALT (4-34) U/L Alkaline Phosphatase (38-126) U/L Creatine Kinase (30-135) U/L Total Protein (6.3-8.2) g/dL Albumin (3.5-5.0) g/dL 03/07/24 Range/Units 11:17 WBC (3.8-10.6) k/uL RBC (3.80-5.40) m/uL Hgb (11.4-16.0) gm/dL Hct (34.0-46.0) % MCV (80.0-100.0) fL MCH (25.0-35.0) pg MCHC (31.0-37.0) g/dL RDW (11.5-15.5) % Plt Count (150-450) k/uL MPV Neutrophils % % Lymphocytes % % Monocytes % % Eosinophils % % Basophils % % Neutrophils # (1.3-7.7) k/uL Lymphocytes # (1.0-4.8) k/uL Monocytes # (0-1.0) k/uL Eosinophils # (0-0.7) k/uL Basophils # (0-0.2) k/uL PT (10.0-12.5) sec INR (<1.2) APTT (22.0-30.0) sec Sodium 136 L (137-145) mmol/L Potassium 4.5 (3.5-5.1) mmol/L Chloride 104 (98-107) mmol/L Carbon Dioxide 26 (22-30) mmol/L Anion Gap 6 mmol/L BUN 18 H (7-17) mg/dL Creatinine 0.78 (0.52-1.04) mg/dL Est GFR (CKD-EPI)AfAm 82 (>60 ml/min/1.73 sqM) Est GFR (CKD-EPI)NonAf 71 (>60 ml/min/1.73 sqM) Glucose 125 H (74-99) mg/dL POC Glucose (mg/dL) (70-110) mg/dL POC Glu Bucket Operator ID Calcium 9.4 (8.4-10.2) mg/dL Total Bilirubin 0.8 (0.2-1.3) mg/dL AST 51 H (14-36) U/L ALT 59 H (4-34) U/L Alkaline Phosphatase 139 H (38-126) U/L Creatine Kinase 44 (30-135) U/L Total Protein 7.1 (6.3-8.2) g/dL Albumin 4.3 (3.5-5.0) g/dL - EKG Data -: EKG Interpreted by Me EKG Comments: 12-lead Electrocardiogram Interpretation Note EKG was reviewed and interpreted by myself. 12-lead ECG performed at 1135 is interpreted by me as revealing atrial fibrillation at a rate of 91 beats per minute. Right axis deviation. QRS durations 86 ms, QTc is 413 ms.. There were no ST or T wave abnormalities to suggest myocardial ischemia or injury. R wave progression across the precordium was satisfactory. By my interpretation this EKG is non-diagnostic for acute ischemia. Critical Care Time Critical Care Time: Yes Total Critical Care Time: 41 Disposition Clinical Impression: CVA (cerebral vascular accident), Hemianopsia Disposition: ADMITTED IP TO THIS [facility] Condition: Stable Time of Disposition: 12:50
[2024-03-07 11:27] LABS: Basophils # (A) 0.1 k/uL (0-0.2); Basophils % (A) 1 %; Eosinophils # (A) 0.1 k/uL (0-0.7); Eosinophils % (A) 2 %; HCT 41.9 % (34.0-46.0); HGB 13.2 gm/dL (11.4-16.0); Lymphocytes # (A) 1.5 k/uL (1.0-4.8); Lymphocytes % (A) 27 %; MCH 29.8 pg (25.0-35.0); MCHC 31.6 g/dL (31.0-37.0); MCV 94.5 fL (80.0-100.0); Mean Platelet Volume 9.2; Monocytes # (A) 0.4 k/uL (0-1.0); Monocytes % (A) 7 %; Neutrophils # (A) 3.6 k/uL (1.3-7.7); Neutrophils % (A) 62 %; Platelet Count 115 k/uL (150-450); RBC 4.44 m/uL (3.80-5.40); RDW 13.9 % (11.5-15.5); WBC 5.8 k/uL (3.8-10.6)
--- NOTE | 2024-03-07 11:35 | CT ---
EXAMINATION TYPE: CODE STROKE: CT brain wo contr CT DLP: 1092.4 mGycm, Automated exposure control for dose reduction was used. DATE OF EXAM: 03/07/2024 11:30 AM COMPARISON: Prior CT Brain from 12/25/2023. CLINICAL INDICATION:Female, 83 years old with history of Neuro deficit, acute, stroke suspected, loss of vision in left eye and dizziness, h/o TIA TECHNIQUE: Brain: Multiple axial CT images of the brain were obtained without IV contrast. . Coronal and sagitta l reformats reviewed. FINDINGS: Brain: Extra-axial spaces: No abnormal extra-axial fluid collections. Ventricular system: Within normal limits Cerebral parenchyma: No acute intraparenchymal hemorrhage or mass effect. The kaplan-white junction is well differentiated. Scattered hypoattenuating areas are seen within the periventricular white matte r. Cerebellum: Unremarkable. Mass effect: No evidence of midline shift. Intracranial vasculature: Atherosclerotic calcifications of the intracranial vessels. Soft tissues: Normal. Calvarium/osseous structures: No depressed skull fracture. Benign hyperostosis frontalis noted. Paranasal sinuses and mastoid air cells: Clear Visualized orbits: Bilateral aphakia IMPRESSION: 1. No acute intracranial process. 2. Nonspecific white matter changes, likely secondary to chronic small vessel ischemic disease. [facility], , 03/07/2024 11:32 AM
[2024-03-07 11:36] LABS: ALT 59 U/L (4-34); AST 51 U/L (14-36); African American GFR (CKD) 82 (>60 ml/min/1.73 sqM); Albumin 4.3 g/dL (3.5-5.0); Alkaline Phosphatase 139 U/L (38-126); Anion Gap 6 mmol/L; Blood Urea Nitrogen 18 mg/dL (7-17); Calcium 9.4 mg/dL (8.4-10.2); Carbon Dioxide 26 mmol/L (22-30); Chloride 104 mmol/L (98-107); Creatine Kinase 44 U/L (30-135); Glucose 125 mg/dL (74-99); Non-African American GFR(CKD) 71 (>60 ml/min/1.73 sqM); Potassium 4.5 mmol/L (3.5-5.1); Sodium 136 mmol/L (137-145); Total Bilirubin 0.8 mg/dL (0.2-1.3); Total Protein 7.1 g/dL (6.3-8.2)
[2024-03-07] MEDS: SODIUM CHLORIDE 0.9% 1,000 ML IV STA (11:41)
--- NOTE | 2024-03-07 11:49 | XR ---
EXAMINATION TYPE: XR chest 2V DATE OF EXAM: 03/07/2024 11:31 AM COMPARISON: 04/13/2022 CLINICAL INDICATION: Female, 83 years old with confusion, history of altered mental status, , TECHNIQUE: AP and lateral views FINDINGS: Heart borderline in size. Mild interstitial prominence has a chronic appearance. No consolidation or pleural effusion. IMPRESSION: Borderline heart size and chronic appearing changes. No definite acute process. [facility], , 03/07/2024 11:46 AM
[2024-03-07 11:58] LABS: INR 1.1 (<1.2); Partial Thromboplastin Time 23.8 sec (22.0-30.0)
--- NOTE | 2024-03-07 12:16 | CT ---
EXAMINATION TYPE: CT angio head neck CT DLP: 420.9 mGycm, Automated exposure control for dose reduction was used. DATE OF EXAM: 03/07/2024 11:55 AM COMPARISON: CT brain 03/07/2024, CT brain C-spine 06/12/2016. CLINICAL INDICATION:Female, 83 years old with history of Neuro deficit, acute, stroke suspected; PHH, CODE STROKE TECHNIQUE: Axially acquired helical CT angiogram of the head and neck was obtained with contrast util izing 75 cc of Isovue-370 administered intravenously. Axial images are supplemented with 3D reconstru ctions which were post-processed at an independent workstation. NASCET criteria used. FINDINGS: CTA HEAD: No evidence of acute intracranial hemorrhage, mass effect, or midline shift. The ventricles, sulci, a nd cisterns are unremarkable. The visualized portions of the internal carotid arteries, middle cerebral arteries, anterior cerebral arteries, and posterior cerebral arteries are patent. The basilar and vertebral arteries are patent. CTA NECK: Right Carotid System: The common carotid artery and external carotid artery are patent. Moderate calcified and noncalcified plaque at the origin of the right internal carotid artery. Approximately 50% stenosis at the origin of the right internal carotid artery. The remaining portions of the internal carotid artery demonstra te normal size without significant narrowing. Left Carotid System: The common carotid artery and external carotid artery are patent. Retropharyngeal course of the left common carotid artery and left internal carotid artery. Moderate calcified plaque involving the origi n of the left internal carotid artery. Approximately 60% stenosis involving the origin of the left in ternal carotid artery. The remaining portions of the internal carotid artery demonstrate normal size without significant narrowing. Vertebral arteries are patent without evidence hemodynamically significant stenosis. The left vertebr al artery is dominant. The right vertebral artery appears to terminate into the PICA. There is a bovine aortic arch. The origins of the great vessels are patent. No evidence of hemodynami edith significant stenosis. Thyroid gland is atrophic or surgically absent. Centrilobular emphysematous changes. Degenerative dis c disease most pronounced at C5-C6. IMPRESSION: 1. No evidence of dissection of the cervical internal carotid arteries or vertebral arteries. Approxi mately 60% stenosis at the origin of the left internal artery secondary to calcified plaque. Approxim ately 50% stenosis at the origin of the right internal carotid artery secondary to calcified and nonc alcified plaque. 2. No evidence of high-grade stenosis or intracranial aneurysm. [facility], , 03/07/2024 12:13 PM
[2024-03-07] MEDS: ASPIRIN 325 MG TAB PO STA (12:37)
[2024-03-07] MEDS ORDERED: ARTIFICIAL TEARS-HYPROMELLOSE DROPS 15 ML BTL BOTH EYES PRN (13:14)
[2024-03-07 13:26] LABS: Appearance,Urine Clear (Clear); Bilirubin,Urine Negative (Negative); Blood,Urine Negative (Negative); Color,Urine Colorless; Glucose,Urine (UA) Negative (Negative); Ketones,Urine Negative (Negative); Leukocyte Esterase,Urine Negative (Negative); Nitrite,Urine Negative (Negative); PH, Urine 6.5 (5.0-8.0); Protein,Urine Negative (Negative); Specific Gravity,Urine 1.011 (1.001-1.035); Urobilinogen,Urine <2.0 mg/dL (<2.0)
[2024-03-07] MEDS: cycloSPORINE 0.05% OPHTH 0.4 ML DROPERETTE BOTH EYES SCH (22:44)
[2024-03-08] MEDS: LEVOTHYROXINE 112 MCG TAB PO SCH (06:34)
[2024-03-08 08:31] LABS: Chol/HDL Ratio 2.42 Ratio; LDL Cholesterol,Calculated 87.4 mg/dL (0.0-131.0); VLDL Calculation 13.56 mg/dL (5.00-40.00)
[2024-03-08] MEDS: amLODIPine 5 MG TAB PO SCH (08:42)
[2024-03-08] MEDS: LOSARTAN 50 MG TAB PO SCH (08:43)
[2024-03-08] MEDS: PRAVASTATIN SODIUM 40 MG TAB PO SCH (08:43)
--- NOTE | 2024-03-08 08:50 | P.CNNES ---
History of Present Illness Consult date: 03/08/25 Reason for Consult: Visual Deficit Chief complaint: "I couldn't see out of my left eye yesterday morning." History of Present Illness: Ms. Keen is an 83-year-old female with medical history of atrial fibrillation for which she takes Eliquis, hypertension, hyperlipidemia, macular degeneration, history of cervical cancer, osteoarthritis, pneumonia, hypothyroidism, hypertension. She was transported to [facility] emergency room yesterday on March 06 complaining of the sudden onset of a visual deficit that occurred to her at 8:30 in the morning. She stated that she woke up normal and then began experiencing visual deficit out of her "left eye". She did not cover 1 eye to see if the visual deficit was present in both eyes. On evaluation at [facility] it was possible she had a left homonymous only hemianopia as she experienced experience of left visual field deficit from both eyes. She is pending an MRI of the brain at this time and is awaiting transfer to the floor. On questioning she did state that she started to have a headache at some point afterwards however the headache was described as tight and achy on the top of her head and she did not report increased photophobia or phonophobia, though she does have some baseline photophobia. Otherwise she did not notice any other neurological deficits but states she feels lightheaded when she gets up to use the restroom. Neurology was consulted for further management recommendations. Review of Systems Constitutional: Reports as per HPI Eyes: bilateral blurred vision, bilateral photophobia Ears, nose, mouth and throat: Reports as per HPI Cardiovascular: Reports as per HPI Respiratory: Reports as per HPI Gastrointestinal: Reports as per HPI Genitourinary: Reports prolapse symptoms Musculoskeletal: Reports as per HPI Integumentary: Reports unusual bruising Neurological: Reports as per HPI Hematologic/Lymphatic: Reports easy bruising Past Medical History Past Medical History: Atrial Fibrillation, Cancer, CVA/TIA, Eye Disorder, Hyperlipidemia, Hypertension, Osteoarthritis (OA), Pneumonia, Thyroid Disorder Additional Past Medical History / Comment(s): cervical cancer, macular degeneration, varicose veins, "told a test showed I had a stroke", urinary leakage at times, History of Any Multi-Drug Resistant Organisms: None Reported Past Surgical History: Appendectomy, Cardiac Ablation, Heart Catheterization, Hysterectomy, Orthopedic Surgery Additional Past Surgical History / Comment(s): [place] cataracts with iplants, diego wrist ORIF, diego eyelid lift, pin rt ankle for fx, Past Anesthesia/Blood Transfusion Reactions: No Reported Reaction Past Psychological History: No Psychological Hx Reported Smoking Status: Former smoker Past Alcohol Use History: None Reported Past Drug Use History: None Reported - Past Family History Sister(s) Family Medical History: Congestive Heart Failure (CHF) Brother(s) Family Medical History: Hypertension Daughter(s) Family Medical History: AFIB, COPD Father Family Medical History: Cancer Additional Family Medical History / Comment(s): mouth and throat Medications and Allergies Home Medications Medication Instructions Recorded Confirmed Type amLODIPine [Norvasc] 5 mg PO DAILY 03/05/17 03/07/24 History Vit C/E/Zn/Coppr/Lutein/Zeaxan 2 cap PO BID 03/18/19 03/07/24 History [Preservision Areds 2 Softgel] cycloSPORINE 0.05% OPHTH SOLN 1 applicator BOTH EYES Q12H 03/18/19 03/07/24 History [Restasis] traMADol HCl [Ultram] 50 mg PO BID PRN 03/18/19 03/07/24 History Losartan Potassium [Cozaar] 50 mg PO DAILY 04/25/20 03/07/24 History Meclizine [Antivert] 25 mg PO Q8HR PRN 04/25/20 03/07/24 History Multivit-Min/FA/Lycopen/Lutein 1 tab PO DAILY 04/25/20 03/07/24 History [Centrum Silver Tablet] Apixaban [Eliquis] 2.5 mg PO BID 03/07/24 03/07/24 History Artificial Tears-Hypromellose 2 drops BOTH EYES BID PRN 03/07/24 03/07/24 History [Artificial Tear Drops] Glucosamine/Chondr Keating A Sod [Osteo 1 tab PO BID 03/07/24 03/07/24 History Bi-Flex Caplet] Hydrocortisone Oint 1 applic TOPICAL BID PRN 03/07/24 03/07/24 History [Hydrocortisone 2.5% Oint] Levothyroxine Sodium [Synthroid] 112 mcg PO DAILY 03/07/24 03/07/24 History [place]-3/Dha/Epa/Fish Oil [[place]-3 1 cap PO BID 03/07/24 03/07/24 History Fish Oil 1,000 mg Sfgl] Pravastatin Sodium [Pravachol] 40 mg PO DAILY 03/07/24 03/07/24 History polyethylene glycoL 3350 [Miralax] 17 gm PO HS PRN 03/07/24 03/07/24 History Allergies Allergy/AdvReac Type Severity Reaction Status Date / Time Sulfa (Sulfonamide Allergy Unknown Verified 03/07/24 12:51 Antibiotics) Childhood atorvastatin calcium AdvReac Dizziness Verified 03/07/24 12:50 [From Lipitor] levofloxacin [From Levaquin] AdvReac joint pain Verified 03/07/24 12:50 nitrofurantoin AdvReac sleepiness Verified 03/07/24 12:50 [From Macrobid] Physical Examination - Vital Signs Vital Signs: Vital Signs Temp Pulse Pulse Resp BP BP Pulse Ox 03/08/24 07:46 90 16 140/84 98 03/08/24 06:37 80 18 152/67 96 03/07/24 22:24 80 18 151/84 98 03/07/24 17:23 97.8 F 84 16 150/85 97 03/07/24 16:00 73 18 161/89 99 03/07/24 15:00 75 18 146/76 98 03/07/24 14:00 85 16 147/68 98 03/07/24 13:00 90 18 132/70 97 03/07/24 12:02 92 20 142/88 98 03/07/24 10:41 98.0 F 81 18 158/81 100 Intake and Output 03/07/24 03/08/24 03/08/24 22:59 06:59 14:59 Other: Voiding Method Toilet # Voids 1 - Constitutional General appearance: average body habitus, cooperative - EENT EENT: PERRL - Respiratory Respiratory: chest non-tender, lungs clear - Cardiovascular Cardiovascular: regular rate, no murmurs - Gastrointestinal Gastrointestinal: normoactive bowel sounds, non-tender - Neurologic Cranial nerve examination: PERRL, EOMI, face symmetric, other (On exam, pt. appears to have a visual deficit of the left side of her left eye only; no deficit is noted of the right eye visual elaine.) Sensorimotor examination: intact Detailed motor examination: full strength in all major muscle groups Detailed sensory examination: intact Reflex and gait examination: intact Results - Laboratory Findings CBC and BMP: 03/07/24 11:17 03/07/24 11:17 Abnormal Lab Findings: Abnormal Labs 03/07/24 03/07/24 03/07/24 11:10 11:17 11:17 Plt Count 115 L Sodium 136 L BUN 18 H Glucose 125 H POC Glucose (mg/dL) 123 H AST 51 H ALT 59 H Alkaline Phosphatase 139 H HDL Cholesterol 03/08/24 00:43 Plt Count Sodium BUN Glucose POC Glucose (mg/dL) AST ALT Alkaline Phosphatase HDL Cholesterol 71.00 H - Diagnostic Findings Additional findings: CT Head revealed mild white matter disease; CT angio head/neck showed 60% stenosis of the left ICA, 50% stenosis of the right ICA. Assessment and Plan Assessment: Ms. Keen is an 83-year-old female with history of atrial fibrillation as well as hyperlipidemia, and hypertension who suffered visual deficit yesterday morning. On exam she appears to have visual deficit from her left eye only in the left visual field. She does have a history of retinal detachment which may explain this but is undergoing evaluation for stroke at this time. Plan: #1. Patient is being evaluated by MRI for possible stroke. If this is noted on MRI., The patient should be admitted with orders for 2D echocardiogram. 2. If the MRI is negative and ophthalmology consult may be considered as the patient may have some exacerbation of her retinal detachment on the left due to macular degeneration. 3. Neurology will continue to follow the patient in house and follow-up on her MRI and make additional recommendations as needed.
[2024-03-08] MEDS: ACETAMINOPHEN TAB 325 MG TAB PO PRN (14:36)
[2024-03-08] MEDS: MECLIZINE 25 MG TAB PO PRN (14:36)
--- NOTE | 2024-03-08 20:27 | P.HPIM ---
History of Present Illness H&P Date: 03/08/24 Chief Complaint: vision change Morgan Johnson is a Ms. Osmani is an 83 yo F with PMH of atrial fibrillation on Eliquis, hypertension, hyperlipidemia, macular degeneration, who presented to the ED with L sided visual loss. She stated that she woke up normal and then began experiencing visual deficit out of her "eft eye. She states this improved throughout the day yesterday after she got to the ED but then worsened again overnight. She does complain of headache that started after the visual deficit. She denies weakness, slurred speech or dizziness. Initial labs WBC 5.8 Hgb 13.2, Cr 0.78, CK 178. CTA with carotid stenosis. Review of Systems All systems: negative Constitutional: Reports weakness, Denies chills, Denies fever Eyes: denies blurred vision, denies pain Ears, nose, mouth and throat: Denies headache, Denies sore throat Cardiovascular: Denies chest pain, Denies shortness of breath Respiratory: Denies cough Gastrointestinal: Denies abdominal pain, Denies diarrhea, Denies nausea, Denies vomiting Genitourinary: Denies dysuria, Denies hematuria Musculoskeletal: Denies myalgias Integumentary: Denies pruritus, Denies rash Neurological: Denies numbness, Denies weakness Psychiatric: Denies anxiety, Denies depression Endocrine: Denies fatigue, Denies weight change Past Medical History Past Medical History: Atrial Fibrillation, Cancer, CVA/TIA, Eye Disorder, Hyperlipidemia, Hypertension, Osteoarthritis (OA), Pneumonia, Thyroid Disorder Additional Past Medical History / Comment(s): cervical cancer, macular degeneration, varicose veins, "told a test showed I had a stroke", urinary leakage at times, History of Any Multi-Drug Resistant Organisms: None Reported Past Surgical History: Appendectomy, Cardiac Ablation, Heart Catheterization, Hysterectomy, Orthopedic Surgery Additional Past Surgical History / Comment(s): [place] cataracts with iplants, diego wrist ORIF, diego eyelid lift, pin rt ankle for fx, Past Anesthesia/Blood Transfusion Reactions: No Reported Reaction Past Psychological History: No Psychological Hx Reported Smoking Status: Former smoker Past Alcohol Use History: None Reported Additional Past Alcohol Use History / Comment(s): Quit smoking in 1990, smoked 1 PPD for 38 yrs. Past Drug Use History: None Reported - Past Family History Sister(s) Family Medical History: Congestive Heart Failure (CHF) Brother(s) Family Medical History: Hypertension Daughter(s) Family Medical History: AFIB, COPD Father Family Medical History: Cancer Additional Family Medical History / Comment(s): mouth and throat Medications and Allergies Home Medications Medication Instructions Recorded Confirmed Type amLODIPine [Norvasc] 5 mg PO DAILY 03/05/17 03/07/24 History Vit C/E/Zn/Coppr/Lutein/Zeaxan 2 cap PO BID 03/18/19 03/07/24 History [Preservision Areds 2 Softgel] cycloSPORINE 0.05% OPHTH SOLN 1 applicator BOTH EYES Q12H 03/18/19 03/07/24 History [Restasis] traMADol HCl [Ultram] 50 mg PO BID PRN 03/18/19 03/07/24 History Losartan Potassium [Cozaar] 50 mg PO DAILY 04/25/20 03/07/24 History Meclizine [Antivert] 25 mg PO Q8HR PRN 04/25/20 03/07/24 History Multivit-Min/FA/Lycopen/Lutein 1 tab PO DAILY 04/25/20 03/07/24 History [Centrum Silver Tablet] Apixaban [Eliquis] 2.5 mg PO BID 03/07/24 03/07/24 History Artificial Tears-Hypromellose 2 drops BOTH EYES BID PRN 03/07/24 03/07/24 History [Artificial Tear Drops] Glucosamine/Chondr Keating A Sod [Osteo 1 tab PO BID 03/07/24 03/07/24 History Bi-Flex Caplet] Hydrocortisone Oint 1 applic TOPICAL BID PRN 03/07/24 03/07/24 History [Hydrocortisone 2.5% Oint] Levothyroxine Sodium [Synthroid] 112 mcg PO DAILY 03/07/24 03/07/24 History [place]-3/Dha/Epa/Fish Oil [[place]-3 1 cap PO BID 03/07/24 03/07/24 History Fish Oil 1,000 mg Sfgl] Pravastatin Sodium [Pravachol] 40 mg PO DAILY 03/07/24 03/07/24 History polyethylene glycoL 3350 [Miralax] 17 gm PO HS PRN 03/07/24 03/07/24 History Allergies Allergy/AdvReac Type Severity Reaction Status Date / Time Sulfa (Sulfonamide Allergy Unknown Verified 03/07/24 12:51 Antibiotics) Childhood atorvastatin calcium AdvReac Dizziness Verified 03/07/24 12:50 [From Lipitor] levofloxacin [From Levaquin] AdvReac joint pain Verified 03/07/24 12:50 nitrofurantoin AdvReac sleepiness Verified 03/07/24 12:50 [From Macrobid] Physical Exam Vitals: Vital Signs Temp Pulse Pulse Resp BP BP Pulse Ox 03/08/24 18:06 98.1 F 78 18 124/65 99 03/08/24 16:25 82 18 131/79 98 03/08/24 13:41 85 16 123/71 98 03/08/24 10:32 82 16 128/74 97 03/08/24 08:45 95 18 153/90 98 03/08/24 07:46 90 16 140/84 98 03/08/24 06:37 80 18 152/67 96 03/07/24 22:24 80 18 151/84 98 Intake and Output 03/08/24 03/08/24 03/08/24 06:59 14:59 22:59 Intake Total 120 Balance 120 Intake: Oral 120 Other: Voiding Method Toilet Weight 82.1 kg Vitals reviewed General: well developed, well nourished NAD HEENT: Normocephalic, atraumatic, mucus membranes moist Neck: supple, no JVD, no thyromegaly CV: Irregular, no murmur Lungs: Normal effort. No wheezes or rales Abd: soft, nontender, bowel sounds present Neuro: Alert and oriented x3 Skin: warm and dry Results CBC & Chem 7: 03/07/24 11:17 03/07/24 11:17 Labs: Abnormal Lab Results - Last 24 Hours (Table) 03/08/24 Range/Units 00:43 HDL Cholesterol 71.00 H (40.00-60.00) mg/dL Assessment and Plan Plan: Visual field deficit Carotid stenosis Peripheral vascular disease Paroxysmal AF Admit to obs, consult Neurology. Resume home statin, start ASA. Resume home losartan, norvasc, eliquis
[2024-03-08] MEDS: APIXABAN 5 MG TAB PO SCH (22:04)
[2024-03-09] MEDS: ASPIRIN 81 MG PO SCH (08:22)
--- NOTE | 2024-03-09 10:23 | MR ---
EXAMINATION TYPE: MR brain wo con DATE OF EXAM: 03/09/2024 COMPARISON: CT scan 03/07/2024 CLINICAL INDICATION: Female, 83 years old with history of Neuro deficit, acute, stroke suspected PHH, Neuro deficit, evaluate for stroke/CVA. TECHNIQUE: T1-weighted sagittal, T2, FLAIR, and diffusion axial, and T2 coronal coronal views of the brain are submitted. FINDINGS: There is no large area of diffusion restriction involving the right occipital lobe with additional pu nctate areas of diffusion restriction involving the deep white matter right parietal lobe, left super ior parietal lobe and left cerebellar hemisphere. Report called to the patient's nurse Margoth 10:16 A M 03/09/2024. Changes of chronic sinusitis. Orbits are symmetric. Moderate generalized degenerative change. Diffuse and focal areas of abnormal signal in white matter are nonspecific but most typical of remote white matter disease. Craniocervical junction maintained. Sella turcica normal. IMPRESSION: 1. Findings compatible with an area of acute ischemia involving the right occipital lobe. Additional punctate areas of acute ischemia in the left superior parietal, right deep white matter and left cere bellar hemisphere. 2. Degenerative and remote ischemic changes. [facility], , 03/09/2024 10:21 AM
--- NOTE | 2024-03-09 10:38 | P.PN ---
Subjective Progress Note Date: 03/09/24 Principal diagnosis: Embolic right posterior cerebral artery infarct Ms. Keen is an 83-year-old female with medical history of atrial fibrillation for which she takes Eliquis, hypertension, hyperlipidemia, macular degeneration, history of cervical cancer, osteoarthritis, pneumonia, hypothyroidism, hypertension. She was transported to [facility] emergency room yesterday on March 06 complaining of the sudden onset of a visual deficit that occurred to her at 8:30 in the morning. She stated that she woke up normal and then began experiencing visual deficit out of her "left eye". She did not cover 1 eye to see if the visual deficit was present in both eyes. On evaluation at [facility] it was possible she had a left homonymous only hemianopia as she experienced experience of left visual field deficit from both eyes. She is pending an MRI of the brain at this time and is awaiting transfer to the floor. On questioning she did state that she started to have a headache at some point afterwards however the headache was described as tight and achy on the top of her head and she did not report increased photophobia or phonophobia, though she does have some baseline photophobia. Otherwise she did not notice any other neurological deficits but states she feels lightheaded when she gets up to use the restroom. On initial examination March 08, she did not appear to have any visual deficit from her right eye. However an MRI of the brain was ordered and it was considered that possibly she may need ophthalmology examination if the MRI is negative. On evaluation March 09, the patient had just returned from MRI and radiology had called to the floor noting that there was a right posterior cerebral artery infarct. I reviewed the imaging, and this is true; however, in addition to this there are additional areas of infarction in the left white matter as well as left cerebellum and right white matter as well. The patient denies any addit ional complaints. On examination, she does appear to have a mild visual deficit with the left part of her right eye; however, this is difficult to ascertain. She does have a hemianopia with the left side of her left eye. There are no other additional neurologic deficits. Assessment: Ms. Keen is an 83-year-old female with history of atrial fibrillation for which she is on Eliquis 5 mg twice daily. Despite good use of this medication, she suffered a embolic appearing stroke to the right posterior central artery distribution, as well as left white matter, right white matter in the left cerebellum. This likely is embolic from her history of atrial fibrillation. Plan: 1. I will add aspirin 81 mg daily to add to her Eliquis for further thrombotic protection. 2. I have ordered a 2D echocardiogram with bubble study to assess for intracardiac shunt. 3. The patient remains on telemetry monitoring at this time. 4. I do not need believe the patient needs a hypercoagulable evaluation at this time as she is 83 years old and unlikely to have an underlying coagulation defect. 5. Neurology will continue to follow her in house and make further recommendations as needed. Objective - Vital Signs Vital signs: Vital Signs Temp 98.1 F 03/09/24 08:00 Pulse 88 03/09/24 08:00 Resp 18 03/09/24 08:00 BP 146/82 03/09/24 08:00 Pulse Ox 98 03/09/24 08:00 FiO2 Intake & Output 03/08/24 03/09/24 03/09/24 18:59 06:59 18:59 Intake Total 120 236 Output Total 0 Balance 120 0 236 Weight 82.1 kg 80.8 kg Intake: Oral 120 236 Output: Urine 0 Other: Voiding Method Toilet Toilet - Labs CBC & Chem 7: 03/07/24 11:17 03/07/24 11:17
--- NOTE | 2024-03-09 13:31 | P.PN ---
Subjective Progress Note Date: 03/09/24 Morgan Johnson is a Ms. Osmani is an 83 yo F with PMH of atrial fibrillation on Eliquis, hypertension, hyperlipidemia, macular degeneration, who presented to the ED with L sided visual loss. She stated that she woke up normal and then began experiencing visual deficit out of her "eft eye. She states this improved throughout the day yesterday after she got to the ED but then worsened again overnight. She does complain of headache that started after the visual deficit. She denies weakness, slurred speech or dizziness. Initial labs WBC 5.8 Hgb 13.2, Cr 0.78, CK 178. CTA with carotid stenosis. 03/09 Pt reports her L visual field again became limited yesterday and has persistently remained reduced since then. She is occasionally getting dizzy that is not associated with position or posture. Her MRI does show R occipital CVA. Objective - Vital Signs Vital signs: Vital Signs Temp 98.1 F 03/09/24 08:00 Pulse 88 03/09/24 12:43 Resp 18 03/09/24 12:43 BP 146/82 03/09/24 08:00 Pulse Ox 98 03/09/24 08:00 FiO2 Intake & Output 03/08/24 03/09/24 03/09/24 18:59 06:59 18:59 Intake Total 120 236 Output Total 0 Balance 120 0 236 Weight 82.1 kg 80.8 kg Intake: Oral 120 236 Output: Urine 0 Other: Voiding Method Toilet Toilet - Exam Gen: elderly female in NAD CV: Irregular no murmur Lungs: CTAB - Labs CBC & Chem 7: 03/07/24 11:17 03/07/24 11:17 Assessment and Plan Plan: R occiptial lobe CVA Carotid stenosis Peripheral vascular disease Paroxysmal AF Continue with ASA, statin, eliquis. Neurology following, echo ordered. 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
--- NOTE | 2024-03-09 14:59 | CA ---
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 67 - 155 / 56 - 104 cm??? LV Systolic Volume MOD BP 24.2 cm??? 22 - 58 / 19 - 49 cm??? LV Ejection Fraction MOD BP 61.4 % >= 55 % LV Cardiac Index MOD BP 1044.2 cm???/min???m??? LV Diastolic Volume MOD 4C 61.9 cm??? LV Systolic Volume MOD 4C 25.3 cm??? LV Ejection Fraction MOD 4C 59.2 % LV Cardiac Index MOD 4C 995.2 cm???/min???m??? LV Diastolic Length 4C 5.5 cm LV Systolic Length 4C 4.9 cm LV Diastolic Volume MOD 2C 59.6 cm??? LV Systolic Volume MOD 2C 21.2 cm??? LV Ejection Fraction MOD 2C 64.3 % LV Cardiac Index MOD 2C 1042.9 cm???/min???m??? LV Diastolic Length 2C 6.0 cm LV Systolic Length 2C 5.4 cm LA Volume 61.3 cm??? 18 - 58 / 22 - 52 cm??? LA Volume Index 32.1 cm???/m??? 16 - 28 cm???/m??? M-MODE Aortic Root Diameter MM 3.1 cm AV Cusp Separation MM 1.9 cm DOPPLER AV Peak Velocity 147.0 cm/s AV Peak Gradient 8.6 mmHg AI Peak Velocity 293.3 cm/s AI Peak Gradient 34.4 mmHg AI Pressure Half Time 623.2 ms MV Area PHT 4.4 cm??? MV Deceleration Time 158.2 ms TR Peak Velocity 287.3 cm/s TR Peak Gradient 33.0 mmHg Right Ventricular Systolic Press 37.5 mmHg FINDINGS Left Ventricle Left ventricular ejection fraction is estimated at 55-60 %. Left ventricular cavity size normal. Normal left ventricular systolic function with no obvious regional wall motion abnormalities. Right Ventricle Mild right ventricular dilatation. Mild pulmonary hypertension. Right Atrium Normal right atrial size. No right atrial thrombus or mass seen. No spontaneous contrast in the right atrium. Negative agitated saline bubble study for right to left shunt. Left Atrium Moderately increased left atrial diameter. Mildly increased left atrial volume. Mildly increased left atrial area. No left atrial thrombus or mass present. Mitral Valve Structurally normal mitral valve. Mild mitral regurgitation.mitral valve thickened. Aortic Valve Trileaflet aortic valve. No aortic stenosis. Mild aortic regurgitation.aortic valve sclerosis. Tricuspid Valve Structurally normal tricuspid valve. Moderate tricuspid regurgitation. Pulmonic Valve Structurally normal pulmonic valve. Mild mild to moderate pulmonic regurgitation. Pericardium No pericardial or pleural effusion. Aorta Normal size aortic root and proximal ascending aorta. CONCLUSIONS 1. Normal left ventricular size and systolic function 2. No evidence of shunting by contrast bubble study 3. Mild mitral and aortic regurgitation 4. Moderate tricuspid regurgitation and mild pulmonary hypertension Previewed by: Dr. Stacey Taylor MD (Electronically Signed) Final Date: 09 March 2024 14:58
[2024-03-10 10:18] LABS: Albumin 4.2 g/dL (3.5-5.0); Bilirubin,Unconjugated 0.8 mg/dL (0.0-1.1); Total Bilirubin 0.8 mg/dL (0.2-1.3); Total Protein 6.9 g/dL (6.3-8.2)
--- NOTE | 2024-03-10 10:52 | P.PN ---
Subjective Progress Note Date: 03/10/24 Principal diagnosis: Right posterior cerebral artery infarct. Ms. Keen is an 83-year-old female with medical history of atrial fibrillation for which she takes Eliquis, hypertension, hyperlipidemia, macular degeneration, history of cervical cancer, osteoarthritis, pneumonia, hypothyroidism, hypertension. She was transported to [facility] emergency room yesterday on March 06 complaining of the sudden onset of a visual deficit that occurred to her at 8:30 in the morning. She stated that she woke up normal and then began experiencing visual deficit out of her "left eye". She did not cover 1 eye to see if the visual deficit was present in both eyes. On evalua tion at [facility] it was possible she had a left homonymous only hemianopia as she experienced experience of left visual field deficit from both eyes. She is pending an MRI of the brain at this time and is awaiting transfer to the floor. On questioning she did state that she started to have a headache at some point afterwards however the headache was described as tight and achy on the top of her head and she did not report increased photophobia or phonophobia, though she does have some baseline photophobia. Otherwise she did not notice any other neurological deficits but states she feels lightheaded when she gets up to use the restroom. On initial examination March 08, she did not appear to have any visual deficit from her right eye. However an MRI of the brain was ordered and it was considered that possibly she may need ophthalmology examination if the MRI is negative. On evaluation March 09, the patient had just returned from MRI and radiology had called to the floor noting that there was a right posterior cerebral artery infarct. I reviewed the imaging, and this is true; however, in addition to this there are additional areas of infarction in the left white matter as well as left cerebellum and right white matter as well. The patient denies any additional complaints. On examination, she does appear to have a mild visual deficit with the left part of her right eye; however, this is difficult to ascertain. She does have a hemianopia with the left side of her left eye. There are no other additional neurologic deficits. On evaluation on March 10, 2024, patient is sitting in her chair. To her if she and her daughter note that she is able to ambulate to the restroom and is not bumping into vasquez. However she does feel like she has perhaps possibly increased visual deficit on her left side. She and the daughter both noted that she was having some "flashing lights" and kaleidoscopic images on the left side of her vision which may suggest partial nerve function. On examination., The patient had no focal neurologic deficits other than mild homonymous hemianopia on the left side. Her left eye was worse with peripheral vision than her right eye was with regards to the left visual field. Assessment: Ms. Keen is an 83-year-old female with history of atrial fibrillation for which she is on Eliquis 5 mg twice daily. Despite good use of this medication, she suffered a embolic appearing stroke to the right posterior central artery distribution, as well as left white matter, right white matter in the left cerebellum. This likely is embolic from her history of atrial fibrillation. 1. I will order physical therapy consult for their input on whether or not the patient would qualify for inpatient rehabilitation. 2. If this is not recommended I believe the patient can safely be discharged home, possibly with home health services if deemed necessary by physical therapy. 3. I have spoken to her daughter and recommended that she not drive until formal driving evaluation perhaps in 3 to 4 months. 4. I believe she can remain on her Eliquis 5 mg twice daily in addition to her Pravachol 40 mg daily for hyperlipidemia. Objective - Vital Signs Vital signs: Vital Signs Temp 98.1 F 03/10/24 07:48 Pulse 85 03/10/24 07:49 Resp 18 03/10/24 07:49 BP 144/84 03/10/24 07:48 Pulse Ox 96 03/10/24 07:48 FiO2 Intake & Output 03/09/24 03/10/24 03/10/24 18:59 06:59 18:59 Intake Total 236 Balance 236 Intake: Oral 236 Other: Voiding Method Toilet Toilet # Voids 0 - Labs CBC & Chem 7: 03/07/24 11:17 03/07/24 11:17 Labs: Abnormal Lab Results - Last 24 Hours (Table) 03/10/24 Range/Units 09:30 ALT 41 H (4-34) U/L Alkaline Phosphatase 167 H (38-126) U/L
--- NOTE | 2024-03-10 23:02 | P.PN ---
Carol Johnson is a Ms. Osmain is an 83 yo F with PMH of atrial fibrillation on Eliquis, hypertension, hyperlipidemia, macular degeneration, who presented to the ED with L sided visual loss. Patient presents on 03/07 with transient period of lightheadedness confusion and blurred vision in her left eye. She was evaluated by neurologist who added aspirin 81 mg and underwent workup including echocardiogram found preserved ejection fraction of 55 to 60% with moderate tricuspid regurgitation MRI MRI showing right posterior cerebellar infarct. Patient's symptoms started improving. Today she has minimal lightheadedness and her are blurry dizziness looks better on the left side patient denies any other new complaint Objective - Vital Signs Vital signs: Vital Signs Temp 97.6 F 03/10/24 20:00 Pulse 79 03/10/24 20:00 Resp 17 03/10/24 20:00 BP 145/84 03/10/24 20:00 Pulse Ox 98 03/10/24 20:00 FiO2 Intake & Output 03/10/24 03/10/24 03/11/24 06:59 18:59 06:59 Intake Total 120 10 Balance 120 10 Intake: IV 10 Invasive Line 2 10 Oral 120 Other: Voiding Method Toilet Toilet Toilet Bedside Commode # Voids 0 3 # Bowel Movements 1 - Exam GENERAL: The patient is alert and oriented x3, not in any acute distress. Well developed, well nourished. HEENT: Pupils are round and equally reacting to light. EOMI. No scleral icterus. No conjunctival pallor. Normocephalic, atraumatic. No pharyngeal erythema. No thyromegaly. CARDIOVASCULAR: S1 and S2 present. No murmurs, rubs, or gallops. PULMONARY: Chest is clear to auscultation, no wheezing , no crackles. ABDOMEN: Soft, nontender, nondistended, normoactive bowel sounds. No palpable organomegaly. MUSCULOSKELETAL: No joint swelling or deformity. EXTREMITIES: No cyanosis, clubbing, or pedal edema. NEUROLOGICAL: Gross neurological examination did not reveal any focal deficits. SKIN: No rashes. no petechiae. - Labs CBC & Chem 7: 03/07/24 11:17 03/07/24 11:17 Labs: Abnormal Lab Results - Last 24 Hours (Table) 03/10/24 Range/Units 09:30 ALT 41 H (4-34) U/L Alkaline Phosphatase 167 H (38-126) U/L Assessment and Plan Assessment: R occiptial lobe CVA. MRI showing left parietal and left cerebellar punctate area of ischemia Internal carotid artery stenosis. 60% on the right side and 50% on the left side Peripheral vascular disease Paroxysmal AF Moderate tricuspid regurgitation Plan: Continue with Eliquis Aspirin 81 mg daily added Neurology service on the case Patient also may benefit from vascular surgery evaluation Labs and medication were reviewed.. Continue same treatment. Continue with symptomatic treatment. Resume home medication. Monitor labs and vitals. DVT and GI prophylaxis. Further recommendations as per clinical course of the patient DVT prophylaxis: Eliquis GI Prophylaxis: Pepcid PT/OT recommended home Prognosis is guarded
[2024-03-11 05:26] VITALS: RESP 16
[2024-03-11] MEDS: FAMOTIDINE 20 MG/2 ML VIAL IV SCH (09:02)
--- NOTE | 2024-03-11 09:58 | P.GSCN ---
History of Present Illness Consult date: 03/11/24 Reason for Consult: Carotid stenosis, CVA History of present illness: 83-year-old female with history of atrial fibrillation, macular degeneration, hyperlipidemia, hypertension and cervical cancer presented to the hospital secondary to complaints of visual blindness on March 06. She states she woke up and began experiencing blackness over her left eye and when this started to recover she noted both eyes became black on the left aspects of both visual elaine. She states currently her vision has improved when she is no longer experiencing blindness but now is experiencing some flashing lights and difficulty looking into lights. She denies any issues with ambulation consistent with claudication. She is otherwise healthy and states on a normal basis does not have significant issues. She denies any fevers, chills, chest pain or shortness of breath. Review of Systems All systems: negative (What is mentioned in the HPI or past medical history) Past Medical History Past Medical History: Atrial Fibrillation, Cancer, CVA/TIA, Eye Disorder, Hyperlipidemia, Hypertension, Osteoarthritis (OA), Pneumonia, Thyroid Disorder Additional Past Medical History / Comment(s): cervical cancer, macular degeneration, varicose veins, "told a test showed I had a stroke", urinary leakage at times, History of Any Multi-Drug Resistant Organisms: None Reported Past Surgical History: Appendectomy, Cardiac Ablation, Heart Catheterization, Hysterectomy, Orthopedic Surgery Additional Past Surgical History / Comment(s): Diego cataracts with iplants, diego wrist ORIF, diego eyelid lift, pin rt ankle for fx, Past Anesthesia/Blood Transfusion Reactions: No Reported Reaction Past Psychological History: No Psychological Hx Reported Smoking Status: Former smoker Past Alcohol Use History: None Reported Additional Past Alcohol Use History / Comment(s): Quit smoking in 1990, smoked 1 PPD for 38 yrs. Past Drug Use History: None Reported - Past Family History Sister(s) Family Medical History: Congestive Heart Failure (CHF) Brother(s) Family Medical History: Hypertension Daughter(s) Family Medical History: AFIB, COPD Father Family Medical History: Cancer Additional Family Medical History / Comment(s): mouth and throat Medications and Allergies Home Medications Medication Instructions Recorded Confirmed Type amLODIPine [Norvasc] 5 mg PO DAILY 03/05/17 03/07/24 History Vit C/E/Zn/Coppr/Lutein/Zeaxan 2 cap PO BID 03/18/19 03/07/24 History [Preservision Areds 2 Softgel] cycloSPORINE 0.05% OPHTH SOLN 1 applicator BOTH EYES Q12H 03/18/19 03/07/24 History [Restasis] traMADol HCl [Ultram] 50 mg PO BID PRN 03/18/19 03/07/24 History Losartan Potassium [Cozaar] 50 mg PO DAILY 04/25/20 03/07/24 History Meclizine [Antivert] 25 mg PO Q8HR PRN 04/25/20 03/07/24 History Multivit-Min/FA/Lycopen/Lutein 1 tab PO DAILY 04/25/20 03/07/24 History [Centrum Silver Tablet] Artificial Tears-Hypromellose 2 drops BOTH EYES BID PRN 03/07/24 03/07/24 History [Artificial Tear Drops] Glucosamine/Chondr Keating A Sod [Osteo 1 tab PO BID 03/07/24 03/07/24 History Bi-Flex Caplet] Hydrocortisone Oint 1 applic TOPICAL BID PRN 03/07/24 03/07/24 History [Hydrocortisone 2.5% Oint] Levothyroxine Sodium [Synthroid] 112 mcg PO DAILY 03/07/24 03/07/24 History [place]-3/Dha/Epa/Fish Oil [[place]-3 1 cap PO BID 03/07/24 03/07/24 History Fish Oil 1,000 mg Sfgl] Pravastatin Sodium [Pravachol] 40 mg PO DAILY 03/07/24 03/07/24 History polyethylene glycoL 3350 [Miralax] 17 gm PO HS PRN 03/07/24 03/07/24 History Apixaban [Eliquis] 5 mg PO BID #60 tab 03/11/24 Rx Aspirin 81 mg PO DAILY #30 tab 03/11/24 Rx Famotidine [Pepcid] 20 mg PO DAILY #30 tablet 03/11/24 Rx Allergies Allergy/AdvReac Type Severity Reaction Status Date / Time Sulfa (Sulfonamide Allergy Unknown Verified 03/07/24 12:51 Antibiotics) Childhood atorvastatin calcium AdvReac Dizziness Verified 03/07/24 12:50 [From Lipitor] levofloxacin [From Levaquin] AdvReac joint pain Verified 03/07/24 12:50 nitrofurantoin AdvReac sleepiness Verified 03/07/24 12:50 [From Macrobid] Surgical - Exam Vital Signs Temp Pulse Resp BP Pulse Ox 98.0 F 81 18 158/81 100 03/07/24 10:41 03/07/24 10:41 03/07/24 10:41 03/07/24 10:41 03/07/24 10:41 Patient Seen Date: 03/11/24 Patient Seen Time: 09:15 - General well developed, well nourished, no distress - Eyes PERRL, normal ocular movement - ENT normal pinna, normal nares - Neck no masses, no bruits - Respiratory normal expansion, normal respiratory effort - Cardiovascular Rhythm: regularly irregular - Abdomen Abdomen: soft, non tender - Integumentary no rash - Neurologic normal coordination, normal sensation - Psychiatric oriented to time, oriented to person, oriented to place, speech is normal Palpable DP and PT pulses bilaterally Palpable radial pulses bilaterally Results CTA neck demonstrates 60% stenosis of the left ICA and 50% of the right ICA - Labs 03/07/24 11:17 03/07/24 11:17 Abnormal Lab Results - Last 24 Hours (Table) 03/10/24 Range/Units 09:30 ALT 41 H (4-34) U/L Alkaline Phosphatase 167 H (38-126) U/L Diabetes panel 03/10/24 Range/Units 09:30 AST 34 (14-36) U/L ALT 41 H (4-34) U/L Alkaline Phosphatase 167 H (38-126) U/L Total Protein 6.9 (6.3-8.2) g/dL Albumin 4.2 (3.5-5.0) g/dL Calcium panel 03/10/24 Range/Units 09:30 Albumin 4.2 (3.5-5.0) g/dL Adrenal panel 03/10/24 Range/Units 09:30 Total Bilirubin 0.8 (0.2-1.3) mg/dL AST 34 (14-36) U/L ALT 41 H (4-34) U/L Alkaline Phosphatase 167 H (38-126) U/L Total Protein 6.9 (6.3-8.2) g/dL Albumin 4.2 (3.5-5.0) g/dL Assessment and Plan Assessment: Acute TIA Amaurosis fugax on the left Carotid stenosis bilaterally Atrial fibrillation Plan: Reviewed imaging with the patient and her daughter who is at bedside in full detail. Due to her history of atrial fibrillation and lack of severity for carotid stenosis it is unlikely that it was her carotid disease causing her issues. She does have 60% stenosis of the left ICA and therefore would be a candidate for possible TCAR which was discussed with her. I do agree with continuing her current medications including Eliquis. I would advocate for aspirin and statin therapy as well. We will obtain carotid Doppler in the office to correlate with her CT angiogram and if this is greater than 5060% on the left then we will discuss once again possible TCAR and stenting. She is understanding of the plan and agreeable. Thank you for the consultation.
[2024-03-11 10:04] VITALS: BP 150/74; PULSE 82; TEMP 98
--- NOTE | 2024-03-11 20:47 | P.DS ---
Providers Date of admission: 03/07/24 13:13 Attending physician: Darren Graham MD Consults: 03/07/24 13:10 Consult Physician Routine Consulting Provider: Brent Parra Consult Reason/Comments: cva. No tenectaplase. Do you want consulting provider notified?: Yes 03/10/24 22:58 Consult Physician Routine Consulting Provider: Josette Caceres Consult Reason/Comments: carotid aretery steonsis Do you want consulting provider notified?: Yes, Notify in am Primary care physician: Kesha rGaham [facility] Course: Diagnoses Right occiptial lobe CVA. MRI showing left parietal and left cerebellar puncta te area of ischemia Internal carotid artery stenosis. 60% on the right side and 50% on the left side Peripheral vascular disease Paroxysmal AF Moderate tricuspid regurgitation Hospital course Morgan Johnson is a Ms. Osmani is an 83 yo F with PMH of atrial fibrillation on Eliquis, hypertension, hyperlipidemia, macular degeneration, who presented to the ED with L sided visual loss. Patient presents on 03/07 with transient period of lightheadedness confusion and blurred vision in her left eye. Patient evaluated by neurologist, she was taking Eliquis 2.5 mg increased to 5 mg twice daily as well as started on aspirin 81 mg. Further workup with MRI of the brain showing right occipital stroke with left parietal and left cerebellar infarction foci. Patient's symptoms started improving gradually with treatment CTA of the head and neck showing bilateral internal carotid artery stenosis, on the right side 50% on the left and 60%, vascular surgery consult was obtained and I discussed the case with who cleared the patient for me for discharge and he recommended that she follow-up with him in 2 weeks for further evaluation possible surgical intervention. Patient explained the management plan and she verbalized understanding and acceptance PT/OT evaluated the patient and recommended home health care. Patient also instructed to be careful and not to drive for now given her new stroke as per neurologist. Patient denies any other symptoms Patient agrees to go home today. Daughter at bedside that she is agreeable as well Patient was cleared for discharge by both vascular surgery team and neurologist Problems and management plan were discussed with the patient and he verbalized understanding and acceptance Patient was found stable and can be discharged home in guarded prognosis however he needs follow-up as an outpatient. Patient was instructed to follow up with PCP Dr. Graham within one week and patient agrees Patient was instructed to follow-up with Dr. grove, In 2 weeks as above and with a neurologist Dr. alberto end 2 weeks as well and she agrees Physical exam Gen: patient is a AAOx3, no distress CVS: S1-S2, RRR, no murmur Lungs: B/L CTA, no wheezing Abdomen: soft, no distention, no tenderness, positive bowel sounds Extremity: no leg edema or induration Time spent more than 35 minutes Patient Condition at Discharge: Stable Plan - Discharge Summary Discharge Rx Participant: Yes New Discharge Prescriptions: New Aspirin 81 mg PO DAILY #30 tab Famotidine [Pepcid] 20 mg PO DAILY #30 tablet Apixaban [Eliquis] 5 mg PO BID #60 tab Continue amLODIPine [Norvasc] 5 mg PO DAILY traMADol HCl [Ultram] 50 mg PO BID PRN PRN Reason: Pain Vit C/E/Zn/Coppr/Lutein/Zeaxan [Preservision Areds 2 Softgel] 2 cap PO BID cycloSPORINE 0.05% OPHTH SOLN [Restasis] 1 applicator BOTH EYES Q12H Multivit-Min/FA/Lycopen/Lutein [Centrum Silver Tablet] 1 tab PO DAILY Losartan Potassium [Cozaar] 50 mg PO DAILY Artificial Tears-Hypromellose [Artificial Tear Drops] 2 drops BOTH EYES BID PRN PRN Reason: Dry Eye(S) Pravastatin Sodium [Pravachol] 40 mg PO DAILY Hydrocortisone Oint [Hydrocortisone 2.5% Oint] 1 applic TOPICAL BID PRN PRN Reason: Skin Irritation [place]-3/Dha/Epa/Fish Oil [[place]-3 Fish Oil 1,000 mg Sfgl] 1 cap PO BID polyethylene glycoL 3350 [Miralax] 17 gm PO HS PRN PRN Reason: Constipation Glucosamine/Chondr Keating A Sod [Osteo Bi-Flex Caplet] 1 tab PO BID Levothyroxine Sodium [Synthroid] 112 mcg PO DAILY Meclizine [Antivert] 25 mg PO Q8HR PRN #60 tab PRN Reason: dizziness Discontinued Apixaban [Eliquis] 2.5 mg PO BID Discharge Medication List amLODIPine [Norvasc] 5 mg PO DAILY 03/05/17 [History] Vit C/E/Zn/Coppr/Lutein/Zeaxan [Preservision Areds 2 Softgel] 2 cap PO BID 03/18/19 [History] cycloSPORINE 0.05% OPHTH SOLN [Restasis] 1 applicator BOTH EYES Q12H 03/18/19 [History] traMADol HCl [Ultram] 50 mg PO BID PRN 03/18/19 [History] Losartan Potassium [Cozaar] 50 mg PO DAILY 04/25/20 [History] Multivit-Min/FA/Lycopen/Lutein [Centrum Silver Tablet] 1 tab PO DAILY 04/25/20 [History] Artificial Tears-Hypromellose [Artificial Tear Drops] 2 drops BOTH EYES BID PRN 03/07/24 [History] Glucosamine/Chondr Keating A Sod [Osteo Bi-Flex Caplet] 1 tab PO BID 03/07/24 [History] Hydrocortisone Oint [Hydrocortisone 2.5% Oint] 1 applic TOPICAL BID PRN 03/07/24 [History] Levothyroxine Sodium [Synthroid] 112 mcg PO DAILY 03/07/24 [History] [place]-3/Dha/Epa/Fish Oil [[place]-3 Fish Oil 1,000 mg Sfgl] 1 cap PO BID 03/07/24 [History] Pravastatin Sodium [Pravachol] 40 mg PO DAILY 03/07/24 [History] polyethylene glycoL 3350 [Miralax] 17 gm PO HS PRN 03/07/24 [History] Apixaban [Eliquis] 5 mg PO BID #60 tab 03/11/24 [Rx] Aspirin 81 mg PO DAILY #30 tab 03/11/24 [Rx] Famotidine [Pepcid] 20 mg PO DAILY #30 tablet 03/11/24 [Rx] Meclizine [Antivert] 25 mg PO Q8HR PRN #60 tab 03/11/24 [Rx] Follow up Appointment(s)/Referral(s): Stacey Tayolr MD [STAFF PHYSICIAN] - 2 Weeks (call office to schedule an apppointment) Kesha Graham DO [Primary Care Provider] - 03/15/24 12:45 pm (with one of the PAs) Jass Grove DO [STAFF PHYSICIAN] - 1 Week (Please call to scedule an appointment. this is for your narrowed carotid artery in the neck) Rachael Alberto MD [Medical Doctor] - 1 Week (please call to schedule an appointment) [facility] [NON-STAFF] - 1 Week Patient Instructions/Handouts: Ischemic Stroke (DC) Activity/Diet/Wound Care/Special Instructions: heart healthy diet Activity is restricted till you see your doctor Discharge Disposition: HOME WITH HOME HEALTH SERVICES
== END 2024-03-11 11:58 | disposition home health service (06) | DRG 65 ==
LOC: EC 10:36 → INTOOBSV 13:13 → OBSVTOIN 13:13 → 3SCARD 13:13
PROVIDERS: ADMIT Family Medicine; ATTEND Family Medicine
DX: I63.431 Cerebral infarction due to embolism of right posterior cerebral artery (principal); G45.3 Amaurosis fugax; I65.23 Occlusion and stenosis of bilateral carotid arteries; I48.0 Paroxysmal atrial fibrillation; I10 Essential (primary) hypertension; I07.1 Rheumatic tricuspid insufficiency; H53.462 Homonymous bilateral field defects, left side; I73.9 Peripheral vascular disease, unspecified; E78.5 Hyperlipidemia, unspecified; E03.9 Hypothyroidism, unspecified; H35.30 Unspecified macular degeneration; R29.702 NIHSS score 2; Z79.01 Long term (current) use of anticoagulants; Z79.82 Long term (current) use of aspirin; Z79.890 Hormone replacement therapy; Z79.899 Other long term (current) drug therapy; Z85.41 Personal history of malignant neoplasm of cervix uteri; Z87.891 Personal history of nicotine dependence; Z90.710 Acquired absence of both cervix and uterus; Z88.1 Allergy status to other antibiotic agents; Z88.2 Allergy status to sulfonamides; Z88.8 Allergy status to other drugs, medicaments and biological substances; Z82.49 Family history of ischemic heart disease and other diseases of the circulatory system; Z82.5 Family history of asthma and other chronic lower respiratory diseases
CPT/HCPCS: 36415; 70450; 70496; 70498; 70551; 71046; 80053; 80061; 80076; 81003; 82550; 85025; 85610; 85730; 93005; 93306; 96360; 99291

== ENCOUNTER 2024-03-16 10:41 | Observation (INO) | payer MEDICARE ==
[2024-03-16] MEDS: SODIUM CHLORIDE 0.9% 1,000 ML IV STA ×2 (11:28→16:20)
[2024-03-16 11:33] LABS: Basophils # (A) 0.1 k/uL (0-0.2); Basophils % (A) 1 %; Eosinophils # (A) 0.2 k/uL (0-0.7); Eosinophils % (A) 4 %; HCT 43.8 % (34.0-46.0); HGB 13.9 gm/dL (11.4-16.0); Lymphocytes # (A) 1.5 k/uL (1.0-4.8); Lymphocytes % (A) 28 %; MCH 29.8 pg (25.0-35.0); MCHC 31.8 g/dL (31.0-37.0); MCV 93.8 fL (80.0-100.0); Mean Platelet Volume 8.7; Monocytes # (A) 0.4 k/uL (0-1.0); Monocytes % (A) 7 %; Neutrophils # (A) 3.1 k/uL (1.3-7.7); Neutrophils % (A) 58 %; Platelet Count 154 k/uL (150-450); RBC 4.67 m/uL (3.80-5.40); RDW 13.3 % (11.5-15.5); WBC 5.3 k/uL (3.8-10.6)
--- NOTE | 2024-03-16 11:43 | CT ---
EXAMINATION TYPE: CT brain abbiine wo con DATE OF EXAM: 03/16/2024 11:30 AM COMPARISON: MRI 03/09/2024 CLINICAL INDICATION: Female, 83 years old with history of syncope, Fall on thinners, code coag TECHNIQUE: CT of the brain is performed utilizing 3 mm thick sections through the posterior fossa and 3 mm thick sections through the remaining calvarium. Study is performed within 24 hours of arrival to the hospital. Contrast used: mL of , (none if empty) CT DLP: 1464.1 mGycm, Automated exposure control for dose reduction was used. FINDINGS: No abnormal hyperdensity is present to suggest an acute intracranial hemorrhage. No mass lesion is evident. No acute infarcts are evident. Appears be an old small lacunar infarct right basal ganglion. This ap pears to be present on T2 sequence MRI of 03/09/2024. Mild periventricular white matter hypodensity i s present, likely on the basis of chronic white matter ischemic changes. Ventricles and sulci are appropriate for the patient age. Paranasal sinuses and mastoid air cells within the [id number] are clear. IMPRESSIONS: 1. No acute intracranial process. Follow-up MRI can be performed as clinically indicated. 2. Old right basal ganglion lacunar infarct. CT cervical spine. COMPARISON: None TECHNIQUE: CT of the cervical spine is performed in the axial plane at 2 mm thick sections. Reconstr ucted images in the coronal, and sagittal plane are reviewed on the computer. FINDINGS: No acute fractures are evident. Vertebral body alignment is normal. There is diffuse mild narrowing of disc heights throughout cervical spine. This is greatest at C5-6. Mild grade 1 spondylolisthesis of C7 anteriorly on T1 is present. Vertebral body heights are preserved. No spinal canal stenosis is evident. Some mild foraminal narrowing is present. IMPRESSION: 1. Degenerative disc changes through the cervical spine. 2. No acute osseous abnormality. [facility], Workstation: [facility], 03/16/2024 11:40 AM
[2024-03-16 11:46] LABS: ALT 31 U/L (4-34); AST 37 U/L (14-36); African American GFR (CKD) 84 (>60 ml/min/1.73 sqM); Albumin 4.4 g/dL (3.5-5.0); Alkaline Phosphatase 130 U/L (38-126); Anion Gap 7 mmol/L; Blood Urea Nitrogen 21 mg/dL (7-17); Calcium 9.3 mg/dL (8.4-10.2); Carbon Dioxide 23 mmol/L (22-30); Chloride 107 mmol/L (98-107); Glucose 103 mg/dL (74-99); Non-African American GFR(CKD) 73 (>60 ml/min/1.73 sqM); Potassium 4.1 mmol/L (3.5-5.1); Sodium 137 mmol/L (137-145); Total Bilirubin 0.8 mg/dL (0.2-1.3); Total Protein 7.1 g/dL (6.3-8.2)
[2024-03-16 11:59] LABS: INR 1.1 (<1.2); Partial Thromboplastin Time 23.2 sec (22.0-30.0); Prothrombin Time 11.7 sec (10.0-12.5)
[2024-03-16 13:07] LABS: Appearance,Urine Clear (Clear); Bilirubin,Urine Negative (Negative); Blood,Urine Negative (Negative); Color,Urine Colorless; Glucose,Urine (UA) Negative (Negative); Ketones,Urine Negative (Negative); Leukocyte Esterase,Urine Negative (Negative); Nitrite,Urine Negative (Negative); PH, Urine 6.5 (5.0-8.0); Protein,Urine Negative (Negative); Specific Gravity,Urine 1.005 (1.001-1.035); Urobilinogen,Urine <2.0 mg/dL (<2.0)
--- NOTE | 2024-03-16 14:04 | XR ---
EXAMINATION TYPE: XR chest 2V DATE OF EXAM: 03/16/2024 1:08 PM COMPARISON: 03/07/2024 CLINICAL INDICATION: Female, 83 years old with history of syncope, , TECHNIQUE: AP and lateral views FINDINGS: Heart upper limits of normal size. Mild interstitial density. Some focal patchy opacity right mid and lower lung. No pleural effusion. IMPRESSION: Borderline heart size. Some patchy atelectasis versus infiltrate at the right mid and lower lung. [facility], , 03/16/2024 2:02 PM
--- NOTE | 2024-03-16 14:53 | ED ---
General Adult HPI - General Chief complaint: Syncope Stated complaint: syncope/AMS Time Seen by Provider: 03/16/24 11:10 Source: patient, RN notes reviewed, old records reviewed Mode of arrival: ambulatory Limitations: no limitations - History of Present Illness Initial comments: Is an 83-year-old female who presents emergency department complaining of syncopal episode. Was witnessed by family. Patient apparently fell to the ground from a chair at home. Did hit her head. She is on blood thinners. Recently was admitted for stroke for which I saw her for. Stroke symptoms are improved. Currently she is resting comfortably with no new complaints. He has residual visual issues from the recent stroke. Her only symptoms at that time were hemianopsia. Visual elaine are improved. She denies any pain. Presents for further evaluation. Patient's daughter present and states that patient did hit her head. Was complaining of some chest discomfort possibly before as well. Patient currently has no complaints. Presents for further eval. - Related Data Home Medications Medication Instructions Recorded Confirmed amLODIPine [Norvasc] 5 mg PO DAILY 03/05/17 03/16/24 Vit C/E/Zn/Coppr/Lutein/Zeaxan 2 cap PO BID 03/18/19 03/16/24 [Preservision Areds 2 Softgel] cycloSPORINE 0.05% OPHTH SOLN 1 drop BOTH EYES Q12H 03/18/19 03/16/24 [Restasis] traMADol HCl [Ultram] 50 mg PO BID PRN 03/18/19 03/16/24 Losartan Potassium [Cozaar] 50 mg PO DAILY 04/25/20 03/16/24 Multivit-Min/FA/Lycopen/Lutein 1 tab PO DAILY 04/25/20 03/16/24 [Centrum Silver Tablet] Artificial Tears-Hypromellose 2 drops BOTH EYES BID PRN 03/07/24 03/16/24 [Artificial Tear Drops] Glucosamine/Chondr Keating A Sod [Osteo 1 tab PO BID 03/07/24 03/16/24 Bi-Flex Caplet] Hydrocortisone Oint 1 applic TOPICAL BID PRN 03/07/24 03/16/24 [Hydrocortisone 2.5% Oint] Levothyroxine Sodium [Synthroid] 112 mcg PO DAILY 03/07/24 03/16/24 [place]-3/Dha/Epa/Fish Oil [[place]-3 1 cap PO BID 03/07/24 03/16/24 Fish Oil 1,000 mg Sfgl] Pravastatin Sodium [Pravachol] 40 mg PO DAILY 03/07/24 03/16/24 polyethylene glycoL 3350 [Miralax] 17 gm PO HS PRN 03/07/24 03/16/24 Previous Rx's Medication Instructions Recorded Apixaban [Eliquis] 5 mg PO BID #60 tab 03/11/24 Aspirin 81 mg PO DAILY #30 tab 03/11/24 Famotidine [Pepcid] 20 mg PO DAILY #30 tablet 03/11/24 Meclizine [Antivert] 25 mg PO Q8HR PRN #60 tab 03/11/24 Allergies Allergy/AdvReac Type Severity Reaction Status Date / Time Sulfa (Sulfonamide Allergy Unknown Verified 03/16/24 13:52 Antibiotics) Childhood atorvastatin calcium AdvReac Dizziness Verified 03/16/24 13:52 [From Lipitor] levofloxacin [From Levaquin] AdvReac joint pain Verified 03/16/24 13:52 nitrofurantoin AdvReac sleepiness Verified 03/16/24 13:52 [From Macrobid] Review of Systems ROS Statement: Those systems with pertinent positive or pertinent negative responses have been documented in the HPI. Review of Systems: CONST: Denies fever EYES: Denies blurry vision ENT: Denies nasal congestion C/V: Denies Chest pain RESP: Denies shortness of breath GI: Denies abdominal pain : Denies dysuria SKIN: Denies rash. MSK: Denies joint pain. NEURO: Denies headache ROS Other: All systems not noted in ROS Statement are negative. Past Medical History Past Medical History: Atrial Fibrillation, Cancer, CVA/TIA, Eye Disorder, Hyperlipidemia, Hypertension, Osteoarthritis (OA), Pneumonia, Thyroid Disorder Additional Past Medical History / Comment(s): cervical cancer, macular degeneration, varicose veins, "told a test showed I had a stroke", urinary leakage at times, History of Any Multi-Drug Resistant Organisms: None Reported Past Surgical History: Appendectomy, Cardiac Ablation, Heart Catheterization, Hysterectomy, Orthopedic Surgery Additional Past Surgical History / Comment(s): Diego cataracts with iplants, diego wrist ORIF, diego eyelid lift, pin rt ankle for fx, Past Anesthesia/Blood Transfusion Reactions: No Reported Reaction Past Psychological History: No Psychological Hx Reported Smoking Status: Former smoker Past Alcohol Use History: None Reported Past Drug Use History: None Reported - Past Family History Sister(s) Family Medical History: Congestive Heart Failure (CHF) Brother(s) Family Medical History: Hypertension Daughter(s) Family Medical History: AFIB, COPD Father Family Medical History: Cancer Additional Family Medical History / Comment(s): mouth and throat General Exam - General Exam Comments Initial Comments: General: Appears in no acute distress. HEAD: Normal with no signs of head trauma. Negative He sign. Negative raccoon eyes. EYES: PERRLA, EOMI, conjunctiva normal, no discharge. Pupils are 3 mm and equal bilaterally. Residual left-sided hemianopsia and bilateral eyes which is chronic from the recent stroke. ENT: Hearing grossly intact, normal oropharynx. RESPIRATORY: Clear breath sounds bilaterally. No wheezes, rales, or rhonchi. C/V: Regular rate and rhythm. S1 and S2 auscultated, no edema, peripheral pulses 2+ and intact throughout ABD: Abd is soft, nontender, nondistended EXT: Normal range of motion, no obvious deformity SKIN: No rashes or lesions observed on exposed skin. NEURO: Alert and oriented x 4. No focal deficits. Limitations: no limitations Course Vital Signs 03/16/24 03/16/24 03/16/24 10:42 13:00 14:00 Temperature 97.5 F L Pulse Rate 83 80 78 Respiratory 18 18 16 Rate Blood Pressure 167/98 153/71 131/71 Blood Pressure [Sitting] Blood Pressure [Standing] Blood Pressure [Supine] O2 Sat by Pulse 100 99 98 Oximetry 03/16/24 14:28 Temperature Pulse Rate Respiratory Rate Blood Pressure Blood Pressure 143/76 [Sitting] Blood Pressure 137/95 [Standing] Blood Pressure 144/74 [Supine] O2 Sat by Pulse Oximetry Medical Decision Making - Medical Decision Making Was pt. sent in by a medical professional or institution (, PA, GEOGRAPHY DEPARTMENT CHAIR, urgent care, hospital, or fdc...) When possible be specific @ -No Did you speak to anyone other than the patient for history (EMS, parent, family, police, friend...)? What history was obtained from this source @ -No Did you review nursing and triage notes (agree or disagree)? Why? @ -I reviewed and agree with nursing and triage notes Were old charts reviewed (outside hosp., previous admission, EMS record, old EKG, old radiological studies, urgent care reports/EKG's, fdc records)? Report findings @ -Reviewed including from recent admission when I saw the patient from February 2024 when she had a stroke. Confirmed patient is on blood thinner. Differential Diagnosis (chest pain, altered mental status, abdominal pain women, abdominal pain men, vaginal bleeding, weakness, fever, dyspnea, syncope, headache, dizziness, GI bleed, back pain, seizure, CVA, palpatations, mental health, musculoskeletal)? @ -Differential Syncope: Valvular disease, hypertrophic cardiomyopathy, pulmonary embolism, tamponade, tachycardia, bradycardia, MS, hypovolemia, hemorrhage, dissection, anemia, intracranial hemorrhage, seizure, hypoglycemia, carbon monoxide poisoning, this is not meant to be an all-inclusive list. EKG interpreted by me (3pts min.). @ -As above X-rays interpreted by me (1pt min.). @ -X-ray shows possible right sided pneumonia CT interpreted by me (1pt min.). @ -CT head and C-spine negative for any obvious acute traumatic injury or process. Old infarcts present. U/S interpreted by me (1pt. min.). @ -None done What testing was considered but not performed or refused? (CT, X-rays, U/S, labs)? Why? @ -None What meds were considered but not given or refused? Why? @ -None Did you discuss the management of the patient with other professionals (professionals i.e. , PA, GEOGRAPHY DEPARTMENT CHAIR, lab, RT, psych nurse, aids social worker, food specialist, teacher, prison officer, casework specialist)? Give summary @ -Discussed with Dr. Graham who accepted the admission. Was smoking cessation discussed for >3mins.? @ -No Was critical care preformed (if so, how long)? @ -No Were there social determinants of health that impacted care today? How? (Homelessness, low income, unemployed, alcoholism, drug addiction, transportation, low edu. Level, literacy, decrease access to med. care, [facility], rehab)? @ -No Was there de-escalation of care discussed even if they declined (Discuss DNR or withdrawal of care, Hospice)? DNR status @ -No What co-morbidities impacted this encounter? (DM, HTN, Smoking, COPD, CAD, Cancer, CVA, ARF, Chemo, Hep., AIDS, mental health diagnosis, sleep apnea, morbid obesity)? @ -CVA with residual hemianopsia, A-fib on blood thinner Was patient admitted / discharged? Hospital course, mention meds given and route, prescriptions, significant lab abnormalities, going to OR and other pertinent info. @ -Patient presents emergency department for syncopal episode at home. Currently has no acute complaints. Is on a blood thinner and did hit her head. Patient made a code coag. We will obtain syncope workup. Vitals are within acceptable limits. EKG shows chronic atrial fibrillation. Imaging all returned negative for any obvious acute process. Chest x-ray imaging returned late and did reveal possible right sided pneumonia. Remainder the labs unremarkable including undetectable troponin. Viral swabs negative. After the patient. She is a fall risk for home. Therefore patient will be admitted to the hospital. Chest x-ray read came back after I spoke with the admitting provider. We will empirically place the patient on antibiotics as she states she is having a nonproductive cough. She will receive a dose of Rocephin and azithromycin and admitting team can decide if they want to continue them or not. I spoke with Dr. Graham who accepted the admission. Undiagnosed new problem with uncertain prognosis? @ -No Drug Therapy requiring intensive monitoring for toxicity (Heparin, Nitro, Insulin, Cardizem)? @ -No Were any procedures done? @ -No Diagnosis/symptom? @ -Syncope, pneumonia Acute, or Chronic, or Acute on Chronic? @ -Acute Uncomplicated (without systemic symptoms) or Complicated (systemic symptoms)? @ -Complicated Side effects of treatment? @ -No Exacerbation, Progression, or Severe Exacerbation? @ -No Poses a threat to life or bodily function? How? (Chest pain, USA, MS, pneumonia, PE, COPD, DKA, ARF, appy, cholecystitis, CVA, Diverticulitis, Homicidal, Suicidal, threat to staff... and all critical care pts) @ -Possibly, yes - Lab Data Result diagrams: 03/16/24 11:13 03/16/24 11:13 Lab Results 03/16/24 03/16/24 03/16/24 Range/Units 11:13 11:13 11:13 WBC 5.3 (3.8-10.6) k/uL RBC 4.67 (3.80-5.40) m/uL Hgb 13.9 (11.4-16.0) gm/dL Hct 43.8 (34.0-46.0) % MCV 93.8 (80.0-100.0) fL MCH 29.8 (25.0-35.0) pg MCHC 31.8 (31.0-37.0) g/dL RDW 13.3 (11.5-15.5) % Plt Count 154 (150-450) k/uL MPV 8.7 Neutrophils % 58 % Lymphocytes % 28 % Monocytes % 7 % Eosinophils % 4 % Basophils % 1 % Neutrophils # 3.1 (1.3-7.7) k/uL Lymphocytes # 1.5 (1.0-4.8) k/uL Monocytes # 0.4 (0-1.0) k/uL Eosinophils # 0.2 (0-0.7) k/uL Basophils # 0.1 (0-0.2) k/uL PT 11.7 (10.0-12.5) sec INR 1.1 (<1.2) APTT 23.2 (22.0-30.0) sec Sodium 137 (137-145) mmol/L Potassium 4.1 (3.5-5.1) mmol/L Chloride 107 (98-107) mmol/L Carbon Dioxide 23 (22-30) mmol/L Anion Gap 7 mmol/L BUN 21 H (7-17) mg/dL Creatinine 0.76 (0.52-1.04) mg/dL Est GFR (CKD-EPI)AfAm 84 (>60 ml/min/1.73 sqM) Est GFR (CKD-EPI)NonAf 73 (>60 ml/min/1.73 sqM) Glucose 103 H (74-99) mg/dL Calcium 9.3 (8.4-10.2) mg/dL Magnesium 2.0 (1.6-2.3) mg/dL Total Bilirubin 0.8 (0.2-1.3) mg/dL AST 37 H (14-36) U/L ALT 31 (4-34) U/L Alkaline Phosphatase 130 H (38-126) U/L Troponin I (0.000-0.034) ng/mL Total Protein 7.1 (6.3-8.2) g/dL Albumin 4.4 (3.5-5.0) g/dL Urine Color Urine Appearance (Clear) Urine pH (5.0-8.0) Ur Specific [place] (1.001-1.035) Urine Protein (Negative) Urine Glucose (UA) (Negative) Urine Ketones (Negative) Urine Blood (Negative) Urine Nitrite (Negative) Urine Bilirubin (Negative) Urine Urobilinogen (<2.0) mg/dL Ur Leukocyte Esterase (Negative) Influenza Type A (PCR) (Not Detectd) Influenza Type B (PCR) (Not Detectd) RSV (PCR) (Not Detectd) SARS-CoV-2 (PCR) (Not Detectd) 03/16/24 03/16/24 03/16/24 Range/Units 11:13 11:13 12:51 WBC (3.8-10.6) k/uL RBC (3.80-5.40) m/uL Hgb (11.4-16.0) gm/dL Hct (34.0-46.0) % MCV (80.0-100.0) fL MCH (25.0-35.0) pg MCHC (31.0-37.0) g/dL RDW (11.5-15.5) % Plt Count (150-450) k/uL MPV Neutrophils % % Lymphocytes % % Monocytes % % Eosinophils % % Basophils % % Neutrophils # (1.3-7.7) k/uL Lymphocytes # (1.0-4.8) k/uL Monocytes # (0-1.0) k/uL Eosinophils # (0-0.7) k/uL Basophils # (0-0.2) k/uL PT (10.0-12.5) sec INR (<1.2) APTT (22.0-30.0) sec Sodium (137-145) mmol/L Potassium (3.5-5.1) mmol/L Chloride (98-107) mmol/L Carbon Dioxide (22-30) mmol/L Anion Gap mmol/L BUN (7-17) mg/dL Creatinine (0.52-1.04) mg/dL Est GFR (CKD-EPI)AfAm (>60 ml/min/1.73 sqM) Est GFR (CKD-EPI)NonAf (>60 ml/min/1.73 sqM) Glucose (74-99) mg/dL Calcium (8.4-10.2) mg/dL Magnesium (1.6-2.3) mg/dL Total Bilirubin (0.2-1.3) mg/dL AST (14-36) U/L ALT (4-34) U/L Alkaline Phosphatase (38-126) U/L Troponin I <0.012 (0.000-0.034) ng/mL Total Protein (6.3-8.2) g/dL Albumin (3.5-5.0) g/dL Urine Color Colorless Urine Appearance Clear (Clear) Urine pH 6.5 (5.0-8.0) Ur Specific [place] 1.005 (1.001-1.035) Urine Protein Negative (Negative) Urine Glucose (UA) Negative (Negative) Urine Ketones Negative (Negative) Urine Blood Negative (Negative) Urine Nitrite Negative (Negative) Urine Bilirubin Negative (Negative) Urine Urobilinogen <2.0 (<2.0) mg/dL Ur Leukocyte Esterase Negative (Negative) Influenza Type A (PCR) Not Detected (Not Detectd) Influenza Type B (PCR) Not Detected (Not Detectd) RSV (PCR) Not Detected (Not Detectd) SARS-CoV-2 (PCR) Not Detected (Not Detectd) - EKG Data -: EKG Interpreted by Me EKG Comments: 12-lead Electrocardiogram Interpretation Note EKG was reviewed and interpreted by myself. 12-lead ECG performed at 1050 is interpreted by me as revealing atrial fibrillation with PVC at a rate of 74 beats per minute. [place] is normal. QRS duration is 72 ms, QTc is 402 ms.. There were no ST or T wave abnormalities to suggest myocardial ischemia or injury. R wave progression across the precordium was satisfactory. By my interpretation this EKG is non-diagnostic for acute ischemia. Disposition Clinical Impression: Syncope, Pneumonia Disposition: ADMITTED IP TO THIS HOSP Condition: Stable Referrals: Kesha Graham DO [Primary Care Provider] - 1-2 days Time of Disposition: 14:53
[2024-03-16] MEDS ORDERED: ONDANSETRON 4 MG/2 ML VIAL IVP PRN (14:54)
[2024-03-16] MEDS ORDERED: NALOXONE 0.4 MG/ML 1 ML VIAL IV PRN (14:54)
[2024-03-16] MEDS ORDERED: ACETAMINOPHEN TAB 325 MG TAB PO PRN (14:54)
[2024-03-16] MEDS ORDERED: ARTIFICIAL TEARS-HYPROMELLOSE DROPS 15 ML BTL BOTH EYES PRN (14:57)
[2024-03-16] MEDS ORDERED: MECLIZINE 25 MG TAB PO PRN (14:57)
[2024-03-16] MEDS: AZITHROMYCIN 500 MG in SODIUM CHLORIDE 0.9% 250 ML IVPB STA (17:26)
[2024-03-16] MEDS: cycloSPORINE 0.05% OPHTH 0.4 ML DROPERETTE BOTH EYES SCH (18:27)
[2024-03-16] MEDS: guaiFENesin-DM 600/30MG 1 EACH TAB.ER.12H PO PRN (22:02)
[2024-03-16] MEDS: APIXABAN 5 MG TAB PO SCH (22:02)
[2024-03-17] MEDS: LEVOTHYROXINE 112 MCG TAB PO SCH (06:24)
[2024-03-17] MEDS: traMADol 50 MG TAB PO PRN (06:59)
[2024-03-17 09:12] LABS: Basophils # (A) 0.04 X 10*3/uL (0.00-0.10); Basophils % (A) 0.7 %; Eosinophils # (A) 0.17 X 10*3/uL (0.04-0.35); Eosinophils % (A) 2.9 %; HCT 35.8 % (37.2-46.3); HGB 11.7 g/dL (12.0-15.0); Lymphocytes # (A) 1.16 X 10*3/uL (0.90-5.00); Lymphocytes % (A) 19.6 %; MCH 30.4 pg (27.0-32.0); MCHC 32.7 g/dL (32.0-37.0); Mean Platelet Volume 11.4 FL (9.5-12.2); Monocytes # (A) 0.54 X 10*3/uL (0.20-1.00); Monocytes % (A) 9.1 %; NRBC Per 100 WBC 0 X 10*3/uL (0.00-0.01); Neutrophils # (A) 3.99 X 10*3/uL (1.80-7.70); Neutrophils % (A) 67.4 %; Platelet Count 138 X 10*3/uL (140-440); RBC 3.85 X 10*6/uL (4.10-5.20); RDW 13.6 % (11.5-14.5); WBC 5.92 X 10*3/uL (4.50-10.00)
[2024-03-17] MEDS: ASPIRIN 81 MG PO SCH (09:22)
[2024-03-17] MEDS: amLODIPine 5 MG TAB PO SCH (09:22)
[2024-03-17] MEDS: FAMOTIDINE 20 MG TAB PO SCH (09:23)
[2024-03-17] MEDS: PRAVASTATIN SODIUM 40 MG TAB PO SCH (09:23)
[2024-03-17] MEDS: LOSARTAN 50 MG TAB PO SCH (09:23)
[2024-03-17 09:26] LABS: BUN/Creat Ratio 18.57 Ratio (12.00-20.00); Glucose 98 mg/dL (70-110)
[2024-03-17 09:27] LABS: ALT 27 U/L (8-44); AST 29 U/L (13-35); Albumin 3.9 g/dL (3.8-4.9); Albumin/Globulin Ratio 1.86 Ratio (1.60-3.17); Alkaline Phosphatase 124 U/L (41-126); Calcium 8.8 mg/dL (8.7-10.3); Chloride 106 mmol/L (96-109); Globulin 2.1 g/dL (1.6-3.3); Potassium 3.9 mmol/L (3.5-5.5); Sodium 141 mmol/L (135-145); Total Bilirubin 0.4 mg/dL (0.3-1.2)
[2024-03-17 09:35] LABS: HGB 12.3 gm/dL (11.4-16.0); Hypochromasia Slight; MCH 30.4 pg (25.0-35.0); MCHC 32.2 g/dL (31.0-37.0); MCV 94.3 fL (80.0-100.0); Mean Platelet Volume 8.5; Platelet Count 138 k/uL (150-450); RBC 4.04 m/uL (3.80-5.40); RDW 13.5 % (11.5-15.5); WBC 5.6 k/uL (3.8-10.6)
[2024-03-17 10:03] LABS: African American GFR (CKD) >90 (>60 ml/min/1.73 sqM); Anion Gap 6 mmol/L; Blood Urea Nitrogen 12 mg/dL (7-17); Calcium 8.9 mg/dL (8.4-10.2); Carbon Dioxide 23 mmol/L (22-30); Chloride 105 mmol/L (98-107); Glucose 94 mg/dL (74-99); Non-African American GFR(CKD) 80 (>60 ml/min/1.73 sqM); Potassium 3.7 mmol/L (3.5-5.1); Sodium 134 mmol/L (137-145)
[2024-03-17] MEDS: AZITHROMYCIN 500 MG in SODIUM CHLORIDE 0.9% 250 ML IVPB SCH (11:19)
[2024-03-17] MEDS: IPRATROPIUM-ALBUTEROL 3 ML NEB INHALATION SCH (11:38)
--- NOTE | 2024-03-17 12:36 | P.HPIM ---
History of Present Illness H&P Date: 03/17/24 Chief Complaint: Syncope, fall This is a 83-year-old female with past medical history significant for recent right occipital CVA on 03/08/2024 discharged on 03/11/24, atrial fibrillation- anticoagulated on Eliquis, macular degeneration, hypertension, hyperlipidemia, cervical cancer and multiple other medical issues. Patient reports she had gone to the front door, felt lightheaded dizzy proceeded to the chair to sit down, passed out, falling from the chair to the floor. Witnessed per family, positive head trauma. Patient reports minimal blurry vision of the left eye which is improved compared to her recent PCP visit. Reports she has a productive cough with pale yellow sputum, provoking a mild headache, continues to have minimal lightheadedness. Negative for orthostatic hypotension. Denies chest pain, palpitations or shortness of breath. Viral studies negative, Tmax 99.2, WBC within normal limits. UA negative. Electrolytes and renal function stable; sodium decreased to 134. Hemoglobin 12.3, platelets 138. Brain CT reported no acute intracranial process, old right basal ganglia lacunar infarct. Chest x- ray reporting patchy atelectasis versus infiltrate at the right mid and lower lung. EKG reporting atrial fibrillation, troponin negative x 1. Review of Systems ROS Statement: Those systems with pertinent positive or pertinent negative responses have been documented in the HPI. ROS Other: All systems not noted in ROS Statement are negative. Past Medical History Past Medical History: Atrial Fibrillation, Cancer, CVA/TIA, Eye Disorder, Hype rlipidemia, Hypertension, Osteoarthritis (OA), Pneumonia, Thyroid Disorder Additional Past Medical History / Comment(s): cervical cancer, macular degeneration, varicose veins, "told a test showed I had a stroke", urinary leakage at times, History of Any Multi-Drug Resistant Organisms: None Reported Past Surgical History: Appendectomy, Cardiac Ablation, EPS, Heart Catheterization, Hysterectomy, Orthopedic Surgery Additional Past Surgical History / Comment(s): Diego cataracts with iplants, diego wrist ORIF, diego eyelid lift, pin rt ankle for fx, right knee replacement Past Anesthesia/Blood Transfusion Reactions: No Reported Reaction Past Psychological History: No Psychological Hx Reported Smoking Status: Former smoker Past Alcohol Use History: None Reported Additional Past Alcohol Use History / Comment(s): Quit smoking in 1990, smoked 1 PPD for 38 yrs. Past Drug Use History: None Reported - Past Family History Sister(s) Family Medical History: Congestive Heart Failure (CHF) Brother(s) Family Medical History: Hypertension Daughter(s) Family Medical History: AFIB, COPD Father Family Medical History: Cancer Additional Family Medical History / Comment(s): mouth and throat Medications and Allergies Home Medications Medication Instructions Recorded Confirmed Type amLODIPine [Norvasc] 5 mg PO DAILY 03/05/17 03/16/24 History Vit C/E/Zn/Coppr/Lutein/Zeaxan 2 cap PO BID 03/18/19 03/16/24 History [Preservision Areds 2 Softgel] cycloSPORINE 0.05% OPHTH SOLN 1 drop BOTH EYES Q12H 03/18/19 03/16/24 History [Restasis] traMADol HCl [Ultram] 50 mg PO BID PRN 03/18/19 03/16/24 History Losartan Potassium [Cozaar] 50 mg PO DAILY 04/25/20 03/16/24 History Multivit-Min/FA/Lycopen/Lutein 1 tab PO DAILY 04/25/20 03/16/24 History [Centrum Silver Tablet] Artificial Tears-Hypromellose 2 drops BOTH EYES BID PRN 03/07/24 03/16/24 History [Artificial Tear Drops] Glucosamine/Chondr Keating A Sod [Osteo 1 tab PO BID 03/07/24 03/16/24 History Bi-Flex Caplet] Hydrocortisone Oint 1 applic TOPICAL BID PRN 03/07/24 03/16/24 History [Hydrocortisone 2.5% Oint] Levothyroxine Sodium [Synthroid] 112 mcg PO DAILY 03/07/24 03/16/24 History Ava-3/Dha/Epa/Fish Oil [Ava-3 1 cap PO BID 03/07/24 03/16/24 History Fish Oil 1,000 mg Sfgl] Pravastatin Sodium [Pravachol] 40 mg PO DAILY 03/07/24 03/16/24 History polyethylene glycoL 3350 [Miralax] 17 gm PO HS PRN 03/07/24 03/16/24 History Apixaban [Eliquis] 5 mg PO BID #60 tab 03/11/24 03/16/24 Rx Aspirin 81 mg PO DAILY #30 tab 03/11/24 03/16/24 Rx Famotidine [Pepcid] 20 mg PO DAILY #30 tablet 03/11/24 03/16/24 Rx Meclizine [Antivert] 25 mg PO Q8HR PRN #60 tab 03/11/24 03/16/24 Rx Allergies Allergy/AdvReac Type Severity Reaction Status Date / Time Sulfa (Sulfonamide Allergy Unknown Verified 03/16/24 13:52 Antibiotics) Childhood atorvastatin calcium AdvReac Dizziness Verified 03/16/24 13:52 [From Lipitor] levofloxacin [From Levaquin] AdvReac joint pain Verified 03/16/24 13:52 nitrofurantoin AdvReac sleepiness Verified 03/16/24 13:52 [From Macrobid] Physical Exam Vitals: Vital Signs Temp Pulse Pulse Resp BP BP BP 03/17/24 11:55 82 03/17/24 11:38 80 03/17/24 06:57 98.5 F 99 18 151/71 03/17/24 01:00 99.2 F 92 20 144/78 150/79 03/16/24 20:25 98.2 F 78 18 148/75 151/80 03/16/24 20:07 98.2 F 80 18 142/64 03/16/24 18:00 80 18 115/73 03/16/24 17:00 79 16 124/71 03/16/24 16:00 80 18 120/72 03/16/24 14:28 143/76 137/95 03/16/24 14:00 78 16 131/71 03/16/24 13:00 80 18 153/71 BP Pulse Ox 03/17/24 11:55 03/17/24 11:38 97 03/17/24 06:57 93 L 03/17/24 01:00 151/79 97 03/16/24 20:25 126/71 98 03/16/24 20:07 96 03/16/24 18:00 98 03/16/24 17:00 98 03/16/24 16:00 99 03/16/24 14:28 144/74 03/16/24 14:00 98 03/16/24 13:00 99 Intake and Output 03/16/24 03/17/24 03/17/24 22:59 06:59 14:59 Intake Total 720 Balance 720 Intake: Oral 720 Other: Voiding Method Toilet Toilet # Voids 4 Weight 82.1 kg Vitals reviewed General: well developed, well nourished NAD HEENT: Normocephalic, atraumatic, mucus membranes moist Neck: supple, no JVD, no thyromegaly CV: Irregular, no murmur Lungs: Normal effort. No wheezes or rales Abd: soft, nontender, bowel sounds present Neuro: Alert and oriented x3 Skin: warm and dry Results CBC & Chem 7: 03/17/24 09:21 03/17/24 09:21 Labs: Abnormal Lab Results - Last 24 Hours (Table) 03/17/24 03/17/24 03/17/24 Range/Units 05:34 05:34 09:21 RBC 3.85 L (4.10-5.20) X 10*6/uL Hgb 11.7 L (12.0-15.0) g/dL Hct 35.8 L (37.2-46.3) % Plt Count 138 L 138 L (140-440) X 10*3/uL Sodium (137-145) mmol/L Anion Gap 13.00 H (4.00-12.00) mmol/L Total Protein 6.0 L (6.2-8.2) g/dL 03/17/24 Range/Units 09:21 RBC (4.10-5.20) X 10*6/uL Hgb (12.0-15.0) g/dL Hct (37.2-46.3) % Plt Count (140-440) X 10*3/uL Sodium 134 L (137-145) mmol/L Anion Gap (4.00-12.00) mmol/L Total Protein (6.2-8.2) g/dL Thrombosis Risk Factor Assmnt - Choose All That Apply Any of the Below Risk Factors Present?: Yes Each Factor Represents 1 point: Abnormal pulmonary function (COPD), Obesity (BMI >25), Serious lung disease incl. pneumonia (< 1month) Each Risk Factor Represents 3 Points: Age 75 years or older Each Risk Factor Represents 5 Points: Stroke (< 1 month) Thrombosis Risk Factor Assessment Total Risk Factor Score: 11 Thrombosis Risk Factor Assessment Level: High Risk Assessment and Plan Assessment: Syncope, subsequent fall, negative orthostatic hypotension. Possible right mid and lower lobe pneumonia, procalcitonin pending Recent right occipital CVA, 03/08/2024 Chronic paroxysmal A-fib, anticoagulated on Eliquis Peripheral vascular disease Carotid stenosis Moderate tricuspid regurgitation Plan: Continue on current medication regimen ,monitoring and symptomatic treatment. Maintain empiric IV antibiotics, procalcitonin ordered. Sputum culture ordered. Blood culture in progress. cardiology and pulmonary consulted. PPI for GI prophylaxis. The impression and plan of care has been dictated as directed. : I performed a history and examination of this patient, discussed the same with the dictator. I agree with the dictator's note ,documented as a scribe. Any additional findings or plans will be noted.
--- NOTE | 2024-03-17 14:35 | P.CRDCN ---
History of Present Illness History of present illness: HISTORY OF PRESENT ILLNESS: This is a 83-year-old female with a past medical history significant for atrial fibrillation, minimal CAD, valvular heart disease, hypertension, and hyperlipid emia. Patient follows in the office with Dr. Taylor. We have been asked to see the patient in consultation for syncope. Patient examined at the bedside. Patient was admitted to the hospital last month for confusion and loss of vision in the left eye. She underwent MRI of the brain which was positive for CVA. Her Eliquis was increased from 2.5 mg twice a day to 5 mg twice a day. Patient presented back to the hospital today with an episode of syncope. Patient states she got up to unlock the door and got lightheaded. She started to fall into the chair next to her. Her family at the bedside states that she passed out at that time. Family reports she has been dizzy and lightheaded since having the stroke. She feels like she is having "brain fog" and is having headaches. She states her vision is improving compared to yesterday. DIAGNOSTICS: - EKG reveals atrial fibrillation with controlled ventricular rate - Chest xray borderline heart size. Some patchy atelectasis versus infiltrate a t the right mid and lower lung. - Laboratory data: WBC 5.6. Hemoglobin 12.3. Platelet count 138. Sodium 134. Potassium 3.7. BUN 12. Creatinine 0.70. Troponin negative x 1. - Current home cardiac medications include Eliquis 5 mg twice a day, aspirin 81 mg daily, losartan 50 mg daily, amlodipine 5 mg daily - Most recent echocardiogram obtained in February 2024 revealed ejection fraction 55 to 60%, mild pulmonary hypertension, negative bubble study, mild MR, mild AR, moderate TR - Cardiac catheterization history: September 2012 revealing minimal coronary artery disease REVIEW OF SYSTEMS: At the time of my exam: CONSTITUTIONAL: Denies fever or chills. HEENT: Denies blurred vision, vision changes, or eye pain. Denies hemoptysis CARDIOVASCULAR: Denies chest pain. Denies orthopnea. Denies PND. Denies palpitations RESPIRATORY: Denies shortness of breath. GASTROINTESTINAL: Denies abdominal pain. Denies nausea or vomiting. HEMATOLOGIC: Denies bleeding disorders. GENITOURINARY: Denies any blood in urine. SKIN: Denies pruitis. Denies rash. PHYSICAL EXAM: VITAL SIGNS: Reviewed. GENERAL: Well-developed in no acute distress. HEENT: Head is normocephalic. Pupils are equal, round. Sclerae anicteric. Mucous membranes of the mouth are moist. Neck supple. No JVD or thyromegaly LUNGS: Respirations even and unlabored. Lungs essentially clear to auscultation bilaterally. HEART: Irregular rate and rhythm. S1 and S2 heard. ABDOMEN: Soft. Nondistended. Nontender. EXTREMITIES: Normal range of motion. No clubbing or cyanosis. Peripheral pulses intact. No lower extremity edema NEUROLOGIC: Awake and alert. Oriented x 3. ASSESSMENT: Syncope Recent hospitalization for acute CVA, MRI positive for right occipital lobe CVA and punctuate areas of acute ischemia in left superior parietal, deep right matter and left cerebral hemisphere Permanent atrial fibrillation with controlled ventricular rate Bilateral carotid stenosis, left greater than right Minimal coronary artery disease, per cath in 2013 Valvular heart disease including mild MR, mild AR, moderate TR Mild pulmonary hypertension Hypertension Hyperlipidemia PLAN: Orthostatics obtained and unremarkable Continue telemetry monitoring Resume home cardiac medications Discussed event monitor versus loop recorder insertion. Patient and family would like to proceed with loop recorder. Patient will undergo loop recorder insertion tomorrow with Dr. Martin. Patient does not need to be n.p.o. for this procedure. Further recommendations pending patient course Patient to follow up post discharge with Dr. Taylor Nurse practitioner note has been reviewed by physician. Signing provider agrees with the documented findings, assessment, and plan of care documented by SENIOR SUSTAINABILITY CONSULTANT as a scribe. Past Medical History Past Medical History: Atrial Fibrillation, Cancer, CVA/TIA, Eye Disorder, Hyperl ipidemia, Hypertension, Osteoarthritis (OA), Pneumonia, Thyroid Disorder Additional Past Medical History / Comment(s): cervical cancer, macular degeneration, varicose veins, "told a test showed I had a stroke", urinary leakage at times, History of Any Multi-Drug Resistant Organisms: None Reported Past Surgical History: Appendectomy, Cardiac Ablation, EPS, Heart Catheterization, Hysterectomy, Orthopedic Surgery Additional Past Surgical History / Comment(s): [place] cataracts with iplants, [place]go wrist ORIF, diego eyelid lift, pin rt ankle for fx, right knee replacement Past Anesthesia/Blood Transfusion Reactions: No Reported Reaction Past Psychological History: No Psychological Hx Reported Smoking Status: Former smoker Past Alcohol Use History: None Reported Additional Past Alcohol Use History / Comment(s): Quit smoking in 1990, smoked 1 PPD for 38 yrs. Past Drug Use History: None Reported - Past Family History Sister(s) Family Medical History: Congestive Heart Failure (CHF) Brother(s) Family Medical History: Hypertension Daughter(s) Family Medical History: AFIB, COPD Father Family Medical History: Cancer Additional Family Medical History / Comment(s): mouth and throat Medications and Allergies Home Medications Medication Instructions Recorded Confirmed Type amLODIPine [Norvasc] 5 mg PO DAILY 03/05/17 03/16/24 History Vit C/E/Zn/Coppr/Lutein/Zeaxan 2 cap PO BID 03/18/19 03/16/24 History [Preservision Areds 2 Softgel] cycloSPORINE 0.05% OPHTH SOLN 1 drop BOTH EYES Q12H 03/18/19 03/16/24 History [Restasis] traMADol HCl [Ultram] 50 mg PO BID PRN 03/18/19 03/16/24 History Losartan Potassium [Cozaar] 50 mg PO DAILY 04/25/20 03/16/24 History Multivit-Min/FA/Lycopen/Lutein 1 tab PO DAILY 04/25/20 03/16/24 History [Centrum Silver Tablet] Artificial Tears-Hypromellose 2 drops BOTH EYES BID PRN 03/07/24 03/16/24 History [Artificial Tear Drops] Glucosamine/Chondr Keating A Sod [Osteo 1 tab PO BID 03/07/24 03/16/24 History Bi-Flex Caplet] Hydrocortisone Oint 1 applic TOPICAL BID PRN 03/07/24 03/16/24 History [Hydrocortisone 2.5% Oint] Levothyroxine Sodium [Synthroid] 112 mcg PO DAILY 03/07/24 03/16/24 History [place]-3/Dha/Epa/Fish Oil [[place]-3 1 cap PO BID 03/07/24 03/16/24 History Fish Oil 1,000 mg Sfgl] Pravastatin Sodium [Pravachol] 40 mg PO DAILY 03/07/24 03/16/24 History polyethylene glycoL 3350 [Miralax] 17 gm PO HS PRN 03/07/24 03/16/24 History Apixaban [Eliquis] 5 mg PO BID #60 tab 03/11/24 03/16/24 Rx Aspirin 81 mg PO DAILY #30 tab 03/11/24 03/16/24 Rx Famotidine [Pepcid] 20 mg PO DAILY #30 tablet 03/11/24 03/16/24 Rx Meclizine [Antivert] 25 mg PO Q8HR PRN #60 tab 03/11/24 03/16/24 Rx Allergies Allergy/AdvReac Type Severity Reaction Status Date / Time Sulfa (Sulfonamide Allergy Unknown Verified 03/16/24 13:52 Antibiotics) Childhood atorvastatin calcium AdvReac Dizziness Verified 03/16/24 13:52 [From Lipitor] levofloxacin [From Levaquin] AdvReac joint pain Verified 03/16/24 13:52 nitrofurantoin AdvReac sleepiness Verified 03/16/24 13:52 [From Macrobid] Physical Exam Vitals: Vital Signs Temp Pulse Pulse Resp BP BP BP 03/17/24 11:55 82 03/17/24 11:38 80 03/17/24 06:57 98.5 F 99 18 151/71 03/17/24 01:00 99.2 F 92 20 144/78 150/79 03/16/24 20:25 98.2 F 78 18 148/75 151/80 03/16/24 20:07 98.2 F 80 18 142/64 03/16/24 18:00 80 18 115/73 03/16/24 17:00 79 16 124/71 03/16/24 16:00 80 18 120/72 03/16/24 14:28 143/76 137/95 03/16/24 14:00 78 16 131/71 03/16/24 13:00 80 18 153/71 BP Pulse Ox 03/17/24 11:55 03/17/24 11:38 97 03/17/24 06:57 93 L 03/17/24 01:00 151/79 97 03/16/24 20:25 126/71 98 03/16/24 20:07 96 03/16/24 18:00 98 03/16/24 17:00 98 03/16/24 16:00 99 03/16/24 14:28 144/74 03/16/24 14:00 98 03/16/24 13:00 99 Intake and Output 03/16/24 03/17/24 03/17/24 22:59 06:59 14:59 Intake Total 720 Balance 720 Intake: Oral 720 Other: Voiding Method Toilet Toilet # Voids 4 Weight 82.1 kg Results 03/17/24 09:21 03/17/24 09:21 Cardiac Enzymes 03/17/24 Range/Units 05:34 AST 29 (13-35) U/L CBC 03/17/24 03/17/24 Range/Units 05:34 09:21 WBC 5.92 5.6 (4.50-10.00) X 10*3/uL RBC 3.85 L 4.04 (4.10-5.20) X 10*6/uL Hgb 11.7 L 12.3 (12.0-15.0) g/dL Hct 35.8 L 38.0 (37.2-46.3) % Plt Count 138 L 138 L (140-440) X 10*3/uL Comprehensive Metabolic Panel 03/17/24 03/17/24 Range/Units 05:34 09:21 Sodium 141 134 L (135-145) mmol/L Potassium 3.9 3.7 (3.5-5.5) mmol/L Chloride 106 105 (96-109) mmol/L Carbon Dioxide 22.0 23 (21.6-31.8) mmol/L BUN 13.0 12 (9.0-27.0) mg/dL Creatinine 0.7 0.70 (0.6-1.5) mg/dL Glucose 98 94 (70-110) mg/dL Calcium 8.8 8.9 (8.7-10.3) mg/dL AST 29 (13-35) U/L ALT 27 (8-44) U/L Alkaline Phosphatase 124 (41-126) U/L Total Protein 6.0 L (6.2-8.2) g/dL Albumin 3.9 (3.8-4.9) g/dL Current Medications Generic Name Dose Route Start Last Admin Trade Name Freq PRN Reason Stop Dose Admin Acetaminophen 650 mg 03/16/24 14:54 Acetaminophen Tab 325 Mg Tab PO Q6HR PRN Mild Pain or Fever > 100.5 Albuterol/Ipratropium 3 ml 03/17/24 13:00 03/17/24 11:38 Ipratropium-Albuterol 3 Ml Neb INHALATION 3 ml RT-TID REVA Administration Amlodipine Besylate 5 mg 03/17/24 09:00 03/17/24 09:22 Amlodipine 5 Mg Tab PO 5 mg DAILY REVA Administration Apixaban 5 mg 03/16/24 21:00 03/17/24 09:22 Apixaban 5 Mg Tab PO 5 mg BID REVA Administration Protocol Artificial Tears 2 drops 03/16/24 14:57 Artificial Tears-Hypromellose Drops 15 Ml Btl BOTH EYES BID PRN Dry Eye(s) Aspirin 81 mg 03/17/24 09:00 03/17/24 09:22 Aspirin 81 Mg PO 81 mg DAILY REVA Administration Cyclosporine 1 drops 03/16/24 18:00 03/17/24 06:24 Cyclosporine 0.05% Ophth 0.4 Ml Droperette BOTH EYES 1 drops Q12H REVA Administration Famotidine 20 mg 03/17/24 09:00 03/17/24 09:23 Famotidine 20 Mg Tab PO 20 mg DAILY REVA Administration Guaifenesin/Dextromethorphan 1 each 03/16/24 22:00 03/17/24 10:26 Guaifenesin-Dm 600/30mg 1 Each Tab.Er.12h PO 1 each Q12HR PRN Administration Cough Azithromycin 500 mg/ Sodium 250 mls @ 250 mls/hr 03/17/24 09:45 03/17/24 11:19 Chloride IVPB 03/19/24 09:59 250 mls/hr DAILY REVA Administration Protocol Ceftriaxone Sodium 1 gm/ 50 mls @ 100 mls/hr 03/17/24 09:45 03/17/24 10:22 Sodium Chloride IVPB 100 mls/hr Q24HR REVA Administration Protocol Levothyroxine Sodium 112 mcg 03/17/24 06:30 03/17/24 06:24 Levothyroxine 112 Mcg Tab PO 112 mcg DAILY@0630 REVA Administration Losartan Potassium 50 mg 03/17/24 09:00 03/17/24 09:23 Losartan 50 Mg Tab PO 50 mg DAILY REVA Administration Meclizine HCl 25 mg 03/16/24 14:57 Meclizine 25 Mg Tab PO Q8HR PRN dizziness Naloxone HCl 0.2 mg 03/16/24 14:54 Naloxone 0.4 Mg/Ml 1 Ml Vial IV Q2M PRN Opioid Reversal Ondansetron HCl 4 mg 03/16/24 14:54 Ondansetron 4 Mg/2 Ml Vial IVP Q8HR PRN Nausea And Vomiting Pravastatin Sodium 40 mg 03/17/24 09:00 03/17/24 09:23 Pravastatin Sodium 40 Mg Tab PO 40 mg DAILY REVA Administration Tramadol HCl 50 mg 03/16/24 14:57 03/17/24 06:59 Tramadol 50 Mg Tab PO 50 mg BID PRN Administration Moderate to Severe Pain (4-10) Intake and Output 03/16/24 03/17/24 03/17/24 22:59 06:59 14:59 Intake Total 720 Balance 720 Intake: Oral 720 Other: Voiding Method Toilet Toilet # Voids 4 Weight 82.1 kg 03/17/24 09:21 03/17/24 09:21
[2024-03-17] MEDS: PANTOPRAZOLE 40 MG/10 ML VIAL IVP SCH (14:38)
--- NOTE | 2024-03-17 15:31 | P.CNPUL ---
History of Present Illness Consult date: 03/17/24 Requesting physician: Sanjuanita Lopez Reason for consult: abnormal CXR/CT Chief complaint: Syncope History of present illness: This is an 83-year-old female patient with a known history of recent right occipital lobe CVA, peripheral vascular disease, paroxysmal atrial fibrillation anticoagulated with Eliquis, hypertension, hyperlipidemia, hypothyroidism. She presented here to the emergency room yesterday following a syncopal episode. She states she had gotten up out of bed to answer the front door and made it to the door open the door for her daughter and then felt dizzy sat in the chair then passed out and fell to the floor. No specific injury. No prior warning. No loss of bladder or bowel. The syncopal episode lasted approximately [address] scan of the brain revealed no acute intracranial process. Old right basal ganglion lacunar infarct. Chest x-ray reveals patchy atelectasis of the right lung base. EKG reveals atrial fibrillation with a controlled ventricular response. White count 5.6. Hemoglobin 12.3. Platelets 138. Sodium 134. Potassium 3.7. Bicarb 23. BUN 12. Creatinine 0.70. Glucose 94. Urinalysis clean. Viral screen negative. Procalcitonin negative at 0.02. Seen today on the regular medical floor. Sitting up in a chair. Awake and alert in no acute distress. Denies any shortness of breath, cough or congestion. No fever or chills. No pulmonary complaints. No further syncopal episodes. Review of Systems REVIEW OF SYSTEMS: CONSTITUTIONAL: Denies any recent significant weight loss or weight gain. EYES: Denies change in vision. EARS, NOSE, MOUTH, THROAT: Denies headaches, denies sore throat. CARDIOVASCULAR: Positive for syncopal episode. Denies chest pain, palpitations. RESPIRATORY: Denies shortness of breath, cough, congestion or hemoptysis. GASTROINTESTINAL: Denies change in appetite, denies abdominal pain GENITOURINARY: Denies hematuria, denies infections. MUSKULOSKELETAL: Denies pain, denies swelling. INTEGUMENTARY: Denies rash, denies eczema. NEUROLOGICAL: Denies recent memory loss, no recent seizure activity. PSYCHIATRIC: Denies anxiety, denies depression. HEMATOLOGIC/LYMPHATIC: Denies anemia, denies enlarged lymph nodes. Past Medical History Past Medical History: Atrial Fibrillation, Cancer, CVA/TIA, Eye Disorder, Hyperlipidemia, Hypertension, Osteoarthritis (OA), Pneumonia, Thyroid Disorder Additional Past Medical History / Comment(s): cervical cancer, macular degeneration, varicose veins, "told a test showed I had a stroke", urinary leakage at times, History of Any Multi-Drug Resistant Organisms: None Reported Past Surgical History: Appendectomy, Cardiac Ablation, EPS, Heart Catheterization, Hysterectomy, Orthopedic Surgery Additional Past Surgical History / Comment(s): [place] cataracts with iplants, [place] wrist ORIF, [place] eyelid lift, pin rt ankle for fx, right knee replacement Past Anesthesia/Blood Transfusion Reactions: No Reported Reaction Past Psychological History: No Psychological Hx Reported Smoking Status: Former smoker Past Alcohol Use History: None Reported Additional Past Alcohol Use History / Comment(s): Quit smoking in 1990, smoked 1 PPD for 38 yrs. Past Drug Use History: None Reported - Past Family History Sister(s) Family Medical History: Congestive Heart Failure (CHF) Brother(s) Family Medical History: Hypertension Daughter(s) Family Medical History: AFIB, COPD Father Family Medical History: Cancer Additional Family Medical History / Comment(s): mouth and throat Medications and Allergies Home Medications Medication Instructions Recorded Confirmed Type amLODIPine [Norvasc] 5 mg PO DAILY 03/05/17 03/16/24 History Vit C/E/Zn/Coppr/Lutein/Zeaxan 2 cap PO BID 03/18/19 03/16/24 History [Preservision Areds 2 Softgel] cycloSPORINE 0.05% OPHTH SOLN 1 drop BOTH EYES Q12H 03/18/19 03/16/24 History [Restasis] traMADol HCl [Ultram] 50 mg PO BID PRN 03/18/19 03/16/24 History Losartan Potassium [Cozaar] 50 mg PO DAILY 04/25/20 03/16/24 History Multivit-Min/FA/Lycopen/Lutein 1 tab PO DAILY 04/25/20 03/16/24 History [Centrum Silver Tablet] Artificial Tears-Hypromellose 2 drops BOTH EYES BID PRN 03/07/24 03/16/24 History [Artificial Tear Drops] Glucosamine/Chondr [place] A Sod [Osteo 1 tab PO BID 03/07/24 03/16/24 History Bi-Flex Caplet] Hydrocortisone Oint 1 applic TOPICAL BID PRN 03/07/24 03/16/24 History [Hydrocortisone 2.5% Oint] Levothyroxine Sodium [Synthroid] 112 mcg PO DAILY 03/07/24 03/16/24 History [place]-3/Dha/Epa/Fish Oil [[place]-3 1 cap PO BID 03/07/24 03/16/24 History Fish Oil 1,000 mg Sfgl] Pravastatin Sodium [Pravachol] 40 mg PO DAILY 03/07/24 03/16/24 History polyethylene glycoL 3350 [Miralax] 17 gm PO HS PRN 03/07/24 03/16/24 History Apixaban [Eliquis] 5 mg PO BID #60 tab 03/11/24 03/16/24 Rx Aspirin 81 mg PO DAILY #30 tab 03/11/24 03/16/24 Rx Famotidine [Pepcid] 20 mg PO DAILY #30 tablet 03/11/24 03/16/24 Rx Meclizine [Antivert] 25 mg PO Q8HR PRN #60 tab 03/11/24 03/16/24 Rx Allergies Allergy/AdvReac Type Severity Reaction Status Date / Time Sulfa (Sulfonamide Allergy Unknown Verified 03/16/24 13:52 Antibiotics) Childhood atorvastatin calcium AdvReac Dizziness Verified 03/16/24 13:52 [From Lipitor] levofloxacin [From Levaquin] AdvReac joint pain Verified 03/16/24 13:52 nitrofurantoin AdvReac sleepiness Verified 03/16/24 13:52 [From Macrobid] Physical Exam Vitals: Vital Signs Temp Pulse Pulse Resp BP BP BP 03/17/24 11:55 82 03/17/24 11:38 80 03/17/24 06:57 98.5 F 99 18 151/71 03/17/24 01:00 99.2 F 92 20 144/78 150/79 03/16/24 20:25 98.2 F 78 18 148/75 151/80 03/16/24 20:07 98.2 F 80 18 142/64 03/16/24 18:00 80 18 115/73 03/16/24 17:00 79 16 124/71 03/16/24 16:00 80 18 120/72 BP Pulse Ox 03/17/24 11:55 03/17/24 11:38 97 03/17/24 06:57 93 L 03/17/24 01:00 151/79 97 03/16/24 20:25 126/71 98 03/16/24 20:07 96 03/16/24 18:00 98 03/16/24 17:00 98 03/16/24 16:00 99 Intake and Output 03/17/24 03/17/24 03/17/24 06:59 14:59 22:59 Intake Total 720 Balance 720 Intake: Oral 720 Other: Voiding Method Toilet # Voids 4 GENERAL EXAM: Alert, pleasant 83-year-old female, up in a chair, on room air, comfortable in no apparent distress. HEAD: Normocephalic. EYES: Normal reaction of pupils, equal size. NOSE: Clear with pink turbinates. THROAT: No erythema or exudates. NECK: No masses, no JVD. CHEST: No chest wall deformity. LUNGS: Equal air entry with no crackles, wheeze, rhonchi or dullness. CVS: S1 and S2 normal with no audible murmur, regular rhythm. ABDOMEN: No hepatosplenomegaly, normal bowel sounds, no guarding or rigidity. SPINE: No scoliosis or deformity SKIN: No rashes CENTRAL NERVOUS SYSTEM: No focal deficits, tone is normal in all 4 extremities. EXTREMITIES: There is no peripheral edema. No clubbing, no cyanosis. Peripheral pulses are intact. Results - Laboratory Findings CBC and BMP: 03/17/24 09:21 03/17/24 09:21 PT/INR, D-dimer PT 11.7 sec (10.0-12.5) 03/16/24 11:13 INR 1.1 (<1.2) 03/16/24 11:13 Abnormal lab findings: Abnormal Labs 03/16/24 03/17/24 03/17/24 11:13 05:34 05:34 RBC 3.85 L Hgb 11.7 L Hct 35.8 L Plt Count 138 L Sodium Anion Gap 13.00 H BUN 21 H Glucose 103 H AST 37 H Alkaline Phosphatase 130 H Total Protein 6.0 L 03/17/24 03/17/24 09:21 09:21 RBC Hgb Hct Plt Count 138 L Sodium 134 L Anion Gap BUN Glucose AST Alkaline Phosphatase Total Protein - Diagnostic Findings Chest x-ray: image reviewed Assessment and Plan Assessment: Acute syncopal episode of unclear etiology, plan is for loop recorder insertion tomorrow Right lung atelectasis, no evidence of pneumonia, procalcitonin negative Recent hospitalization for a right occipital CVA History of atrial fibrillation, anticoagulated with Eliquis Hypertension Hypothyroidism History of cervical cancer Macular degeneration Former smoker Plan: The patient was seen and evaluated Chest x-ray, labs and medications reviewed Stable and on room air Procalcitonin negative Antibiotics discontinued Cardiology consult for syncopal episode Plan is for loop recorder insertion tomorrow Increase her activity as tolerated Continue telemetry monitoring We will continue to follow and make further recommendations based on her clinical status I have personally seen and examined the patient, performed the documentation and the assessment and plan as written. Number of minutes spent on the visit: 20 Dictation was produced using [employer] dictation software. Please excuse any grammatical, word or spelling errors.
[2024-03-17] MEDS: guaiFENesin SYRUP 100MG/5ML 200 MG/10 ML CUP PO PRN (20:44)
[2024-03-18] MEDS ORDERED: CLINDAMYCIN 600 MG in SODIUM CHLORIDE 0.9% 250 ML IRRIGATION PRN (07:00)
[2024-03-18 09:10] VITALS: BP 148/85; RESP 14; TEMP 98.3
[2024-03-18] MEDS: LIDOCAINE 1% INJ 10MG/ML (20 ML MDV) SQ ONE (09:22)
[2024-03-18] MEDS: CLINDAMYCIN 900 MG in DEXTROSE 5% IN WATER 50 ML IVPB PRN (09:28)
[2024-03-18] MEDS: SODIUM CHLORIDE 0.9% 250 ML IV ONE (09:28)
[2024-03-18 12:38] VITALS: PULSE 88
--- NOTE | 2024-03-18 13:54 | P.PCN ---
Description of Procedure: Procedure: Insertion of Linq loop recorder Indication: Syncope CONSENT:I have discussed the risks, benefits and alternative therapies for the above-mentioned procedure. The patient has indicated understanding and acceptance of the risks and procedures discussed. PROCEDURE: Patient was brought to the catheterization lab in a fasting state. Patient was prepped and draped in the usual fashion. 1% lidocaine was used to anesthetize the area of the left third intercostal space. Using the loop recorder incision device, a small 0.5 cm incision was made in the left 3rd intercostal space. Next the Linq loop recorder was deployed in the 3rd intercostal space subcutaneously using the insertion tool. Thresholds were checked and were excellent. Next the incision was closed using Dermabond. Steristrips were placed over the incision and the procedure was completed. The patient tolerated the procedure well. The patient was transported to the post cath holding area in stable condition. Linq loop recorder serial number: [id number]
--- NOTE | 2024-03-18 15:51 | P.PN ---
Subjective Progress Note Date: 03/18/24 This is an 83-year-old female patient with a known history of recent right occipital lobe CVA, peripheral vascular disease, paroxysmal atrial fibrillation anticoagulated with Eliquis, hypertension, hyperlipidemia, hypothyroidism. She presented here to the emergency room yesterday following a syncopal episode. She states she had gotten up out of bed to answer the front door and made it to the door open the door for her daughter and then felt dizzy sat in the chair then passed out and fell to the floor. No specific injury. No prior warning. No loss of bladder or bowel. The syncopal episode lasted approximately [address] scan of the brain revealed no acute intracranial process. Old right basal ganglion lacunar infarct. Chest x-ray reveals patchy atelectasis of the right lung base. EKG reveals atrial fibrillation with a controlled ventricular response. White count 5.6. Hemoglobin 12.3. Platelets 138. Sodium 134. Potassium 3.7. Bicarb 23. BUN 12. Creatinine 0.70. Glucose 94. Urinalysis clean. Viral screen negative. Procalcitonin negative at 0.02. Seen today on the regular medical floor. Sitting up in a chair. Awake and alert in no acute distress. Denies any shortness of breath, cough or congestion. No fever or chills. No pulmonary complaints. No further syncopal episodes. The patient is seen today March 18, 2024 in follow-up on the regular medical floor. She is currently sitting up in a chair at the bedside. Awake and alert in no acute distress. Maintaining good O2 saturations in the 90s on room air. She is afebrile. Hemodynamically stable. No further episodes of syncope. No dizziness or lightheadedness. No chest pain or palpitations. No shortness of breath, cough or congestion. The plan is for insertion of a loop recorder today. Blood and sputum cultures revealed no growth. Procalcitonin was negative at less than 0.02. Urinalysis clean. She remains on bronchodilators. Anticoagulated with Eliquis. Objective - Vital Signs Vital signs: Vital Signs Temp 98.3 F 03/18/24 07:45 Pulse 88 03/18/24 12:33 Resp 14 03/18/24 07:45 BP 148/85 03/18/24 07:45 Pulse Ox 94 L 03/18/24 07:45 FiO2 Intake & Output 03/17/24 03/18/24 03/18/24 18:59 06:59 18:59 Intake Total 760 106 Balance 760 106 Intake: IV 106 Oral 760 Other: Voiding Method Toilet Toilet # Voids 3 4 - Exam GENERAL EXAM: Alert, pleasant 83-year-old female, on room air, up in a chair, comfortable in no apparent distress. HEAD: Normocephalic. EYES: Normal reaction of pupils, equal size. NOSE: Clear with pink turbinates. THROAT: No erythema or exudates. NECK: No masses, no JVD. CHEST: No chest wall deformity. Loop recorder site clean and dry. LUNGS: Equal air entry with no crackles, wheeze, rhonchi or dullness. CVS: S1 and S2 normal with no audible murmur, regular rhythm. ABDOMEN: No hepatosplenomegaly, normal bowel sounds, no guarding or rigidity. SPINE: No scoliosis or deformity SKIN: No rashes CENTRAL NERVOUS SYSTEM: No focal deficits, tone is normal in all 4 extremities. EXTREMITIES: There is no peripheral edema. No clubbing, no cyanosis. Peripheral pulses are intact. - Labs CBC & Chem 7: 03/17/24 09:21 03/17/24 09:21 Labs: Microbiology - Last 24 Hours (Table) 03/17/24 09:05 Gram Stain - Preliminary Sputum Sputum Culture - Preliminary 03/16/24 15:49 Blood Culture - Preliminary Blood Assessment and Plan Assessment: Acute syncopal episode of unclear etiology, plan is for loop recorder insertion today Right lung atelectasis, no evidence of pneumonia, procalcitonin negative Recent hospitalization for a right occipital CVA History of atrial fibrillation, anticoagulated with Eliquis Hypertension Hypothyroidism History of cervical cancer Macular degeneration Former smoker Plan: The patient was seen and evaluated Medications reviewed Stable and on room air Procalcitonin negative Continue telemetry monitoring Recorder placed today Cleared for discharge once cleared by cardiology I have personally seen and examined the patient, performed the documentation and the assessment and plan as written. Number of minutes spent on the visit: 10 Dictation was produced using [employer] labsation software. Please excuse any grammatical, word or spelling errors.
== END 2024-03-18 14:39 | disposition home or self-care (01) ==
LOC: EC 10:41 → 4SSUR 15:07 → INTOOBSV 15:07 → 4SSUR 19:33 → UNDODISIN 03-18 14:39
PROVIDERS: ADMIT Family Medicine; ATTEND Family Medicine
DX: R55 Syncope and collapse (principal); J98.11 Atelectasis; I48.21 Permanent atrial fibrillation; I27.20 Pulmonary hypertension, unspecified; E78.5 Hyperlipidemia, unspecified; I10 Essential (primary) hypertension; M19.90 Unspecified osteoarthritis, unspecified site; H35.30 Unspecified macular degeneration; E03.9 Hypothyroidism, unspecified; I07.1 Rheumatic tricuspid insufficiency; I65.23 Occlusion and stenosis of bilateral carotid arteries; I25.10 Atherosclerotic heart disease of native coronary artery without angina pectoris; Z86.73 Personal history of transient ischemic attack (TIA), and cerebral infarction without residual deficits; Z79.899 Other long term (current) drug therapy; Z79.01 Long term (current) use of anticoagulants; Z79.82 Long term (current) use of aspirin; Z88.2 Allergy status to sulfonamides; Z88.8 Allergy status to other drugs, medicaments and biological substances; Z88.1 Allergy status to other antibiotic agents; Z87.891 Personal history of nicotine dependence; Z79.890 Hormone replacement therapy; Z85.41 Personal history of malignant neoplasm of cervix uteri; Z90.710 Acquired absence of both cervix and uterus
CPT/HCPCS: 96376; 96361 ×3; 96366 ×2; 96375; 96368; 96365; 99285; 36415; 94640 ×3; 94760; 93005; 33285; 80053 ×2; 80048; 83735; 84484; 85025 ×2; 85027; 85610; 85730; 81003; 87040; 87070; 87205; 84145; 87636; 71046; 72125; 70450; G0378 ×3; J0456 ×2; J0696 ×2; J2003; J0736; J2470 ×2

== ENCOUNTER 2024-04-16 11:53 | Inpatient (IN) | payer MEDICARE ==
[2024-04-16] MEDS ORDERED: RX INFO: IV CONTRAST WAS GIVEN 1 EACH MISC MISCELLANE PRN (12:34)
--- NOTE | 2024-04-16 12:46 | ED ---
Dizziness HPI - General Chief Complaint: Dizziness Stated Complaint: dizzy Time Seen by Provider: 04/16/24 12:38 Source: patient, family, RN notes reviewed Mode of arrival: wheelchair Limitations: no limitations - History of Present Illness Initial Comments: 83-year-old female with history of A-fib on Eliquis, CVA, hyperlipidemia, and hypertension presenting with daughter for evaluation of dizziness. Patient recently was admitted for a stroke 2 months ago with residual right-sided vision loss. Daughter reports that since patient had the stroke she has been complaining of dizziness and has had intermittent altered mental status. Patient states over the past 2 days the dizziness has been so severe that patient has been unable to take care of herself at home. Patient has been fatigued and sleeping longer than usual. Patient was seen by her PCP 1 week ago for periods of altered mental status and was diagnosed with a UTI at that time. Patient took last dose of antibiotics this morning. She was also instructed by her PCP to hold the Eliquis as PCP was concerned that patient's symptoms were a side effect of the medication. Patient's last Eliquis dose was 2 days ago. Patient is denying any current symptoms on examination. Denies chest pain. - Related Data Home Medications Medication Instructions Recorded Confirmed amLODIPine [Norvasc] 5 mg PO DAILY 03/05/17 04/16/24 Vit C/E/Zn/Coppr/Lutein/Zeaxan 2 cap PO BID 03/18/19 04/16/24 [Preservision Areds 2 Softgel] cycloSPORINE 0.05% OPHTH SOLN 1 drop BOTH EYES Q12H 03/18/19 04/16/24 [Restasis] traMADol HCl [Ultram] 50 mg PO BID PRN 03/18/19 04/16/24 Losartan Potassium [Cozaar] 50 mg PO DAILY 04/25/20 04/16/24 Multivit-Min/FA/Lycopen/Lutein 1 tab PO DAILY 04/25/20 04/16/24 [Centrum Silver Tablet] Artificial Tears-Hypromellose 2 drops BOTH EYES BID PRN 03/07/24 04/16/24 [Artificial Tear Drops] Glucosamine/Chondr Keating A Sod [Osteo 1 tab PO BID 03/07/24 04/16/24 Bi-Flex Caplet] Hydrocortisone Oint 1 applic TOPICAL BID PRN 03/07/24 04/16/24 [Hydrocortisone 2.5% Oint] Levothyroxine Sodium [Synthroid] 112 mcg PO DAILY 03/07/24 04/16/24 Lincoln-3/Dha/Epa/Fish Oil [Lincoln-3 1 cap PO BID 03/07/24 04/16/24 Fish Oil 1,000 mg Sfgl] Pravastatin Sodium [Pravachol] 40 mg PO DAILY 03/07/24 04/16/24 polyethylene glycoL 3350 [Miralax] 17 gm PO HS PRN 03/07/24 04/16/24 Doxycycline Monohydrate 100 mg PO BID 04/16/24 04/16/24 Previous Rx's Medication Instructions Recorded Apixaban [Eliquis] 5 mg PO BID #60 tab 03/11/24 Aspirin 81 mg PO DAILY #30 tab 03/11/24 Famotidine [Pepcid] 20 mg PO DAILY #30 tablet 03/11/24 Meclizine [Antivert] 25 mg PO Q8HR PRN #60 tab 03/11/24 Allergies Allergy/AdvReac Type Severity Reaction Status Date / Time Sulfa (Sulfonamide Allergy Unknown Verified 04/16/24 14:13 Antibiotics) Childhood atorvastatin calcium AdvReac Dizziness Verified 04/16/24 14:13 [From Lipitor] levofloxacin [From Levaquin] AdvReac joint pain Verified 04/16/24 14:13 nitrofurantoin AdvReac sleepiness Verified 04/16/24 14:13 [From Macrobid] Review of Systems ROS Statement: Those systems with pertinent positive or pertinent negative responses have been documented in the HPI. ROS Other: All systems not noted in ROS Statement are negative. Past Medical History Past Medical History: Atrial Fibrillation, Cancer, CVA/TIA, Eye Disorder, Hyperlipidemia, Hypertension, Osteoarthritis (OA), Pneumonia, Thyroid Disorder Additional Past Medical History / Comment(s): cervical cancer, macular degeneration, varicose veins, "told a test showed I had a stroke", urinary leakage at times, History of Any Multi-Drug Resistant Organisms: None Reported Past Surgical History: Appendectomy, Cardiac Ablation, EPS, Heart Evelyn terization, Hysterectomy, Orthopedic Surgery Additional Past Surgical History / Comment(s): [place] cataracts with iplants, diego wrist ORIF, diego eyelid lift, pin rt ankle for fx, right knee replacement Past Anesthesia/Blood Transfusion Reactions: No Reported Reaction Past Psychological History: No Psychological Hx Reported Smoking Status: Former smoker Past Alcohol Use History: None Reported Past Drug Use History: None Reported - Past Family History Sister(s) Family Medical History: Congestive Heart Failure (CHF) Brother(s) Family Medical History: Hypertension Daughter(s) Family Medical History: AFIB, COPD Father Family Medical History: Cancer Additional Family Medical History / Comment(s): mouth and throat General Exam Limitations: no limitations, altered mental status (A&O x 2) General appearance: lethargic Head exam: Present: atraumatic, normocephalic, normal inspection Eye exam: Present: normal appearance, PERRL, EOMI. Absent: scleral icterus, co njunctival injection, periorbital swelling ENT exam: Present: normal exam, normal oropharynx, mucous membranes moist Respiratory exam: Present: normal lung sounds bilaterally. Absent: respiratory distress, wheezes, rales, rhonchi, stridor Cardiovascular Exam: Present: regular rate, irregular rhythm, normal heart sounds. Absent: systolic murmur, diastolic murmur, rubs, gallop, clicks Neurological exam: Absent: oriented X3 (Alert and oriented x 2) Skin exam: Present: warm, dry, intact, normal color. Absent: rash Course Vital Signs 04/16/24 04/16/24 04/16/24 12:00 13:03 15:03 Temperature 97.9 F 97.8 F 97.8 F Pulse Rate 75 66 77 Respiratory 18 16 16 Rate Blood Pressure 151/72 145/71 138/86 O2 Sat by Pulse 98 98 96 Oximetry EKG Findings - EKG Results: EKG: interpreted by ERMD (EKG reveals atrial fibrillation with no acute changes. Ventricular rate 69 bpm, DC interval not calculated, QRS duration 99, QT/QTc 390/410) Medical Decision Making - Medical Decision Making Was pt. sent in by a medical professional or institution (, PA, ENVIRONMENTAL PROJECT MANAGER, urgent care, hospital, or group home...) When possible be specific @ -No Did you speak to anyone other than the patient for history (EMS, parent, family, police, friend...)? What history was obtained from this source @ -Patient's daughter gave most of history Did you review nursing and triage notes (agree or disagree)? Why? @ -I reviewed and agree with nursing and triage notes Were old charts reviewed (outside hosp., previous admission, EMS record, old EKG, old radiological studies, urgent care reports/EKG's, group home records)? Report findings @ -No old charts were reviewed Differential Diagnosis (chest pain, altered mental status, abdominal pain women, abdominal pain men, vaginal bleeding, weakness, fever, dyspnea, syncope, headache, dizziness, GI bleed, back pain, seizure, CVA, palpatations, mental health, musculoskeletal)? @ -Differential Dizziness: Benign paroxysmal positional Vertigo, Meniere's disease, otitis media, acoustic neuroma, vertebrobasilar insufficiency, cerebellar stroke, encephalitis, hypovolemic, arrhythmia, coronary artery syndrome, anemia, this is not meant to be an all-inclusive list EKG interpreted by me (3pts min.). @ -As above X-rays interpreted by me (1pt min.). @ -None done CT interpreted by me (1pt min.). @ -CT brain reveals no acute intracranial process, CT angio brain reveals no evidence of high-grade stenosis or intracranial aneurysm U/S interpreted by me (1pt. min.). @ -None done What testing was considered but not performed or refused? (CT, X-rays, U/S, labs)? Why? @ -None What meds were considered but not given or refused? Why? @ -None Did you discuss the management of the patient with other professionals (professionals i.e. , PA, ENVIRONMENTAL PROJECT MANAGER, lab, RT, psych nurse, sexual assault social worker, cycle touring guide, teacher, airline pilot/first officer, case worker)? Give summary @ -[facility] with consultation to cardiology and neurology Was smoking cessation discussed for >3mins.? @ -No Was critical care preformed (if so, how long)? @ -No Were there social determinants of health that impacted care today? How? (Homelessness, low income, unemployed, alcoholism, drug addiction, transportation, low edu. Level, literacy, decrease access to med. care, snf, rehab)? @ -No Was there de-escalation of care discussed even if they declined (Discuss DNR or withdrawal of care, Hospice)? DNR status @ -No What co-morbidities impacted this encounter? (DM, HTN, Smoking, COPD, CAD, Cancer, CVA, ARF, Chemo, Hep., AIDS, mental health diagnosis, sleep apnea, morbid obesity)? @ -None Was patient admitted / discharged? Hospital course, mention meds given and route, prescriptions, significant lab abnormalities, going to OR and other pertinent info. @ -Admitted. This is a 83-year-old female presenting for evaluation of dizziness. Patient recently had CVA accident in February and family reports patient has had worsening dizziness and weakness since. Patient is alert and oriented x 2. Denies any current symptoms. Denies chest pain. Was instructed by PCP to stop Eliquis, last dose was 2 days ago. Neuro examination is unremarkable. Lab work remarkable for elevated troponin of 0.223. CT/CTA brain reveals no acute abnormality. Patient was given loading dose of aspirin and started on IV heparin. Results discussed with patient and family. They spoke with [facility] hospitalist who accepts admission for NSTEMI with consultation to cardiology and neurology. Undiagnosed new problem with uncertain prognosis? @ -No Drug Therapy requiring intensive monitoring for toxicity (Heparin, Nitro, Insulin, Cardizem)? @ -No Were any procedures done? @ -No Diagnosis/symptom? @ -NSTEMI Acute, or Chronic, or Acute on Chronic? @ -Acute Uncomplicated (without systemic symptoms) or Complicated (systemic symptoms)? @ -Complicated Side effects of treatment? @ -No Exacerbation, Progression, or Severe Exacerbation? @ -No Poses a threat to life or bodily function? How? (Chest pain, USA, DC, pneumonia, PE, COPD, DKA, ARF, appy, cholecystitis, CVA, Diverticulitis, Homicidal, Suicidal, threat to staff... and all critical care pts) @ -Yes - Lab Data Result diagrams: 04/16/24 12:55 04/16/24 12:55 Lab Results 04/16/24 04/16/24 04/16/24 Range/Units 12:55 12:55 12:55 WBC 6.8 (3.8-10.6) k/uL RBC 4.27 (3.80-5.40) m/uL Hgb 12.9 (11.4-16.0) gm/dL Hct 40.0 (34.0-46.0) % MCV 93.6 (80.0-100.0) fL MCH 30.1 (25.0-35.0) pg MCHC 32.2 (31.0-37.0) g/dL RDW 13.5 (11.5-15.5) % Plt Count 101 L (150-450) k/uL MPV 8.8 Neutrophils % 70 % Lymphocytes % 18 % Monocytes % 6 % Eosinophils % 4 % Basophils % 1 % Neutrophils # 4.7 (1.3-7.7) k/uL Lymphocytes # 1.2 (1.0-4.8) k/uL Monocytes # 0.4 (0-1.0) k/uL Eosinophils # 0.2 (0-0.7) k/uL Basophils # 0.1 (0-0.2) k/uL PT (10.0-12.5) sec INR (<1.2) APTT (22.0-30.0) sec Sodium 138 (137-145) mmol/L Potassium 4.5 (3.5-5.1) mmol/L Chloride 104 (98-107) mmol/L Carbon Dioxide 27 (22-30) mmol/L Anion Gap 7 mmol/L BUN 21 H (7-17) mg/dL Creatinine 0.83 (0.52-1.04) mg/dL Est GFR (CKD-EPI)AfAm 76 (>60 ml/min/1.73 sqM) Est GFR (CKD-EPI)NonAf 66 (>60 ml/min/1.73 sqM) Glucose 111 H (74-99) mg/dL Plasma Lactic Acid Loyd 0.8 (0.7-2.0) mmol/L Calcium 9.7 (8.4-10.2) mg/dL Total Bilirubin 1.0 (0.2-1.3) mg/dL AST 41 H (14-36) U/L ALT 27 (4-34) U/L Alkaline Phosphatase 138 H (38-126) U/L Troponin I (0.000-0.034) ng/mL Total Protein 6.8 (6.3-8.2) g/dL Albumin 4.3 (3.5-5.0) g/dL 04/16/24 04/16/24 Range/Units 12:55 12:55 WBC (3.8-10.6) k/uL RBC (3.80-5.40) m/uL Hgb (11.4-16.0) gm/dL Hct (34.0-46.0) % MCV (80.0-100.0) fL MCH (25.0-35.0) pg MCHC (31.0-37.0) g/dL RDW (11.5-15.5) % Plt Count (150-450) k/uL MPV Neutrophils % % Lymphocytes % % Monocytes % % Eosinophils % % Basophils % % Neutrophils # (1.3-7.7) k/uL Lymphocytes # (1.0-4.8) k/uL Monocytes # (0-1.0) k/uL Eosinophils # (0-0.7) k/uL Basophils # (0-0.2) k/uL PT 14.7 H (10.0-12.5) sec INR 1.4 H (<1.2) APTT 23.0 (22.0-30.0) sec Sodium (137-145) mmol/L Potassium (3.5-5.1) mmol/L Chloride (98-107) mmol/L Carbon Dioxide (22-30) mmol/L Anion Gap mmol/L BUN (7-17) mg/dL Creatinine (0.52-1.04) mg/dL Est GFR (CKD-EPI)AfAm (>60 ml/min/1.73 sqM) Est GFR (CKD-EPI)NonAf (>60 ml/min/1.73 sqM) Glucose (74-99) mg/dL Plasma Lactic Acid Loyd (0.7-2.0) mmol/L Calcium (8.4-10.2) mg/dL Total Bilirubin (0.2-1.3) mg/dL AST (14-36) U/L ALT (4-34) U/L Alkaline Phosphatase (38-126) U/L Troponin I 0.223 H* (0.000-0.034) ng/mL Total Protein (6.3-8.2) g/dL Albumin (3.5-5.0) g/dL Disposition Clinical Impression: Non-ST elevation DC (NSTEMI) Disposition: ADMITTED IP TO THIS [facility] Time of Disposition: 15:40
[2024-04-16] MEDS: SODIUM CHLORIDE 0.9% 1,000 ML IV STA (12:59)
[2024-04-16 13:07] LABS: Basophils # (A) 0.1 k/uL (0-0.2); Basophils % (A) 1 %; Eosinophils # (A) 0.2 k/uL (0-0.7); Eosinophils % (A) 4 %; HGB 12.9 gm/dL (11.4-16.0); Lymphocytes # (A) 1.2 k/uL (1.0-4.8); Lymphocytes % (A) 18 %; MCH 30.1 pg (25.0-35.0); MCHC 32.2 g/dL (31.0-37.0); MCV 93.6 fL (80.0-100.0); Mean Platelet Volume 8.8; Monocytes # (A) 0.4 k/uL (0-1.0); Monocytes % (A) 6 %; Neutrophils # (A) 4.7 k/uL (1.3-7.7); Neutrophils % (A) 70 %; Platelet Count 101 k/uL (150-450); RBC 4.27 m/uL (3.80-5.40); RDW 13.5 % (11.5-15.5); WBC 6.8 k/uL (3.8-10.6)
[2024-04-16 13:17] LABS: ALT 27 U/L (4-34); African American GFR (CKD) 76 (>60 ml/min/1.73 sqM); Albumin 4.3 g/dL (3.5-5.0); Anion Gap 7 mmol/L; Blood Urea Nitrogen 21 mg/dL (7-17); Calcium 9.7 mg/dL (8.4-10.2); Carbon Dioxide 27 mmol/L (22-30); Chloride 104 mmol/L (98-107); Glucose 111 mg/dL (74-99); Non-African American GFR(CKD) 66 (>60 ml/min/1.73 sqM); Sodium 138 mmol/L (137-145); Total Protein 6.8 g/dL (6.3-8.2)
[2024-04-16 13:27] LABS: AST 41 U/L (14-36); Alkaline Phosphatase 138 U/L (38-126); Potassium 4.5 mmol/L (3.5-5.1)
[2024-04-16 13:34] LABS: INR 1.4 (<1.2); Prothrombin Time 14.7 sec (10.0-12.5)
--- NOTE | 2024-04-16 14:30 | CT ---
EXAMINATION TYPE: CT brain wo con DATE OF EXAM: 04/16/2024 2:21 PM COMPARISON: Prior CT study 03/26/2024.. CLINICAL INDICATION: Female, 83 years old with history of altered mental status, Incrreased AMS, prev ious CVA hx TECHNIQUE: Brain: Axial CT images of the brain were obtained with coronal and sagittal reformats created and rev iewed. Contrast used: None. Oral contrast used: None. CT DLP: 1143.6 mGycm, Automated exposure control for dose reduction was used. FINDINGS: Brain: No acute intracranial hemorrhage, midline shift or significant mass effect. Ventricles and sulci mildly prominent compatible generalized cerebral volume loss. Patchy periventric ular and subcortical white matter hypoattenuation, likely reflecting chronic microvascular ischemic d isease. Old small right basal ganglia lacunar infarcts, similar to prior studies. Dense calcification involving the V4 segment of the left vertebral artery. Basal cisterns appear patent. No sizable extr a-axial fluid collection. Previous bilateral cataract lens extraction noted. Mastoid air cells and pa ranasal sinuses appear patent. IMPRESSION: No acute intracranial abnormality. [facility], , 04/16/2024 2:27 PM
--- NOTE | 2024-04-16 14:37 | CT ---
EXAMINATION TYPE: CT angio head DATE OF EXAM: 04/16/2024 2:22 PM COMPARISON: Previous CT angiogram study dated 03/07/2024. CLINICAL INDICATION: Female, 83 years old with history of altered mental status; PHH, Increasing AMS, prior CVA TECHNIQUE: CT angio head Axially acquired helical CT angiogram was obtained. Axial images are supplem ented with 3D reconstructions which were post-processed at an independent workstation. NASCET criteri a used. Contrast used:100 mL of Isovue 370 with IV Contrast, none CT DLP: 621.9 mGycm, Automated exposure control for dose reduction was used. FINDINGS: Vertebral arteries: Mild stenosis of the V4 segment of the left vertebral artery which appears domina nt due to calcified plaque. No definite flow-limiting/high-grade stenosis. Vertebral artery dominance: Left Basilar artery: The basilar artery is intact. The basilar artery bifurcation is normal. Internal Carotid arteries: The cervical, petrous, cavernous and supraclinoid segments are grossly pat ent without flow-limiting stenosis. ANSHUL: Patent with no evidence of aneurysm. ACOM: Present without evidence of aneurysm. MCA: Patent with no evidence of aneurysm. HOME THERAPY CLINICIAN: Patent with no evidence of aneurysm. PCOM: Hypoplastic bilaterally. Dural sinuses: Patent. IMPRESSION: No evidence of high-grade stenosis or intracranial aneurysm. [facility], , 04/16/2024 2:34 PM
[2024-04-16] MEDS ORDERED: HEPARIN SODIUM 1,000 UN/ML (10ML VL) IV PRN (14:49)
[2024-04-16] MEDS: HEPARIN SOD,PORK IN 0.45% NACL 25,000 UNIT in 0.45% NACL 1 250ML.BAG IV SCH (15:13)
[2024-04-16] MEDS: HEPARIN SODIUM 1,000 UN/ML (10ML VL) IV ONE (15:13)
[2024-04-16] MEDS ORDERED: ONDANSETRON 4 MG/2 ML VIAL IVP PRN (15:36)
[2024-04-16] MEDS ORDERED: NALOXONE 0.4 MG/ML 1 ML VIAL IV PRN (15:36)
[2024-04-16] MEDS ORDERED: ACETAMINOPHEN TAB 325 MG TAB PO PRN (15:36)
[2024-04-16] MEDS ORDERED: MORPHINE SULFATE 4 MG/ML SYRINGE IV PRN (15:36)
[2024-04-16] MEDS ORDERED: HYDROmorphone 0.5 MG/0.5 ML SYRINGE IVP PRN (15:36)
[2024-04-16] MEDS: ASPIRIN 81 MG PO STA (15:53)
[2024-04-16] MEDS: SODIUM CHLORIDE 0.9% 1,000 ML IV SCH (15:54)
[2024-04-16 16:24] LABS: Appearance,Urine Clear (Clear); Bilirubin,Urine Negative (Negative); Blood,Urine Trace (Negative); Color,Urine Colorless; Glucose,Urine (UA) Negative (Negative); Ketones,Urine Negative (Negative); Leukocyte Esterase,Urine Negative (Negative); Nitrite,Urine Negative (Negative); PH, Urine 5.5 (5.0-8.0); Protein,Urine Negative (Negative); RBC,Urine 1 /hpf (0-5); Urobilinogen,Urine <2.0 mg/dL (<2.0); WBC,Urine <1 /hpf (0-5)
--- NOTE | 2024-04-16 16:30 | XR ---
EXAMINATION TYPE: XR chest 2V DATE OF EXAM: 04/16/2024 4:26 PM COMPARISON: Previous chest radiograph 03/26/2024. CLINICAL INDICATION: Female, 83 years old with history of dizziness; [facility] TECHNIQUE: XR chest 2V Frontal and lateral views of the chest. FINDINGS: Lungs/Pleura: There is no evidence of pleural effusion, focal consolidation, or pneumothorax. Pulmonary vascularity: Unremarkable. Heart/mediastinum: Cardiomediastinal silhouette is unremarkable. Musculoskeletal: No acute osseous pathology. Other findings: None Loop recorder device overlying the cardiac silhouette. IMPRESSION: No acute cardiopulmonary disease/process. [facility], , 04/16/2024 4:28 PM
[2024-04-17] MEDS: PRAVASTATIN SODIUM 40 MG TAB PO SCH (09:18)
[2024-04-17] MEDS: ASPIRIN 81 MG PO SCH (09:18)
[2024-04-17] MEDS: LOSARTAN 50 MG TAB PO SCH (09:18)
[2024-04-17] MEDS: amLODIPine 5 MG TAB PO SCH (09:18)
[2024-04-17] MEDS ORDERED: polyethylene glycoL 3350 17 GM POWD.PACK PO PRN (09:45)
[2024-04-17] MEDS ORDERED: ARTIFICIAL TEARS-HYPROMELLOSE DROPS 15 ML BTL BOTH EYES PRN (09:45)
[2024-04-17] MEDS ORDERED: MECLIZINE 25 MG TAB PO PRN (09:45)
[2024-04-17] MEDS ORDERED: HYDROCORTISONE 1% OINT 28.35 GM TUBE TOPICAL PRN (09:45)
--- NOTE | 2024-04-17 09:51 | P.HPIM ---
History of Present Illness 83-year-old pleasant female came in with complaints of vertigo and dizziness patient apparently had a posterior stroke with what appears like left temporal hemianopsia symptoms has gotten worse last couple days because of which patient called the PCP who asked to hold Eliquis. Patient was taking 5 mg twice a day of Eliquis and was taking 2.5 mg twice a day of Eliquis before the stroke. Patient did not take Eliquis for a day. Patient denied any fever chills patient was complaining of generalized weakness. Patient denied any chest pain although patient's troponins are mildly elevated to 0.2 creatinine 0.197 patient has some T wave inversions in some leads unknown whether these are new or old. Patient does not have any other focal weakness patient does not have any other cerebellar signs. REVIEW OF SYSTEMS: All other systems are negative except those mentioned in the HPI PHYSICAL EXAMINATION: GENERAL: The patient is alert and oriented x3, not in any acute distress. Well developed, well nourished. HEENT: Pupils are round and equally reacting to light. EOMI. No scleral icterus. No conjunctival pallor. Normocephalic, atraumatic. No pharyngeal erythema. No thyromegaly. CARDIOVASCULAR: S1 and S2 present. No murmurs, rubs, or gallops. PULMONARY: Chest is clear to auscultation, no wheezing or crackles. ABDOMEN: Soft, nontender, nondistended, normoactive bowel sounds. No palpable organomegaly. MUSCULOSKELETAL: No joint swelling or deformity. EXTREMITIES: No cyanosis, clubbing, or pedal edema. NEUROLOGICAL: Patient still has vision loss but is left temporal hemianopsia SKIN: No rashes. Assessment and plan -Vertigo, along with visual loss: Patient had a history of posterior stroke patient may have had a recurrent stroke CT angio of the head and CT of the head did not show any significant acute abnormality neurology was consulted. Patient is presently on IV heparin patient will need to be resumed on Eliquis 5 mg twice a day -Elevated troponin possibility of type I NSTEMI cannot be ruled out although patient does not have any chest pain cardiology evaluate the patient continue with heparin further management as per cardiology -Paroxysmal atrial fibrillation patient is presently on IV heparin continue with heart rate control medications -Hyperlipidemia -Hypertension -Hypothyroidism -History of CVA in the past DVT prophylaxis: Patient is on IV heparin at this time Past Medical History Past Medical History: Atrial Fibrillation, Cancer, CVA/TIA, Eye Disorder, Hyperlipidemia, Hypertension, Osteoarthritis (OA), Pneumonia, Thyroid Disorder Additional Past Medical History / Comment(s): cervical cancer, macular degeneration, varicose veins, "told a test showed I had a stroke", urinary leakage at times, History of Any Multi-Drug Resistant Organisms: None Reported Past Surgical History: Appendectomy, Cardiac Ablation, EPS, Heart Catheterization, Hysterectomy, Orthopedic Surgery Additional Past Surgical History / Comment(s): [place] cataracts with iplants, diego wrist ORIF, diego eyelid lift, pin rt ankle for fx, right knee replacement Past Anesthesia/Blood Transfusion Reactions: No Reported Reaction Past Psychological History: No Psychological Hx Reported Smoking Status: Former smoker Past Alcohol Use History: None Reported Past Drug Use History: None Reported - Past Family History Sister(s) Family Medical History: Congestive Heart Failure (CHF) Brother(s) Family Medical History: Hypertension Daughter(s) Family Medical History: AFIB, COPD Father Family Medical History: Cancer Additional Family Medical History / Comment(s): mouth and throat Medications and Allergies Home Medications Medication Instructions Recorded Confirmed Type amLODIPine [Norvasc] 5 mg PO DAILY 03/05/17 04/16/24 History Vit C/E/Zn/Coppr/Lutein/Zeaxan 2 cap PO BID 03/18/19 04/16/24 History [Preservision Areds 2 Softgel] cycloSPORINE 0.05% OPHTH SOLN 1 drop BOTH EYES Q12H 03/18/19 04/16/24 History [Restasis] traMADol HCl [Ultram] 50 mg PO BID PRN 03/18/19 04/16/24 History Losartan Potassium [Cozaar] 50 mg PO DAILY 04/25/20 04/16/24 History Multivit-Min/FA/Lycopen/Lutein 1 tab PO DAILY 04/25/20 04/16/24 History [Centrum Silver Tablet] Artificial Tears-Hypromellose 2 drops BOTH EYES BID PRN 03/07/24 04/16/24 History [Artificial Tear Drops] Glucosamine/Chondr Keating A Sod [Osteo 1 tab PO BID 03/07/24 04/16/24 History Bi-Flex Caplet] Hydrocortisone Oint 1 applic TOPICAL BID PRN 03/07/24 04/16/24 History [Hydrocortisone 2.5% Oint] Levothyroxine Sodium [Synthroid] 112 mcg PO DAILY 03/07/24 04/16/24 History [place]-3/Dha/Epa/Fish Oil [[place]-3 1 cap PO BID 03/07/24 04/16/24 History Fish Oil 1,000 mg Sfgl] Pravastatin Sodium [Pravachol] 40 mg PO DAILY 03/07/24 04/16/24 History polyethylene glycoL 3350 [Miralax] 17 gm PO HS PRN 03/07/24 04/16/24 History Apixaban [Eliquis] 5 mg PO BID #60 tab 03/11/24 04/16/24 Rx Aspirin 81 mg PO DAILY #30 tab 03/11/24 04/16/24 Rx Famotidine [Pepcid] 20 mg PO DAILY #30 tablet 03/11/24 04/16/24 Rx Meclizine [Antivert] 25 mg PO Q8HR PRN #60 tab 03/11/24 04/16/24 Rx Doxycycline Monohydrate 100 mg PO BID 04/16/24 04/16/24 History Allergies Allergy/AdvReac Type Severity Reaction Status Date / Time Sulfa (Sulfonamide Allergy Unknown Verified 04/16/24 14:13 Antibiotics) Childhood atorvastatin calcium AdvReac Dizziness Verified 04/16/24 14:13 [From Lipitor] levofloxacin [From Levaquin] AdvReac joint pain Verified 04/16/24 14:13 nitrofurantoin AdvReac sleepiness Verified 04/16/24 14:13 [From Macrobid] Physical Exam Vitals: Vital Signs Temp Pulse Resp BP Pulse Ox 04/17/24 08:50 79 17 154/91 95 04/17/24 06:00 82 16 139/71 96 04/17/24 04:00 80 16 149/82 95 04/17/24 02:00 77 16 141/81 04/17/24 00:00 72 16 127/72 95 04/16/24 21:00 87 16 129/75 97 04/16/24 17:06 98.5 F 74 16 166/81 99 04/16/24 16:15 97.9 F 82 18 156/75 98 04/16/24 15:03 97.8 F 77 16 138/86 96 04/16/24 13:03 97.8 F 66 16 145/71 98 04/16/24 12:00 97.9 F 75 18 151/72 98 Intake and Output 04/16/24 04/17/24 04/17/24 22:59 06:59 14:59 Intake Total 76.588 Output Total 150 Balance -73.412 Intake: Intake, IV Titration 76.588 Amount Heparin Sod,Pork in 0.45% 76.588 NaCl 25,000 unit In 0.45 % NaCl 1 250ml.bag @ 12 UNITS/KG/HR 9.798 mls/hr IV .Q24H [facility] Rx#: [id number] Output: Urine 150 Other: # Voids 1 1 Results CBC & Chem 7: 04/16/24 12:55 04/16/24 12:55 Labs: Abnormal Lab Results - Last 24 Hours (Table) 04/16/24 04/16/24 04/16/24 Range/Units 12:55 12:55 12:55 Plt Count 101 L (150-450) k/uL PT (10.0-12.5) sec INR (<1.2) APTT (22.0-30.0) sec BUN 21 H (7-17) mg/dL Glucose 111 H (74-99) mg/dL AST 41 H (14-36) U/L Alkaline Phosphatase 138 H (38-126) U/L Troponin I 0.223 H* (0.000-0.034) ng/mL Urine Blood (Negative) 04/16/24 04/16/24 04/16/24 Range/Units 12:55 15:15 16:00 Plt Count (150-450) k/uL PT 14.7 H (10.0-12.5) sec INR 1.4 H (<1.2) APTT (22.0-30.0) sec BUN (7-17) mg/dL Glucose (74-99) mg/dL AST (14-36) U/L Alkaline Phosphatase (38-126) U/L Troponin I 0.228 H* (0.000-0.034) ng/mL Urine Blood Trace H (Negative) 04/16/24 04/16/24 04/17/24 Range/Units 18:36 21:35 05:47 Plt Count (150-450) k/uL PT (10.0-12.5) sec INR (<1.2) APTT 129.3 H* 40.1 H (22.0-30.0) sec BUN (7-17) mg/dL Glucose (74-99) mg/dL AST (14-36) U/L Alkaline Phosphatase (38-126) U/L Troponin I 0.197 H* (0.000-0.034) ng/mL Urine Blood (Negative)
[2024-04-17] MEDS: cycloSPORINE 0.05% OPHTH 0.4 ML DROPERETTE BOTH EYES SCH (10:46)
--- NOTE | 2024-04-17 13:01 | P.CRDCN ---
History of Present Illness History of present illness: HISTORY OF PRESENT ILLNESS: This is a 83-year-old female with a past medical history significant for hypertension, hyperlipidemia, atrial fibrillation, minimal CAD, CVA/TIA, vertigo, and carotid stenosis. Patient follows in the office with Dr. Taylor. We have been asked to see the patient in consultation for elevated troponins. Patient examined at the bedside in the emergency room. Patient's daughter is present and providing majority of the HPI. Patient was hospitalized in February 2024 for a CVA. Patient was found to have carotid disease at that time as well of 60% stenosis on the left and 50% on the right. Patient's daughter states that she is supposed to undergo carotid surgery with Dr. Mendez. She states that since her stroke she has not been acting the same. She states that she is having a lot of episodes of confusion and unable to hold a conversation. She also reports that she has been having a lot of dizziness. She denies having any dizziness while she is laying down in bed. When she sits up or stands she began to feel dizzy and feels like the room is spinning. The daughter reports that she called her PCP office and they told her to hold her Eliquis as this might be causing her symptoms. The daughter states that she held it for 1 day and then decided not to hold it any longer and did resume it at home. The patient denies any chest pain or pressure. She denies any shortness of breath. The patient was found to have elevated troponins and was started on IV heparin. DIAGNOSTICS: - EKG reveals atrial fibrillation with right bundle branch block. Controlled ventricular rate. - Chest xray negative for acute process - CT of the brain: Negative for acute intracranial abnormality - Laboratory data: WBC 6.8. Hemoglobin 12.9. Platelet count 101. Sodium 138. Potassium 4.5. BUN 21. Creatinine 0.83. Troponin 0.223. 0.228. 0.197. - Current home cardiac medications include Eliquis 5 mg twice a day, aspirin 81 mg daily, losartan 50 mg daily, Pravachol 40 mg daily, amlodipine 5 mg daily. - Most recent echocardiogram obtained in February 2024 revealed ejection fraction 55 to 60%, mild pulmonary hypertension, mild mitral regurgitation, mild aortic regurgitation, moderate tricuspid regurgitation - Cardiac catheterization history: 2012 revealing minimal CAD - Patient underwent Lexiscan stress test in June 2020 which was negative for is chemia REVIEW OF SYSTEMS: At the time of my exam: CONSTITUTIONAL: Denies fever or chills. HEENT: Denies blurred vision, vision changes, or eye pain. Denies hemoptysis CARDIOVASCULAR: Denies chest pain. Denies orthopnea. Denies PND. Denies palpitations RESPIRATORY: Denies shortness of breath. GASTROINTESTINAL: Denies abdominal pain. Denies nausea or vomiting. HEMATOLOGIC: Denies bleeding disorders. GENITOURINARY: Denies any blood in urine. SKIN: Denies pruitis. Denies rash. PHYSICAL EXAM: VITAL SIGNS: Reviewed. GENERAL: Well-developed in no acute distress. HEENT: Head is normocephalic. Pupils are equal, round. Sclerae anicteric. Mucous membranes of the mouth are moist. Neck supple. No JVD or thyromegaly LUNGS: Respirations even and unlabored. Lungs essentially clear to auscultation bilaterally. HEART: Irregular rate and rhythm. S1 and S2 heard. Systolic murmur noted ABDOMEN: Soft. Nondistended. Nontender. EXTREMITIES: Normal range of motion. No clubbing or cyanosis. Peripheral pulses intact. No lower extremity edema NEUROLOGIC: Awake and alert. Oriented x 3. ASSESSMENT: Positional dizziness Altered mental status, per daughter Elevated troponins of unclear etiology Recent CVA, February 2024 Bilateral carotid stenosis, 60% on the left and 50% on the right Persistent atrial fibrillation Hypertension Hyperlipidemia History of vertigo Obesity: BMI 34.0 History of loop recorder insertion PLAN: Obtain 2D echo to assess cardiac structure and function Continue IV heparin. 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 MRI ordered. Further recommendations pending patient course Nurse practitioner note has been reviewed by physician. Signing provider agrees with the documented findings, assessment, and plan of care documented by ARMATURE BANDER as a scribe. Past Medical History Past Medical History: Atrial Fibrillation, Cancer, CVA/TIA, Eye Disorder, Hyperlipidemia, Hypertension, Osteoarthritis (OA), Pneumonia, Thyroid Disorder Additional Past Medical History / Comment(s): cervical cancer, macular degeneration, varicose veins, "told a test showed I had a stroke", urinary leakage at times, History of Any Multi-Drug Resistant Organisms: None Reported Past Surgical History: Appendectomy, Cardiac Ablation, EPS, Heart Catheterization, Hysterectomy, Orthopedic Surgery Additional Past Surgical History / Comment(s): [place] cataracts with iplants, [place]go wrist ORIF, [place]go eyelid lift, pin rt ankle for fx, right knee replacement Past Anesthesia/Blood Transfusion Reactions: No Reported Reaction Past Psychological History: No Psychological Hx Reported Smoking Status: Former smoker Past Alcohol Use History: None Reported Past Drug Use History: None Reported - Past Family History Sister(s) Family Medical History: Congestive Heart Failure (CHF) Brother(s) Family Medical History: Hypertension Daughter(s) Family Medical History: AFIB, COPD Father Family Medical History: Cancer Additional Family Medical History / Comment(s): mouth and throat Medications and Allergies Home Medications Medication Instructions Recorded Confirmed Type amLODIPine [Norvasc] 5 mg PO DAILY 03/05/17 04/16/24 History Vit C/E/Zn/Coppr/Lutein/Zeaxan 2 cap PO BID 03/18/19 04/16/24 History [Preservision Areds 2 Softgel] cycloSPORINE 0.05% OPHTH SOLN 1 drop BOTH EYES Q12H 03/18/19 04/16/24 History [Restasis] traMADol HCl [Ultram] 50 mg PO BID PRN 03/18/19 04/16/24 History Losartan Potassium [Cozaar] 50 mg PO DAILY 04/25/20 04/16/24 History Multivit-Min/FA/Lycopen/Lutein 1 tab PO DAILY 04/25/20 04/16/24 History [Centrum Silver Tablet] Artificial Tears-Hypromellose 2 drops BOTH EYES BID PRN 03/07/24 04/16/24 History [Artificial Tear Drops] Glucosamine/Chondr [place] A Sod [Osteo 1 tab PO BID 03/07/24 04/16/24 History Bi-Flex Caplet] Hydrocortisone Oint 1 applic TOPICAL BID PRN 03/07/24 04/16/24 History [Hydrocortisone 2.5% Oint] Levothyroxine Sodium [Synthroid] 112 mcg PO DAILY 03/07/24 04/16/24 History [place]-3/Dha/Epa/Fish Oil [[place]-3 1 cap PO BID 03/07/24 04/16/24 History Fish Oil 1,000 mg Sfgl] Pravastatin Sodium [Pravachol] 40 mg PO DAILY 03/07/24 04/16/24 History polyethylene glycoL 3350 [Miralax] 17 gm PO HS PRN 03/07/24 04/16/24 History Apixaban [Eliquis] 5 mg PO BID #60 tab 03/11/24 04/16/24 Rx Aspirin 81 mg PO DAILY #30 tab 03/11/24 04/16/24 Rx Famotidine [Pepcid] 20 mg PO DAILY #30 tablet 03/11/24 04/16/24 Rx Meclizine [Antivert] 25 mg PO Q8HR PRN #60 tab 03/11/24 04/16/24 Rx Doxycycline Monohydrate 100 mg PO BID 04/16/24 04/16/24 History Allergies Allergy/AdvReac Type Severity Reaction Status Date / Time Sulfa (Sulfonamide Allergy Unknown Verified 04/16/24 14:13 Antibiotics) Childhood atorvastatin calcium AdvReac Dizziness Verified 04/16/24 14:13 [From Lipitor] levofloxacin [From Levaquin] AdvReac joint pain Verified 04/16/24 14:13 nitrofurantoin AdvReac sleepiness Verified 04/16/24 14:13 [From Macrobid] Physical Exam Vitals: Vital Signs Temp Pulse Resp BP Pulse Ox 04/17/24 08:50 79 17 154/91 95 04/17/24 06:00 82 16 139/71 96 04/17/24 04:00 80 16 149/82 95 04/17/24 02:00 77 16 141/81 04/17/24 00:00 72 16 127/72 95 04/16/24 21:00 87 16 129/75 97 04/16/24 17:06 98.5 F 74 16 166/81 99 04/16/24 16:15 97.9 F 82 18 156/75 98 04/16/24 15:03 97.8 F 77 16 138/86 96 04/16/24 13:03 97.8 F 66 16 145/71 98 Intake and Output 04/16/24 04/17/24 04/17/24 22:59 06:59 14:59 Intake Total 76.588 Output Total 150 Balance -73.412 Intake: Intake, IV Titration 76.588 Amount Heparin Sod,Pork in 0.45% 76.588 NaCl 25,000 unit In 0.45 % NaCl 1 250ml.bag @ 12 UNITS/KG/HR 9.798 mls/hr IV .Q24H [facility] Rx#: [id number] Output: Urine 150 Other: # Voids 1 1 Results 04/16/24 12:55 04/16/24 12:55 Cardiac Enzymes 04/16/24 04/16/24 04/16/24 Range/Units 12:55 12:55 15:15 AST 41 H (14-36) U/L Troponin I 0.223 H* 0.228 H* (0.000-0.034) ng/mL 04/16/24 Range/Units 18:36 AST (14-36) U/L Troponin I 0.197 H* (0.000-0.034) ng/mL Coagulation 04/16/24 04/16/24 04/17/24 Range/Units 12:55 21:35 05:47 PT 14.7 H (10.0-12.5) sec APTT 23.0 129.3 H* 40.1 H (22.0-30.0) sec CBC 04/16/24 Range/Units 12:55 WBC 6.8 (3.8-10.6) k/uL RBC 4.27 (3.80-5.40) m/uL Hgb 12.9 (11.4-16.0) gm/dL Hct 40.0 (34.0-46.0) % Plt Count 101 L (150-450) k/uL Comprehensive Metabolic Panel 04/16/24 Range/Units 12:55 Sodium 138 (137-145) mmol/L Potassium 4.5 (3.5-5.1) mmol/L Chloride 104 (98-107) mmol/L Carbon Dioxide 27 (22-30) mmol/L BUN 21 H (7-17) mg/dL Creatinine 0.83 (0.52-1.04) mg/dL Glucose 111 H (74-99) mg/dL Calcium 9.7 (8.4-10.2) mg/dL AST 41 H (14-36) U/L ALT 27 (4-34) U/L Alkaline Phosphatase 138 H (38-126) U/L Total Protein 6.8 (6.3-8.2) g/dL Albumin 4.3 (3.5-5.0) g/dL Current Medications Generic Name Dose Route Start Last Admin Trade Name Freq PRN Reason Stop Dose Admin Acetaminophen 650 mg 04/16/24 15:36 Acetaminophen Tab 325 Mg Tab PO Q6HR PRN Mild Pain or Fever > 100.5 Aminophylline 100 mg 04/18/24 06:00 Aminophylline 500 Mg/20 Ml Vial IV 04/18/24 12:00 ONCE PRN Patient Response Amlodipine Besylate 5 mg 04/17/24 09:00 04/17/24 09:18 Amlodipine 5 Mg Tab PO 5 mg DAILY RE[facility] Administration Artificial Tears 2 drops 04/17/24 09:45 Artificial Tears-Hypromellose Drops 15 Ml Btl BOTH EYES BID PRN Dry Eye(s) Aspirin 81 mg 04/17/24 09:00 04/17/24 09:18 Aspirin 81 Mg PO 81 mg DAILY REVA Administration Caffeine Citrate 60 mg 04/18/24 06:00 Caffeine Citrate 60 Mg/3 Ml Vial IV 04/18/24 12:00 ONCE PRN Patient Response Cyclosporine 1 drops 04/17/24 09:45 04/17/24 10:46 Cyclosporine 0.05% Ophth 0.4 Ml Droperette BOTH EYES 1 drops Q12HR [facility] Administration Famotidine 20 mg 04/18/24 09:00 Famotidine 20 Mg Tab PO DAILY RE[facility] Heparin Sodium (Porcine) 0 unit 04/16/24 14:49 Heparin Sodium 1,000 Un/Ml (10ml Vl) IV PER PROTOCOL PRN Low PTT Protocol Hydrocortisone 1 applic 04/17/24 09:45 Hydrocortisone 1% Oint 28.35 Gm Tube TOPICAL BID PRN Skin Irritation Hydromorphone HCl 0.5 mg 04/16/24 15:36 Hydromorphone 0.5 Mg/0.5 Ml Syringe IVP Q3HR PRN Moderate Pain (Scale 4 to 6) Heparin Sodium/Sodium Chloride 250 mls @ 9.798 mls/hr 04/16/24 15:00 04/17/24 00:00 25,000 unit/ Sodium Chloride IV 9 units/kg/hr .Q24H [facility] 7.348 mls/hr Titration Protocol 12 UNITS/KG/HR Sodium Chloride 1,000 mls @ 20 mls/hr 04/16/24 15:45 04/16/24 15:54 Saline 0.9% IV 20 mls/hr .Q24H [facility] Administration Levothyroxine Sodium 112 mcg 04/18/24 06:30 Levothyroxine 112 Mcg Tab PO DAILY@0630 REVA Losartan Potassium 50 mg 04/17/24 09:00 04/17/24 09:18 Losartan 50 Mg Tab PO 50 mg DAILY RE[facility] Administration Meclizine HCl 25 mg 04/17/24 09:45 Meclizine 25 Mg Tab PO Q8HR PRN dizziness Miscellaneous Information 1 each 04/16/24 12:34 Rx Info: Iv Contrast Was Given 1 Each Misc MISCELLANE 04/18/24 12:35 DAILY PRN Per Protocol Morphine Sulfate 4 mg 04/16/24 15:36 Morphine Sulfate 4 Mg/Ml Syringe IV Q4HR PRN Severe Pain (Scale 7 to 10) Naloxone HCl 0.2 mg 04/16/24 15:36 Naloxone 0.4 Mg/Ml 1 Ml Vial IV Q2M PRN Opioid Reversal Ondansetron HCl 4 mg 04/16/24 15:36 Ondansetron 4 Mg/2 Ml Vial IVP Q8HR PRN Nausea And Vomiting Polyethylene Glycol 17 gm 04/17/24 09:45 Polyethylene Glycol 3350 17 Gm Powd.Pack PO HS PRN Constipation Pravastatin Sodium 40 mg 04/17/24 09:00 04/17/24 09:18 Pravastatin Sodium 40 Mg Tab PO 40 mg DAILY REVA Administration Regadenoson 0.4 mg 04/18/24 06:00 Regadenoson 0.4 Mg/5 Ml Syringe IV 04/18/24 12:00 ONCE PRN Per Protocol Intake and Output 04/16/24 04/17/24 04/17/24 22:59 06:59 14:59 Intake Total 76.588 Output Total 150 Balance -73.412 Intake: Intake, IV Titration 76.588 Amount Heparin Sod,Pork in 0.45% 76.588 NaCl 25,000 unit In 0.45 % NaCl 1 250ml.bag @ 12 UNITS/KG/HR 9.798 mls/hr IV .Q24H [facility] Rx#: [id number] Output: Urine 150 Other: # Voids 1 1 04/16/24 12:55 04/16/24 12:55
--- NOTE | 2024-04-17 14:46 | P.CNNES ---
History of Present Illness Consult date: 04/17/24 Requesting physician: Nathalie Melendez Reason for Consult: dizziness History of Present Illness: This is an 83-year-old woman who presented emergency department because of dizziness lightheadedness. Patient daughter is at bedside who provides with the history. She seems the patient has underlying history of atrial fibrillation and she was notified by her primary care doctor to avoid Eliquis for 2 days because of her worsening of dizziness but the daughter only stopped her Eliquis dose for 1 day and that was this past Thursday. Seems the patient had stroke towards the end of February 2024 and had right STONE [employer] FRAMES stroke and was evaluated by my colleague Dr. Parra and patient's stated that since the stroke patient continues to have dizziness and it seems it getting worse as a result she cannot stand up. She is on Eliquis 5 mg twice daily. She follows up with the cardiology team as an outpatient for her cardiac switch and one of them was A- fib. Does not have any chest pain or shortness of breath. Earlier patient suffered a stroke towards the end of February 2024 and had right STONE [employer] FRAMES stroke and had mild homonymous hemianopsia on the left left worse with poor vision than her right and the daughter states that she had improvement after the stroke but now she has worsening of the vision issues. Please refer to my colleague note for further details. Some of the workup during this hospital visit consisted of: Troponin is 0.223 and got high as 0.228. Reviewed the rest of the lab workup CT head is reported as no acute intracranial abnormality. I personally reviewed the CT and there is no acute or subacute stroke. Patient does have an encephalomalacia over the right STONE [employer] FRAMES stroke. CTA head and neck: No evidence of high-grade stenosis or intracranial aneurysm. Review of Systems As per HPI. Past Medical History Past Medical History: Atrial Fibrillation, Cancer, CVA/TIA, Eye Disorder, Hyperlipidemia, Hypertension, Osteoarthritis (OA), Pneumonia, Thyroid Disorder Additional Past Medical History / Comment(s): cervical cancer, macular degeneration, varicose veins, "told a test showed I had a stroke", urinary leak age at times, History of Any Multi-Drug Resistant Organisms: None Reported Past Surgical History: Appendectomy, Cardiac Ablation, EPS, Heart Catheteri zation, Hysterectomy, Orthopedic Surgery Additional Past Surgical History / Comment(s): [place] cataracts with iplants, [place]go wrist ORIF, diego eyelid lift, pin rt ankle for fx, right knee replacement Past Anesthesia/Blood Transfusion Reactions: No Reported Reaction Past Psychological History: No Psychological Hx Reported Smoking Status: Former smoker Past Alcohol Use History: None Reported Past Drug Use History: None Reported - Past Family History Sister(s) Family Medical History: Congestive Heart Failure (CHF) Brother(s) Family Medical History: Hypertension Daughter(s) Family Medical History: AFIB, COPD Father Family Medical History: Cancer Additional Family Medical History / Comment(s): mouth and throat Medications and Allergies Home Medications Medication Instructions Recorded Confirmed Type amLODIPine [Norvasc] 5 mg PO DAILY 03/05/17 04/16/24 History Vit C/E/Zn/Coppr/Lutein/Zeaxan 2 cap PO BID 03/18/19 04/16/24 History [Preservision Areds 2 Softgel] cycloSPORINE 0.05% OPHTH SOLN 1 drop BOTH EYES Q12H 03/18/19 04/16/24 History [Restasis] traMADol HCl [Ultram] 50 mg PO BID PRN 03/18/19 04/16/24 History Losartan Potassium [Cozaar] 50 mg PO DAILY 04/25/20 04/16/24 History Multivit-Min/FA/Lycopen/Lutein 1 tab PO DAILY 04/25/20 04/16/24 History [Centrum Silver Tablet] Artificial Tears-Hypromellose 2 drops BOTH EYES BID PRN 03/07/24 04/16/24 History [Artificial Tear Drops] Glucosamine/Chondr [place] A Sod [Osteo 1 tab PO BID 03/07/24 04/16/24 History Bi-Flex Caplet] Hydrocortisone Oint 1 applic TOPICAL BID PRN 03/07/24 04/16/24 History [Hydrocortisone 2.5% Oint] Levothyroxine Sodium [Synthroid] 112 mcg PO DAILY 03/07/24 04/16/24 History [place]-3/Dha/Epa/Fish Oil [[place]-3 1 cap PO BID 03/07/24 04/16/24 History Fish Oil 1,000 mg Sfgl] Pravastatin Sodium [Pravachol] 40 mg PO DAILY 03/07/24 04/16/24 History polyethylene glycoL 3350 [Miralax] 17 gm PO HS PRN 03/07/24 04/16/24 History Apixaban [Eliquis] 5 mg PO BID #60 tab 03/11/24 04/16/24 Rx Aspirin 81 mg PO DAILY #30 tab 03/11/24 04/16/24 Rx Famotidine [Pepcid] 20 mg PO DAILY #30 tablet 03/11/24 04/16/24 Rx Meclizine [Antivert] 25 mg PO Q8HR PRN #60 tab 03/11/24 04/16/24 Rx Doxycycline Monohydrate 100 mg PO BID 04/16/24 04/16/24 History Allergies Allergy/AdvReac Type Severity Reaction Status Date / Time Sulfa (Sulfonamide Allergy Unknown Verified 04/16/24 14:13 Antibiotics) Childhood atorvastatin calcium AdvReac Dizziness Verified 04/16/24 14:13 [From Lipitor] levofloxacin [From Levaquin] AdvReac joint pain Verified 04/16/24 14:13 nitrofurantoin AdvReac sleepiness Verified 04/16/24 14:13 [From Macrobid] Physical Examination - Vital Signs Vital Signs: Vital Signs Temp Pulse Resp BP Pulse Ox 04/17/24 08:50 79 17 154/91 95 04/17/24 06:00 82 16 139/71 96 04/17/24 04:00 80 16 149/82 95 04/17/24 02:00 77 16 141/81 04/17/24 00:00 72 16 127/72 95 04/16/24 21:00 87 16 129/75 97 04/16/24 17:06 98.5 F 74 16 166/81 99 04/16/24 16:15 97.9 F 82 18 156/75 98 04/16/24 15:03 97.8 F 77 16 138/86 96 Intake and Output 04/16/24 04/17/24 04/17/24 22:59 06:59 14:59 Intake Total 76.588 Output Total 150 Balance -73.412 Intake: Intake, IV Titration 76.588 Amount Heparin Sod,Pork in 0.45% 76.588 NaCl 25,000 unit In 0.45 % NaCl 1 250ml.bag @ 12 UNITS/KG/HR 9.798 mls/hr IV .Q24H [facility] Rx#: [id number] Output: Urine 150 Other: # Voids 1 1 General: Lying in bed and is not in acute distress. Neuro: The patient is awake alert oriented to self. She stated she is in the hospital but does not know the name. She does not know the time. She is following s imple commands. No aphasia. The pupils are round equal reactive to light. Patient has left upper quadrant homonymous hemianopsia. Extraocular movements intact no nystagmus. Normal facial sensation to touch no facial weakness. No dysarthria. Markedly decreased hearing to touch bilaterally. Motor the strength is 5 out of 5. Normal tone and bulk Sensation is normal to touch. Plantars are mute. Results - Laboratory Findings CBC and BMP: 04/16/24 12:55 04/16/24 12:55 Abnormal Lab Findings: Abnormal Labs 04/16/24 04/16/24 04/16/24 12:55 12:55 12:55 Plt Count 101 L PT INR APTT BUN 21 H Glucose 111 H AST 41 H Alkaline Phosphatase 138 H Troponin I 0.223 H* Urine Blood 04/16/24 04/16/24 04/16/24 12:55 15:15 16:00 Plt Count PT 14.7 H INR 1.4 H APTT BUN Glucose AST Alkaline Phosphatase Troponin I 0.228 H* Urine Blood Trace H 04/16/24 04/16/24 04/17/24 18:36 21:35 05:47 Plt Count PT INR APTT 129.3 H* 40.1 H BUN Glucose AST Alkaline Phosphatase Troponin I 0.197 H* Urine Blood Assessment and Plan Assessment: This is an 83-year-old woman with history of atrial fibrillation on Eliquis who per the daughter has been having dizziness lightheadedness since end of February 2024 and progressively getting worse and recently she had a hard time standing up because of the dizziness and was notified by her primary care physician to hold off Eliquis for 2 days but the patient stopped Eliquis for a day. Ongoing dizziness lightheadedness rule out any acute or subacute stroke. Acc ording to the daughter patient used to have visual disturbance from her old stroke but resolved but now has worsening of her vision. On examination I felt the patient had left upper quadrant field cut bilaterally Elevated troponin History of right STONE [employer] FRAMES stroke towards the end of February 2024 and she had mild left homonymous hemianopsia (left eye worse than right per Dr. Parra) History of atrial fibrillation and is on Eliquis Plan: During this hospital visit patient was placed on aspirin 81 mg daily by cardiology team and was given aspirin 324 mg once in the ED. Also was placed on heparin drip by the ED team. Patient is resumed on her home dose of pravastatin 4 mg daily. I ordered MRI of the brain. Pending 2D echo and stress test ordered by cardiology team Orthostatic vitals is ordered and is pending the I consulted PT and OT Continue neurochecks Cardiac monitoring Will defer the rest of the medical management to primary and other specialist For DVT prophylaxis the patient is on heparin drip The plan is discussed with the patient, her daughter was at bedside. Thank you for the consultation Dr. Jovel will resume neurology service tomorrow AM Time with Patient: Greater than 30
--- NOTE | 2024-04-17 22:14 | CT ---
EXAMINATION TYPE: CT brain wo con DATE OF EXAM: 04/17/2024 9:47 PM COMPARISON: Previous CT head study dated. CLINICAL INDICATION: Female, 83 years old with history of pupil changes, Pupil changes. TECHNIQUE: Brain: Axial CT images of the brain were obtained with coronal and sagittal reformats created and rev iewed. Contrast used: None. Oral contrast used: None. CT DLP: 1168.8 mGycm, Automated exposure control for dose reduction was used. FINDINGS: Brain: New high density parenchymal hemorrhage at the left parieto-occipital junction with small amount of s urrounding vasogenic edema. There is also small amount of subarachnoid hemorrhage in the adjacent sul ci. No significant midline shift or evidence of acute mass effect at this time. Ventricles and sulci are prominent compatible generalized cerebral volume loss. Patchy periventricular and subcortical whi te matter hypoattenuation likely reflecting chronic microvascular ischemia. Possible tiny old right b nitish ganglia infarcts. Old infarction in the right occipital region. Basal cisterns appear patent. No sizable extra-axial fluid collection. Previous bilateral cataract lens extraction noted. No depresse d skull fracture or significant scalp hematoma. Paranasal sinuses and mastoid air cells appear patent . IMPRESSION: New region of intraparenchymal hemorrhage at the left parieto-occipital junction with small amount of surrounding vasogenic edema and adjacent subarachnoid hemorrhage in the sulci. No significant mass e ffect or midline shift at this time. *Critical findings were discussed with Elizabeth Elkins NP at approximately 9:58 PM on 04/17/2024. [facility], , 04/17/2024 10:12 PM
[2024-04-17] MEDS: PROTAMINE SULFATE 50 MG in SODIUM CHLORIDE 0.9% 50 ML IVPB ONE (22:38)
[2024-04-17 22:55] LABS: Basophils # (A) 0.1 k/uL (0-0.2); Basophils % (A) 1 %; Eosinophils # (A) 0.3 k/uL (0-0.7); Eosinophils % (A) 5 %; HCT 36.6 % (34.0-46.0); HGB 12.3 gm/dL (11.4-16.0); Lymphocytes # (A) 1.9 k/uL (1.0-4.8); Lymphocytes % (A) 31 %; MCH 31.1 pg (25.0-35.0); MCHC 33.6 g/dL (31.0-37.0); MCV 92.5 fL (80.0-100.0); Mean Platelet Volume 8.4; Monocytes # (A) 0.4 k/uL (0-1.0); Monocytes % (A) 6 %; Neutrophils # (A) 3.3 k/uL (1.3-7.7); Neutrophils % (A) 55 %; Platelet Count 113 k/uL (150-450); RBC 3.95 m/uL (3.80-5.40); RDW 13.6 % (11.5-15.5)
[2024-04-17 23:15] LABS: African American GFR (CKD) >90 (>60 ml/min/1.73 sqM); Anion Gap 10 mmol/L; Blood Urea Nitrogen 10 mg/dL (7-17); Calcium 9.6 mg/dL (8.4-10.2); Carbon Dioxide 23 mmol/L (22-30); Chloride 105 mmol/L (98-107); Glucose 93 mg/dL (74-99); Non-African American GFR(CKD) 82 (>60 ml/min/1.73 sqM); Potassium 3.9 mmol/L (3.5-5.1); Sodium 138 mmol/L (137-145)
--- NOTE | 2024-04-17 23:17 | P.PN ---
Progress Note - Text Progress Note Date: 04/17/24 I was updated by the nurse that patient had unequal pupils, 3mm on left and 2mm on right. I notified the nurse to obtain a repeat CT head. The nurse was updated by tech there is possibly a bleed and ED physician reviewed it and did feel it was a bleed. Therefore, heparin drip was stopped. I spoke with primary team N.P. (Lilly) and will give reversal of heparin drip. Will obtain repeat CBC, PTT. ASA was stopped. Recommend transferring patient to a tertiary center for Neurosurgical evaluation. Recommend SBP<140. If patient continues to be in our facility recommend patient to be in our ICU and will get repeat CT head tomorrow.
[2024-04-17 23:35] LABS: Glucose,Whole Blood 96 mg/dL (70-110)
[2024-04-18 00:17] VITALS: BP 154/78; PULSE 75; RESP 14; TEMP 97.8
[2024-04-18] MEDS: hydrALAZINE HCL 20 MG/ML 1 ML VIAL IVP PRN (00:37)
[2024-04-18 00:58] LABS: INR 1.2 (<1.2); Partial Thromboplastin Time 22.4 sec (22.0-30.0); Prothrombin Time 12.9 sec (10.0-12.5)
--- NOTE | 2024-04-18 03:59 | P.CNPUL ---
History of Present Illness Consult date: 04/18/24 Requesting physician: Lilly Elkins Reason for consult: other (Intracerebral hemorrhage) Chief complaint: Altered mental status History of present illness: Patient is a 83-year-old female with past medical history significant for CVA/TIA, hyperlipidemia, hypertension, carotid artery stenosis, atrial fibrillation, hypertension, hypothyroidism, former tobacco smoker. Per the patient's daughter, patient did have a recent stroke in February. Brain MRI available from 03/07/24 compatible with an area of acute ischemia involving the right occipital lobe. Additional punctate areas of acute ischemia in the left superior parietal, right deep white matter, and left cerebellar hemisphere. No thrombolytics were given. CT angio of the head and neck taken on 03/07/24 showing approximately 60% stenosis at the origin of left ICA and approximately 50% stenosis of the right ICA. Since then, the patient has been unable to take care of herself indepedently at home. Having "dizzy spells" and has been getting generally weaker. She did have another hospitalization for syncope in March. A loop recorder was inserted by Cardiology. Previously on Eliquis for her atrial fibrillation, which was stopped approximately 2 days prior to her hospitalization reportedly by her PCP. Over the last 2 days, no longer able to take care of herself at home. Noted to be more tired and lethargic at home. Intermittent bouts of confusion reported by daughter. Recent outpatient treatment for UTI. Was brought in by family on 04/16/23. Had elevated troponins in the ED, admitted with possible non-ST elevation ID. She was started on IV heparin per cardiology. While in the emergency department as a 3 S. overflow patient reportedly had worsening mentation, severe headache, aphasia, and unequal pupils. A follow-up brain CT without contrast showing new region of intraparenchymal hemorrhage at the left parietal occipital junction with small amount of surrounding vasogenic edema and adjacent subarachnoid hemorrhage in the sulci. No significant mass effect or midline shift at this time. This is new from previous brain CT done initially in the ER. Patient is currently in the process of being transferred to [facility]. It was recommended by the neurologist for the patient to be transferred to the intensive care unit for observation until the outside transfer can be initiated. I am evaluating this patient initially in the emergency department, room 24. Her daughter is at the bedside. Patient is alert, oriented to self and place. She is able to protect her airway at this time. There is no need for intubation. Chief complaint at this time includes a severe frontal headache rated 10/10 on a 10 point numerical scale. No notable aphasia or dysarthria at this time. Denies any nausea or vomiting, vision changes, focal extremity weakness. Per the ER nurse there were no acute hy pertensive events. CBC: WBC count 6, hemoglobin 12.3, hematocrit 36.6, platelets 113. Most recent APTT 40.1. BMP: Sodium 138, potassium 3.9, chloride 105, serum bicarb 23, BUN 10, creatinine 0.67, glucose 93. Troponins 0.22, 0.23, and 0.2 respectively. The heparin has since been stopped. ASA has been stopped. Patient has been given a dose of protamine sulfate for reversal. Current vital signs temperature 97.8 F, heart rate 75 bpm, blood pressure 154/78 mmHg, respiratory rate nontachypneic, SpO2 95% on room air. Plan at the moment is transferred to [facility]. Review of Systems Constitutional: Reports weakness, Denies chills, Denies fever, Denies weight gain, Denies weight loss Ears, nose, mouth and throat: Reports headache, Denies epistaxis Cardiovascular: Reports high blood pressure, Reports lightheadedness, Denies chest pain, Denies dyspnea on exertion, Denies leg edema, Denies orthopnea, Denies palpitations, Denies paroxysmal nocturnal dyspnea, Denies syncope Respiratory: Denies congestion, Denies cough, Denies dyspnea Gastrointestinal: Denies change in bowel habits, Denies hematochezia, Denies melena Genitourinary: Denies dysuria Musculoskeletal: Denies limitation of motion Integumentary: Denies rash, Denies unusual bruising Neurological: Reports headaches, Reports memory loss, Denies head injury, Denies numbness, Denies paralysis, Denies paresthesias, Denies seizures, Denies syncope, Denies tremors, Denies vertigo, Denies weakness, Denies visual changes Psychiatric: Denies anxiety, Denies depression Past Medical History Past Medical History: Atrial Fibrillation, Cancer, CVA/TIA, Eye Disorder, Hyperlipidemia, Hypertension, Osteoarthritis (OA), Pneumonia, Thyroid Disorder Additional Past Medical History / Comment(s): cervical cancer, macular degeneration, varicose veins, "told a test showed I had a stroke", urinary leakage at times, History of Any Multi-Drug Resistant Organisms: None Reported Past Surgical History: Appendectomy, Cardiac Ablation, EPS, Heart Cath eterization, Hysterectomy, Orthopedic Surgery Additional Past Surgical History / Comment(s): Asya cataracts with iplants, asya wrist ORIF, asya eyelid lift, pin rt ankle for fx, right knee replacement Past Anesthesia/Blood Transfusion Reactions: No Reported Reaction Past Psychological History: No Psychological Hx Reported Smoking Status: Former smoker Past Alcohol Use History: None Reported Past Drug Use History: None Reported - Past Family History Sister(s) Family Medical History: Congestive Heart Failure (CHF) Brother(s) Family Medical History: Hypertension Daughter(s) Family Medical History: AFIB, COPD Father Family Medical History: Cancer Additional Family Medical History / Comment(s): mouth and throat Medications and Allergies Home Medications Medication Instructions Recorded Confirmed Type amLODIPine [Norvasc] 5 mg PO DAILY 03/05/17 04/16/24 History Vit C/E/Zn/Coppr/Lutein/Zeaxan 2 cap PO BID 03/18/19 04/16/24 History [Preservision Areds 2 Softgel] cycloSPORINE 0.05% OPHTH SOLN 1 drop BOTH EYES Q12H 03/18/19 04/16/24 History [Restasis] traMADol HCl [Ultram] 50 mg PO BID PRN 03/18/19 04/16/24 History Losartan Potassium [Cozaar] 50 mg PO DAILY 04/25/20 04/16/24 History Multivit-Min/FA/Lycopen/Lutein 1 tab PO DAILY 04/25/20 04/16/24 History [Centrum Silver Tablet] Artificial Tears-Hypromellose 2 drops BOTH EYES BID PRN 03/07/24 04/16/24 History [Artificial Tear Drops] Glucosamine/Chondr Keating A Sod [Osteo 1 tab PO BID 03/07/24 04/16/24 History Bi-Flex Caplet] Hydrocortisone Oint 1 applic TOPICAL BID PRN 03/07/24 04/16/24 History [Hydrocortisone 2.5% Oint] Levothyroxine Sodium [Synthroid] 112 mcg PO DAILY 03/07/24 04/16/24 History [place]-3/Dha/Epa/Fish Oil [[place]-3 1 cap PO BID 03/07/24 04/16/24 History Fish Oil 1,000 mg Sfgl] Pravastatin Sodium [Pravachol] 40 mg PO DAILY 03/07/24 04/16/24 History polyethylene glycoL 3350 [Miralax] 17 gm PO HS PRN 03/07/24 04/16/24 History Apixaban [Eliquis] 5 mg PO BID #60 tab 03/11/24 04/16/24 Rx Aspirin 81 mg PO DAILY #30 tab 03/11/24 04/16/24 Rx Famotidine [Pepcid] 20 mg PO DAILY #30 tablet 03/11/24 04/16/24 Rx Meclizine [Antivert] 25 mg PO Q8HR PRN #60 tab 03/11/24 04/16/24 Rx Doxycycline Monohydrate 100 mg PO BID 04/16/24 04/16/24 History Allergies Allergy/AdvReac Type Severity Reaction Status Date / Time Sulfa (Sulfonamide Allergy Unknown Verified 04/16/24 14:13 Antibiotics) Childhood atorvastatin calcium AdvReac Dizziness Verified 04/16/24 14:13 [From Lipitor] levofloxacin [From Levaquin] AdvReac joint pain Verified 04/16/24 14:13 nitrofurantoin AdvReac sleepiness Verified 04/16/24 14:13 [From Macrobid] Physical Exam Vitals: Vital Signs Temp Pulse Pulse Pulse Pulse Resp BP 04/18/24 00:00 97.8 F 75 14 04/17/24 23:00 98.2 F 82 18 04/17/24 20:00 98.0 F 91 16 04/17/24 16:35 82 87 88 04/17/24 16:30 98.3 F 82 16 04/17/24 16:00 97.8 F 90 27 H 04/17/24 12:00 98.3 F 79 18 04/17/24 08:50 79 17 154/91 04/17/24 06:00 82 16 139/71 04/17/24 04:00 80 16 149/82 04/17/24 02:00 77 16 141/81 BP BP BP BP Pulse Ox 04/18/24 00:00 154/78 95 04/17/24 23:00 158/83 96 04/17/24 20:00 140/84 95 04/17/24 16:35 149/85 128/103 143/69 04/17/24 16:30 143/69 96 04/17/24 16:00 154/78 100 04/17/24 12:00 157/92 96 04/17/24 08:50 95 04/17/24 06:00 96 04/17/24 04:00 95 04/17/24 02:00 Intake and Output 04/17/24 04/17/24 04/18/24 14:59 22:59 06:59 Intake Total 650.144 Balance 650.144 Intake: Intake, IV Titration 350.144 Amount Heparin Sod,Pork in 0.45% 150.144 NaCl 25,000 unit In 0.45 % NaCl 1 250ml.bag @ 12 UNITS/KG/HR 9.798 mls/hr IV .Q24H REVA Rx#: [id number] Sodium Chloride 0.9% 1, 200 000 ml @ 20 mls/hr IV . Q24H REVA Rx#:[id number] Oral 300 Other: # Voids 2 0 # Bowel Movements 0 Weight 81.647 kg GENERAL EXAM: Alert, 83-year-old female, fairly comfortable in no apparent distress. HEAD: Normocephalic and atraumatic EYES: Normal reaction of pupils, No nystagmus. Nonicteric sclera. NOSE: Clear with pink turbinates. THROAT: No erythema or exudates. NECK: No masses, no JVD. CHEST: No chest wall deformity. LUNGS: Equal air entry with no crackles, wheeze, rhonchi or dullness. On room air. No conversational dyspnea or accessory muscle use.. CVS: S1 and S2 normal with no audible murmur, irregular rhythm. No extra heart sounds ABDOMEN: No hepatosplenomegaly, active bowel sounds, no guarding or rigidity. SPINE: No scoliosis or deformity SKIN: No rashes CENTRAL NERVOUS SYSTEM: Alert and oriented to self and place. Cranial nerves II through XII intact, no aphasia or dysarthria noted, no focal unilateral e xtremity deficits. No ataxia. Patellar DTRs 2+ bilaterally. EXTREMITIES: There is no peripheral edema, clubbing, or cyanosis. Peripheral pulses are intact. Results - Laboratory Findings CBC and BMP: 04/17/24 22:44 04/17/24 22:44 PT/INR, D-dimer PT 14.7 sec (10.0-12.5) H 04/16/24 12:55 INR 1.4 (<1.2) H 04/16/24 12:55 Abnormal lab findings: Abnormal Labs 04/16/24 04/16/24 04/16/24 12:55 12:55 12:55 Plt Count 101 L PT INR APTT BUN 21 H Glucose 111 H AST 41 H Alkaline Phosphatase 138 H Troponin I 0.223 H* Urine Blood 04/16/24 04/16/24 04/16/24 12:55 15:15 16:00 Plt Count PT 14.7 H INR 1.4 H APTT BUN Glucose AST Alkaline Phosphatase Troponin I 0.228 H* Urine Blood Trace H 04/16/24 04/16/24 04/17/24 18:36 21:35 05:47 Plt Count PT INR APTT 129.3 H* 40.1 H BUN Glucose AST Alkaline Phosphatase Troponin I 0.197 H* Urine Blood 04/17/24 22:44 Plt Count 113 L PT INR APTT BUN Glucose AST Alkaline Phosphatase Troponin I Urine Blood - Diagnostic Findings Chest x-ray: image reviewed Assessment and Plan Assessment: Hemorrhagic stroke, brain CT without contrast showing new region of intraparenchymal hemorrhage at the left parietal occipital junction with small amount of surrounding vasogenic edema and adjacent subarachnoid hemorrhage in the sulci. No significant mass effect or midline shift at this time. This is new from previous brain CT done initially in the ER. Heparin has been stopped. A dose of protamine sulfate given previously. Plan is for transfer to tertiary care center Elevated troponins, possible non-ST elevation ID, IV heparin infusion has been stopped secondary to above History of CVA/TIA, brain MRI 03/07/2024 demonstrating area of acute ischemia involving the right occipital lobe. Additional punctate areas of acute ischemia in the left superior parietal, right deep white matter, and left cerebellar hemisphere Atrial fibrillation with controlled ventricular response Hypertension History of hyperlipidemia History of carotid artery stenosis, CTA of the neck in February, showing approximately 60% stenosis at the origin of left ICA and approximately 50% stenosis of the right ICA. Former tobacco smoker History of hypothyroidism History of cervical cancer Plan: Patient's medications, labs, imaging reviewed Plan is for patient to be transferred to tertiary care center, as of now, [facility]. In the meantime, patient will be monitored in the intensive care unit. Able to protect her airway, no need for intubation. IV heparin has since been discontinued, and patient previously received dose of protamine sulfate. ASA discontinued Neurochecks per protocol Avoid acute hypertension, as needed hydralazine ordered, neurology is recommending a systolic blood pressure less than 140 mmHg We will continue to monitor the patient in the intensive care unit, until transfer to tertiary care facility with neurosurgical capabilities can be arranged. I have personally seen and examined the patient, performed the documentation and the assessment and plan as written. Number of minutes spent on the visit:20 This dictation was produced using [employer] dictation software please excuse grammatical errors This is a joint evaluation that was done along with the nurse practitioner. This evaluation was done more than 30 minutes. In summary, the patient presented to us with a hemorrhagic stroke and acute non-ST segment elevation myocardial infarction. The patient is known to have previous history of CVA The patient presented with symptoms of dizziness and the patient has been progressively getting weak.. She is known to have history of chronic A-fib, carotid artery stenosis, hypertension hyperlipidemia along with previous history of CVA. Most recent brain MRI from February 2024 was consistent with an acute ischemic stroke involving the occipital area. The patient also had 60% stenosis of the origin of the left ICA and 50% right ICA. She takes anticoagulants CAT scan of the brain that was done in the emergency showed intraparenchymal hemorrhage on the left parietal occipital junction with secondary vasogenic edema. She is noted the patient had stopped her anticoagulation 48 hours prior to her current admission as the patient was taken Eliquis and the patient was placed on IV heparin during this current admission for acute non ST segment elevation myocardial infarction. Based on that, IV heparin was discontinued, the patient was given protamine, and due to the evolution of a hemorrhagic stroke, the patient was transferred to [facility] for a neurosurgical evaluation. Aspirin was also discontinued. She was hemodynamically stable on room air oxygen at the time of transfer. Time with Patient: Greater than 30
[2024-04-18] MEDS ORDERED: AMINOPHYLLINE 500 MG/20 ML VIAL IV PRN (06:00)
[2024-04-18] MEDS ORDERED: REGADENOSON 0.4 MG/5 ML SYRINGE IV PRN (06:00)
[2024-04-18] MEDS ORDERED: CAFFEINE CITRATE 60 MG/3 ML VIAL IV PRN (06:00)
[2024-04-18] MEDS ORDERED: LEVOTHYROXINE 112 MCG TAB PO SCH (06:30)
[2024-04-18] MEDS ORDERED: FAMOTIDINE 20 MG TAB PO SCH (09:00)
--- NOTE | 2024-04-19 21:50 | P.DS ---
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 -Vertigo, along with visual loss: Patient had a history of posterior stroke in 2023 -Elevated troponin possibility of type I NSTEMI cannot be ruled out -Paroxysmal atrial fibrillation rate controlled. Patient was on IV heparin, eliquis held. -Hyperlipidemia -Hypertension -Hypothyroidism -History of CVA in the past Full Code Transfer Disposition Stable for transfer to tertiary care. Patient alert x 1-2 and protecting airways currently on room air with oxygen saturations of 95%. Aspirin and IV heparin have been discontinued. EMS has picked up the patient around 2 am on 04/18/2024 for [facility] ICU. Hospital Course This is an 83-year-old pleasant female came in with complaints of vertigo and dizziness. Patient was admitted back in February of 2024 and diagnosed with Right CLIENT CARE CONSULTANT stroke. Had left temporal hemianopsia symptoms has gotten worse last couple days because of which patient called the PCP who asked to hold Eliquis. Patient was taking 5 mg twice a day of Eliquis and was taking 2.5 mg twice a day of Eliquis before the stroke. Patient held the eliquis for 1 day and it was resumed by daughter per the medical record. Patient came in for further evaluation. Patient denied any fever chills patient was complaining of generalized weakness. Patient denied any chest pain although patient's troponins are mildly elevated to 0.223, 0.228, 0.197. Patient has some T wave inversions in some leads unknown whether these are new or old. Patient does not have any other focal weakness patient does not have any other cerebellar signs initially. Was admitted to the cardiac unit and holding in the ER. Neurology and cardiology evaluated the patient. Eliquis was held; was started on IV heparin low intensity protocol with plans to undergo lexiscan stress test on 04/18/24. Rosalab bartlett was noted to have unequal pupil sizes with left larger than right and worsening confusion and dizziness. Repeat brain was done this evening 04/17/24 at 2206 with readings of a new high density parenchymal hemorrhage at the left parieto-occipital junction with small amount of vasogenic edema. There is also small amount of subarachnoid hemorrhage in the adjacent sulci. No significant shit or evidence of acute mass affect at this time. Possible tiny old right basal ganglia infarcts. Old infarction in the right occipital region. Findings were discussed with radiologist and neurologist. IV heparin was discontinued and patient given 50 mg of protamine sulfate as reversal agent. CBC, BMP, PTT and PT/INR checked. Patient upgraded to the ICU and transfer initiated to tertiary care center. Dr Hernandez with neurosurgery, Dr Greene hospitalist and Dr. Gavin cafe attendant have accepted the patient at [facility]. Please see medication reconciliation for a list of current medications. Thank you for allowing us to participate in the care of this patient. The impression and plan of care has been dictated by Lilly Elkins, Nurse Practitioner as directed. Dr. Safia MD I have performed a history and physical examination and medical decision making of this patient, discussed the same with the dictator, and agree with the dictators assessment and plan as written, documented as a scribe. Based on total visit time, I have performed more than 50% of this visit. Plan - Discharge Summary Discharge Rx Participant: No New Discharge Prescriptions: No Action amLODIPine [Norvasc] 5 mg PO DAILY traMADol HCl [Ultram] 50 mg PO BID PRN PRN Reason: Pain Vit C/E/Zn/Coppr/Lutein/Zeaxan [Preservision Areds 2 Softgel] 2 cap PO BID cycloSPORINE 0.05% OPHTH SOLN [Restasis] 1 drop BOTH EYES Q12H Multivit-Min/FA/Lycopen/Lutein [Centrum Silver Tablet] 1 tab PO DAILY Losartan Potassium [Cozaar] 50 mg PO DAILY Artificial Tears-Hypromellose [Artificial Tear Drops] 2 drops BOTH EYES BID PRN PRN Reason: Dry Eye(S) Pravastatin Sodium [Pravachol] 40 mg PO DAILY Hydrocortisone Oint [Hydrocortisone 2.5% Oint] 1 applic TOPICAL BID PRN PRN Reason: Skin Irritation Aspirin 81 mg PO DAILY #30 tab Famotidine [Pepcid] 20 mg PO DAILY #30 tablet [place]-3/Dha/Epa/Fish Oil [[place]-3 Fish Oil 1,000 mg Sfgl] 1 cap PO BID polyethylene glycoL 3350 [Miralax] 17 gm PO HS PRN PRN Reason: Constipation Glucosamine/Chondr [place]ating A Sod [Osteo Bi-Flex Caplet] 1 tab PO BID Levothyroxine Sodium [Synthroid] 112 mcg PO DAILY Apixaban [Eliquis] 5 mg PO BID #60 tab Meclizine [Antivert] 25 mg PO Q8HR PRN #60 tab PRN Reason: dizziness Doxycycline Monohydrate 100 mg PO BID Discharge Medication List amLODIPine [Norvasc] 5 mg PO DAILY 03/05/17 [History] Vit C/E/Zn/Coppr/Lutein/Zeaxan [Preservision Areds 2 Softgel] 2 cap PO BID 03/18/19 [History] cycloSPORINE 0.05% OPHTH SOLN [Restasis] 1 drop BOTH EYES Q12H 03/18/19 [History] traMADol HCl [Ultram] 50 mg PO BID PRN 03/18/19 [History] Losartan Potassium [Cozaar] 50 mg PO DAILY 04/25/20 [History] Multivit-Min/FA/Lycopen/Lutein [Centrum Silver Tablet] 1 tab PO DAILY 04/25/20 [History] Artificial Tears-Hypromellose [Artificial Tear Drops] 2 drops BOTH EYES BID PRN 03/07/24 [History] Glucosamine/Chondr [place] A Sod [Osteo Bi-Flex Caplet] 1 tab PO BID 03/07/24 [History] Hydrocortisone Oint [Hydrocortisone 2.5% Oint] 1 applic TOPICAL BID PRN 03/07/24 [History] Levothyroxine Sodium [Synthroid] 112 mcg PO DAILY 03/07/24 [History] [place]-3/Dha/Epa/Fish Oil [[place]-3 Fish Oil 1,000 mg Sfgl] 1 cap PO BID 03/07/24 [History] Pravastatin Sodium [Pravachol] 40 mg PO DAILY 03/07/24 [History] polyethylene glycoL 3350 [Miralax] 17 gm PO HS PRN 03/07/24 [History] Apixaban [Eliquis] 5 mg PO BID #60 tab 03/11/24 [Rx] Aspirin 81 mg PO DAILY #30 tab 03/11/24 [Rx] Famotidine [Pepcid] 20 mg PO DAILY #30 tablet 03/11/24 [Rx] Meclizine [Antivert] 25 mg PO Q8HR PRN #60 tab 03/11/24 [Rx] Doxycycline Monohydrate 100 mg PO BID 04/16/24 [History] Follow up Appointment(s)/Referral(s): Kesha Graham DO [Primary Care Provider] - 1-2 days Discharge Disposition: TRANSFER TO SHORT TERM HOSP
== END 2024-04-18 06:49 | disposition short-term general hospital (02) | DRG 64 ==
LOC: EC 11:53 → 3SCARD 15:36 → 2SICU 04-17 22:55
PROVIDERS: ADMIT Family Medicine; ATTEND Family Medicine
DX: I60.9 Nontraumatic subarachnoid hemorrhage, unspecified (principal); G93.6 Cerebral edema; I48.19 Other persistent atrial fibrillation; R47.01 Aphasia; N39.0 Urinary tract infection, site not specified; I61.8 Other nontraumatic intracerebral hemorrhage; I10 Essential (primary) hypertension; H54.61 Unqualified visual loss, right eye, normal vision left eye; H53.462 Homonymous bilateral field defects, left side; I69.398 Other sequelae of cerebral infarction; G93.89 Other specified disorders of brain; E78.5 Hyperlipidemia, unspecified; E66.9 Obesity, unspecified; E03.9 Hypothyroidism, unspecified; I45.10 Unspecified right bundle-branch block; I65.23 Occlusion and stenosis of bilateral carotid arteries; Z68.34 Body mass index [BMI] 34.0-34.9, adult; Z79.01 Long term (current) use of anticoagulants; Z79.82 Long term (current) use of aspirin; Z79.890 Hormone replacement therapy; Z79.899 Other long term (current) drug therapy; Z85.41 Personal history of malignant neoplasm of cervix uteri; Z87.891 Personal history of nicotine dependence; Z90.710 Acquired absence of both cervix and uterus; Z87.01 Personal history of pneumonia (recurrent); Z96.651 Presence of right artificial knee joint; Z98.42 Cataract extraction status, left eye; Z98.41 Cataract extraction status, right eye; Z82.49 Family history of ischemic heart disease and other diseases of the circulatory system; Z88.2 Allergy status to sulfonamides; Z95.818 Presence of other cardiac implants and grafts
CPT/HCPCS: 36415; 70450; 70496; 71046; 80048; 80053; 81001; 83605; 84484; 85025; 85610; 85730; 93005; 96361; 96365; 96366; 96367; 99285